=== PATIENT | male | born 1950 | race Caucasian/White ===

== ENCOUNTER 2017-06-03 06:30 | Inpatient (IN) | payer MEDICARE, MEDICAID ==
[~2017-06-03] VITALS: Ht 167.6 cm; Wt 80.7 kg
--- NOTE | 2017-06-03 06:51 | NUR ---
CALLED LAB FOR BLOOD DRAW.
--- NOTE | 2017-06-03 06:59 | NUR ---
PT REPORT GIVEN TO JOESPH JONES FOR CHRISTIAN
--- NOTE | 2017-06-03 07:05 | NUR ---
RECEIVED REPORT FOR CHRISTIAN. PATIENT REMAINS IN STABLE CONDITION. EMT AT BEDSIDE FOR EKG.
--- NOTE | 2017-06-03 07:32 | NUR ---
CALLED LAB ONCE AGAIN FOR BLOOD DRAW, INFORMED GRAIN COMBINER ON THE WAY FOR DRAW.
--- NOTE | 2017-06-03 07:40 | NUR ---
SAMPLER RADIOACTIVE WASTE AT BEDSIDE.
--- NOTE | 2017-06-03 07:43 | NUR ---
WAREHOUSE HANDLER AT BEDSIDE FOR BLOOD DRAW.
[2017-06-03 08:16] LABS: BASOPHILS % (AUTO) 0.5 % (0.0-2.0); EOSINOPHILS % (AUTO) 2.5 % (0.0-6.0); HEMATOCRIT 34 % (39-51); HEMOGLOBIN 10.9 g/dL (13.5-17.5); LYMPHOCYTES # (AUTO) 2.4 /CMM (0.8-4.8); LYMPHOCYTES % (AUTO) 23.9 % (20.0-44.0); MEAN CORPUSCULAR HGB CONC 32 g/dl (31.0-36.0); MEAN CORPUSCULAR VOLUME 86 fL (80-96); MONOCYTES # (AUTO) 0.7 /CMM (0.1-1.30); MONOCYTES % (AUTO) 6.8 % (2.0-12.0); NEUTROPHILS # (AUTO) 6.6 /CMM (1.8-8.9); NEUTROPHILS % (AUTO) 66.3 % (43.0-81.0); PLATELET COUNT (AUTO) 307 /CMM (150-450); RDW COEFFICIENT OF VARIATION 17.5 (11.5-15.0); RED BLOOD CELL COUNT(AUTO) 3.93 MIL/uL (4.5-6.0); WHITE BLOOD COUNT (AUTO) 9.9 K/uL (4.3-11.0)
[2017-06-03 08:25] LABS: CALCIUM, SERUM 8.4 mg/dL (8.5-10.1); CARBON DIOXIDE 25 mmol/L (21-32); CHLORIDE 101 mmol/L (98-107); CREATININE 1.4 mg/dL (0.6-1.3); GLUCOSE 141 mg/dL (74-106); POTASSIUM 4.8 mmol/L (3.5-5.1); SODIUM SERUM 136 mmol/L (136-145); UREA NITROGEN, BLOOD 26 mg/dL (7-18)
[2017-06-03 08:31] LABS: ALANINE AMINOTRANSFERASE 14 U/L (12-78); ALBUMIN 2.5 g/dL (3.4-5.0); ALKALINE PHOSPHATASE 145 U/L (46-116); ASPARTATE AMINOTRANSFERASE 17 U/L (15-37); BILIRUBIN,DIRECT 0.4 mg/dL (0.0-0.2); BILIRUBIN,TOTAL 0.8 mg/dL (0.2-1.0); TOTAL PROTEIN, SERUM 7.4 g/dL (6.4-8.2)
[2017-06-03 08:36] LABS: TROPONIN I < 0.017 ng/mL (0.00-0.056)
--- NOTE | 2017-06-03 08:42 | NUR ---
[facility] paged
[2017-06-03 08:43] LABS: INR 1.11 (0.87-1.13)
--- NOTE | 2017-06-03 09:42 | NUR ---
NEW IV STARTED ON RAC, 20G. BLOOD DRAWN AND SENT TO LAB.
--- NOTE | 2017-06-03 09:47 | NUR ---
REPORT GIVEN TO RNDARIAN FOR CHRISTIAN UPON ADMISSION. PATIENT TRANSPORTED TO [facility] VIA STRETCHER.
[2017-06-03] MEDS ORDERED: HYDR4TAB4 PO (09:49)
[2017-06-03] MEDS ORDERED: HYDR-552 GT (09:49)
[2017-06-03] MEDS ORDERED: ACET-868 GT (09:49)
[2017-06-03] MEDS ORDERED: ZINC220C8 GT (09:49)
[2017-06-03] MEDS ORDERED: INSU100V27 SQ (09:49)
[2017-06-03] MEDS ORDERED: CARV3.122 GT (09:49)
[2017-06-03] MEDS ORDERED: NAPR-1009 GT (09:49)
[2017-06-03] MEDS ORDERED: HEPA50008 SQ (09:49)
[2017-06-03] MEDS ORDERED: PANT40TA2 PO (09:49)
[2017-06-03] MEDS ORDERED: ATOR40TA GT (09:49)
[2017-06-03] MEDS ORDERED: ASPI-1169 GT (09:49)
[2017-06-03] MEDS ORDERED: INSU100V7 SQ (09:49)
[2017-06-03] MEDS ORDERED: GABA-534 GT (09:49)
[2017-06-03] MEDS ORDERED: ALBU1.257 IH (09:49)
[2017-06-03] MEDS ORDERED: AMIO200T4 GT (09:49)
[2017-06-03] MEDS ORDERED: AMIN30LI4 GT (09:49)
[2017-06-03] MEDS ORDERED: ASCO500T9 PO (09:49)
[2017-06-03] MEDS ORDERED: MULT-447 PO (09:49)
--- NOTE | 2017-06-03 09:55 | NUR ---
RN NOTE RECEIVED REPORT FOR LUCIANO FROM ER. RECEIVED PATIENT ALERT ORIENTED X 4, HE IS ABLE TO MAKE THINGS KNOWN. EDUCATED PATIENT HIS SURROUNDINGS AND REMOTE TO ACCESS TO NURSE CALL BUTTON AND TV. BREATHING EVEN AND UNLABORED WITH NO DISTRESS NOTED. ROOM AIR TOLERATED. PATIENT STATES HE HAS PAIN IN HIS LEFT ARM. PRN MEDICATION WILL BE GIVEN. DENIES ANY CHEAT PAIN. RIGHT AC GAUGE 20 IV SITE INTACT AND PATENT. PATIENT SKIN ASSESSMENT COMPLETE PHOTOS TAKEN AND CHARTED. WOUND CONSULT ORDERED. BED LOCK AND LOW POSITION. ALL SAFETY MEASURES PROVIDED. WILL CONTINUE TO MONITOR CONTINUITY OF CARE.
[2017-06-03] MEDS ORDERED: ACETAMINOPHEN 325 MG TABLET PO PRN (11:00)
[2017-06-03] MEDS ORDERED: MAGNESIUM HYDROXIDE 30 ML UDC PO PRN (11:00)
[2017-06-03] MEDS ORDERED: ONDANSETRON HCL/PF 4 MG/2 ML VIAL IVP PRN (11:00)
[2017-06-03] MEDS ORDERED: NAPROXEN 500 MG TABLET PO PRN (11:00)
[2017-06-03] MEDS ORDERED: HYDROCODONE/APAP 5/325MG 1 EACH TABLET PO PRN (11:00)
[2017-06-03] MEDS ORDERED: MAG HYDROX/AL HYDROX/SIMETH 30 ML UDC PO PRN (11:00)
[2017-06-03] MEDS ORDERED: ALBUTEROL HALF STRENGTH 1.25 MG/3 ML VIAL.NEB IH PRN (11:00)
[2017-06-03] MEDS ORDERED: DEXTROSE 50%-WATER 50 ML DISP.SYRIN IV PRN (11:00)
[2017-06-03 11:03] VITALS: BP 140/90
[2017-06-03] MEDS: BLOOD SUGAR DIAGNOSTIC 1 EACH STRIP VI SCH ×3 (11:44→21:22)
[2017-06-03] MEDS: GABAPENTIN 300 MG CAPSULE PO SCH ×2 (12:02→16:52)
[2017-06-03] MEDS: MULTIVITAMINS,THERAGRAN 1 UDTAB TABLET PO SCH (12:02)
[2017-06-03] MEDS ORDERED: HEPARIN SODIUM, PORCINE 5000 UNITS/1 ML VIAL SQ SCH (13:00)
--- NOTE | 2017-06-03 16:20 | NUR ---
RN NOTE WOUND DEBRIDEMENT OF THE RIGHT HIP WOUND WAS DONE BY DR LEON. PATIENT SIGNED CONSENT.
[2017-06-03] MEDS: PROSOURCE / PROSTAT (PYXIS) 30 ML UDC PO SCH (16:52)
[2017-06-03] MEDS: HYDROMORPHONE HCL 2 MG TABLET PO PRN (16:53)
--- NOTE | 2017-06-03 19:30 | NUR ---
RN/TELE NOTES: RECEIVED PT. IN BED A/O X 4 . DENIES ANY C/O PAIN OR SOB AT PRESENT. ON TELE MONITOR W/ SR @ 88. HAS EXTERNAL DEBIB ON CHEST. USES URINAL. HAS MULTIPLE UPPER ARMS, HAND, BILATERAL KNEES PETECHIAE. HAS RAC G 20 SL PATENT AND INTACT W/ NO S/S OF INFECTION/INFILTRATION NOTED. CALL LIGHT W/ REACH. WILL CONTINUE TO MONITOR.
--- NOTE | 2017-06-03 19:39 | NUR ---
RN NOTE PATIENT REMAINED STABLE THROUGHOUT SHIFT, NO ACUTE CHANGES NOTED. PATIENT ON FIBROUS PLASTERER OF SR HR OF 90. BREATHING EVEN AND UNLABORED WITH NO DISTRESS NOTED. WILL ENDORSE TO NEXT SHIFT TO CONTINUE CONTINUITY OF CARE.
[2017-06-03 20:00] VITALS: BP 111/68
[2017-06-03] MEDS: ATORVASTATIN 40 MG TABLET PO SCH (21:20)
[2017-06-03] MEDS: CARVEDILOL 3.125 MG TABLET PO SCH (21:20)
[2017-06-03] MEDS: INSULIN GLARGINE, 100 UNIT/ML CARTRIDGE SQ SCH (21:20)
--- NOTE | 2017-06-03 22:16 | NUR ---
RN/TELE NOTES: BLOOD SUGAR 120. DUE MEDS GIVEN. WILL CONTINUE TO MONITOR.
[2017-06-04] VITALS: BP 110/69
[2017-06-04 04:00] VITALS: BP 121/73
[2017-06-04] MEDS: HYDROMORPHONE HCL 2 MG TABLET PO PRN ×4 (04:53→22:02)
--- NOTE | 2017-06-04 07:07 | NUR ---
RN/TELE NOTES: DRESSING DONE PER ORDER. PRN MEDS GIVEN PER PT. REQUEST W/ GOOD EFFECT. NO ACUTE CHANGES NOTED DURING THIS SHIFT. REPORT GIVEN TO AM NURSE FOR CHRISTIAN.
[2017-06-04] MEDS: BLOOD SUGAR DIAGNOSTIC 1 EACH STRIP VI SCH ×4 (07:43→21:57)
[2017-06-04] MEDS: INSULIN REGULAR, HUMAN 100 UNIT/ML 3 ML VIAL SQ PRN ×4 (07:45→21:59)
--- NOTE | 2017-06-04 07:45 | NUR ---
RN NOTE RECEIVED PATIENT AWAKE WATCHING T.V, ALERT AND ORIENTED X 4, HE IS ABLE TO MAKE THINGS KNOWN. BREATHING EVEN UNLABORED WITH NO DISTRESS NOTED. ROOM AIR TOLERATED SATURATING WELL. ON CARDIAC MONITORING OF SINUS RHYTHM HR OF 84. DENIES ANY PAIN AT THIS TIME. RIGHT AC IV SITE INTACT AND PATENT. BED LOCK AND LOW POSITION. ALL SAFETY MEASURES PROVIDED. WILL CONTINUE TO MONITOR CONTINUITY OF CARE.
[2017-06-04 08:00] VITALS: BP 117/74
[2017-06-04 08:05] LABS: BASOPHILS % (AUTO) 0.4 % (0.0-2.0); EOSINOPHILS % (AUTO) 3.8 % (0.0-6.0); HEMATOCRIT 31 % (39-51); HEMOGLOBIN 9.7 g/dL (13.5-17.5); LYMPHOCYTES % (AUTO) 25.7 % (20.0-44.0); MEAN CORPUSCULAR HGB CONC 32 g/dl (31.0-36.0); MEAN CORPUSCULAR VOLUME 85 fL (80-96); MONOCYTES # (AUTO) 0.5 /CMM (0.1-1.30); MONOCYTES % (AUTO) 6.1 % (2.0-12.0); PLATELET COUNT (AUTO) 258 /CMM (150-450); RDW COEFFICIENT OF VARIATION 18.8 (11.5-15.0); RED BLOOD CELL COUNT(AUTO) 3.59 MIL/uL (4.5-6.0); WHITE BLOOD COUNT (AUTO) 7.8 K/uL (4.3-11.0)
[2017-06-04 08:22] LABS: CREATININE 1.3 mg/dL (0.6-1.3); MAGNESIUM 1.8 mg/dL (1.8-2.4); PHOSPHORUS 3.6 mg/dL (2.5-4.9); POTASSIUM 4.4 mmol/L (3.5-5.1)
[2017-06-04] MEDS: ZINC SULFATE 220 MG CAPSULE PO SCH (08:37)
[2017-06-04] MEDS: ASCORBIC ACID 500 MG TABLET PO SCH (08:37)
[2017-06-04] MEDS: MULTIVITAMINS,THERAGRAN 1 UDTAB TABLET PO SCH (08:37)
[2017-06-04] MEDS: PROSOURCE / PROSTAT (PYXIS) 30 ML UDC PO SCH ×2 (08:37→16:15)
[2017-06-04] MEDS: CARVEDILOL 3.125 MG TABLET PO SCH ×2 (08:38→22:03)
[2017-06-04] MEDS: GABAPENTIN 300 MG CAPSULE PO SCH ×3 (08:38→16:16)
[2017-06-04] MEDS: ASPIRIN 81 MG TAB.CHEW PO SCH (08:38)
[2017-06-04] MEDS: PANTOPRAZOLE 40 MG TABLET.DR PO SCH (08:39)
--- NOTE | 2017-06-04 08:40 | NUR ---
WOUND CARE CONSULT: PT FOLLOWED BY SURGICAL TEAM FOR WOUNDS. DEFER TO SURGICAL TEAM FOR WOUND TREATMENT PLAN. ALL SKIN PROTECTION AND PRESSURE ULCER PREVENTION MEASURES IN PLACE AND DISCUSSED WITH NURSING STAFF. PT ON [place] ISOFLEX LOW AIRLOSS BED. CURRENT THOM SCORE IS 15.
[2017-06-04] MEDS ORDERED: AMIODARONE HCL 200 MG TABLET PO SCH (09:00)
[2017-06-04] MEDS: HYDROGEL DRESSING 90 GM TUBE TP SCH (09:26)
[2017-06-04 12:00] VITALS: BP 99/58
[2017-06-04] MEDS ORDERED: FEE PK DOSING 1 MIN EA MC ONE (15:50)
[2017-06-04 16:00] VITALS: BP 128/64
[2017-06-04] MEDS: CEFTRIAXONE 2 G in IV D5W 100 ML IV SCH (17:15)
[2017-06-04] MEDS: VANCOMYCIN 1 GM in IV D5W 250 ML IV SCH (18:11)
--- NOTE | 2017-06-04 19:07 | NUR ---
RN NOTE PATIENT REMAINED STABLE THROUGHOUT SHIFT, NO ACUTE CHANGES NOTED. BREATHING EVEN AND UNLABORED WITH NO DISTRESS NOTED. PATIENT WAS PLACED ON SPECIAL MATTRESS (AIR LOSS) WITH CONTINUE WOUND TREATEMNT ORDERED. WILL ENDORSE TO NEXT SHIFT TO CONTINUE CONTINUITY OF CARE.
--- NOTE | 2017-06-04 19:30 | NUR ---
RN/MS NOTES: RECEIVED PT. IN BED A/O X 4 . DENIES ANY C/O PAIN OR SOB AT PRESENT. HAS EXTERNAL DEBIB ON CHEST. USES URINAL. HAS MULTIPLE UPPER ARMS, HAND, BILATERAL KNEES PETECHIAE. HAS RAC G 20 SL PATENT AND INTACT W/ NO S/S OF INFECTION/INFILTRATION NOTED. CALL LIGHT W/ REACH. WILL CONTINUE TO MONITOR.
[2017-06-04 20:00] VITALS: BP 132/76
[2017-06-04] MEDS: INSULIN GLARGINE, 100 UNIT/ML CARTRIDGE SQ SCH (22:01)
[2017-06-04] MEDS: ATORVASTATIN 40 MG TABLET PO SCH (22:02)
[2017-06-04] MEDS: NYSTATIN/TRIAMCIN CREAM 15 GM TUBE TP SCH (22:02)
[2017-06-05 01:39] VITALS: BP 113/73
[2017-06-05] MEDS: VANCOMYCIN 1 GM in IV D5W 250 ML IV SCH ×2 (03:15→16:09)
[2017-06-05 04:00] VITALS: BP 149/77
[2017-06-05] MEDS: HYDROMORPHONE HCL 2 MG TABLET PO PRN ×5 (04:34→18:48)
[2017-06-05 06:47] LABS: CALCIUM, SERUM 7.7 mg/dL (8.5-10.1); CREATININE 1.3 mg/dL (0.6-1.3); POTASSIUM 4.3 mmol/L (3.5-5.1)
--- NOTE | 2017-06-05 07:14 | NUR ---
RN/MS NOTES: NO ACUTE CHANGES NOTED DURING THIS SHIFT. REPORT GIVEN TO AM NURSE FOR CHRISTIAN.
[2017-06-05] MEDS ORDERED: FUROSEMIDE 20 MG/2 ML VIAL IV ONE (07:30)
--- NOTE | 2017-06-05 07:30 | NUR ---
RN NOTE RECEIVED PATIENT AWAKE WATCHING T.V, ALERT AND ORIENTED X 4, HE IS ABLE TO MAKE THINGS KNOWN. BREATHING EVEN UNLABORED WITH NO DISTRESS NOTED. SEEN BY AUTO PORTER WITH NEW ORDER FOR LASIX 40MG IV PUSH NOW ONE TIME. PATIENT MADE AWARE. CURRENTLY ON 2L OF O2 VIA NC SATURATING WELL 94%. URINAL AT BEDSIDE. RIGHT AC IV SITE INTACT AND PATENT. BED LOCK AND LOW POSITION. ALL SAFETY MEASURES PROVIDED. WILL CONTINUE TO MONITOR CONTINUITY OF CARE.
[2017-06-05] MEDS: BLOOD SUGAR DIAGNOSTIC 1 EACH STRIP VI SCH ×4 (07:41→21:50)
[2017-06-05] MEDS: *INSULIN REGULAR(HUMULIN R)HUM 100 UNIT/ML VIAL SQ PRN ×2 (07:44→11:43)
[2017-06-05 08:00] VITALS: BP 113/91
[2017-06-05] MEDS: NYSTATIN/TRIAMCIN CREAM 15 GM TUBE TP SCH ×2 (08:24→21:50)
[2017-06-05] MEDS: MUPIROCIN OINT 2% 22 GM TUBE SCH ×2 (08:24→21:44)
[2017-06-05] MEDS: ZINC SULFATE 220 MG CAPSULE PO SCH (08:24)
[2017-06-05] MEDS: MULTIVITAMINS,THERAGRAN 1 UDTAB TABLET PO SCH (08:24)
[2017-06-05] MEDS: ASCORBIC ACID 500 MG TABLET PO SCH (08:24)
[2017-06-05] MEDS: ASPIRIN 81 MG TAB.CHEW PO SCH (08:24)
[2017-06-05] MEDS: GABAPENTIN 300 MG CAPSULE PO SCH ×3 (08:24→16:42)
[2017-06-05] MEDS: PANTOPRAZOLE 40 MG TABLET.DR PO SCH (08:24)
[2017-06-05] MEDS: CARVEDILOL 3.125 MG TABLET PO SCH ×2 (08:25→21:44)
[2017-06-05] MEDS: PROSOURCE / PROSTAT (PYXIS) 30 ML UDC PO SCH ×2 (08:26→16:42)
[2017-06-05] MEDS: HYDROGEL DRESSING 90 GM TUBE TP SCH (08:27)
[2017-06-05 10:13] LABS: IMMUNOGLOBULIN A, SERUM 835 mg/dL (61-437); IMMUNOGLOBULIN G, SERUM 1820 mg/dL (700-1600); IMMUNOGLOBULIN M, SERUM 44 mg/dL (20-172)
[2017-06-05 12:00] VITALS: BP 124/65
[2017-06-05 12:13] LABS: *EBV AB VCA, IgG >600.0 U/mL (0.0-17.9); *EBV AB VCA, IgM <36.0 U/mL (0.0-35.9)
[2017-06-05] MEDS: CEFTRIAXONE 2 G in IV D5W 100 ML IV SCH (15:24)
[2017-06-05 16:00] VITALS: BP 101/70
[2017-06-05] MEDS: INSULIN REGULAR, HUMAN 100 UNIT/ML 3 ML VIAL SQ PRN (17:22)
--- NOTE | 2017-06-05 19:06 | NUR ---
RN NOTE PATIENT REMAINED STABLE THROUGHOUT SHIFT, NO ACUTE CHANGES NOTED. BREATHING EVEN AND UNLABORED WITH NO DISTRESS NOTED. ALL MEDS GIVEN ORDERED. CONTINUED WOUND TREATMENT ORDERED. WILL ENDORSE TO NEXT SHIFT TO CONTINUE CONTINUITY OF CARE.
--- NOTE | 2017-06-05 19:30 | NUR ---
RN/MS NOTES: RECEIVED PT. IN BED A/O X 4 . DENIES ANY C/O PAIN OR SOB AT PRESENT. HAS EXTERNAL DEFIB ON CHEST. USES URINAL. HAS MULTIPLE UPPER ARMS, HAND, BILATERAL KNEES PETECHIAE. HAS RAC G 20 SL PATENT AND INTACT W/ NO S/S OF INFECTION/INFILTRATION NOTED. CALL LIGHT W/ REACH. WILL CONTINUE TO MONITOR.
[2017-06-05 20:00] VITALS: BP 120/68
[2017-06-05] MEDS: ATORVASTATIN 40 MG TABLET PO SCH (21:44)
[2017-06-05] MEDS: INSULIN GLARGINE, 100 UNIT/ML CARTRIDGE SQ SCH (21:45)
[2017-06-06] MEDS: HYDROMORPHONE HCL 2 MG TABLET PO PRN ×3 (02:30→20:00)
[2017-06-06 03:23] LABS: CREATININE 1.3 mg/dL (0.6-1.3); POTASSIUM 4.6 mmol/L (3.5-5.1)
[2017-06-06 04:00] VITALS: BP 114/72
[2017-06-06] MEDS: VANCOMYCIN 1 GM in IV D5W 250 ML IV SCH (04:03)
[2017-06-06] MEDS: BLOOD SUGAR DIAGNOSTIC 1 EACH STRIP VI SCH ×4 (07:30→22:22)
--- NOTE | 2017-06-06 07:30 | NUR ---
received patient in bed.no s/s of distress.breathing even and unlabored.no c/o pain .i.v cdi and patent.will continue to monitor for changes.
[2017-06-06] MEDS: GABAPENTIN 300 MG CAPSULE PO SCH ×2 (08:45→16:31)
[2017-06-06] MEDS: CARVEDILOL 3.125 MG TABLET PO SCH ×2 (08:45→19:59)
[2017-06-06] MEDS: MULTIVITAMINS,THERAGRAN 1 UDTAB TABLET PO SCH (08:45)
[2017-06-06] MEDS: ASCORBIC ACID 500 MG TABLET PO SCH (08:45)
[2017-06-06] MEDS: ASPIRIN 81 MG TAB.CHEW PO SCH (08:45)
[2017-06-06] MEDS: ZINC SULFATE 220 MG CAPSULE PO SCH (08:45)
[2017-06-06] MEDS: PANTOPRAZOLE 40 MG TABLET.DR PO SCH (08:58)
[2017-06-06] MEDS: HYDROGEL DRESSING 90 GM TUBE TP SCH (09:00)
[2017-06-06] MEDS: NYSTATIN/TRIAMCIN CREAM 15 GM TUBE TP SCH ×2 (09:00→20:02)
[2017-06-06] MEDS: PROSOURCE / PROSTAT (PYXIS) 30 ML UDC PO SCH ×2 (09:00→16:33)
[2017-06-06] MEDS: MUPIROCIN OINT 2% 22 GM TUBE SCH ×2 (09:00→20:02)
[2017-06-06 11:07] LABS: CMV, IgG >10.00 U/mL (0.00-0.59); CMV, IgM <30.0 AU/mL (0.0-29.9)
[2017-06-06 12:00] VITALS: BP 126/75
[2017-06-06] MEDS ORDERED: GABAPENTIN 100 MG CAPSULE PO ONE (14:30)
[2017-06-06] MEDS: CEFTRIAXONE 2 G in IV D5W 100 ML IV SCH (16:31)
--- NOTE | 2017-06-06 19:29 | NUR ---
Pt. in stable condition no s/s of distress.no sob noted.All M.D orders noted and carried out.will continue to monitor for changes.
[2017-06-06 20:00] VITALS: BP 118/77
[2017-06-06] MEDS ORDERED: VANCOMYCIN 1 GM in IV D5W 250 ML IV SCH (22:00)
[2017-06-06] MEDS: ATORVASTATIN 40 MG TABLET PO SCH (22:19)
[2017-06-06] MEDS: INSULIN GLARGINE, 100 UNIT/ML CARTRIDGE SQ SCH (22:21)
[2017-06-06] MEDS: *INSULIN REGULAR(HUMULIN R)HUM 100 UNIT/ML VIAL SQ PRN (22:23)
[2017-06-07] MEDS: HYDROMORPHONE HCL 2 MG TABLET PO PRN ×4 (00:52→20:56)
[2017-06-07 04:00] VITALS: BP 110/74
[2017-06-07 06:41] LABS: CALCIUM, SERUM 7.9 mg/dL (8.5-10.1); CREATININE 1.3 mg/dL (0.6-1.3); POTASSIUM 4.2 mmol/L (3.5-5.1)
[2017-06-07] MEDS: BLOOD SUGAR DIAGNOSTIC 1 EACH STRIP VI SCH ×4 (07:56→22:09)
[2017-06-07] MEDS: Z GUARD REMEDY 2 OZ OINT TP PRN ×3 (07:57→16:23)
[2017-06-07] MEDS: PANTOPRAZOLE 40 MG TABLET.DR PO SCH (07:57)
[2017-06-07 08:00] VITALS: BP 115/65
[2017-06-07 08:08] LABS: *SPE A/G RATIO 0.7 (0.7-1.7); *SPE ALBUMIN 2.9 g/dL (2.9-4.4); *SPE ALPHA-1-GLOBULIN 0.3 g/dL (0.0-0.4); *SPE ALPHA-2-GLOBULIN 0.8 g/dL (0.4-1.0); *SPE BETA GLOBULIN 1.4 g/dL (0.7-1.3); *SPE GLOBULIN, TOTAL 4.2 g/dL (2.2-3.9); *SPE M-SPIKE Not Observed g/dL (Not Observed); *SPEGAMMA GLOBULIN 1.7 g/dL (0.4-1.8)
[2017-06-07] MEDS: PROSOURCE / PROSTAT (PYXIS) 30 ML UDC PO SCH ×2 (08:20→16:21)
[2017-06-07] MEDS: ASPIRIN 81 MG TAB.CHEW PO SCH (08:20)
[2017-06-07] MEDS: ASCORBIC ACID 500 MG TABLET PO SCH (08:20)
[2017-06-07] MEDS: MULTIVITAMINS,THERAGRAN 1 UDTAB TABLET PO SCH (08:20)
[2017-06-07] MEDS: ZINC SULFATE 220 MG CAPSULE PO SCH (08:20)
[2017-06-07] MEDS: GABAPENTIN 300 MG CAPSULE PO SCH ×3 (08:20→16:21)
[2017-06-07] MEDS: HYDROGEL DRESSING 90 GM TUBE TP SCH (08:21)
[2017-06-07] MEDS: CARVEDILOL 3.125 MG TABLET PO SCH ×2 (08:21→20:55)
[2017-06-07] MEDS: MUPIROCIN OINT 2% 22 GM TUBE SCH ×2 (08:22→21:59)
[2017-06-07] MEDS: NYSTATIN/TRIAMCIN CREAM 15 GM TUBE TP SCH ×2 (08:22→21:59)
[2017-06-07] MEDS: INSULIN REGULAR, HUMAN 100 UNIT/ML 3 ML VIAL SQ PRN ×2 (12:29→17:37)
--- NOTE | 2017-06-07 12:30 | NUR ---
MS RN NOTES PATIENT REFUSING PILLOWS TO TURN AND OFFLOAD. PALCED BILATERAL PILLOWS ON LEFT AND RIGHT TO HELP OFFLOAD. EDUCATED ON SKIN CARE
--- NOTE | 2017-06-07 14:01 | NUR ---
MS RN NOTES TRANSPORTATION SOLUTIONS MANAGER RADHA AT BEDSIDE TO ASSIST WITH WOUND VAC APPLICATION PER HEMAL PASTRANA. PATIENT REQUESTING ANOTHER 4MG PO DOSE OF DILAUDID FOR WOUND VAC APPLICATION. SPOKE WITH MD BARRIENTOS NOTIFIED WE JUST GAVE A 4MG DOSE AT 1225. PER MD JACKSON TO GIVE ANOTHER 4MG DOSE PO DILAUDID NOW.
[2017-06-07] MEDS ORDERED: HYDROMORPHONE HCL 2 MG TABLET PO ONE (14:30)
--- NOTE | 2017-06-07 14:59 | NUR ---
MS RN NOTES WOUND VAC APPLIED TO PATIENT PER ORDER WITH ASSISTANCE FROM RADHA SIU RN. NO COMPLICATIONS NOTED. PATIENT REPOSITIONED TO LEFT LATERAL
--- NOTE | 2017-06-07 14:59 | NUR ---
WOUND CARE: WOUND VAC ORDER RECEIVED AND ASSISTANCE PROVIDED TO NURSING STAFF. KCI VAC APPLIED TO LEFT HIP WOUND. LEFT HIP WOUND MEASURES 14.5 CM X 4.5CM X 3.5CM WITH RED GRANULATION TISSUE, SCANT PINK DRAINAGE, NO ODOR. SKIN PREP AND VAC DRAPE APPLIED TO PERIWOUND AREA, 2 PIECES OF GRANUFOAM USED FOR WOUND WITH BRIDGING TECHNIQUE. VAC AT 125mmHg CONTINUOUS SETTING. PT TOLERATED WELL.
[2017-06-07 16:00] VITALS: BP 118/70
[2017-06-07] MEDS: CEFTRIAXONE 2 G in IV D5W 100 ML IV SCH (16:21)
[2017-06-07] MEDS: VANCOMYCIN 1 GM in IV D5W 250 ML IV SCH (16:57)
--- NOTE | 2017-06-07 19:30 | NUR ---
MS RN CLOSING PATIENT STABLE ALL DUE MEDS GIVEN AND ALL NEEDS MET. PATIENT WITH WOUND VAC RUNNING ORDERED. IV SITE CLEAN DRY AND INTACT. ALL DUE MEDS GIVEN AND ALL NEEDS MET. PATIENT STATES HE WILL NOTIFY WHEN READY FOR ANOTHER DILAUDID PO. SAFETY PRECAUTIONS IN PLACE AND CARE ENDORSED TO RN FOR CHRISTIAN
--- NOTE | 2017-06-07 19:37 | NUR ---
RN MS NOTES RECEIVED PATIENT IN BED, ASLEEP BUT EASILY AROUSABLE, NO SOB NOTED, IN NO ACUTE DISTRESS, NOTED PATIENT WITH CONTINUOUS WOUND VAC IN PLACE AND INTACT. ALL PATIENT'S NEEDS ATTENDED TO AT THIS TIME, PLACED BED IN LOW POSITION AND LOCKED IN PLACE. CALL LIGHT IN EASY REACH. WILL CONTINUE TO MONITOR.
--- NOTE | 2017-06-07 21:00 | NUR ---
RN NOTES CALLED [facility] AND SPOKE WITH RN AQUARIUM TANK ATTENDANT, JAIRO TO REQUEST FOR PATIENT'S RECORDS. PER RN SUP, PATIENT'S RECORDS CAN BE OBTAINED IN THE AM FROM [facility] REC[facility]DS DEPT. WILL ENDORSE TO AM SHIFT NURSE.
[2017-06-07] MEDS: ATORVASTATIN 40 MG TABLET PO SCH (21:59)
[2017-06-07] MEDS: *INSULIN REGULAR(HUMULIN R)HUM 100 UNIT/ML VIAL SQ PRN (22:12)
[2017-06-07] MEDS: INSULIN GLARGINE, 100 UNIT/ML CARTRIDGE SQ SCH (22:13)
[2017-06-08] VITALS: BP 124/73
[2017-06-08] MEDS: HYDROMORPHONE HCL 2 MG TABLET PO PRN ×4 (02:46→21:12)
[2017-06-08 04:00] VITALS: BP 113/72
--- NOTE | 2017-06-08 06:15 | NUR ---
RN NOTES PATIENT VERBALIZED THAT HE PREFERS BLOOD DRAW TO BE DONE AFTER BREAKFAST. RESPECTED PATIENT'S REQUEST.
--- NOTE | 2017-06-08 06:32 | NUR ---
RN CLOSING NOTES PATIENT IN BED, ASLEEP BUT EASILY AROUSABLE, ALERT AND ORIENTED X 3, NOTED WITH NO SOB, BREATHING EVEN AND UNLABORED. ALL PATIENT'S NEEDS ATTENDED TO THROUGHOUT THE SHIFT. CALL LIGHT WITHIN EASY REACH, PLACED BED IN LOW POSITION AND LOCKED IN PLACE. WILL ENDORSE TO AM SHIFT NURSE FOR CONTINUITY OF CARE.
[2017-06-08] MEDS: BLOOD SUGAR DIAGNOSTIC 1 EACH STRIP VI SCH ×4 (06:39→21:20)
--- NOTE | 2017-06-08 07:35 | NUR ---
RN OPENING NOTES PATIENT IN BED, ASLEEP BUT EASILY AROUSABLE, ALERT AND ORIENTED X 3, NOTED WITH NO SOB, BREATHING EVEN AND UNLABORED. IV ACCESS PATENT AND INTACT, NO REDNESS OR INFILTRATION NOTED, ISOLATION PRECAUTIONS OBSERVED. CALL LIGHT WITHIN EASY REACH, PLACED BED IN LOW POSITION AND LOCKED IN PLACE. WILL CONTINUE TO MONITOR
[2017-06-08 08:00] VITALS: BP 116/62
[2017-06-08] MEDS: GABAPENTIN 300 MG CAPSULE PO SCH ×3 (08:03→16:27)
[2017-06-08] MEDS: PANTOPRAZOLE 40 MG TABLET.DR PO SCH (08:03)
[2017-06-08] MEDS: MULTIVITAMINS,THERAGRAN 1 UDTAB TABLET PO SCH (08:03)
[2017-06-08] MEDS: ASPIRIN 81 MG TAB.CHEW PO SCH (08:03)
[2017-06-08] MEDS: ZINC SULFATE 220 MG CAPSULE PO SCH (08:03)
[2017-06-08] MEDS: ASCORBIC ACID 500 MG TABLET PO SCH (08:03)
[2017-06-08] MEDS: PROSOURCE / PROSTAT (PYXIS) 30 ML UDC PO SCH ×2 (08:05→16:27)
[2017-06-08] MEDS: INSULIN REGULAR, HUMAN 100 UNIT/ML 3 ML VIAL SQ PRN ×3 (08:07→16:40)
[2017-06-08] MEDS: CARVEDILOL 3.125 MG TABLET PO SCH ×2 (08:14→21:13)
[2017-06-08] MEDS: NYSTATIN/TRIAMCIN CREAM 15 GM TUBE TP SCH ×2 (08:15→21:19)
[2017-06-08] MEDS: MUPIROCIN OINT 2% 22 GM TUBE SCH ×2 (08:15→21:19)
[2017-06-08] MEDS: HYDROGEL DRESSING 90 GM TUBE TP SCH (08:16)
[2017-06-08] MEDS: FUROSEMIDE 40 MG/4 ML VIAL IV SCH (09:10)
[2017-06-08 10:04] LABS: CREATININE 1.1 mg/dL (0.6-1.3); POTASSIUM 4.3 mmol/L (3.5-5.1)
[2017-06-08] MEDS: CEFTRIAXONE 2 G in IV D5W 100 ML IV SCH (15:39)
[2017-06-08 16:00] VITALS: BP 116/72
[2017-06-08] MEDS: VANCOMYCIN 1 GM in IV D5W 250 ML IV SCH (16:41)
--- NOTE | 2017-06-08 19:32 | NUR ---
RN CLOSING NOTES PATIENT IN BED, ASLEEP BUT EASILY AROUSABLE, ALERT AND ORIENTED X 3, NOTED WITH NO SOB, BREATHING EVEN AND UNLABORED. IV ACCESS PATENT AND INTACT, NO REDNESS OR INFILTRATION NOTED, ISOLATION PRECAUTIONS OBSERVED. CALL LIGHT WITHIN EASY REACH, PLACED BED IN LOW POSITION AND LOCKED IN PLACE. ENDORSED TO NEXT SHIFT FOR CONTINUITY OF CARE
[2017-06-08 20:00] VITALS: BP_SYST 119; BP_SYST 120; BP_DIAS 63; BP_DIAS 68
--- NOTE | 2017-06-08 20:00 | NUR ---
RN NOTES PATIENT RESTING COMFORTABLY IN BED, ALERT AND ORIENTED X4, NO SOB, ON ROOM AIR, COMPLAINING OF PAIN TO RIGHT THIGH. PETECHAIE NOTED TO BILATERAL UPPER EXTREMITIES AND KNEES. RIGHT HIP IS CONNECTED TO WOUND VAC WITH SCANT DRAINAGE. WILL ADMINISTER PAIN MEDICATION WHEN DUE. KEPT SAFE, WILL CONTINUE TO MONITOR.
[2017-06-08] MEDS: ATORVASTATIN 40 MG TABLET PO SCH (21:12)
[2017-06-08] MEDS: *INSULIN REGULAR(HUMULIN R)HUM 100 UNIT/ML VIAL SQ PRN (21:14)
[2017-06-08] MEDS: INSULIN GLARGINE, 100 UNIT/ML CARTRIDGE SQ SCH (21:15)
--- NOTE | 2017-06-09 06:29 | NUR ---
RN NOTES Patient is resting comfortably, arouseably by voice, no SOB, no distress, tolerating room air, NC within reach for PRN use. Given Dilaudid for pain, reported good relief, slept intermittently for 5 hours, repositioned for comfort, wound vac in good working condition with scant serosangueneous drainage. Needs attended, call light within reach.
[2017-06-09] MEDS: HYDROMORPHONE HCL 2 MG TABLET PO PRN ×3 (07:25→18:17)
--- NOTE | 2017-06-09 07:40 | NUR ---
MS RN INITIAL NOTES PATIENT RECEIVED IN BED, ALERT AND ORIENTED X4, NO SOB, ON ROOM AIR, COMPLAINING OF PAIN 10 OUT OF 10 TO RIGHT THIGH. PETECHAIE NOTED TO BILATERAL UPPER EXTREMITIES AND KNEES. RIGHT HIP IS CONNECTED TO WOUND VAC WITH SCANT DRAINAGE. PAIN MEDICATION GIVEN VIA PM RN PRIOR TO HELP ALLEVIATE DISCOMFORT. CALL LIGHT IS WITHIN REACH . RN WILL CONTINUE TO MONITOR THROUGHOUT THE DAY .
[2017-06-09 08:00] VITALS: BP 104/71
[2017-06-09] MEDS: MULTIVITAMINS,THERAGRAN 1 UDTAB TABLET PO SCH (08:26)
[2017-06-09] MEDS: ZINC SULFATE 220 MG CAPSULE PO SCH (08:26)
[2017-06-09] MEDS: GABAPENTIN 300 MG CAPSULE PO SCH ×3 (08:26→16:21)
[2017-06-09] MEDS: FUROSEMIDE 40 MG/4 ML VIAL IV SCH (08:27)
[2017-06-09] MEDS: PANTOPRAZOLE 40 MG TABLET.DR PO SCH (08:27)
[2017-06-09] MEDS: ASCORBIC ACID 500 MG TABLET PO SCH (08:27)
[2017-06-09] MEDS: BLOOD SUGAR DIAGNOSTIC 1 EACH STRIP VI SCH ×4 (08:27→21:53)
[2017-06-09] MEDS: ASPIRIN 81 MG TAB.CHEW PO SCH (08:27)
[2017-06-09] MEDS: CARVEDILOL 3.125 MG TABLET PO SCH ×2 (08:27→21:53)
[2017-06-09] MEDS: MUPIROCIN OINT 2% 22 GM TUBE SCH ×2 (08:28→21:54)
[2017-06-09] MEDS: NYSTATIN/TRIAMCIN CREAM 15 GM TUBE TP SCH ×2 (08:28→21:53)
[2017-06-09] MEDS: HYDROGEL DRESSING 90 GM TUBE TP SCH (08:29)
[2017-06-09] MEDS: PROSOURCE / PROSTAT (PYXIS) 30 ML UDC PO SCH ×2 (08:33→16:28)
[2017-06-09 09:48] LABS: BASOPHILS % (AUTO) 0.4 % (0.0-2.0); EOSINOPHILS % (AUTO) 2.5 % (0.0-6.0); HEMATOCRIT 31 % (39-51); HEMOGLOBIN 9.7 g/dL (13.5-17.5); LYMPHOCYTES # (AUTO) 1.6 /CMM (0.8-4.8); LYMPHOCYTES % (AUTO) 19.2 % (20.0-44.0); MEAN CORPUSCULAR HGB CONC 31 g/dl (31.0-36.0); MEAN CORPUSCULAR VOLUME 87 fL (80-96); MONOCYTES # (AUTO) 0.5 /CMM (0.1-1.30); MONOCYTES % (AUTO) 6.6 % (2.0-12.0); NEUTROPHILS # (AUTO) 5.9 /CMM (1.8-8.9); NEUTROPHILS % (AUTO) 71.3 % (43.0-81.0); PLATELET COUNT (AUTO) 220 /CMM (150-450); RDW COEFFICIENT OF VARIATION 18.7 (11.5-15.0); RED BLOOD CELL COUNT(AUTO) 3.58 MIL/uL (4.5-6.0); WHITE BLOOD COUNT (AUTO) 8.2 K/uL (4.3-11.0)
--- NOTE | 2017-06-09 09:48 | NUR ---
WOUND CARE FOLLOW UP: PT SEEN FOR WOUND VAC CHANGE TODAY. RT HIP WOUND HAS RED GRANULATION TISSUE AND MEASURES 14.5CM X 4CM X 3.5CM, SMALL AMOUNT OF PINK DRAINAGE, NO ODOR. SKIN PREP AND VAC DRAPE APPLIED TO PERIWOUND AREAS, 2 PIECES OF GRANUFOAM TO WOUND. VAC AT 125mmHg CONTINUOUS SETTING. PT TOLERATED WELL. BRIDGING TECHNIQUE USED.
[2017-06-09 10:11] LABS: CALCIUM, SERUM 8.4 mg/dL (8.5-10.1); CREATININE 1.1 mg/dL (0.6-1.3); MAGNESIUM 2.1 mg/dL (1.8-2.4); PHOSPHORUS 3.5 mg/dL (2.5-4.9); POTASSIUM 4.5 mmol/L (3.5-5.1)
[2017-06-09 16:00] VITALS: BP 116/67
[2017-06-09] MEDS: CEFTRIAXONE 2 G in IV D5W 100 ML IV SCH (16:21)
[2017-06-09] MEDS: VANCOMYCIN 1 GM in IV D5W 250 ML IV SCH (18:17)
[2017-06-09 20:00] VITALS: BP 108/70
--- NOTE | 2017-06-09 20:07 | NUR ---
RN NOTE PATIENT REMAINS IN STABLE CONDITION ALERT AND ORIENTED PAIN NEEDS ASSESSED AND ATTENDED TO , PATIENT REMAIN ON NC , SATURATING WELL ABLE TO MAKE NEEDS KNOWN , PATIENT ABLE TO MAKE NEEDS KNOWN CONTINUATION OF CARE ENDORSED TO PM RN
[2017-06-09] MEDS: ATORVASTATIN 40 MG TABLET PO SCH (21:52)
[2017-06-09] MEDS: INSULIN GLARGINE, 100 UNIT/ML CARTRIDGE SQ SCH (21:56)
[2017-06-09] MEDS: *INSULIN REGULAR(HUMULIN R)HUM 100 UNIT/ML VIAL SQ PRN (22:01)
[2017-06-10] MEDS: HYDROMORPHONE HCL 2 MG TABLET PO PRN ×4 (03:53→22:39)
[2017-06-10 04:00] VITALS: BP 114/68
--- NOTE | 2017-06-10 07:20 | NUR ---
REPORT RECEIVED AT THE BEDSIDE. PATIENT IS RESTING COMFORTABLY IN BED. NO SOB OR DISTRESS NOTED AT THIS TIME. PATIENT REPORTS NO PAIN. WILL CHECK BLOOD SUGAR FOR MORNING. WOUND VAC CONNECTED AND DRAINING. BED IN A LOW POSITION, CALL LIGHT WITHIN PATIENT REACH. WILL MONITOR.
[2017-06-10 08:00] VITALS: BP 109/60
[2017-06-10 08:12] LABS: CALCIUM, SERUM 8.3 mg/dL (8.5-10.1); CREATININE 1.1 mg/dL (0.6-1.3); MAGNESIUM 2.4 mg/dL (1.8-2.4); PHOSPHORUS 3.4 mg/dL (2.5-4.9); POTASSIUM 4.7 mmol/L (3.5-5.1)
[2017-06-10 08:14] LABS: BASOPHILS # (AUTO) 0.1 /CMM (0.0-0.2); BASOPHILS % (AUTO) 0.6 % (0.0-2.0); EOSINOPHILS % (AUTO) 2.8 % (0.0-6.0); HEMATOCRIT 27 % (39-51); HEMOGLOBIN 8.6 g/dL (13.5-17.5); LYMPHOCYTES # (AUTO) 2.2 /CMM (0.8-4.8); MEAN CORPUSCULAR HGB CONC 32 g/dl (31.0-36.0); MEAN CORPUSCULAR VOLUME 86 fL (80-96); MONOCYTES # (AUTO) 0.6 /CMM (0.1-1.30); MONOCYTES % (AUTO) 7.1 % (2.0-12.0); NEUTROPHILS # (AUTO) 5.7 /CMM (1.8-8.9); NEUTROPHILS % (AUTO) 64.5 % (43.0-81.0); PLATELET COUNT (AUTO) 191 /CMM (150-450); RDW COEFFICIENT OF VARIATION 18.7 (11.5-15.0); RED BLOOD CELL COUNT(AUTO) 3.13 MIL/uL (4.5-6.0); WHITE BLOOD COUNT (AUTO) 8.9 K/uL (4.3-11.0)
[2017-06-10] MEDS: FUROSEMIDE 40 MG/4 ML VIAL IV SCH (08:43)
[2017-06-10] MEDS: GABAPENTIN 300 MG CAPSULE PO SCH ×3 (08:44→16:47)
[2017-06-10] MEDS: PANTOPRAZOLE 40 MG TABLET.DR PO SCH (08:44)
[2017-06-10] MEDS: ASCORBIC ACID 500 MG TABLET PO SCH (08:44)
[2017-06-10] MEDS: ASPIRIN 81 MG TAB.CHEW PO SCH (08:44)
[2017-06-10] MEDS: MULTIVITAMINS,THERAGRAN 1 UDTAB TABLET PO SCH (08:44)
[2017-06-10] MEDS: CARVEDILOL 3.125 MG TABLET PO SCH ×2 (08:44→22:05)
[2017-06-10] MEDS: PROSOURCE / PROSTAT (PYXIS) 30 ML UDC PO SCH ×2 (08:44→16:47)
[2017-06-10] MEDS: ZINC SULFATE 220 MG CAPSULE PO SCH (08:45)
[2017-06-10] MEDS: HYDROGEL DRESSING 90 GM TUBE TP SCH (08:45)
[2017-06-10] MEDS: BLOOD SUGAR DIAGNOSTIC 1 EACH STRIP VI SCH ×4 (08:45→22:32)
[2017-06-10] MEDS: NYSTATIN/TRIAMCIN CREAM 15 GM TUBE TP SCH ×2 (08:46→22:06)
[2017-06-10] MEDS: MUPIROCIN OINT 2% 22 GM TUBE SCH ×2 (08:46→22:06)
--- NOTE | 2017-06-10 10:58 | NUR ---
FIXED WING AIRCRAFT CREW CHIEF DISCUSSED RIGHT HIP WOUND TREATMENT PLAN UPON DISCHARGE FROM HOSPITAL WITH NURSING STAFF. CASE MANAGEMENT IS ARRANGING VAC THERAPY TO RESUME AT THE RECEIVING FACILITY ONCE SUPPLIES ARE AVAILABLE.
[2017-06-10] MEDS: INSULIN REGULAR, HUMAN 100 UNIT/ML 3 ML VIAL SQ PRN ×2 (12:04→16:48)
[2017-06-10 16:00] VITALS: BP 118/71
[2017-06-10] MEDS: CEFTRIAXONE 2 G in IV D5W 100 ML IV SCH (16:47)
[2017-06-10] MEDS: Z GUARD REMEDY 2 OZ OINT TP PRN (16:48)
[2017-06-10 20:00] VITALS: BP_SYST 108; BP_SYST 118; BP_DIAS 70; BP_DIAS 71
--- NOTE | 2017-06-10 20:00 | NUR ---
RN INITIAL NOTES RECEIVED PATIENT IN BED, AWAKE, ALERT AND ORIENTED X 3, NOTED WITH NO SOB, BREATHING EVEN AND UNLABORED. IV ACCESS PATENT AND INTACT, NO REDNESS OR INFILTRATION NOTED, ISOLATION PRECAUTIONS OBSERVED. CALL LIGHT WITHIN EASY REACH, PLACED BED IN LOW POSITION AND LOCKED IN PLACE. WILL CONTINUE TO MONITOR
[2017-06-10] MEDS: ATORVASTATIN 40 MG TABLET PO SCH (22:05)
[2017-06-10] MEDS: INSULIN GLARGINE, 100 UNIT/ML CARTRIDGE SQ SCH (22:32)
[2017-06-10] MEDS: *INSULIN REGULAR(HUMULIN R)HUM 100 UNIT/ML VIAL SQ PRN (22:51)
[2017-06-11 04:00] VITALS: BP 110/65
[2017-06-11] MEDS: HYDROMORPHONE HCL 2 MG TABLET PO PRN ×3 (05:04→14:06)
--- NOTE | 2017-06-11 06:52 | NUR ---
RN CLOSING NOTES PT REMAINED IN STABLE CONDITION THROUGHOUT THE SHIFT, ALL NEEDS MET, NO SIGNIFICANT CHANGES NOTED. WILL ENDORSE TO ONCOMING SHIFT.
[2017-06-11 08:00] VITALS: BP 117/66
[2017-06-11] MEDS: ZINC SULFATE 220 MG CAPSULE PO SCH (09:34)
[2017-06-11] MEDS: ASCORBIC ACID 500 MG TABLET PO SCH (09:34)
[2017-06-11] MEDS: ASPIRIN 81 MG TAB.CHEW PO SCH (09:34)
[2017-06-11] MEDS: GABAPENTIN 300 MG CAPSULE PO SCH ×3 (09:34→16:05)
[2017-06-11] MEDS: BLOOD SUGAR DIAGNOSTIC 1 EACH STRIP VI SCH ×2 (09:34→14:06)
[2017-06-11] MEDS: PANTOPRAZOLE 40 MG TABLET.DR PO SCH (09:34)
[2017-06-11] MEDS: MULTIVITAMINS,THERAGRAN 1 UDTAB TABLET PO SCH (09:34)
[2017-06-11] MEDS: HYDROGEL DRESSING 90 GM TUBE TP SCH (09:36)
[2017-06-11] MEDS: CARVEDILOL 3.125 MG TABLET PO SCH (09:36)
[2017-06-11] MEDS: FUROSEMIDE 40 MG/4 ML VIAL IV SCH (09:36)
[2017-06-11] MEDS: PROSOURCE / PROSTAT (PYXIS) 30 ML UDC PO SCH ×2 (09:36→16:06)
[2017-06-11] MEDS: MUPIROCIN OINT 2% 22 GM TUBE SCH (09:37)
[2017-06-11] MEDS: NYSTATIN/TRIAMCIN CREAM 15 GM TUBE TP SCH (09:37)
[2017-06-11] MEDS: INSULIN REGULAR, HUMAN 100 UNIT/ML 3 ML VIAL SQ PRN ×2 (09:59→16:08)
[2017-06-11 10:22] LABS: CALCIUM, SERUM 8.1 mg/dL (8.5-10.1); CREATININE 1.2 mg/dL (0.6-1.3); MAGNESIUM 2.2 mg/dL (1.8-2.4); POTASSIUM 4.6 mmol/L (3.5-5.1)
[2017-06-11 10:30] LABS: BASOPHILS # (AUTO) 0.1 /CMM (0.0-0.2); BASOPHILS % (AUTO) 0.9 % (0.0-2.0); HEMATOCRIT 29 % (39-51); MEAN CORPUSCULAR HGB CONC 31 g/dl (31.0-36.0); MEAN CORPUSCULAR VOLUME 86 fL (80-96); MONOCYTES # (AUTO) 0.6 /CMM (0.1-1.30); MONOCYTES % (AUTO) 6.4 % (2.0-12.0); NEUTROPHILS # (AUTO) 6.1 /CMM (1.8-8.9); NEUTROPHILS % (AUTO) 66.7 % (43.0-81.0); PLATELET COUNT (AUTO) 225 /CMM (150-450); RDW COEFFICIENT OF VARIATION 18.9 (11.5-15.0); RED BLOOD CELL COUNT(AUTO) 3.36 MIL/uL (4.5-6.0); WHITE BLOOD COUNT (AUTO) 9.1 K/uL (4.3-11.0)
--- NOTE | 2017-06-11 11:17 | NUR ---
WOUND CARE: PT REFUSED WOUND VAC DRESSING CHANGE AT THIS TIME. VAC FUNCTIONING WELL AT 125mm Hg CONTINUOUS SETTING. DISCUSSED WITH NURSING STAFF, LEASING PROFESSIONAL AND DR ADAMSON.
[2017-06-11 16:00] VITALS: BP_SYST 115; BP_SYST 117; BP_DIAS 56; BP_DIAS 72
[2017-06-11] MEDS: CEFTRIAXONE 2 G in IV D5W 100 ML IV SCH (16:05)
--- NOTE | 2017-06-11 19:30 | NUR ---
RN NOTES RECEIVED PT AWAKE, ALERT AND ORIENTED X4, DENIES ANY PAIN AND DISCOMFORT, ON ROOM AIR AND TOLERATED WELL. CARDIAC LIFE VEST ON. PER REPORT OF MORNING RN PT IS FOR DISCHARGE AWAITING FOR TRANSPORTATION. WOUND CARE DONE AND PICTURES TAKEN. IV ACCESS REMOVED. DISCHARGE INSTRUCTIONS GIVEN WITH DISCHARGE PAPERS SIGNED BY THE PT. ALL BELONGINGS PACKED. [facility] WILL FOLLOW UP FOR THE TRANSPORTATION.
[2017-06-11 20:00] VITALS: BP 113/61
--- NOTE | 2017-06-11 20:45 | NUR ---
RN NOTES PT AWAKE, ALERT , DENIES ANY PAIN AND DISCOMFORT.VITAL SIGNS STABLE BP 133/58, HR 80, RR 16, TEMP 98.6 O2SAT 93% AT RA, BS 183 MG/DL. CARDIAC LIFE VEST ON. WOUND DRESSING DRY, CLEAN AND INTACT. [facility], WITH ALL BELONGINGS SENT WITH THE PT. DISCHARGED IN STABLE CONDITION.
[2017-09-10] MEDS ORDERED: FOLI0.8T23 GT (18:14)
[2017-09-10] MEDS ORDERED: MULT-447 GT (18:14)
[2017-09-10] MEDS ORDERED: INSU100V3 SQ (18:14)
[2017-09-10] MEDS ORDERED: AMIK250V8 IV (18:16)
[2017-10-07] MEDS ORDERED: COLI150V12 IV ×2 (10:50→10:54)
== END 2017-06-11 20:45 | DRG 907 ==
LOC: ER 06:32 → MEDSG1 09:27 → TELE1 17:48 → MEDSG1 06-04 09:50
PROVIDERS: ADMIT Internal Medicine; ATTEND Internal Medicine
PROC: 0QB20ZZ Excision of Right Pelvic Bone, Open Approach (ICD-10-PCS; principal; 2017-06-03)
DX: T81.89XA Other complications of procedures, not elsewhere classified, initial encounter (principal); N17.0 Acute kidney failure with tubular necrosis; E43 Unspecified severe protein-calorie malnutrition; I50.23 Acute on chronic systolic (congestive) heart failure; I96 Gangrene, not elsewhere classified; L89.313 Pressure ulcer of right buttock, stage 3; D68.69 Other thrombophilia; E11.22 Type 2 diabetes mellitus with diabetic chronic kidney disease; L89.323 Pressure ulcer of left buttock, stage 3; G82.20 Paraplegia, unspecified; I13.0 Hypertensive heart and chronic kidney disease with heart failure and stage 1 through stage 4 chronic kidney disease, or unspecified chronic kidney disease; I42.9 Cardiomyopathy, unspecified; E11.52 Type 2 diabetes mellitus with diabetic peripheral angiopathy with gangrene; R23.3 Spontaneous ecchymoses; E11.42 Type 2 diabetes mellitus with diabetic polyneuropathy; I48.91 Unspecified atrial fibrillation; T45.515A Adverse effect of anticoagulants, initial encounter; N18.9 Chronic kidney disease, unspecified; I25.10 Atherosclerotic heart disease of native coronary artery without angina pectoris; Y92.89 Other specified places as the place of occurrence of the external cause; D64.9 Anemia, unspecified; G89.4 Chronic pain syndrome; Z96.649 Presence of unspecified artificial hip joint; Z95.810 Presence of automatic (implantable) cardiac defibrillator; Z95.5 Presence of coronary angioplasty implant and graft; E78.5 Hyperlipidemia, unspecified; I77.6 Arteritis, unspecified; E11.621 Type 2 diabetes mellitus with foot ulcer; L30.4 Erythema intertrigo; R13.10 Dysphagia, unspecified; Z22.322 Carrier or suspected carrier of Methicillin resistant Staphylococcus aureus; L97.529 Non-pressure chronic ulcer of other part of left foot with unspecified severity; K21.9 Gastro-esophageal reflux disease without esophagitis; S71.001A Unspecified open wound, right hip, initial encounter
CPT/HCPCS: 36415; 71045-TC; 80048-TC; 80076-TC; 80202-TC; 82595; 82784; 82962-TC; 83735-TC; 84100-TC; 84155; 84165; 84484-TC; 85025-TC; 85730-TC; 86140-TC; 86334; 86644; 86645; 86663; 86664; 86665; 86706; 86803; 87040-TC; 87081-TC; 87340; 93307-TC; 93971-TC; 97110-TC; 97530-TC; A4606; A6248; A6253; A6402; A6403; J0696; J1815; J1940; J3370; J7040; J7050; J7060; Z7610

== ENCOUNTER 2017-06-20 16:29 | Inpatient (IN) | payer MEDICARE, MEDICAID ==
[~2017-06-20] VITALS: Ht 167.6 cm; Wt 84.4 kg
[~2017-06-20 16:29] MED LIST: ACET-868 GT; ALBU1.257 IH; AMIN30LI4 GT; AMIO200T4 GT; ASCO500T9 PO; ASPI-1169 GT; ATOR40TA GT; CARV3.122 GT; GABA-534 GT; HYDR-552 GT; HYDR4TAB4 PO; INSU100V27 SQ; INSU100V7 SQ; MULT-447 PO; NAPR-1009 GT; PANT40TA2 PO; ZINC220C8 GT
--- NOTE | 2017-06-20 16:29 | NUR ---
BIB PRIVATE EMT [facility], REDNESS/SWELLING SCROTUM AND PENIS. PT HAS DEBBI PICC LINE STORAGE FACILITY RENTAL CLERK
[2017-06-20] MEDS ORDERED: PIPERACILLIN /TAZOBACTAM 3.375 G in IV D5W 50 ML IV ONE (17:30)
[2017-06-20] MEDS ORDERED: VANCOMYCIN 1 GM in IV D5W 250 ML IV ONE (17:30)
[2017-06-20] MEDS ORDERED: IV NS 0.9% 1,000 ML BAG IV ONE ×2 (17:30)
[2017-06-20 17:37] LABS: BASOPHILS # (AUTO) 0.1 /CMM (0.0-0.2); BASOPHILS % (AUTO) 1.2 % (0.0-2.0); EOSINOPHILS % (AUTO) 2.9 % (0.0-6.0); HEMATOCRIT 27 % (39-51); HEMOGLOBIN 8.4 g/dL (13.5-17.5); LYMPHOCYTES # (AUTO) 1.3 /CMM (0.8-4.8); LYMPHOCYTES % (AUTO) 15.1 % (20.0-44.0); MEAN CORPUSCULAR HGB CONC 32 g/dl (31.0-36.0); MEAN CORPUSCULAR VOLUME 87 fL (80-96); MONOCYTES # (AUTO) 0.6 /CMM (0.1-1.30); MONOCYTES % (AUTO) 6.6 % (2.0-12.0); NEUTROPHILS # (AUTO) 6.3 /CMM (1.8-8.9); NEUTROPHILS % (AUTO) 74.2 % (43.0-81.0); PLATELET COUNT (AUTO) 214 /CMM (150-450); RDW COEFFICIENT OF VARIATION 18.4 (11.5-15.0); RED BLOOD CELL COUNT(AUTO) 3.07 MIL/uL (4.5-6.0); WHITE BLOOD COUNT (AUTO) 8.5 K/uL (4.3-11.0)
[2017-06-20 17:51] LABS: INR 1.12 (0.85-1.15)
[2017-06-20 17:52] LABS: ALBUMIN 2.2 g/dL (3.4-5.0); BILIRUBIN,TOTAL 0.4 mg/dL (0.2-1.0); CALCIUM, SERUM 8.1 mg/dL (8.5-10.1); CREATININE 2.1 mg/dL (0.6-1.3); POTASSIUM 5.5 mmol/L (3.5-5.1); TOTAL PROTEIN, SERUM 7.2 g/dL (6.4-8.2)
--- NOTE | 2017-06-20 18:30 | NUR ---
RAILROAD HAND AT BEDSIDE
--- NOTE | 2017-06-20 18:53 | NUR ---
CALLED DR WYATT UROLOGNay, LEFT A VOICEMAIL.
--- NOTE | 2017-06-20 19:11 | NUR ---
REPORT TO GIVEN TO MAYO FOR CHRISTIAN
--- NOTE | 2017-06-20 19:26 | NUR ---
CALLED [employer] TECHNICAL BUYER WAS PAGED.
[2017-06-20] MEDS ORDERED: DEXTROSE 50%-WATER 50 ML DISP.SYRIN IV PRN (20:00)
[2017-06-20] MEDS ORDERED: IV NS 0.9% 1,000 ML IV PRN (20:00)
[2017-06-20] MEDS ORDERED: MORPHINE SULFATE INJ 2 MG/ML DISP.SYRIN IV PRN (20:00)
[2017-06-20] MEDS ORDERED: ALBUTEROL FS 2.5 MG/3 ML VIAL.NEB NEB PRN (20:00)
[2017-06-20] MEDS ORDERED: MAG HYDROX/AL HYDROX/SIMETH 30 ML UDC PO PRN (20:00)
[2017-06-20] MEDS ORDERED: SODIUM POLYSTYRENE SULFONATE 15 G/60 ML BOTTLE PO ONE ×2 (20:00→23:30)
[2017-06-20] MEDS ORDERED: HYDROCODONE/APAP 5/325MG 1 EACH TABLET PO PRN (20:00)
--- NOTE | 2017-06-20 20:02 | NUR ---
UPDATED BED 329
--- NOTE | 2017-06-20 20:18 | NUR ---
REPORT GIVEN TO FRANCIS JONES FOR CHRISTIAN.
--- NOTE | 2017-06-20 20:27 | NUR ---
TRANSFERRED PATIENT TO TELE BED VIA ALS PROTOCOL, NO INCIDENT NOTED.
--- NOTE | 2017-06-20 20:35 | NUR ---
SALESPERSON STEREO EQUIPMENTSTAMP PRESS OPERATOR NOTE RECEIVED PATIENT FROM ER. BROUGHT VIA GURNEY. NON-AMBULATORY. ALERT ORIENTED X4. ON 2L NC VIA NC. TOLERATING WELL. IN NO APPARENT DISTRESS AT THIS TIME. RESPIRATIONS EVEN AND UNLABORED. PATIENT REPORTS SOB UPON EXERTION AND IF FLAT. PATIENT REPORTS PAIN 8/10 ON SCROTAL AND GROIN AREA. PATIENT HAS BEEN ADMITTED WITH SCROTAL/PENILE ERYTHEMA AND SWELLING. PATIENT WITH SEVERAL SKIN IMPAIRMENTS. WILL ASSESS AND REQUEST CONSULTATIONS. RIGHT UPPER ARM PICC LINE PATENT AND INTACT. EDEMA ON BLL AND LUE, NON-PITTING. PATIENT IS CONTINENT BUT ON DIAPER DUE TO INABILITY TO AMBULATE TO THE BATHROOM . IN STABLE CONDITION. VITAL SIGNS WNL. ABLE TO MAKE NEEDS KNOWN. PATIENT HAS HIS CELLPHONE WITH HIM. NO OTHER BELONGINGS PRESENT AT THIS TIME. PATIENT WAS MADE COMFORTABLE IN BED. SAFETY MEASURES WAS ENFORCES. BED IN LOW LOCKED POSITION, SIDE RAILS UP X2, CALL LIGHT WITHIN EASY REACH. DR. MARTIN AT BEDSIDE ASSESSING PATIENT FOR ADMISSION. WILL CARRY OUT ALL THE ORDERS AND CONTINUE TO MONITOR.
[2017-06-20 20:40] VITALS: BP 109/72
[2017-06-20 22:00] VITALS: BP 109/72
[2017-06-20] MEDS: BLOOD SUGAR DIAGNOSTIC 1 EACH STRIP IN SCH (22:22)
[2017-06-20] MEDS: MORPHINE SULFATE INJ 4 MG/ML DISP.SYRIN IV PRN (22:22)
[2017-06-20] MEDS: CARVEDILOL 3.125 MG TABLET PO SCH (22:23)
[2017-06-20] MEDS: ATORVASTATIN 40 MG TABLET PO SCH (22:33)
[2017-06-20] MEDS: INSULIN GLARGINE, 100 UNIT/ML CARTRIDGE SQ SCH (22:36)
[2017-06-20] MEDS: INSULIN REGULAR, HUMAN 100 UNIT/ML 3 ML VIAL SQ PRN (22:41)
[2017-06-20] MEDS ORDERED: PIPERACILLIN /TAZOBACTAM 2.25 G VIAL IV ONE (23:14)
[2017-06-20] MEDS: NS 0.9% IV SCH (23:35)
[2017-06-20] MEDS: TAZOBACTAM IV SCH (23:35)
[2017-06-20] MEDS: PIPERACILLIN IV SCH (23:35)
[2017-06-21] VITALS: BP 110/62
[2017-06-21] MEDS ORDERED: FUROSEMIDE 20 MG/2 ML VIAL IV ONE
[2017-06-21] MEDS: MORPHINE SULFATE INJ 4 MG/ML DISP.SYRIN IV PRN ×3 (03:22→14:48)
[2017-06-21 04:00] VITALS: BP 116/68
[2017-06-21] MEDS ORDERED: PIPERACILLIN /TAZOBACTAM 2.25 G VIAL IV ONE (04:54)
[2017-06-21] MEDS: TAZOBACTAM IV SCH ×4 (05:25→23:35)
[2017-06-21] MEDS: NS 0.9% IV SCH ×4 (05:25→23:35)
[2017-06-21] MEDS: PIPERACILLIN IV SCH ×4 (05:25→23:35)
--- NOTE | 2017-06-21 07:30 | NUR ---
RIGGING ENGINEER CLOSING NOTE PATIENT IN BED, SLEEPING, AROUSED EASILY WITH VERBAL STIMULI, ORIENTED X4. ON 2L O2 VIA NC. RESPIRATIONS EVEN AND UNLABORED. IN NO APPARENT DISTRESS OR DISCOMFORT AT THIS TIME. PATIENT WITH RIGHT UPPER ARM PICC LINE. PATENT AND INTACT. NO FLUIDS RUNNING AT THIS TIME. PATIENT KEPT CLEAN AND COMFORTABLE, ALL NEEDS ATTENDED. PATIENT'S BELONGINGS ARE NOT LOCATED AT THIS TIME, SPOKE TO THE ER EARLIER REGARDING THIS MATTER, WAS TOLD THEY WILL LOOK FOR IT. WILL REATTEMPT TO CONTACT THE ER. SAFETY MEASURES IN PLACE, BED IN LOW LOCKED POSITION , SIDE RAILS UP X2, CALL LIGHT WITHIN EASY REACH. WILL ENDORSE TO AM NURSE FOR CHRISTIAN.
--- NOTE | 2017-06-21 07:30 | NUR ---
TELE/RN OPENING NOTE PATIENT IS RECEIVED IN BED. ALERT AND ORIENTED X2. DENIES SOB. RESPIRATION REGULAR AND UNLABORED. DENIES PAIN. PATIENT ON TELE MONITOR AND SR AT THIS TIME. DEBBI PICC LINE PATENT. BED LOW AND LOCKED. SIDE RAILS UPX3. CALL LIGHT WITHIN REACH. WILL CONTINUE TO MONITOR. Addendum: 06/21/17 at 0815 by DIPTI ALVAREZ RN PATIENT NOTED WEARING BELT LOOKS LIKE EXTERNAL DEFIBRILLATOR. THE PATIENT WAS ASKED AND HE STATED "IT IS DEFIBRILLATOR, I HAVE BEEN WEARING IT FOR MONTHS."
[2017-06-21] MEDS: BLOOD SUGAR DIAGNOSTIC 1 EACH STRIP IN SCH ×4 (07:51→21:04)
--- NOTE | 2017-06-21 07:57 | NUR ---
LENS MOLDING EQUIPMENT OPERATORSTATION SUPERINTENDENT NOTE RECEIVED PATIENT FROM ER. [facility] NON[facility]UL[facility]. ALERT ORIENTED X4. ON 2L NC VIA NC. TOLERATING WELL. IN NO APPARENT DISTRESS AT THIS TIME. RESPIRATIONS EVEN AND UNLABORED. PATIENT REPORTS SOB UPON EXERTION AND IF FLAT. PATIENT REPORTS PAIN 8/10 ON SCROTAL AND GROIN AREA. PATIENT HAS BEEN ADMITTED WITH SCROTAL/PENILE ERYTHEMA AND SWELLING. PATIENT WITH SEVERAL SKIN IMPAIRMENTS. WILL ASSESS AND REQUEST CONSULTATIONS. RIGHT UPPER ARM PICC LINE PATENT AND INTACT. EDEMA ON BLL AND LUE, NON-PITTING. PATIENT IS CONTINENT BUT ON DIAPER DUE TO INABILITY TO AMBULATE TO THE BATHROOM . IN STABLE CONDITION. VITAL SIGNS WNL. ABLE TO MAKE NEEDS KNOWN. PATIENT HAS HIS CELLPHONE WITH HIM. NO OTHER BELONGINGS PRESENT AT THIS TIME. PATIENT WAS MADE COMFORTABLE IN BED. SAFETY MEASURES WAS ENFORCES. BED IN LOW LOCKED POSITION, SIDE RAILS UP X2, CALL LIGHT WITHIN EASY REACH. DR. MARTIN AT BEDSIDE ASSESSING PATIENT FOR ADMISSION. WILL CARRY OUT ALL THE ORDERS AND CONTINUE TO MONITOR. Addendum: 06/21/17 at 0830 by ANGEL MAJOR RN ADMISSION 06/20/[id number]
[2017-06-21 08:00] VITALS: BP 120/74
[2017-06-21] MEDS ORDERED: FEE PK DOSING 1 MIN EA MC ONE (08:04)
[2017-06-21] MEDS: MULTIVITAMINS,THERAGRAN 1 UDTAB TABLET PO SCH (08:36)
[2017-06-21] MEDS: GABAPENTIN 300 MG CAPSULE PO SCH ×3 (08:36→18:05)
[2017-06-21] MEDS: ASPIRIN 81 MG TAB.CHEW PO SCH (08:36)
[2017-06-21] MEDS: PANTOPRAZOLE 40 MG TABLET.DR PO SCH (08:36)
[2017-06-21] MEDS: ASCORBIC ACID 500 MG TABLET PO SCH (08:36)
[2017-06-21] MEDS: CARVEDILOL 3.125 MG TABLET PO SCH ×2 (08:37→21:00)
[2017-06-21] MEDS: AMIODARONE HCL 200 MG TABLET PO SCH (08:37)
[2017-06-21 08:39] LABS: BILIRUBIN,TOTAL 0.4 mg/dL (0.2-1.0); CALCIUM, SERUM 7.9 mg/dL (8.5-10.1); MAGNESIUM 2.7 mg/dL (1.8-2.4); PHOSPHORUS 5.4 mg/dL (2.5-4.9); POTASSIUM 4.9 mmol/L (3.5-5.1); TOTAL PROTEIN, SERUM 6.5 g/dL (6.4-8.2)
[2017-06-21 08:45] LABS: THYROID STIMULATING HORMONE 5.949 uIU/mL (0.358-3.74)
[2017-06-21 08:47] LABS: BASOPHILS % (AUTO) 0.4 % (0.0-2.0); EOSINOPHILS % (AUTO) 4.6 % (0.0-6.0); HEMATOCRIT 25 % (39-51); HEMOGLOBIN 7.8 g/dL (13.5-17.5); LYMPHOCYTES # (AUTO) 1.5 /CMM (0.8-4.8); LYMPHOCYTES % (AUTO) 19.9 % (20.0-44.0); MEAN CORPUSCULAR HGB CONC 31 g/dl (31.0-36.0); MEAN CORPUSCULAR VOLUME 87 fL (80-96); MONOCYTES # (AUTO) 0.6 /CMM (0.1-1.30); MONOCYTES % (AUTO) 8.1 % (2.0-12.0); NEUTROPHILS # (AUTO) 5.2 /CMM (1.8-8.9); PLATELET COUNT (AUTO) 184 /CMM (150-450); RDW COEFFICIENT OF VARIATION 19.8 (11.5-15.0); WHITE BLOOD COUNT (AUTO) 7.7 K/uL (4.3-11.0)
[2017-06-21] MEDS: ZINC SULFATE 220 MG CAPSULE PO SCH (08:47)
--- NOTE | 2017-06-21 09:00 | NUR ---
TELE/RN NOTE PATIENT ALERT AND ORIENTED X4.
[2017-06-21] MEDS: VANCOMYCIN 1 GM in IV D5W 250 ML IV SCH (09:39)
--- NOTE | 2017-06-21 10:45 | NUR ---
WOUND CARE CONSULT: PT SEEN FOR SKIN ASSESSMENT. PT FOLLOWED BY SURGICAL TEAM. ALL WOUND TREATMENT DEFERRED TO SURGICAL TEAM. FIRST STEP MATTRESS ON ORDER. ALL SKIN PROTECTION AND PRESSURE ULCER PREVENTION RECOMMENDATIONS DISCUSSED WITH NURSING STAFF. CURRENT THOM SCORE IS 15. PT INCONTINENT OF STOOL AT TIMES. Addendum: 06/21/17 at 1047 by RADHA MEDLEY WNDNU Amended: Links added.
[2017-06-21] MEDS ORDERED: FUROSEMIDE 40 MG/4 ML VIAL IV ONE (11:30)
[2017-06-21] MEDS: MAGNESIUM HYDROXIDE 30 ML UDC PO PRN (14:02)
[2017-06-21 16:00] VITALS: BP 122/72
[2017-06-21] MEDS: INSULIN REGULAR, HUMAN 100 UNIT/ML 3 ML VIAL SQ PRN ×2 (17:58→20:57)
[2017-06-21] MEDS: FUROSEMIDE 40 MG/4 ML VIAL IV SCH (18:05)
--- NOTE | 2017-06-21 18:30 | NUR ---
MS/RN CLOSING NOTE PATIENT ALERT AND ORIENTED X4. DENIES SOB. RESPIRATION REGULAR AND UNLABORED. DENIES PAIN. DEBBI PICC LINE PATENT AND IV INFUSING WITH NO S/S INFILTRATION. PATIENT IS KEPT CLEAN, DRY AND COMFORTABLE. ALL NEEDS ATTENDED AND ANTICIPATED. BED LOW AND LOCKED. SIDE RAILS UP X3. CALL LIGHT WITHIN REACH. WILL ENDORSE TO COOLER DELIVERER.
--- NOTE | 2017-06-21 19:30 | NUR ---
MS ELECTRICAL AND INSTRUMENT ENGINEER NOTE RECEIVED PATIENT ASLEEP IN BED. [id number] 3L O2 VIA NASAL CANNULA. PATIENT STATES HE IS HAVING 7/10 GENERALIZED PAIN. WILL ADMINISTER MEDICATION ORDERED. IV SITE INTACT, WITH NO REDNESS NOTED. NO DISTRESS NOTED. BED LOCKED AND IN LOWEST POSITION. SIDE RAILS UP, CALL LIGHT WITHIN REACH. WILL CONTINUE TO MONITOR.
[2017-06-21 20:00] VITALS: BP 118/52
[2017-06-21] MEDS: ATORVASTATIN 40 MG TABLET PO SCH (20:49)
[2017-06-21] MEDS: FENTANYL PF 100MCG/2ML AMPUL IV PRN (20:50)
[2017-06-21] MEDS: INSULIN GLARGINE, 100 UNIT/ML CARTRIDGE SQ SCH (20:57)
[2017-06-21 22:00] VITALS: BP 118/52
[2017-06-22] MEDS: FENTANYL PF 100MCG/2ML AMPUL IV PRN ×6 (01:23→23:51)
[2017-06-22] MEDS: TAZOBACTAM IV SCH ×4 (05:00→23:42)
[2017-06-22] MEDS: NS 0.9% IV SCH ×4 (05:00→23:42)
[2017-06-22] MEDS: PIPERACILLIN IV SCH ×4 (05:00→23:42)
--- NOTE | 2017-06-22 06:47 | NUR ---
MS RN NOTE PATIENT STABLE. ALL NEEDS MET AND ATTENDED TO. WILL ENDORSE TO DAY SHIFT FOR CHRISTIAN.
[2017-06-22] MEDS: BLOOD SUGAR DIAGNOSTIC 1 EACH STRIP IN SCH ×4 (06:48→22:20)
[2017-06-22 07:02] LABS: CALCIUM, SERUM 7.9 mg/dL (8.5-10.1); MAGNESIUM 2.8 mg/dL (1.8-2.4); PHOSPHORUS 5.3 mg/dL (2.5-4.9); POTASSIUM 4.6 mmol/L (3.5-5.1)
[2017-06-22 07:33] LABS: FERRITIN 96 ng/mL (8-388)
[2017-06-22 07:35] LABS: BASOPHILS % (AUTO) 0.4 % (0.0-2.0); EOSINOPHILS % (AUTO) 3.5 % (0.0-6.0); HEMATOCRIT 26 % (39-51); HEMOGLOBIN 8.4 g/dL (13.5-17.5); LYMPHOCYTES # (AUTO) 1.6 /CMM (0.8-4.8); LYMPHOCYTES % (AUTO) 15.6 % (20.0-44.0); MEAN CORPUSCULAR HGB CONC 32 g/dl (31.0-36.0); MEAN CORPUSCULAR VOLUME 87 fL (80-96); MONOCYTES # (AUTO) 0.7 /CMM (0.1-1.30); MONOCYTES % (AUTO) 7.1 % (2.0-12.0); NEUTROPHILS # (AUTO) 7.4 /CMM (1.8-8.9); NEUTROPHILS % (AUTO) 73.4 % (43.0-81.0); PLATELET COUNT (AUTO) 224 /CMM (150-450); RDW COEFFICIENT OF VARIATION 19.7 (11.5-15.0); RED BLOOD CELL COUNT(AUTO) 3.03 MIL/uL (4.5-6.0); WHITE BLOOD COUNT (AUTO) 10.1 K/uL (4.3-11.0)
[2017-06-22 08:00] VITALS: BP 143/89
--- NOTE | 2017-06-22 08:59 | NUR ---
WOUND CARE: PT SEEN AT 8 AM. WOUND VAC DEVICE OBTAINED FROM [facility] ALL SUPPLIED FOR VAC APPLICATION. PT AGREED TO HAVE WOUND VAC PLACED ON RT HIP AT 9AM. PT IS NOW REFUSING TO HAVE VAC APPLIED AT THIS TIME. WILL ATTEMPT LATER. DISCUSSED WITH NURSING STAFF.
[2017-06-22] MEDS: VANCOMYCIN 1 GM in IV D5W 250 ML IV SCH (09:10)
[2017-06-22] MEDS: ASPIRIN 81 MG TAB.CHEW PO SCH (09:11)
[2017-06-22] MEDS: ASCORBIC ACID 500 MG TABLET PO SCH (09:11)
[2017-06-22] MEDS: GABAPENTIN 300 MG CAPSULE PO SCH ×3 (09:11→18:20)
[2017-06-22] MEDS: FUROSEMIDE 40 MG/4 ML VIAL IV SCH ×2 (09:11→18:20)
[2017-06-22] MEDS: ZINC SULFATE 220 MG CAPSULE PO SCH (09:11)
[2017-06-22] MEDS: CARVEDILOL 3.125 MG TABLET PO SCH ×2 (09:12→21:00)
[2017-06-22] MEDS: AMIODARONE HCL 200 MG TABLET PO SCH (09:12)
[2017-06-22] MEDS: CADEXOMER IODINE 40 GM TUBE TP SCH (09:13)
[2017-06-22] MEDS: MULTIVITAMINS,THERAGRAN 1 UDTAB TABLET PO SCH (09:17)
[2017-06-22] MEDS: PANTOPRAZOLE 40 MG TABLET.DR PO SCH (09:18)
[2017-06-22] MEDS: MAGNESIUM HYDROXIDE 30 ML UDC PO PRN (09:44)
--- NOTE | 2017-06-22 11:09 | NUR ---
WOUND CARE: [employer] VAC APPLIED TO RT HIP USING SKIN PREP AND VAC DRAPE TO PERIWOUND AREAS, GRANUFOAM (ONE PIECE) TO WOUND. VAC AT 125mmHg CONTINUOUS SETTING WITH SCANT PINK DRAINAGE. NO WOUND ODOR NOTED. BRIDGING TECHNIQUE USED. PT TOLERATED WELL.
[2017-06-22 16:00] VITALS: BP 117/69
--- NOTE | 2017-06-22 17:00 | NUR ---
stool to lab for occult blood.
[2017-06-22 17:04] LABS: OCCULT BLOOD STOOL NEGATIVE (NEGATIVE)
[2017-06-22] MEDS: INSULIN REGULAR, HUMAN 100 UNIT/ML 3 ML VIAL SQ PRN ×2 (18:02→22:24)
--- NOTE | 2017-06-22 18:30 | NUR ---
med x 3 for pain with sublimaze with good effect.all wd care done.scant amt. serous fluid in wd vac.
--- NOTE | 2017-06-22 19:30 | NUR ---
RN OPENING NOTES RECEIVED PATIENT IN BED, AWAKE, ALERT AND ORIENTED X 3, VERBALLY RESPONSIVE, NOTED WITH NO SOB, BREATHING EVEN AND UNLABORED, WITH NO C/O PAIN. PT NOTED WITH WOUND VAC ON RIGHT HIP WOUND., TOLERATING WELL. ALL PATIENT'S NEEDS ATTENDED TO, REPOSITIONED, CALL LIGHT PALCED WITHIN EASY REACH. BED IN LOW POSITION AND LOCKED IN PLACE. WILL CONTINUE TO MONITOR PT.
[2017-06-22 20:00] VITALS: BP 118/71
[2017-06-22] MEDS: ACETAMINOPHEN 325 MG TABLET PO PRN (20:59)
[2017-06-22] MEDS: ATORVASTATIN 40 MG TABLET PO SCH (22:20)
[2017-06-22] MEDS: INSULIN GLARGINE, 100 UNIT/ML CARTRIDGE SQ SCH (22:23)
[2017-06-23] MEDS: TAZOBACTAM IV SCH ×3 (05:09→18:00)
[2017-06-23] MEDS: NS 0.9% IV SCH ×3 (05:09→18:00)
[2017-06-23] MEDS: PIPERACILLIN IV SCH ×3 (05:09→18:00)
[2017-06-23] MEDS: FENTANYL PF 100MCG/2ML AMPUL IV PRN ×4 (05:23→18:05)
--- NOTE | 2017-06-23 06:30 | NUR ---
RN CLOSING NOTES PATIENT IN BED, AWAKE, COMFORTABLE, ALERT AND ORIENTED X 4, NO SOB NOTED, BREATHING EVEN AND UNLABORED. ALL PATIENT'S NEEDS ATTENDED TO THROUGHOUT THE SHIFT, IN NO ACUTE DISTRESS AND IN STABLE CONDITION. WOUND VAC CONTINUES TO BE ATTACHED ON RIGHT HIP WOUND. CALL LIGHT PLACED WITHIN EASY REACH, PLACED BED IN LOW POSITION AND LOCKED IN PLACE. WILL ENDORSE TO AM SHIFT NURSE FOR CONTINUITY OF CARE.
[2017-06-23] MEDS: BLOOD SUGAR DIAGNOSTIC 1 EACH STRIP IN SCH ×4 (06:39→22:02)
--- NOTE | 2017-06-23 07:30 | NUR ---
RN OPENING NOTES RECEIVED PT. IN BED A&OX3. NO S/S OF SOB, BREATHING IS UNLABORED, AND EVEN ON OXYGEN AT 3L/MIN. VIA NASAL CANNULA. NO S/S OF ACUTE DISTRESS. CENTRAL LINE ON RIGHT UPPER ARM IS INTACT. WOUND VAC HAD APPROX. 25 CC OUTPUT. PER NURSE PT.'S DEFIBRILLATOR ATTACHED TO LIFE VEST WAS NOT WORKING, SCREEN WAS OFF, AND PT.'S BALANCE WHEEL FACER FOR DEFIBRILLATOR BATTERY WAS LEFT AT [facility]. NURSING ATHLETIC EQUIPMENT MANAGER OF [facility] WAS NOTIFIED, AND ORACLE ARCHITECT AT [facility]. DR. WILSON WAS MADE AWARE, AND ORDERED FOR PT. TO BE PLACED ON A TELE MONITOR. BED IS IN LOWEST, AND LOCKED POSITION. 2 SIDE RAILS UP, AND INSTRUCTED PT. TO USE CALL LIGHT FOR ASSISTANCE. ALL NEEDS MET. WILL CONTINUE TO ASSESS AND MONITOR.
[2017-06-23 08:00] VITALS: BP 116/76
[2017-06-23 08:01] LABS: CALCIUM, SERUM 7.8 mg/dL (8.5-10.1); CREATININE 2.2 mg/dL (0.6-1.3); POTASSIUM 4.4 mmol/L (3.5-5.1)
[2017-06-23 08:13] LABS: AFP, TUMOR MARKER 0.7 ng/mL (0.0-8.3); IMMUNOGLOBULIN A, SERUM 720 mg/dL (61-437); IMMUNOGLOBULIN G, SERUM 1606 mg/dL (700-1600); IMMUNOGLOBULIN M, SERUM 33 mg/dL (20-172)
[2017-06-23] MEDS: ASCORBIC ACID 500 MG TABLET PO SCH (09:08)
[2017-06-23] MEDS: ASPIRIN 81 MG TAB.CHEW PO SCH (09:08)
[2017-06-23] MEDS: PANTOPRAZOLE 40 MG TABLET.DR PO SCH (09:08)
[2017-06-23] MEDS: GABAPENTIN 300 MG CAPSULE PO SCH ×3 (09:08→17:15)
[2017-06-23] MEDS: MULTIVITAMINS,THERAGRAN 1 UDTAB TABLET PO SCH (09:08)
[2017-06-23] MEDS: ZINC SULFATE 220 MG CAPSULE PO SCH (09:09)
[2017-06-23] MEDS: CARVEDILOL 3.125 MG TABLET PO SCH ×2 (09:09→22:02)
[2017-06-23] MEDS: VANCOMYCIN 1 GM in IV D5W 250 ML IV SCH (09:10)
[2017-06-23] MEDS: AMIODARONE HCL 200 MG TABLET PO SCH (09:10)
[2017-06-23] MEDS: CADEXOMER IODINE 40 GM TUBE TP SCH (09:11)
[2017-06-23] MEDS: FUROSEMIDE 40 MG/4 ML VIAL IV SCH ×3 (09:11→17:15)
[2017-06-23 12:00] VITALS: BP 120/80
[2017-06-23] MEDS: INSULIN REGULAR, HUMAN 100 UNIT/ML 3 ML VIAL SQ PRN ×3 (12:06→22:05)
[2017-06-23 12:19] LABS: *SPE A/G RATIO 0.6 (0.7-1.7); *SPE ALBUMIN 2.5 g/dL (2.9-4.4); *SPE ALPHA-1-GLOBULIN 0.3 g/dL (0.0-0.4); *SPE ALPHA-2-GLOBULIN 0.7 g/dL (0.4-1.0); *SPE BETA GLOBULIN 1.2 g/dL (0.7-1.3); *SPE GLOBULIN, TOTAL 3.9 g/dL (2.2-3.9); *SPE M-SPIKE Not Observed g/dL (Not Observed); *SPEGAMMA GLOBULIN 1.6 g/dL (0.4-1.8)
[2017-06-23] MEDS ORDERED: PIPE2.257 IV (14:56)
[2017-06-23] MEDS ORDERED: CADE40GE2 TP (14:56)
[2017-06-23] MEDS ORDERED: VANC1PLA11 IV (14:56)
[2017-06-23 16:00] VITALS: BP 126/52
--- NOTE | 2017-06-23 19:08 | NUR ---
RN NOTES CHANGED CENTRAL LINE DRESSING AND PT. TOLERATED WELL PROCEDURE WELL.
--- NOTE | 2017-06-23 19:40 | NUR ---
RN NOTES RECEIVED PT ASLEEP, HOB ELEVATED WITH O2 INHALATION AT 3LPM VIA NC. NO SIGNS OF DISTRESS AND DISCOMFORT NOTED. TELEMONITOR READS SINUS RHYTHM WITH PAC AND BBB, HEART RATE 74. CARDIAC VEST ON. RIGHT UPPER ARM PICC LINE PATENT AND INTACT. WOUND VAC INTACT WITH SETTINGS IN PLACE. SAFETY MEASURES AND FALL PRECAUTION OBSERVED. CONTACT ISOLATION OBSERVED. WILL CONTINUE TO MONITOR PT.
--- NOTE | 2017-06-23 19:55 | NUR ---
RN CLOSING NOTES PT. IS IN BED A&OX3. NO S/S OF SOB, BREATHING IS UNLABORED, AND EVEN ON OXYGEN AT 3L/MIN. VIA NASAL CANNULA. NO S/S OF ACUTE DISTRESS. CENTRAL LINE ON RIGHT UPPER ARM IS INTACT. WOUND VAC ATTACHED HAD APPROX. 50 CC TOTAL OUTPUT. PT.'S DEFIBRILLATOR BATTER CAR STOWER, BATTERY, CELL PHONE, AND CELL PHONE CAR STOWER WERE BROUGHT FROM [facility]. BELONGINGS ARE AT BEDSIDE. BED IS IN LOWEST, AND LOCKED POSITION. 2 SIDE RAILS UP, AND INSTRUCTED PT. TO USE CALL LIGHT FOR ASSISTANCE. ALL NEEDS MET. WILL ENDORSE REPORT TO NURSE.
[2017-06-23 20:00] VITALS: BP 116/61
[2017-06-23 22:00] VITALS: BP 116/61
[2017-06-23] MEDS: ATORVASTATIN 40 MG TABLET PO SCH (22:02)
[2017-06-23] MEDS: INSULIN GLARGINE, 100 UNIT/ML CARTRIDGE SQ SCH (22:04)
[2017-06-24] VITALS (32 sets, daily range): BP systolic 93–147; BP diastolic 54–86
[2017-06-24] MEDS: PIPERACILLIN IV SCH ×5 (00:15→23:25)
[2017-06-24] MEDS: NS 0.9% IV SCH ×5 (00:15→23:25)
[2017-06-24] MEDS: TAZOBACTAM IV SCH ×5 (00:15→23:25)
--- NOTE | 2017-06-24 06:05 | NUR ---
USER SUPPORT SPECIALIST NOTES RECEIVED REPORT FROM NURSE DEE. RECEIVED PATIENT S/P CARDIAC ARREST, NOW ORALLY INTUBATED, ETT 8 - 24CM@LIP, VENT SETTINGS AC 16, TV 550, FIO2 100%, PEEP 5. PATIENT PLACED ON INSEAMER, REVEALING SINUS RHYTHM WITH BBB, HR = [address] NOTED WITH DEBBI PICC, FLUSHED WITH NS, NOTED WITH GOOD VENOUS RETURN. NOTED WITH RIGHT HIP WOUND WITH WOUND VAC @ 125, NOTED WITH SEROSANGUINOUS OUTPUT Addendum: 06/24/17 at 0742 by WESLEY JESUS RN BED IN LOWEST AND LOCKED POSITION, BILATERAL SOFT WRIST RESTRAINTS FOR SAFETY. HOB KEPT ELEVATED, PENDING ADMITTING/TRANSFER ORDERS. ISOLATION PRECAUTIONS OBSERVED, WILL CONTINUE TO CLOSELY MONITOR
[2017-06-24] MEDS ORDERED: EPINEPHRINE (1:10,000) SYRINGE 1 MG/10 ML DISP.SYRIN IVP ONE (06:30)
--- NOTE | 2017-06-24 06:30 | NUR ---
CTC OPERATOR NOTES SPOKE TO TECHNICAL PRODUCER MARTHA VANG, OBTAINED ORDER FOR PULMO CONSULT, STAT ABG, STAT EKG, NPO STATUS, STAT CBC, BMP, LACTIC ACID. ALL ORDERS READ BACK FOR CLARIFICATION. WILL CARRY OUT ALL NEW ORDERS
--- NOTE | 2017-06-24 07:00 | NUR ---
CAR MECHANIC HELPER CLOSING NOTES PATIENT RESTING IN BED, APPEARS COMFORTABLE. PATIENT ENDORSED TO AM SHIFT NURSE FOR CONTINUITY OF CARE
[2017-06-24 07:10] LABS: ABG BASE EXCESS 0.8 mmol/L; ABG PCO2 53.8 mmHg (35.0-45.0); ABG PH 7.331 (7.350-7.450); AaDO2 405.2 mmHg; PEEP,BG 5 cm H2O; SITE, ABG Right Radial; VENT MODE, BG AC 16 550 100% +5; VT, ABG 550 mL
--- NOTE | 2017-06-24 07:10 | NUR ---
REGISTERED PHARMACIST- Initial Note Received pt resting in bed. Pt obtunded, does not open eyes or follow commands, however noted to be moving BLE. Pt orally intubated ETT 8.0, 24 cm @ the lip. Respirations even and unlabored, no SOB or distress present. Bedside monitor reveals A-Fib with bundle branch block. DEBBI PICC line running NS @ TKO. Bilateral soft wrist restraints in place. Right hip wound vac continues at 125 mmHg. Will continue to monitor.
[2017-06-24 07:23] LABS: CALCIUM, SERUM 7.2 mg/dL (8.5-10.1); CREATININE 2.6 mg/dL (0.6-1.3); POTASSIUM 4.3 mmol/L (3.5-5.1)
[2017-06-24 07:24] LABS: BASOPHILS % (AUTO) 0.4 % (0.0-2.0); EOSINOPHILS % (AUTO) 1.5 % (0.0-6.0); HEMATOCRIT 25 % (39-51); HEMOGLOBIN 7.8 g/dL (13.5-17.5); LYMPHOCYTES # (AUTO) 0.7 /CMM (0.8-4.8); LYMPHOCYTES % (AUTO) 5.6 % (20.0-44.0); MEAN CORPUSCULAR HGB CONC 31 g/dl (31.0-36.0); MEAN CORPUSCULAR VOLUME 88 fL (80-96); MONOCYTES # (AUTO) 0.6 /CMM (0.1-1.30); MONOCYTES % (AUTO) 5.2 % (2.0-12.0); NEUTROPHILS # (AUTO) 10.6 /CMM (1.8-8.9); NEUTROPHILS % (AUTO) 87.3 % (43.0-81.0); PLATELET COUNT (AUTO) 220 /CMM (150-450); RDW COEFFICIENT OF VARIATION 19.9 (11.5-15.0); RED BLOOD CELL COUNT(AUTO) 2.87 MIL/uL (4.5-6.0); WHITE BLOOD COUNT (AUTO) 12.1 K/uL (4.3-11.0)
[2017-06-24 07:26] LABS: MAGNESIUM 2.6 mg/dL (1.8-2.4); PHOSPHORUS 5.3 mg/dL (2.5-4.9)
[2017-06-24] MEDS: PANTOPRAZOLE 40 MG TABLET.DR PO SCH (07:30)
--- NOTE | 2017-06-24 07:33 | NUR ---
RN NOTES 0535 - SPONGE BATH GIVEN TO THE PT AND WOUND CARE DONE. PT ALERT AND VERBAL. PT TURNED TO HIS RIGHT SIDE AND NOTED PT STRAINING AND HAD LARGE SOFT STOOL. 0540 - PT STILL ON HIS RIGHT SIDE, SHUTTLE DRIVER AND DEVLIN CHARGE NURSE INFORMED THE PRIMARY NURSE WHO'S WITH THE PT THAT THE PT HR DROPS TO 31. IMMEDIATELY PLACED PT ON HIS BACK, PT IS UNRESPONSIVE, RAPID RESPONSE WAS CALLED. VITALS SIGNS WERE NOT APPRECIATED, NO PULSE, NOT BREATHING, CODE BLUE WAS CALLED AND CPR INITIATED. 0541 - KARSTEN FLOATMAN, DR CARMICHAEL WITH ER STAFF AND CHELSY RT TOOK OVER. CONTINOUS CPR BEING ADMINISTERED TO THE PT. 0546 - TOTAL OF 2 DOSES EPI 1MG WAS GIVEN TO THE PT, READING RESPONSE IS SINUS RHYTHM HR 80. CONTINOUS BAGGING BEING DONE. 0548 - RHYTHM IS SINUS TACHYCARDIA HR 120 WITH CONTINOUS BAGGING. 0550 - BP 126/51, HR 88, BS 146 MG/DL 0551 - INTUBATED BY DR JANY RODRIGUEZ, ETT 8 24CM FROM LIP 0600 - PT TRANSPORTED TO ICU VIA ACLS PROTOCOL. REPORT GIVEN TO TRINI JONES. MARTHA VANG NP, NOTIFIED. 0610 - ATTEMPTED TO CALL FAMILY LISTED IN THE FACE SHEET 2X , UNABLE TO REACH.
--- NOTE | 2017-06-24 07:40 | NUR ---
SUPERVISOR FERTILIZER PROCESSING- Received critical lab result of 2.2. 0744- Informed Isabel Pizano LOGISTICS SUPPLY OFFICER of lactic acid. No new orders received. Will continue to monitor.
[2017-06-24] MEDS: BLOOD SUGAR DIAGNOSTIC 1 EACH STRIP IN SCH ×3 (08:00→18:02)
[2017-06-24] MEDS ORDERED: PROPOFOL 100 ML IV PRN (08:30)
[2017-06-24] MEDS: INSULIN REGULAR, HUMAN 100 UNIT/ML 3 ML VIAL SQ PRN (08:45)
--- NOTE | 2017-06-24 08:48 | NUR ---
RT NOTE RECEIVED PT MECHANICALLY VENTILATED VIA 8.0 ETT 24 CM AT LIP. ETT PROPERLY SECURE. CUFF INFLATED BY ACTUARIAL ANALYST. SETTINGS PRESCRIBED. FI02 TITRATED TO 50% POST ABG. ALARMS SET PER PROTOCOL AND AUDIBLE. BILATERAL CHEST RISE NOTED. SMALL THIN FROTHY CLEAR/BLOOD TINGED SECRETIONS FOUND UPON SUCTION. CLEAR BREATH SOUNDS HEARD UPON AUSCULTATION. VENT PLUGGED IN TO RED OUTLET. AMBU BAG AT BED SIDE. NO DISTRESS NOTED AT MOMENT. WILL CONTINUE TO MONITOR.
[2017-06-24] MEDS: GABAPENTIN 300 MG CAPSULE PO SCH ×3 (09:00→16:23)
[2017-06-24] MEDS: ZINC SULFATE 220 MG CAPSULE PO SCH (09:00)
[2017-06-24] MEDS: ASCORBIC ACID 500 MG TABLET PO SCH (09:00)
[2017-06-24] MEDS: CARVEDILOL 3.125 MG TABLET PO SCH ×2 (09:00→20:52)
[2017-06-24] MEDS: AMIODARONE HCL 200 MG TABLET PO SCH (09:00)
[2017-06-24] MEDS: MULTIVITAMINS,THERAGRAN 1 UDTAB TABLET PO SCH (09:00)
[2017-06-24] MEDS: ASPIRIN 81 MG TAB.CHEW PO SCH (09:00)
[2017-06-24] MEDS: FUROSEMIDE 40 MG/4 ML VIAL IV SCH ×3 (09:58→18:04)
[2017-06-24] MEDS: CADEXOMER IODINE 40 GM TUBE TP SCH (11:33)
[2017-06-24 12:35] LABS: BASOPHILS # (AUTO) 0.1 /CMM (0.0-0.2); BASOPHILS % (AUTO) 0.6 % (0.0-2.0); EOSINOPHILS % (AUTO) 0.3 % (0.0-6.0); HEMATOCRIT 22 % (39-51); LYMPHOCYTES % (AUTO) 11.8 % (20.0-44.0); MEAN CORPUSCULAR HGB CONC 31 g/dl (31.0-36.0); MEAN CORPUSCULAR VOLUME 87 fL (80-96); MONOCYTES # (AUTO) 0.5 /CMM (0.1-1.30); MONOCYTES % (AUTO) 5.2 % (2.0-12.0); NEUTROPHILS # (AUTO) 7.2 /CMM (1.8-8.9); NEUTROPHILS % (AUTO) 82.1 % (43.0-81.0); PLATELET COUNT (AUTO) 157 /CMM (150-450); RDW COEFFICIENT OF VARIATION 20.2 (11.5-15.0); RED BLOOD CELL COUNT(AUTO) 2.46 MIL/uL (4.5-6.0); WHITE BLOOD COUNT (AUTO) 8.7 K/uL (4.3-11.0)
[2017-06-24 12:41] LABS: HEMOGLOBIN 6.7 g/dL (13.5-17.5)
[2017-06-24 13:02] LABS: LYMPHOCYTES % (MANUAL) 4 % (16-48); MONOCYTES % (MANUAL) 5 % (0-11.0); NEUTROPHILS % (MANUAL) 91 (42-76)
[2017-06-24] MEDS: PANTOPRAZOLE 40 MG VIAL IV SCH (13:28)
[2017-06-24] MEDS ORDERED: SOD FERRIC GLUC 125 MG in IV NS 0.9% 100 ML IV SCH (14:00)
[2017-06-24] MEDS: SOD FERRIC GLUC 125 MG in IV NS 0.9% 100 ML IV SCH (14:40)
[2017-06-24 15:48] LABS: BASOPHILS % (AUTO) 0.4 % (0.0-2.0); EOSINOPHILS % (AUTO) 0.2 % (0.0-6.0); HEMATOCRIT 25 % (39-51); HEMOGLOBIN 7.9 g/dL (13.5-17.5); LYMPHOCYTES # (AUTO) 1.5 /CMM (0.8-4.8); LYMPHOCYTES % (AUTO) 14.1 % (20.0-44.0); MEAN CORPUSCULAR HGB CONC 32 g/dl (31.0-36.0); MEAN CORPUSCULAR VOLUME 87 fL (80-96); MONOCYTES # (AUTO) 0.5 /CMM (0.1-1.30); MONOCYTES % (AUTO) 4.9 % (2.0-12.0); NEUTROPHILS # (AUTO) 8.6 /CMM (1.8-8.9); NEUTROPHILS % (AUTO) 80.4 % (43.0-81.0); PLATELET COUNT (AUTO) 197 /CMM (150-450); RDW COEFFICIENT OF VARIATION 20.4 (11.5-15.0); RED BLOOD CELL COUNT(AUTO) 2.88 MIL/uL (4.5-6.0); WHITE BLOOD COUNT (AUTO) 10.8 K/uL (4.3-11.0)
[2017-06-24] MEDS ORDERED: INSULIN REGULAR, HUMAN 100 UNIT/ML 3 ML VIAL SQ PRN (17:30)
[2017-06-24] MEDS ORDERED: DEXTROSE 50%-WATER 50 ML DISP.SYRIN IV PRN (17:30)
[2017-06-24 17:33] LABS: ALBUMIN 1.8 g/dL (3.4-5.0); BILIRUBIN,TOTAL 0.5 mg/dL (0.2-1.0); CALCIUM, SERUM 7.8 mg/dL (8.5-10.1); CREATININE 2.6 mg/dL (0.6-1.3); POTASSIUM 3.8 mmol/L (3.5-5.1)
--- NOTE | 2017-06-24 18:30 | NUR ---
ACCOUNT ADJUSTER- Pt noted to be awake, alert & follow commands. Appears comfortable, in no acute distress. Isabel Pizano AIRPORT ELECTRICIAN informed. Will continue to monitor.
--- NOTE | 2017-06-24 19:30 | NUR ---
RN NOTES RECEIVED PT ASLEEP EASILY AROUSABLE ON BED WITH ETT 8/ 24 CM @ LIP LINE. CONNECTED TO VENT SETTING OF AC 16 TV 550 FIO2 50% PEEP 5. PT IS FOLLOWING COMMAND ABLE TO ELEVATE LEGS AND BLINK HIS EYES TO ANSWER YES OR NO QUESTION. OGT INTACT WITH GREENISH COLOR RESIDUAL AT 10 CC. SR @ 70'S ON TELE MONITOR. IV SITE ON DEBBI PICC LINE WITH DOUBLE LUMEN INTACT AND PATENT WITH GOOD BLOOD RETURN. WOUND VAC @ 125 MMHG. KEPT PT CLEAN AND COMFORTABLE IN BED. OFFLOADED EXT WITH PILLOWS. KEPT CLEAN AND COMFORTABLE. WILL CLOSELY MONITOR.
--- NOTE | 2017-06-24 19:57 | NUR ---
PT RECEIVED ORALLY INTUBATED 8.0 ETT SECURED AT 24 CM AT THE LIP. PT TOLERATING VENT SETTINGS. PT IS AWAKE AND ALERT. NO RESP DISTRESS NOTED AT THIS TIME. SX'D SMALL AMT OF PALE YELLOW THICK SECRETIONS. VENT ALARMS SET AND AUDIBLE. AMBU BAG AT BEDSIDE. ETT CUFF MEDICAL RECORDS RECEPTIONIST. VENT PLUGGED INTO RED OUTLET. WILL CONTINUE TO MONITOR.
[2017-06-24] MEDS ORDERED: VANCOMYCIN 1 GM in IV NS 0.9% 250 ML IV SCH (21:00)
[2017-06-24] MEDS: ATORVASTATIN 40 MG TABLET PO SCH (21:02)
[2017-06-24] MEDS: INSULIN GLARGINE, 100 UNIT/ML CARTRIDGE SQ SCH (21:55)
[2017-06-25] VITALS (46 sets, daily range): BP systolic 95–136; BP diastolic 45–79
[2017-06-25] MEDS: BLOOD SUGAR DIAGNOSTIC 1 EACH STRIP IN SCH ×5 (00:42→23:36)
[2017-06-25 05:05] LABS: ALBUMIN 1.6 g/dL (3.4-5.0); BILIRUBIN,TOTAL 0.5 mg/dL (0.2-1.0); CALCIUM, SERUM 7.5 mg/dL (8.5-10.1); CREATININE 2.6 mg/dL (0.6-1.3); MAGNESIUM 2.7 mg/dL (1.8-2.4); PHOSPHORUS 4.3 mg/dL (2.5-4.9); POTASSIUM 3.7 mmol/L (3.5-5.1); TOTAL PROTEIN, SERUM 5.4 g/dL (6.4-8.2)
[2017-06-25 05:06] LABS: APPEARANCE,URINE SL CLOUDY (CLEAR); BILIRUBIN,URINE NEGATIVE (NEGATIVE); BLOOD, URINE 3+ Ery/uL (NEGATIVE); COLOR,URINE YELLOW (YELLOW); KETONES,URINE NEGATIVE (NEGATIVE); LEUKOCYTE ESTERASE ,URINE NEGATIVE (NEGATIVE); NITRITE, URINE NEGATIVE (NEGATIVE); PH,URINE 5.5 (5.0-8.0); PROTEIN,URINE TRACE mg/dl (NEGATIVE); UGLUCOSE NEGATIVE (NEGATIVE); UROBILINOGEN,URINE 0.2 EU/dL (0.2)
[2017-06-25 05:06] LABS: BASOPHILS % (AUTO) 0.3 % (0.0-2.0); EOSINOPHILS % (AUTO) 0.9 % (0.0-6.0); HEMATOCRIT 23 % (39-51); HEMOGLOBIN 7.4 g/dL (13.5-17.5); LYMPHOCYTES # (AUTO) 1.2 /CMM (0.8-4.8); LYMPHOCYTES % (AUTO) 13.5 % (20.0-44.0); MEAN CORPUSCULAR HGB CONC 32 g/dl (31.0-36.0); MEAN CORPUSCULAR VOLUME 85 fL (80-96); MONOCYTES # (AUTO) 0.6 /CMM (0.1-1.30); MONOCYTES % (AUTO) 7.1 % (2.0-12.0); NEUTROPHILS # (AUTO) 6.7 /CMM (1.8-8.9); NEUTROPHILS % (AUTO) 78.2 % (43.0-81.0); PLATELET COUNT (AUTO) 171 /CMM (150-450); RDW COEFFICIENT OF VARIATION 20.6 (11.5-15.0); RED BLOOD CELL COUNT(AUTO) 2.69 MIL/uL (4.5-6.0); WHITE BLOOD COUNT (AUTO) 8.6 K/uL (4.3-11.0)
[2017-06-25] MEDS: PIPERACILLIN IV SCH ×4 (05:32→23:36)
[2017-06-25] MEDS: TAZOBACTAM IV SCH ×4 (05:32→23:36)
[2017-06-25] MEDS: NS 0.9% IV SCH ×4 (05:32→23:36)
[2017-06-25 05:35] LABS: BACTERIA,URINE None seen /HPF (None Seen); RBC,URINE 21-50 /HPF (0-2); SQUAMOUS EPITHELIAL CELL,UR Few /HPF (None Seen)
--- NOTE | 2017-06-25 06:47 | NUR ---
RN NOTES PT REMAINED IN STABLE CONDITION ALERT AND COOPERATIVE FOLLOWS COMMAND. DENIES PAIN. ETT AND VENT SETTING TOELRATED WELL. SATING 97-100%. SR WITH FIRST DEG. AVB ON THE MONITOR. ZERO FLACC. IV SITE ON DEBBI PICC LINE TLC INTACT AND PATENT. ATB TOLERATED WELL WITHOUT ASE SHOWN. KEPT PT CELAN AND COMFORTABLE IN BED. DRESSING CHANGE. WOUND VAC KEPT ON. WILL ENDORSED CONTINUITY OF CARE TO AM NURSE.
--- NOTE | 2017-06-25 07:21 | NUR ---
Male intubated pt received on mechanical vent. Pt 8.0 ETT is secured at 24cm @ the lip. Vent is plugged into a red outlet, alarms are set and audible, and BVM is at bedside. Addendum: 06/25/17 at 0722 by LEANDRO RODAS RT Amended: Links added.
--- NOTE | 2017-06-25 07:30 | NUR ---
RECEIVED PATIENT MECHANICALLY VENTILATED 8/24CM ANH ON LEFT SIDE OF MOUTH. PATIENT IS AWAKE TO SOUND, FOLLOWS COMMANDS AND EYE TRACKING. PATIENT SHAKES HEAD NO TO PAIN AND NOTIFIED WE WILL BE CHANGING WOUND VAC DRESSING TODAY AND PATIENT REQUESTING PAIN MEDICATION PRIOR TO CHANGE. NO S/S SOB, DIFFICULTY BREATHING AND TOLERATING VENT WELL. PATIENT STATING HE WANTS ETT PULLED OUT AND CURRENTLY RESTRAINED HE IS ATTEMPTING THIS WITH TURNING. PATIENT EDUCATED ON PROCEDURE FOR REMOVING ETT AND STATES UNDERSTANDING. IV SITES CLEAN DRY AND INTACT. ROMERO CATH IN PLACE DRAINING TO GRAVITY. SAFETY PRECAUTIONS IN PLACE. HOB ELEVATED. AND WILL ROUND PRN
[2017-06-25] MEDS: MULTIVITAMINS,THERAGRAN 1 UDTAB TABLET PO SCH (08:24)
[2017-06-25] MEDS: ASPIRIN 81 MG TAB.CHEW PO SCH (08:24)
[2017-06-25] MEDS: ZINC SULFATE 220 MG CAPSULE PO SCH (08:24)
[2017-06-25] MEDS: FUROSEMIDE 40 MG/4 ML VIAL IV SCH ×4 (08:24→23:40)
[2017-06-25] MEDS: ASCORBIC ACID 500 MG TABLET PO SCH (08:24)
[2017-06-25] MEDS: GABAPENTIN 300 MG CAPSULE PO SCH ×3 (08:24→16:16)
[2017-06-25] MEDS: CARVEDILOL 3.125 MG TABLET PO SCH ×2 (08:25→22:19)
[2017-06-25] MEDS: Z GUARD REMEDY 2 OZ OINT TP PRN (08:25)
[2017-06-25] MEDS: AMIODARONE HCL 200 MG TABLET PO SCH (08:25)
--- NOTE | 2017-06-25 08:43 | NUR ---
DR SIERRA AT BEDSIDE. UPDATED ON PATIENT ORIENTATION STATUS
[2017-06-25 08:44] LABS: ABG BASE EXCESS 7.8 mmol/L; ABG OXYGEN SATURATION 98.3 % (92.0-98.5); ABG PCO2 38.2 mmHg (35.0-45.0); ABG PH 7.528 (7.350-7.450); ABG PO2 136.7 mmHg (75.0-100.0); AaDO2 176.8 mmHg; MetHb 0.8 % (0.0-1.5); O2Hb 96.5 % (94.0-97.0); SITE, ABG Right Radial; VENT MODE, BG AC 16 550 50% +5
[2017-06-25] MEDS: FENTANYL PF 100MCG/2ML AMPUL IV PRN ×2 (08:54→18:05)
--- NOTE | 2017-06-25 09:38 | NUR ---
WOUND CARE: PT NOW IN ICU AND INTUBATED. RT HIP KCI VAC DRESSING CHANGED. RT HIP WOUND MEASURES 12CM X 3CM X 3CM AND IS PINK/RED IN COLOR WITH SCANT PINK DRAINAGE, NO ODOR. PERIWOUND SKIN HAS EDEMA. SKIN PREP AND VAC DRAPE APPLIED TO PERIWOUND SKIN, ONE PIECE OF GRANUFOAM TO WOUND, VAC AT 125mmHg CONTINUOUS SETTING WITH BRIDGING TECHNIQUE. PT TOLERATED WELL.
--- NOTE | 2017-06-25 09:56 | NUR ---
WOUND CARE COMPLETED ORDERED. WOUND VAC DRESSING CHANGED WITHOUT COMPLICATIONS. PATIENT TOLERATED WELL. BLE WOUND CARE COMPLETED AND DR SHAH AT BEDSIDE. PATIENT RESTING COMFORTABLY AT THIS TIME
[2017-06-25] MEDS: CADEXOMER IODINE 40 GM TUBE TP SCH (09:58)
--- NOTE | 2017-06-25 10:39 | NUR ---
PATIENT ABLE TO TURN SELF WITH MINIMAL ASSISTANCE.
[2017-06-25] MEDS: PANTOPRAZOLE 40 MG VIAL IV SCH (12:46)
[2017-06-25] MEDS: SOD FERRIC GLUC 125 MG in IV NS 0.9% 100 ML IV SCH (13:33)
--- NOTE | 2017-06-25 15:11 | NUR ---
DR LEVINE AT BEDSIDE. UPDATED MD ON PATIENT CONDITION AND VS. PER MD HAVE PATIENT EXTERMAL DEFIB REMAIN OFF WHILE PATIENT IS BEING TELEMETRY MONITORING AND OK TO TURN ON AGAIN ONCE PATIENT REACHES MED SURG
--- NOTE | 2017-06-25 16:27 | NUR ---
PER DR ISERRA GET ABG 30 MINUTES POST CPAP CHANGES AT 1640. ORDER UPDATED
[2017-06-25 16:52] LABS: ABG BASE EXCESS 4.3 mmol/L; ABG OXYGEN SATURATION 98.5 % (92.0-98.5); ABG PH 7.532 (7.350-7.450); ABG PO2 176.6 mmHg (75.0-100.0); AaDO2 142.8 mmHg; COHb 0.3 % (0.5-1.5); MetHb 0.5 % (0.0-1.5); O2Hb 97.7 % (94.0-97.0); SITE, ABG Right Radial; VENT MODE, BG CPAP 5 PS12 50%
--- NOTE | 2017-06-25 17:46 | NUR ---
PER DR SIERRA ORDER PATIENT WAS EXTUBATED. SUCCESSFULLY NO COMPLICATIONS NOTED. PATIENT 98% ON 3L NC. SPEAKING WITHOUT COMPLICATIONS
--- NOTE | 2017-06-25 17:46 | NUR ---
Pt extubated and placed on NC. Pt showing no signs of respiratory distress at this time Addendum: 06/25/17 at 1748 by LEANDRO RODAS RT Amended: Links added.
--- NOTE | 2017-06-25 18:53 | NUR ---
PATIENT TOLERATING NC 97-98%. FORGETFUL AT TIMES CONTINUES TO ASK WHAT HE WAS IN THE HOSPITAL FOR AND HOW LONG HIS HEART WAS STOPPED. PATIENT VS STABLE. A/OX2-3 WITH PERIODS OF FORGETFULNESS AT THIS TIME. ROMERO CATH IN PLACE TO GRAVITY. IV SITE CLEAN DRY AND INTACT. JORDAN MANAGED WITH PRN MEDICATIONS AND NON PHARM MEASURES. SAFETY PRECAUTIONS IN PLACE AND HOB ELEVATED. ALL DUE MEDS GIVEN AND ALL NEEDS MET.CALL LIGHT IN REACH, CARE WILL BE ENDORSED TO KAREN RODRIGUEZ FOR CHRISTIAN
--- NOTE | 2017-06-25 19:50 | NUR ---
RN NOTES RECEIVED PT AWAKE ALERT ORIENTED 3 WITH PERIODS OF FORGETFUL WATCHING TV ON BED. NO RESPIRATION EVEN AND UNLABORED. ON 02 3LPM VIA NC SATING 98% TOLERATED WELL. IV SITE ON DEBBI PICC LINE WITH DOUBLE LUMEN INTACT AND PATENT WITH GOOD BLOOD RETURN. LIFE VEST KEPT ON WOUND VAC @ 125 MMHG. KEPT PT CLEAN AND COMFORTABLE IN BED. OFFLOADED EXT WITH PILLOWS. CALL LIGHT KEPT WITHIN EASY REACH. KEPT CLEAN AND COMFORTABLE. WILL CLOSELY MONITOR.
[2017-06-25] MEDS: INSULIN GLARGINE, 100 UNIT/ML CARTRIDGE SQ SCH (22:00)
[2017-06-25] MEDS: ATORVASTATIN 40 MG TABLET PO SCH (22:19)
[2017-06-26] VITALS (33 sets, daily range): BP systolic 113–136; BP diastolic 56–79
[2017-06-26] MEDS: FENTANYL PF 100MCG/2ML AMPUL IV PRN ×5 (03:22→21:51)
[2017-06-26 04:58] LABS: BASOPHILS % (AUTO) 0.2 % (0.0-2.0); HEMATOCRIT 25 % (39-51); LYMPHOCYTES # (AUTO) 1.6 /CMM (0.8-4.8); LYMPHOCYTES % (AUTO) 14.3 % (20.0-44.0); MEAN CORPUSCULAR HGB CONC 32 g/dl (31.0-36.0); MEAN CORPUSCULAR VOLUME 86 fL (80-96); MONOCYTES # (AUTO) 0.5 /CMM (0.1-1.30); MONOCYTES % (AUTO) 4.8 % (2.0-12.0); NEUTROPHILS # (AUTO) 8.6 /CMM (1.8-8.9); NEUTROPHILS % (AUTO) 77.7 % (43.0-81.0); PLATELET COUNT (AUTO) 199 /CMM (150-450); RED BLOOD CELL COUNT(AUTO) 2.94 MIL/uL (4.5-6.0); WHITE BLOOD COUNT (AUTO) 11.1 K/uL (4.3-11.0)
[2017-06-26 05:13] LABS: CREATININE 2.5 mg/dL (0.6-1.3); MAGNESIUM 2.5 mg/dL (1.8-2.4); PHOSPHORUS 5.3 mg/dL (2.5-4.9); POTASSIUM 3.6 mmol/L (3.5-5.1)
[2017-06-26] MEDS: NS 0.9% IV SCH ×4 (05:56→23:33)
[2017-06-26] MEDS: FUROSEMIDE 40 MG/4 ML VIAL IV SCH (05:56)
[2017-06-26] MEDS: PIPERACILLIN IV SCH ×4 (05:56→23:33)
[2017-06-26] MEDS: TAZOBACTAM IV SCH ×4 (05:56→23:33)
[2017-06-26] MEDS: BLOOD SUGAR DIAGNOSTIC 1 EACH STRIP IN SCH ×4 (05:57→21:47)
--- NOTE | 2017-06-26 06:26 | NUR ---
RN NOTES PT ASLEEP ON BED NO ACUTE RESP DISTRESS SATING 100% REMAINED SR WITH BBB AND EPISODE OF FIRST DEGREE AVB ON TELE MONITOR. COMPLAINING OF PAIN TIME TO TIME PAIN MEDICINE EFFECTIVE. ALL NEEDS ATTENDED. ALL DUE MEDICINE TOLERATED WELL. NO SIGNIFICANT CHANGE OF CONDITION PRESENT. WILL ENDORSED CONTINUITY OF CARE TO AM NURSE.
--- NOTE | 2017-06-26 07:30 | NUR ---
PATIENT RESTING COMFORTABLY. DENIES PAIN, SOB, DIFFICULTY BREATHING. NC 3LPM SAT 100%. PATIENT ROMERO CATH DRAINING TO GRAVITY; PER MICHAEL RN PATIENT WAS NOTED WITH WHAT APPEARED TO BE STONES THAT WERE BLOCKING URINE; WILL MONITOR. IV LINES CLEAN DRY AND INTACT. SAFETY PRECAUTIONS IN PLACE, HOB ELEVATED. PATIENT PENDING SWALLOW EVAL TODAY. PASSED NURSING SWALLOW EVAL. PATIENT NEEDS IN REACH. WILL ROUND PRN
[2017-06-26] MEDS ORDERED: BUMETANIDE INJ 16 MG in IV NS 0.9% 16 ML IV ONE (09:30)
[2017-06-26] MEDS: ASCORBIC ACID 500 MG TABLET PO SCH (09:32)
[2017-06-26] MEDS: ASPIRIN 81 MG TAB.CHEW PO SCH (09:32)
[2017-06-26] MEDS: GABAPENTIN 300 MG CAPSULE PO SCH ×3 (09:32→17:10)
[2017-06-26] MEDS: POTASSIUM CHLORIDE 20 MEQ TAB.PRT.SR PO SCH ×3 (09:32→11:00)
[2017-06-26] MEDS: ZINC SULFATE 220 MG CAPSULE PO SCH (09:32)
[2017-06-26] MEDS: AMIODARONE HCL 200 MG TABLET PO SCH (09:33)
[2017-06-26] MEDS: CARVEDILOL 3.125 MG TABLET PO SCH ×2 (09:33→21:48)
[2017-06-26] MEDS: MULTIVITAMINS,THERAGRAN 1 UDTAB TABLET PO SCH (09:33)
[2017-06-26] MEDS: Z GUARD REMEDY 2 OZ OINT TP PRN ×2 (09:56→17:11)
[2017-06-26] MEDS: CADEXOMER IODINE 40 GM TUBE TP SCH (10:04)
[2017-06-26] MEDS: PANTOPRAZOLE 40 MG VIAL IV SCH (12:27)
--- NOTE | 2017-06-26 12:28 | NUR ---
UNABLE TO PULL 20MEQ K DUR FROM [facility]. CANCELED ORDER AND ONE TIME SAME ORDER ADDED TO COMPLETE 3 DOSES.
[2017-06-26] MEDS ORDERED: POTASSIUM CHLORIDE 20 MEQ TAB.PRT.SR PO ONE (12:30)
--- NOTE | 2017-06-26 13:00 | NUR ---
MICHELLE AT BEDSIDE. PER MICHELLE ORDER PUREED DIET CCHO/CARDIAC AND ADVANCE TOLERATED. ORDER CEPACOL LAURA Q2H PRN FOR SORE THROAT. AND OK TO DOWNGRADE PATIENT TO TELEMETRY MONITORING. NOTIFIED KEVIN VELÁSQUEZ
[2017-06-26] MEDS: SOD FERRIC GLUC 125 MG in IV NS 0.9% 100 ML IV SCH (13:46)
--- NOTE | 2017-06-26 14:58 | NUR ---
ROMERO CATH FLUSHED PATIENT OUTPUT DECREASED. PATENT. NICK URINE NOTED WITH SEDIMENT
[2017-06-26] MEDS ORDERED: MENTHOL/CETYLPYRD (CEPACOL) 1 LOZ LOZENGE PO PRN (15:00)
--- NOTE | 2017-06-26 15:03 | NUR ---
PATIENT ATE LUNCH NO COMPLICATIONS NOTED. NO N.V.ASPIRATION. PATIENT BECOMES SOB WITH ACTIVITY. EDUCATED ON IS AND DEEP BREATHING AND COUGHING. ROOM AIR 81% 2 LPM 98%
--- NOTE | 2017-06-26 17:13 | NUR ---
PER SUP PATIENT TO BE TX TO 311 TELE. REPORT GIVEN TO KAREN LUNA FOR CHRISTIAN. CALLED PHARMACY TO NOTIFY WE ARE NEEDING 1800 ZOSYN
--- NOTE | 2017-06-26 18:11 | NUR ---
CHIEF LOCK OPERATOR NOTES PATIENT TRANSFERRED FR ICU RM 258-1 TO ROOM 311-1. PT TRANSPORTED TO UNIT VIA HIS BED AT 1800 ACCOMPANIED BY KAREN OH. A/O X 3. ABLE TO MAKE NEEDS KNOWN, NO ACUTE SIGNS OF DISTRESS NOTED. PT ON 02 VIA N/C AT 1 LPM,BREATHING EVEN AND UNLABORED WITH SP02 OF 100%. PT PLACED ON TELE-MONITORING WITH CURRENT READING OF A-FIB WITH HR OF 90, NO C/O CHEST PAIN OR DISCOMFORTS VOICED. V/S CHECKED; BP 130/77, P 90, R 20 AND T 97.7F. PT WITH DOUBLE LUMEN PICC LINE ON DEBBI INTACT AND PATENT, IV ABX ZOSYN AT PRESCRIBED DOSE INFUSING AT THIS TIME. PT WITH WOUND VAC IN PLACE TO RIGHT HIP RUNNING AT 125MMHG WITH SEROSANGUINEOUS DRAINAGE NOTED AT COLLECTING CANISTER. ROMERO IN PLACE AND ACTIVELY DRAINING CLEAR YELLOW URINE VIA GRAVITY, ROMERO CARE DONE. ALL SAFETY MEASURES ENFORCED. BED PLACED IN LOW/LOCKED POSITION WITH SIDERAILS-UP X3. CALL LIGHT AND BEDSIDE TABLE PLACED WITHIN EASY REACHED OF PT. WILL CONTINUE TO MONITOR.
--- NOTE | 2017-06-26 18:12 | NUR ---
PATIENT TRANSFERED TO [facility] 311 IN STABLE CONDITION. FC TO GRAVITY PATENT. IV SITE CLEAN DRY, INTACT, PATENT. PATIENT TOLERATING NC 2LPM 97%. WOUND CARE COMPLETED PER ORDER, BED BATH, ALL DUE MEDS GIVEN AND ALL NEEDS MET. SAFETY PRECAUTIONS IN PLACE, HOB ELEVATED. PATIENT TOLERATED PUREED DIET PRODUCT TEST SPECIALIST BROUGHT; WILL ADVANCE DIET TOLERATED PER ORDER. CARE ENDORSED TO KAREN LUNA FOR CHRISTIAN
[2017-06-26] MEDS ORDERED: DEXTROSE 50%-WATER 50 ML DISP.SYRIN IV PRN (18:30)
[2017-06-26] MEDS: ACETAMINOPHEN 325 MG TABLET PO PRN (18:48)
--- NOTE | 2017-06-26 19:40 | NUR ---
RN INITIAL NOTES: RECEIVED REPORT FROM ALAINA JONES, PT IN BED, AWAKE, A/O X2-3 ON 1L VIA NC, RESPIRATION EVEN AND UNLABORED, PT S/P EXTUBATION 06/26/17 FROM ICU, PT HAS DEBBI PICC LINE DOUBLE LUMEN, BOTH PORT FLUSHING WELL, WITH GOOD BLOOD RETURN NOTED. PT HAS WOUND VAC IN PLACED 125MMHG COLLECTION CHAMBER NOTED TO HAVE 100CC OF DRAINAGE. DRESSING C/D/I. PT ON AFIB HR 85. PT ON GEL MATTRESS, BLE OFFLOADED. SAFETY PRECAUTIONS FOR FALL INITIATED CALL LIGHT IN REACH, WILL CONTINUE MONITORING PT
[2017-06-26] MEDS: ATORVASTATIN 40 MG TABLET PO SCH (21:47)
[2017-06-26] MEDS: INSULIN REGULAR, HUMAN 100 UNIT/ML 3 ML VIAL SQ PRN (21:48)
[2017-06-26] MEDS: INSULIN GLARGINE, 100 UNIT/ML CARTRIDGE SQ SCH (21:49)
--- NOTE | 2017-06-26 21:50 | NUR ---
BS 135: PT'S BLOOD SUGAR IS 135, 2UNITS OF INSULIN GIVEN PER SLIDING SCALE
--- NOTE | 2017-06-26 21:51 | NUR ---
PRN FENTANYL: PT C/O GENERALIZED PAIN 11/01 REQUESTING FOR PAIN MEDICATION, VS TAKEN AND RECORDED PRIOR TO ADMINISTERING MEDS, PRN FENTANYL 20MCG, 0.4ML ADMINISTERED TO THE PT AT THIS TIME, WILL CONTINUE TO MONITOR AND REASSESS
--- NOTE | 2017-06-26 22:00 | NUR ---
RN NOTES: PT REFUSED TO BE TURN AND REPOSITION, EDUCATION PROVIDED TO THE PT, PT ON GELL MATTRESS, ALSO PT REFUSING RN TO CHANGE HIS DRESSING, PER DAY RN REPORT ONLY WOUND CARE NURSE TO CHANGE PT'S WOUND VAC DRESSING
[2017-06-27] VITALS (7 sets, daily range): BP systolic 101–126; BP diastolic 62–79
--- NOTE | 2017-06-27 | NUR ---
RN NOTES: PT REFUSED AGAIN TO BE TURN AND REPOSITION, PT STATED HE'S COMFORTABLE LAYING ON HIS BACK, EDUCATION PROVIDED TO THE PT
--- NOTE | 2017-06-27 02:00 | NUR ---
RN NOTES: OFFERED TO BE REPOSITION, PT REFUSED AGAIN, PAINT AND TABLE EDGER AWARE OF [T'S REFUSAL, DESPITE GIVING MULTIPLE EDUCATION
--- NOTE | 2017-06-27 04:30 | NUR ---
RN NOTES: ASSISTED YARD INSPECTOR IN PROVIDING BED BATH TO THE PT, WOUND CARE DONE ORDERED. PT REFUSED TO BE REPOSITION DESPITE PROVIDING EDUCATION
[2017-06-27] MEDS: NS 0.9% IV SCH (05:13)
[2017-06-27] MEDS: TAZOBACTAM IV SCH (05:13)
[2017-06-27] MEDS: PIPERACILLIN IV SCH (05:13)
[2017-06-27] MEDS: INSULIN REGULAR, HUMAN 100 UNIT/ML 3 ML VIAL SQ PRN ×2 (05:14→17:25)
[2017-06-27] MEDS: BLOOD SUGAR DIAGNOSTIC 1 EACH STRIP IN SCH ×4 (05:14→21:36)
[2017-06-27] MEDS: FENTANYL PF 100MCG/2ML AMPUL IV PRN ×4 (05:14→22:40)
--- NOTE | 2017-06-27 05:15 | NUR ---
PRN FENTANYL: PT C/O 11/01 RIGHT HIP PAIN REQUESTING FOR PAIN MEDICATION, PRN FENTANYL 0.4ML IVP ADMINISTERED AT THIS TIME, WILL CONTINUE TO MONITOR AND REASSESS
--- NOTE | 2017-06-27 06:50 | NUR ---
RN CLOSING NOTES; PT IN BED, AWAKE, REMAINS A/O X2-3 ON 2L OXYGEN VIA NC, RIGHT UPPER ARM PICC LINE REMAINS PATENT AND FLUSHING WELL, REMAINS WITH GOOD BLOOD RETURN, ON HL. REMAINS ON AFIB WITH BBB HR 71. WOUND VAC DRESSING REMAINS C/D/I, WOUND VAC REMAINS ON 125MMHG, DRAINAGE REMAINS 100ML FROM PREVIOUS SHIFT. BLE OFFLOADED. VS REMAINS STABLE, NEEDS ATTENDED. SAFETY PRECAUTIONS FOR FALL REMAINS ENGAGED, CALL LIGHT IN REACH, WILL ENDORSE TO DAY RN FOR CHRISTIAN.
--- NOTE | 2017-06-27 07:30 | NUR ---
BLOWER INSTALLER OPENING NOTES. PT RECEIVED A&0X3, AWAKE AND WATCHING T.V. PT TELE: PT WITH COOL AEROSOL VIA NC AT 3LPM AND SAO2 READING 98%. PT REPORTS MINOR SOB. PT REPORTS 5/10 GENERALIZED PAIN. PT WITH R UA MIDLINE INTACT AND SALINE FLUSH PATENT WITH BLOOD RETURN [id number]. PT REPORTS 5/10 GENERALIZED PAIN AND PAIN TO RIGHT HIP. R HIP WITH WOUND VAC IN PLACE AND OPERATIONAL, NAD AT SITE AND MAINTAINING 100MMHG PRESSURE AND 100ML SEROSANGUINEOUS FLUID IN COLLECTION. PT WITH ROMERO INTACT AND OPERATIONAL DRAINING LITE YELLOW URINE. SCROTUM AND PENIS WITH SIGNIFICANT EDEMA PRESENT. PT REPOSITED, HEELS FLOATED. PT BED IN LOWEST LOCKED POSITION WITH HNADRAILSX3 AND CALL OLIVARES WITHIN REACH. PT BRIEFED ON TODAY'S POC AND IS WITHOUT CONCERN OR COMPLAINT AT THIS TIME. Addendum: 06/27/17 at 0824 by HARPER SPRAGUE RN PT TELE SR 73 WITH BBB.
[2017-06-27 07:44] LABS: CALCIUM, SERUM 7.9 mg/dL (8.5-10.1); CREATININE 2.4 mg/dL (0.6-1.3); POTASSIUM 3.7 mmol/L (3.5-5.1)
[2017-06-27] MEDS: ASCORBIC ACID 500 MG TABLET PO SCH (08:52)
[2017-06-27] MEDS: ASPIRIN 81 MG TAB.CHEW PO SCH (08:52)
[2017-06-27] MEDS: GABAPENTIN 300 MG CAPSULE PO SCH ×3 (08:52→17:23)
[2017-06-27] MEDS: MULTIVITAMINS,THERAGRAN 1 UDTAB TABLET PO SCH (08:53)
[2017-06-27] MEDS: ZINC SULFATE 220 MG CAPSULE PO SCH (08:53)
[2017-06-27] MEDS: CADEXOMER IODINE 40 GM TUBE TP SCH (08:53)
[2017-06-27] MEDS: CARVEDILOL 3.125 MG TABLET PO SCH ×2 (08:58→21:26)
--- NOTE | 2017-06-27 09:30 | NUR ---
DOCUMENTATION SUPERVISOR NOTES. PT WITH ZOLL LIFE VEST IN-SITU, RV USE WITH VICTORIANO OLIVEROS, BATTERY REPLACED.
[2017-06-27] MEDS ORDERED: VANCOMYCIN 1 GM in IV NS 0.9% 250 ML IV SCH (10:00)
[2017-06-27] MEDS ORDERED: BUMETANIDE INJ 16 MG in IV NS 0.9% 16 ML IV ONE (10:00)
--- NOTE | 2017-06-27 10:00 | NUR ---
PROCESS EXPERT NOTES. PT TELE MONITORING TO REMAIN IN PLACE PER SHAKER REPAIRER CC.
[2017-06-27] MEDS: METOLAZONE 2.5 MG TABLET PO SCH (10:46)
[2017-06-27 11:44] LABS: ABG OXYGEN SATURATION 96.9 % (92.0-98.5); ABG PCO2 53.4 mmHg (35.0-45.0); ABG PH 7.329 (7.350-7.450); ABG PO2 103.6 mmHg (75.0-100.0); AaDO2 47.6 mmHg; COHb 0.4 % (0.5-1.5); MetHb 0.6 % (0.0-1.5); O2Hb 95.9 % (94.0-97.0); SITE, ABG Right Radial; VENT MODE, BG NC 3L
[2017-06-27] MEDS: AMIODARONE HCL 200 MG TABLET PO SCH (12:54)
[2017-06-27] MEDS: PANTOPRAZOLE 40 MG VIAL IV SCH (12:54)
--- NOTE | 2017-06-27 14:00 | NUR ---
JOAN JONES NOTES. IV COMPATIBILITY REPORT NOT AVAILABLE FOR BUMEX DRIP AND SCHEDULED SOD FERRIC GLUC. PHARMACIST KENYA ADVISE TO COMPLETE BUMEX AND ADMIN FERRIC AFTER.
[2017-06-27] MEDS: SERTRALINE HCL 25 MG TABLET PO SCH (18:29)
[2017-06-27] MEDS: ALBUTEROL FS 2.5 MG/3 ML VIAL.NEB NEB SCH (19:55)
[2017-06-27] MEDS: IPRATROPIUM NEB FS 0.5 MG/2.5 ML AMPUL.NEB NEB SCH (19:55)
--- NOTE | 2017-06-27 20:00 | NUR ---
MS RN OPENING NOTE Patient was seen lying in bed AAOx3, breathing on 3L humidified O2 NC with continuous pulse oximetry at bedside (SPO2 98%), no signs of acute distress. Patient is wearing external defibrillator-Zoll Life Vest; settings and battery power were checked, and there is a spare battery fully charged at bedside. Patient has right upper arm double-lumen PICC line. Mckeon cath is draining shayne-yellow urine. Patient has bilateral foot ulcers on both heels, which are covered with mepilex and kerilex - both dressings are clean, dry, and intact and heels are offloaded. Right hip wound is connected to wound VAC at 125 mmHg, is draining serosanguineous fluid, and dressing is clean and intact. Bed is in low/locked position, two side rails up, and call blackwell is within reach. Will continue to monitor.
[2017-06-27] MEDS: ATORVASTATIN 40 MG TABLET PO SCH (21:25)
[2017-06-27] MEDS: INSULIN GLARGINE, 100 UNIT/ML CARTRIDGE SQ SCH (21:36)
[2017-06-27] MEDS ORDERED: SOD FERRIC GLUC 62.5 MG/5 ML AMPUL IV ONE (21:44)
[2017-06-27] MEDS: SOD FERRIC GLUC 125 MG in IV NS 0.9% 100 ML IV SCH (21:59)
[2017-06-27] MEDS: ACETYLCYSTEINE 10% SOLN 400 MG/4 ML VIAL NEB SCH (23:50)
[2017-06-28 00:12] VITALS: BP 113/68
--- NOTE | 2017-06-28 03:30 | NUR ---
MS RN NOTE - Wound care Dressing change and wound care provided to bilateral heels and feet. Wounds cleansed with sterile NS solution, Iodosorb applied, mepilex applied, and wrapped with kerilex (per wound care order). Pictures of wounds on both feet and both heels taken per unit protocol prior to applying new dressing.
--- NOTE | 2017-06-28 03:45 | NUR ---
MS RN NOTE - Pt refused skin pictures Patient refused to have pictures taken of sacrum and right buttocks. Patient did not want to be turned and repositioned for pictures or for linen change due to discomfort. Patient voiced preference for standing at bedside, but was advised against this due to unsteady balance/gait, foot ulcers, and hemodynamic instability with activity.
[2017-06-28 04:16] VITALS: BP 116/64
--- NOTE | 2017-06-28 06:27 | NUR ---
MS RN CLOSING NOTE Patient was seen lying in bed AAOx3, breathing on 3L humidified O2 NC with continuous pulse oximetry at bedside (SPO2 99%), no signs of acute distress, vital signs remained stable throughout the shift. Patient is wearing external defibrillator-Zoll Life Vest; settings and battery power were checked, and there is a spare battery fully charged at bedside. Patient has right upper arm double-lumen PICC line, patent and flushed (for lab draw this AM). Mckeon cath is draining shayne-yellow urine with output of 600 ml. Patient has bilateral foot ulcers on both heels; wound care and dressing change provided and heels are offloaded. Right hip wound is connected to wound VAC at 125 mmHg, is draining serosanguineous fluid, and dressing is clean and intact. Bed is in low/locked position, two side rails up, and call blackwell is within reach. All prescribed orders and patient needs carried out. Patient care will be endorsed to day shift nurse.
[2017-06-28 06:28] LABS: BASOPHILS % (AUTO) 0.4 % (0.0-2.0); EOSINOPHILS % (AUTO) 2.8 % (0.0-6.0); HEMATOCRIT 25 % (39-51); HEMOGLOBIN 7.6 g/dL (13.5-17.5); LYMPHOCYTES # (AUTO) 1.5 /CMM (0.8-4.8); LYMPHOCYTES % (AUTO) 17.1 % (20.0-44.0); MEAN CORPUSCULAR HGB CONC 31 g/dl (31.0-36.0); MEAN CORPUSCULAR VOLUME 87 fL (80-96); MONOCYTES # (AUTO) 0.4 /CMM (0.1-1.30); MONOCYTES % (AUTO) 5.1 % (2.0-12.0); NEUTROPHILS # (AUTO) 6.5 /CMM (1.8-8.9); NEUTROPHILS % (AUTO) 74.6 % (43.0-81.0); PLATELET COUNT (AUTO) 173 /CMM (150-450); RDW COEFFICIENT OF VARIATION 20.7 (11.5-15.0); RED BLOOD CELL COUNT(AUTO) 2.81 MIL/uL (4.5-6.0); WHITE BLOOD COUNT (AUTO) 8.6 K/uL (4.3-11.0)
[2017-06-28 06:30] LABS: CALCIUM, SERUM 8.1 mg/dL (8.5-10.1); CREATININE 2.6 mg/dL (0.6-1.3); MAGNESIUM 2.3 mg/dL (1.8-2.4); PHOSPHORUS 5.3 mg/dL (2.5-4.9); POTASSIUM 3.6 mmol/L (3.5-5.1)
[2017-06-28] MEDS: BLOOD SUGAR DIAGNOSTIC 1 EACH STRIP IN SCH ×4 (06:53→22:27)
[2017-06-28 08:00] VITALS: BP 128/82
--- NOTE | 2017-06-28 08:00 | NUR ---
SALES APPOINTMENT COORDINATOR NOTES PATIENT IN BED RESTING NO SOB OR ACUTE DISTRESS NOTED. PATIENT ALERT, ORIENTED X3. WITH WOUND VAC ON RIGHT HIP INTACT PATENT. WITH PICC LINE ON RIGHT UPPER ARM INTACT PATENT. ROMERO CATH. INTACT PATENT. WILL CONTINUE TO MONITOR.
[2017-06-28] MEDS: IPRATROPIUM NEB FS 0.5 MG/2.5 ML AMPUL.NEB NEB SCH ×4 (08:28→19:52)
[2017-06-28] MEDS: ALBUTEROL FS 2.5 MG/3 ML VIAL.NEB NEB SCH ×4 (08:28→19:53)
[2017-06-28] MEDS: ACETYLCYSTEINE 10% SOLN 400 MG/4 ML VIAL NEB SCH ×3 (08:28→23:30)
[2017-06-28] MEDS: GABAPENTIN 300 MG CAPSULE PO SCH ×3 (08:39→17:00)
[2017-06-28] MEDS: CARVEDILOL 3.125 MG TABLET PO SCH ×2 (08:40→21:00)
[2017-06-28] MEDS: METOLAZONE 2.5 MG TABLET PO SCH (08:40)
[2017-06-28] MEDS: ASCORBIC ACID 500 MG TABLET PO SCH (08:40)
[2017-06-28] MEDS: SERTRALINE HCL 25 MG TABLET PO SCH (08:40)
[2017-06-28] MEDS: ZINC SULFATE 220 MG CAPSULE PO SCH (08:41)
[2017-06-28] MEDS: ASPIRIN 81 MG TAB.CHEW PO SCH (08:41)
[2017-06-28] MEDS: MULTIVITAMINS,THERAGRAN 1 UDTAB TABLET PO SCH (08:41)
[2017-06-28] MEDS: AMIODARONE HCL 200 MG TABLET PO SCH (08:41)
[2017-06-28] MEDS: CADEXOMER IODINE 40 GM TUBE TP SCH (08:55)
[2017-06-28] MEDS: FENTANYL PF 100MCG/2ML AMPUL IV PRN (09:18)
--- NOTE | 2017-06-28 09:59 | NUR ---
WOUND CARE: VAC DRESSING TO RT HIP CHANGED USING SKIN PREP AND VAC DRAPE TO PERIWOUND AREA, 1 PIECE OF GRANUFOAM TO WOUND. BRIDGING TECHNIQUE USED. PERIWOUND SKIN SHOWS SOME FRIABILITY AND EDEMA. RT HIP WOUND MEASURES 12.5CM X 3CM X 2.5CM AND IS PINK/RED IN COLOR, NO ODOR AND SCANT PINK DRAINAGE. 125cc IN OLD CANISTER WHICH WAS CHANGED. VAC SETTING IS 125mmHg CONTINUOUS SETTING. PT TOLERATED WELL.
[2017-06-28] MEDS ORDERED: BUMETANIDE INJ 8 MG in IV NS 0.9% 48 ML IV ONE (11:30)
--- NOTE | 2017-06-28 11:30 | NUR ---
VERTICAL CONTOUR BAND SAW OPERATOR NOTES PATIENT ALERT, ORIENTED X2 APPEARS LETHARGIC. ABUSABLE, OPENS EYES OBEYS COMMANDS FALLS ASLEEP. MICHELLE PASTRANA MADE AWARE EVALUATED PATIENT NO NEW ORDERS GIVEN, TO CONTINUE MONITORING CLOSELY. Addendum: 06/28/17 at 1216 by UBALDO LOCKHART RN VS WNL BP OF 103/63 PULSE 72 O2 SAT 99% RESPIRATION OF 18 WILL CONTINUE TO MONITOR.
[2017-06-28] MEDS: INSULIN REGULAR, HUMAN 100 UNIT/ML 3 ML VIAL SQ PRN (11:38)
--- NOTE | 2017-06-28 11:44 | NUR ---
Social service consult requested by SUPERVISOR TUMBLERS Rocio Pizano. However, SW is unaware of what the reason for the consult is. SW met with pt. and his RN Jeannine desai. Pt. was asleep and was woken up by his nurse. Pt. is alert and oriented x 1 and continues to fall asleep while SW and RN are speaking to him. SW to come back later to speak to pt. when he is more alert and oriented.
[2017-06-28 12:00] VITALS: BP 130/74
--- NOTE | 2017-06-28 12:30 | NUR ---
PROGRAM CLERK NOTES PATIENT REFUSED THORACENTESIS AT THIS TIME, WILL CONTINUE TO FOLLOW UP DESPITE EXPLANATION OF RISKS AND BENEFITS.
--- NOTE | 2017-06-28 13:00 | NUR ---
RN NOTES PATIENT AGREED FOR THORACENTESIS CONSENT OBTAINED, INFORMED RADIOLOGY STATES TEST WILL BE PERFORMED ON 06/29/2017 DR. SIERRA MADE AWARE .
[2017-06-28 13:12] LABS: CALCITRIOL VIT D,1, 25 DIHYDRO 8.3 pg/mL (19.9-79.3)
[2017-06-28 13:25] LABS: INR 1.09 (0.87-1.13)
[2017-06-28] MEDS: PANTOPRAZOLE 40 MG VIAL IV SCH (13:26)
[2017-06-28] MEDS: SOD FERRIC GLUC 125 MG in IV NS 0.9% 100 ML IV SCH (14:50)
[2017-06-28 16:00] VITALS: BP 118/70
--- NOTE | 2017-06-28 18:35 | NUR ---
MS RN NOTES PATIENT IN BED RESTING NO SOB OR ACUTE DISTRESS NOTED. PATIENT SEEMS MORE ALERT. PATIENT REFUSED TO EAT BREAKFAST AND LUNCH, ATE 30% OF DINNER WITH INCREASED ENCOURAGEMENT. PATIENTS PICC LINE INTACT PATENT. ROMERO INTACT PATENT. ALL DUE MEDICATIONS ADMINISTERED. ALL NEEDS MET. WILL ENDORSE TO PM SHIFT CHRISTIAN.
--- NOTE | 2017-06-28 19:15 | NUR ---
RN OPENING NOTES PATIENT RECEIVED SITTING UP IN BED, ALERT AND ORIENTED, VERBALLY RESPONSIVE WITH VISITORS AT BEDSIDE. NOTED WITH NO SOB, BREATHING EVEN AND UNLABORED, IN NO ACUTE DISTRESS AND WITH NO C/O PAIN. ALL PATEINT'S NEEDS ATTENDED TO AT THIS TIME. CALL LIGHT PLACED WITHIN EASY REACH, BED IN LOW POSITION AND LOCKED IN PLACE. WILL CONTINUE TO MONITOR.
[2017-06-28 19:52] LABS: APPEARANCE,URINE SL CLOUDY (CLEAR); BILIRUBIN,URINE NEGATIVE (NEGATIVE); BLOOD, URINE 3+ Ery/uL (NEGATIVE); KETONES,URINE NEGATIVE (NEGATIVE); LEUKOCYTE ESTERASE ,URINE 2+ (NEGATIVE); NITRITE, URINE NEGATIVE (NEGATIVE); PROTEIN,URINE 2+ mg/dl (NEGATIVE); UGLUCOSE NEGATIVE (NEGATIVE); UROBILINOGEN,URINE 0.2 EU/dL (0.2)
[2017-06-28 20:00] VITALS: BP 110/65
[2017-06-28 20:15] LABS: COLOR,URINE LIGHT RED (YELLOW)
[2017-06-28 20:16] LABS: BACTERIA,URINE None seen /HPF (None Seen); RBC,URINE TOO NUMEROUS TO COUN /HPF (0-2); SQUAMOUS EPITHELIAL CELL,UR Few /HPF (None Seen); WBC,URINE TOO NUMEROUS TO COUN /HPF (0-3); YEAST,URINE Many /HPF (None Seen)
[2017-06-28] MEDS: INSULIN GLARGINE, 100 UNIT/ML CARTRIDGE SQ SCH (22:00)
[2017-06-28] MEDS: ATORVASTATIN 40 MG TABLET PO SCH (22:12)
--- NOTE | 2017-06-28 22:30 | NUR ---
RN NOTE PATIENT REFUSED ADMINISTRATION OF LANTUS AND REGULAR INSULIN. EXPLAINED RISKS AND BENEFITS X 3 BUT PT CONTINUES TO REFUSE HE HAS NOT EATEN MUCH FOR DINNER. RESPECTED PATIENT'S DECISION. WILL CONTINUE TO MONITOR.
[2017-06-29] VITALS (7 sets, daily range): BP systolic 95–131; BP diastolic 59–73
--- NOTE | 2017-06-29 02:40 | NUR ---
RN NOTES CALLED VAN CDL DRIVER MARTHA VANG NP, RELAYED UA PROFILE RESULTS, RECEIVED NEW ORDER TO START PATIENT ON IV ATB ROCEPHIN 1 GM Q24H, ALL ORDERS NOTED AND CARRIED OUT. CALLED PHARMACY FOR VERIFICATION. INFORMED PT AND AGREES. WILL CONTINUE TO MONITOR.
[2017-06-29] MEDS ORDERED: CEFTRIAXONE 1 G VIAL ONE (03:00)
[2017-06-29] MEDS ORDERED: CEFTRIAXONE 1 G in IV NS 0.9% 50 ML IV SCH ×4 (03:00)
[2017-06-29] MEDS: FENTANYL PF 100MCG/2ML AMPUL IV PRN ×2 (03:55→22:35)
[2017-06-29] MEDS: BLOOD SUGAR DIAGNOSTIC 1 EACH STRIP IN SCH ×4 (06:19→21:20)
[2017-06-29 06:33] LABS: BASOPHILS % (AUTO) 0.4 % (0.0-2.0); EOSINOPHILS % (AUTO) 1.4 % (0.0-6.0); HEMATOCRIT 26 % (39-51); HEMOGLOBIN 8.1 g/dL (13.5-17.5); LYMPHOCYTES # (AUTO) 1.5 /CMM (0.8-4.8); MEAN CORPUSCULAR HGB CONC 31 g/dl (31.0-36.0); MEAN CORPUSCULAR VOLUME 87 fL (80-96); MONOCYTES # (AUTO) 0.6 /CMM (0.1-1.30); MONOCYTES % (AUTO) 5.9 % (2.0-12.0); NEUTROPHILS # (AUTO) 8.2 /CMM (1.8-8.9); NEUTROPHILS % (AUTO) 78.3 % (43.0-81.0); PLATELET COUNT (AUTO) 190 /CMM (150-450); RDW COEFFICIENT OF VARIATION 21.5 (11.5-15.0); RED BLOOD CELL COUNT(AUTO) 2.96 MIL/uL (4.5-6.0); WHITE BLOOD COUNT (AUTO) 10.4 K/uL (4.3-11.0)
[2017-06-29 06:49] LABS: CREATININE 2.6 mg/dL (0.6-1.3); MAGNESIUM 2.1 mg/dL (1.8-2.4); PHOSPHORUS 5.5 mg/dL (2.5-4.9); POTASSIUM 3.6 mmol/L (3.5-5.1)
--- NOTE | 2017-06-29 06:50 | NUR ---
RN CLOSING NOTES PATIENT IN BED, AWAKE, ALERT AND ORIENTED, VERBALLY RESPONSIVE, IN NO ACUTE DISTRESS, NO SOB NOTED, IN STABLE CONDITION, ALL PATIENT'S NEEDS ATTENDED TO THROUGHOUT THE SHIFT. CALL LIGHT PLACED WITHIN EASY REACH, BED IN LOW POSITION AND LOCKED IN PLACE.
[2017-06-29 06:51] LABS: INR 1.1 (0.87-1.13)
[2017-06-29] MEDS: ALBUTEROL FS 2.5 MG/3 ML VIAL.NEB NEB SCH ×4 (07:24→19:17)
[2017-06-29] MEDS: IPRATROPIUM NEB FS 0.5 MG/2.5 ML AMPUL.NEB NEB SCH ×4 (07:24→19:17)
[2017-06-29] MEDS: ACETYLCYSTEINE 10% SOLN 400 MG/4 ML VIAL NEB SCH ×3 (07:24→23:09)
--- NOTE | 2017-06-29 08:00 | NUR ---
INTERNAL SPECIALIST NOTES PATIENT IN BED RESTING NO SOB OR ACUTE DISTRESS NOTED. PATIENT ALERT, ORIENTED X3. WITH WOUND VAC ON RIGHT HIP INTACT PATENT. WITH PICC LINE ON RIGHT UPPER ARM INTACT PATENT. ROMERO CATH. INTACT PATENT. BED IN LOW LOCKED POSITION, CALL LIGHT WITHIN REACH. WILL CONTINUE TO MONITOR.
[2017-06-29] MEDS: GABAPENTIN 300 MG CAPSULE PO SCH ×3 (08:15→16:58)
[2017-06-29] MEDS: METOLAZONE 2.5 MG TABLET PO SCH (08:15)
[2017-06-29] MEDS: ZINC SULFATE 220 MG CAPSULE PO SCH (08:15)
[2017-06-29] MEDS: AMIODARONE HCL 200 MG TABLET PO SCH (08:16)
[2017-06-29] MEDS: ASPIRIN 81 MG TAB.CHEW PO SCH (08:16)
[2017-06-29] MEDS: MULTIVITAMINS,THERAGRAN 1 UDTAB TABLET PO SCH (08:17)
[2017-06-29] MEDS: SERTRALINE HCL 25 MG TABLET PO SCH (08:17)
[2017-06-29] MEDS: CARVEDILOL 3.125 MG TABLET PO SCH ×2 (08:17→21:20)
[2017-06-29] MEDS: ASCORBIC ACID 500 MG TABLET PO SCH (08:17)
[2017-06-29] MEDS: CADEXOMER IODINE 40 GM TUBE TP SCH (08:21)
[2017-06-29] MEDS ORDERED: BUMETANIDE INJ 8 MG in IV D5W 48 ML IV ONE (10:30)
[2017-06-29] MEDS: INSULIN REGULAR, HUMAN 100 UNIT/ML 3 ML VIAL SQ PRN ×3 (12:02→21:28)
[2017-06-29] MEDS: PANTOPRAZOLE 40 MG VIAL IV SCH (13:24)
--- NOTE | 2017-06-29 14:00 | NUR ---
CIVIL ENGINEERING DIRECTOR NOTES PATIENT S/P THORACENTESIS TOLERATED WELL WILL CONTINUE TO MONITOR.
--- NOTE | 2017-06-29 18:22 | NUR ---
ARCHIVIST NOTES PATIENT IN BED SLEEPING NO SOB OR ACUTE DISTRESS NOTED. PATIENT ALERT, ORIENTED X3. DENIES ANY PAIN OR DISCOMFORT. PATIENT S/P THORACENTESIS TOLERATED WELL WITH 1.5LITER OUTPUT. PATIENT WITH ROMERO INTACT PATENT. PICC LINE INTACT PATENT. ALL DUE MEDICATIONS ADMINISTERED. ALL NEEDS MET. WILL ENDORSE TO PM SHIFT.
--- NOTE | 2017-06-29 19:30 | NUR ---
PRODUCT PROMOTER RETAIL PET OPENING NOTES RECEIVED PT SITTING UPRIGHT IN BED RECEIVING BREATHING RT. AWAKE AND RESPONSIVE. RESPIRATIONS ARE EVEN AND UNLABORED AT THIS TIME. DENIES ANY PAIN, SOB, N/V. IV SITE INTACT, DRESSING KEPT CLEAN AND DRY. NO INFILTRATION NOTED. SAFETY MEASURES ARE IN PLACE. INSTRUCTED PT TO USE CALL LIGHT WHEN ASSISTANCE IS NEEDED, CALL LIGHT IS LEFT WITHIN REACH. WILL MONITOR THROUGHOUT SHIFT.
[2017-06-29] MEDS: ATORVASTATIN 40 MG TABLET PO SCH (21:19)
[2017-06-29] MEDS: INSULIN GLARGINE, 100 UNIT/ML CARTRIDGE SQ SCH (21:29)
[2017-06-30] VITALS (8 sets, daily range): BP systolic 99–125; BP diastolic 60–73
[2017-06-30] MEDS: CEFTRIAXONE 1 G in IV NS 0.9% 50 ML IV SCH (02:19)
[2017-06-30] MEDS: FENTANYL PF 100MCG/2ML AMPUL IV PRN ×4 (06:12→21:34)
[2017-06-30] MEDS: BLOOD SUGAR DIAGNOSTIC 1 EACH STRIP IN SCH ×4 (06:33→21:22)
--- NOTE | 2017-06-30 06:35 | NUR ---
TARIFF COMPILING CLERK CLOSING NOTES ALL DUE MEDS GIVEN, NEEDS MET AND RENDERED. AWAKE AND RESPONSIVE. RESPIRATIONS ARE EVEN AND UNLABORED, NOT IN ANY ACUTE DISTRESS NOTED. DENIES ANY CHEST PAIN, SOB, N/V AT THIS TIME. PICC LINE INTACT, DRESSING KEPT CLEAN AND DRY. NO INFILTRATION NOTED. REMINDED PT TO USE CALL LIGHT WHEN ASSISTANCE IS NEEDED, CALL LIGHT IS LEFT WITHIN REACH. WILL ENDORSE TO NEXT SHIFT FOR CONTINUITY OF CARE.
--- NOTE | 2017-06-30 07:05 | NUR ---
REPORT RECEIVED AT THE BEDSIDE. PATIENT IS SLEEPING, NO SOB OR DISTRESS NOTED AT THIS TIME. PATIENT DOES NOT APPEAR TO BE IN PAIN, NO FACIAL GRIMACE NOTED. HEART RATE SR IN THE 70S WITH BBB AND OCCASIONAL AFIB. BED IN A LOW POSITION, CALL LIGHT WITHIN PATIENT REACH. WILL MONITOR.
[2017-06-30 07:06] LABS: BASOPHILS % (AUTO) 0.4 % (0.0-2.0); EOSINOPHILS % (AUTO) 2.2 % (0.0-6.0); HEMATOCRIT 25 % (39-51); HEMOGLOBIN 7.9 g/dL (13.5-17.5); LYMPHOCYTES # (AUTO) 1.5 /CMM (0.8-4.8); LYMPHOCYTES % (AUTO) 16.8 % (20.0-44.0); MEAN CORPUSCULAR HGB CONC 32 g/dl (31.0-36.0); MEAN CORPUSCULAR VOLUME 86 fL (80-96); MONOCYTES # (AUTO) 0.4 /CMM (0.1-1.30); MONOCYTES % (AUTO) 4.9 % (2.0-12.0); NEUTROPHILS # (AUTO) 6.6 /CMM (1.8-8.9); NEUTROPHILS % (AUTO) 75.7 % (43.0-81.0); PLATELET COUNT (AUTO) 175 /CMM (150-450); RDW COEFFICIENT OF VARIATION 20.5 (11.5-15.0); RED BLOOD CELL COUNT(AUTO) 2.86 MIL/uL (4.5-6.0); WHITE BLOOD COUNT (AUTO) 8.7 K/uL (4.3-11.0)
[2017-06-30 07:22] LABS: ALBUMIN 1.9 g/dL (3.4-5.0); BILIRUBIN,TOTAL 0.3 mg/dL (0.2-1.0); CREATININE 2.9 mg/dL (0.6-1.3); PHOSPHORUS 5.8 mg/dL (2.5-4.9); POTASSIUM 3.6 mmol/L (3.5-5.1); TOTAL PROTEIN, SERUM 6.4 g/dL (6.4-8.2)
[2017-06-30] MEDS: IPRATROPIUM NEB FS 0.5 MG/2.5 ML AMPUL.NEB NEB SCH ×4 (07:30→19:30)
[2017-06-30] MEDS: ACETYLCYSTEINE 10% SOLN 400 MG/4 ML VIAL NEB SCH ×3 (07:30→22:58)
[2017-06-30] MEDS: ALBUTEROL FS 2.5 MG/3 ML VIAL.NEB NEB SCH ×4 (07:30→19:30)
--- NOTE | 2017-06-30 08:27 | NUR ---
WOUND CARE CONSULT: PT SEEN FOR WOUND VAC DRESSING CHANGE. SKIN PREP AND VAC DRAPE USED FOR PERIWOUND AREAS, GRANUFOAM (2 PIECES) USED FOR WOUND. VAC AT 125mmHg CONTINUOUS SETTING. PT TOLERATED WELL. RT HIP WOUND HAS PINK/RED GRANULATION TISSUE WHICH BLEEDS EASILY, NO ODOR, SCANT AMOUNT OF SEROSANGUINOUS DRAINAGE NOTED. PERIWOUND IS PINK AND LESS FRAGILE AT THIS DRESSING CHANGE. EDEMA NOTED TO THIGHS. WOUND MEASURES 13CM X 3.5CM X 3CM.
[2017-06-30] MEDS: ASPIRIN 81 MG TAB.CHEW PO SCH (09:08)
[2017-06-30] MEDS: MULTIVITAMINS,THERAGRAN 1 UDTAB TABLET PO SCH (09:08)
[2017-06-30] MEDS: ZINC SULFATE 220 MG CAPSULE PO SCH (09:08)
[2017-06-30] MEDS: METOLAZONE 2.5 MG TABLET PO SCH (09:09)
[2017-06-30] MEDS: GABAPENTIN 300 MG CAPSULE PO SCH ×3 (09:09→16:09)
[2017-06-30] MEDS: AMIODARONE HCL 200 MG TABLET PO SCH (09:09)
[2017-06-30] MEDS: ASCORBIC ACID 500 MG TABLET PO SCH (09:10)
[2017-06-30] MEDS: CARVEDILOL 3.125 MG TABLET PO SCH ×2 (09:10→21:22)
[2017-06-30] MEDS: SERTRALINE HCL 25 MG TABLET PO SCH (09:10)
[2017-06-30] MEDS ORDERED: BUMETANIDE INJ 8 MG in IV NS 0.9% 48 ML IV ONE (10:30)
--- NOTE | 2017-06-30 10:39 | NUR ---
CALLED PHARMACY AND SPOKE TO KENYA. INFORMED HIM OF NEW BUMEX AND ALBUMIN ORDER. KENYA STATES HE WILL HAVE IT PREPARED
[2017-06-30] MEDS: ALBUMIN 25% 25 GM in PREMIX 1 EA IV SCH ×3 (10:44→21:35)
[2017-06-30] MEDS: CADEXOMER IODINE 40 GM TUBE TP SCH (10:45)
[2017-06-30] MEDS: INSULIN REGULAR, HUMAN 100 UNIT/ML 3 ML VIAL SQ PRN ×3 (12:04→21:26)
[2017-06-30] MEDS: PANTOPRAZOLE 40 MG VIAL IV SCH (12:04)
--- NOTE | 2017-06-30 14:05 | NUR ---
PT IS REFUSING TO TURN AT THIS TIME. EXPLAINED THE IMPORTANCE AND RISKS PRESENTED IF PATIENT DOES NOT CHANGE POSITION. PATIENT STATES "I UNDERSTAND, I AM COMFORTABLE, NO THANK YOU."
--- NOTE | 2017-06-30 16:00 | NUR ---
PT AGAIN IS REFUSING TO TURN. AGAIN EXPLAINED THE IMPORTANCE OF FREQUENT REPOSITIONING, PT STATES UNDERSTANDING.
--- NOTE | 2017-06-30 18:31 | NUR ---
PT REFUSED TURNING ALL AFTERNOON WELL DAY SHIFT DRESSING CHANGE. STATES "THEY CHANGED THE FEET DRESSING EARLY THIS MORNING." EXPLAINED THAT THE DRESSINGS NEED TO BE CHANGED EACH SHIFT THE DOCTOR ORDERED, BUT PATIENT STILL REFUSED. "THEY CAN CHANGE THEM LATER TONIGHT BEFORE BED."
--- NOTE | 2017-06-30 18:54 | NUR ---
NO SIGNIFICANT CHANGES IN PATIENT CONDITION THROUGHOUT THE SHIFT. NO SOB OR DISTRESS NOTED AT THIS TIME. PATIENT REPORTS TOLERABLE PAIN. HEART RATE SR IN THE 80S. BED IN A LOW POSITION, CALL LIGHT WITHIN PATIENT REACH. WILL ENDORSE FOR CHRISTIAN.
--- NOTE | 2017-06-30 19:20 | NUR ---
WINDSHIELD TECHNICIAN OPENING NOTES RECEIVED PT SITTING UPRIGHT IN BED. PT IS AWAKE, ALERT AND RESPONSIVE. RESPIRATIONS ARE EVEN AND UNLABORED, NOT IN ANY ACUTE DISTRESS NOTED. ON CONTINUOUS PULSE OX, SATURATING 96% ON 3L/MIN VIA NC. DENIES ANY PAIN, SOB, N/V AT THIS TIME. IV SITE INTACT, NO INFILTRATION NOTED. DRESSING KEPT CLEAN AND DRY. SAFETY MEASURES ARE IN PLACE. INSTRUCTED PT TO USE CALL LIGHT WHEN ASSISTANCE IS NEEDED, CALL LIGHT IS LEFT WITHIN REACH. WILL MONITOR PT THROUGHOUT SHIFT.
[2017-06-30] MEDS: ATORVASTATIN 40 MG TABLET PO SCH (21:22)
[2017-06-30] MEDS: INSULIN GLARGINE, 100 UNIT/ML CARTRIDGE SQ SCH (21:25)
[2017-07-01] VITALS: BP 117/74
--- NOTE | 2017-07-01 01:48 | NUR ---
UNDERGROUND MINE SUPERINTENDENT NOTES PT IS AWAKE AND RESPONSIVE. NOT IN ANY APPARENT DISTRESS AT THIS TIME. PICCLINE INTACT, DRESSING KEPT CLEAN AND DRY. SAFETY MEASURES ARE IN PLACE. PT ASSIGNED TO KAREN VILLAFANA. BEDSIDE REPORT GIVEN FOR CONTINUITY OF CARE.
[2017-07-01] MEDS: FENTANYL PF 100MCG/2ML AMPUL IV PRN ×3 (02:26→21:51)
[2017-07-01] MEDS: CEFTRIAXONE 1 G in IV NS 0.9% 50 ML IV SCH (03:23)
[2017-07-01 04:00] VITALS: BP 108/59
[2017-07-01] MEDS: ALBUMIN 25% 25 GM in PREMIX 1 EA IV SCH (04:37)
--- NOTE | 2017-07-01 05:47 | NUR ---
ms/rn notes Admitted a 63 y/o patient, with Dx. of Chest pain due to Dyspnea and hypokalemia. With O2@2lpm via nc. With Sob upon exertion. Vital signs stable, afebrile. Medicated patient with [place] 1 tab for Head ache. No complaints of chst pain the entire shift. Sinus Rhythm on radiation monitor, Hr- 98. with Saline lock on right ac, patent. All needs attended. no acute distress noted. will continue plan of care. Addendum: 07/01/17 at 0639 by BRODERICK SIMENTAL RN WRONG PATIENT AND DOCUMENTATION. THIS DOCUMENTATION S FOR [id number]
[2017-07-01 06:19] LABS: BASOPHILS % (AUTO) 0.4 % (0.0-2.0); EOSINOPHILS % (AUTO) 2.7 % (0.0-6.0); HEMATOCRIT 23 % (39-51); HEMOGLOBIN 7.4 g/dL (13.5-17.5); LYMPHOCYTES # (AUTO) 1.1 /CMM (0.8-4.8); LYMPHOCYTES % (AUTO) 14.4 % (20.0-44.0); MEAN CORPUSCULAR HGB CONC 32 g/dl (31.0-36.0); MEAN CORPUSCULAR VOLUME 87 fL (80-96); MONOCYTES # (AUTO) 0.5 /CMM (0.1-1.30); MONOCYTES % (AUTO) 6.1 % (2.0-12.0); NEUTROPHILS % (AUTO) 76.4 % (43.0-81.0); PLATELET COUNT (AUTO) 145 /CMM (150-450); RDW COEFFICIENT OF VARIATION 21.8 (11.5-15.0); RED BLOOD CELL COUNT(AUTO) 2.68 MIL/uL (4.5-6.0); WHITE BLOOD COUNT (AUTO) 7.8 K/uL (4.3-11.0)
[2017-07-01] MEDS: BLOOD SUGAR DIAGNOSTIC 1 EACH STRIP IN SCH ×4 (06:36→21:40)
[2017-07-01 06:39] LABS: CALCIUM, SERUM 7.8 mg/dL (8.5-10.1); CREATININE 2.9 mg/dL (0.6-1.3); MAGNESIUM 2.1 mg/dL (1.8-2.4); PHOSPHORUS 5.8 mg/dL (2.5-4.9); POTASSIUM 3.2 mmol/L (3.5-5.1)
--- NOTE | 2017-07-01 06:39 | NUR ---
FUR POLISHER CLOSING NOTES PATIENT REMAIN IN STABLE CONDITION. ALERT ET ORIENTED. RESP. EVEN ET UNLABORED. WITH O2 @ 3L PM VIA NC. ALL DUE MEDS GIVEN, NEEDS MET AND RENDERED. AWAKE AND RESPONSIVE. RESPIRATIONS ARE EVEN AND UNLABORED, NOT IN ANY ACUTE DISTRESS NOTED. ON CARDIAC MONTIOR, SR , HR-78.DENIES ANY CHEST PAIN, SOB, N/V AT THIS TIME. PICC LINE INTACT, DRESSING KEPT CLEAN AND DRY. NO INFILTRATION NOTED. REMINDED PT TO USE CALL LIGHT WHEN ASSISTANCE IS NEEDED, VERBALIZE UNDERSTANDING. WILL ENDORSE TO NEXT SHIFT FOR CONTINUITY OF CARE.
--- NOTE | 2017-07-01 07:19 | NUR ---
CHILD AND FAMILY THERAPIST OPENING NOTES RECEIVED PT FROM NIGHTSHIFT NURSE IN STABLE CONDITION. PT IS A/O X3. NO SOB OR ACUTE SIGNS OF DISTRESS NOTED. BREATHING IS EVEN AND UNLABORED. PT SATING WELL AT 97%. WOUND VAC NOTED TO RIGHT HIP. 75CC OF SEROSANGUINEOUS FLUID NOTED. PT STATES THAT HE IS EXPERIENCING PAIN TO THAT GENERAL HIP AREA RATED AN 8/10. WILL ADMINISTER PRN PAIN MEDICATION. ROMERO CATHETER NOTED TO BE DRAINING CABER NICK COLORED URINE. RIGHT UPPER ARM PICC LINE NOTED TO BE PATENT AND INTACT. NO REDNESS OR SIGNS OF INFILTRATION NOTED. BED IN LOW LOCKED POSITION, SIDE RAILS UP X3, CALL LIGHT WITHIN REACH. WILL CONTINUE TO MONITOR
[2017-07-01] MEDS: ACETYLCYSTEINE 10% SOLN 400 MG/4 ML VIAL NEB SCH ×3 (07:53→23:06)
[2017-07-01] MEDS: ALBUTEROL FS 2.5 MG/3 ML VIAL.NEB NEB SCH ×4 (07:53→19:33)
[2017-07-01] MEDS: IPRATROPIUM NEB FS 0.5 MG/2.5 ML AMPUL.NEB NEB SCH ×4 (07:53→19:33)
[2017-07-01 08:00] VITALS: BP 115/73
[2017-07-01] MEDS: MULTIVITAMINS,THERAGRAN 1 UDTAB TABLET PO SCH (08:05)
[2017-07-01] MEDS: GABAPENTIN 300 MG CAPSULE PO SCH ×3 (08:05→17:35)
[2017-07-01] MEDS: ASCORBIC ACID 500 MG TABLET PO SCH (08:06)
[2017-07-01] MEDS: AMIODARONE HCL 200 MG TABLET PO SCH (08:06)
[2017-07-01] MEDS: SERTRALINE HCL 25 MG TABLET PO SCH (08:06)
[2017-07-01] MEDS: ZINC SULFATE 220 MG CAPSULE PO SCH (08:06)
[2017-07-01] MEDS: ASPIRIN 81 MG TAB.CHEW PO SCH (08:48)
[2017-07-01] MEDS: CARVEDILOL 3.125 MG TABLET PO SCH ×2 (08:48→21:43)
[2017-07-01] MEDS: METOLAZONE 2.5 MG TABLET PO SCH (08:48)
[2017-07-01] MEDS: CADEXOMER IODINE 40 GM TUBE TP SCH (08:49)
[2017-07-01] MEDS: PANTOPRAZOLE 40 MG VIAL IV SCH (12:45)
--- NOTE | 2017-07-01 18:53 | NUR ---
HEALTH CARE SOCIAL WORKER CLOSING NOTES PT REMAINS STABLE ALL NEEDS MET DURING SHIFT AND ORDERS CARRIED OUT ACCORDINGLY. WOUND AND SKIN CARE RENDERED ORDERED. PT WAS REPOSITIONED Q2HRS AND KEPT CLEAN AND DRY. CATHETER CARE RENDERED. THERE WAS ONLY A 25CC OUTPUT FROM WOUND VAC. PICCC LINES REMAINS PATENT AND INTACT. SAFETY MEASURES REMAIN IN PLACE. WILL ENDORSE TO [facility] NURSE FOR CHRISTIAN
--- NOTE | 2017-07-01 19:35 | NUR ---
MS RN OPENING NOTE Patient was seen lying in bed AAOx3, breathing on 4L humidified O2 NC with no SOB and continuous pulse ox (SPO2 98%), no signs of acute distress. Patient is on tele-monitor, in controlled a-fib with rate of 77 bpm. Zoll Life Vest is secured around patient's chest, battery is fully charged. Mckeon cath is draining yellow urine. Wound VAC to right lateral hip is draining serosanguineous fluid and dressing is clean, dry, and intact. Bilateral heels are covered with Mepilex and Kerilex - both clean, dry, and intact. Patient has PICC line in right upper arm. Bed is in low/locked position, two side rails up, call blackwell within reach. Patient has no needs or concerns at this time. Will continue to monitor.
[2017-07-01 20:00] VITALS: BP 125/73
[2017-07-01] MEDS: INSULIN GLARGINE, 100 UNIT/ML CARTRIDGE SQ SCH (21:41)
[2017-07-01] MEDS: ATORVASTATIN 40 MG TABLET PO SCH (21:42)
[2017-07-01] MEDS: FLUCONAZOLE (100 MG) 100 MG TABLET PO SCH (21:43)
--- NOTE | 2017-07-01 21:55 | NUR ---
MS RN NOTE - pain med Patient requested fentanyl for 8/10 generalized right-sided pain, foot pain (diabetic ulcer) and right hip pain (wound w/ wound VAC). Patient also needed to be turned/repositioned for cleaning of BM, and pain med is needed to keep patient comfortable during position change. Administered 20mcg IV fentanyl as ordered (prn q4h). Will continue to monitor and reassess pain.
[2017-07-01 22:00] VITALS: BP 125/73
--- NOTE | 2017-07-01 22:43 | NUR ---
MS RN NOTE - K+ Patient has potassium of 3.2, day shift nurse was not able to replace or follow-up. Spoke with Dr. Ruiz over the phone to make him aware - due to BUN/Creatinine level (57/2.9), potassium does not need to be replaced at this time per Dr. Ruiz.
[2017-07-02] VITALS: BP_SYST 120; BP_SYST 187; BP_DIAS 70; BP_DIAS 89
[2017-07-02] MEDS: FENTANYL PF 100MCG/2ML AMPUL IV PRN ×4 (02:18→20:43)
[2017-07-02] MEDS: CEFTRIAXONE 1 G in IV NS 0.9% 50 ML IV SCH (02:18)
--- NOTE | 2017-07-02 02:20 | NUR ---
MS RN NOTE - pain med Patient requested prn fentanyl for generalized right sided pain. Patient reports that previous dose (given >4hr ago) relieved pain effectively, but pain has returned 10/01. 20mcg IV fentanyl administered to patient. Will continue to monitor.
[2017-07-02 04:00] VITALS: BP 110/66
[2017-07-02] MEDS: ACETAMINOPHEN 325 MG TABLET PO PRN (05:34)
--- NOTE | 2017-07-02 05:38 | NUR ---
MS RN NOTE - Tylenol Patient complained of 8/10 generalized right-sided pain and requested fentanyl, however, time since last dose was less than 4 hrs. I offered to reposition patient which was attempted, but patient opted to stay supine. 650mg Tylenol PO was administered as alternative.
[2017-07-02] MEDS: BLOOD SUGAR DIAGNOSTIC 1 EACH STRIP IN SCH ×4 (06:31→21:30)
[2017-07-02] MEDS: INSULIN REGULAR, HUMAN 100 UNIT/ML 3 ML VIAL SQ PRN ×2 (06:40→21:46)
--- NOTE | 2017-07-02 06:45 | NUR ---
MS RN CLOSING NOTE Patient was seen lying in bed AAOx3, breathing on 4L humidified O2 NC with continuous pulse oximetry (SPO2 99%), no events overnight. Patient reports 8/10 generalized right-sided pain, but otherwise, no signs of acute distress. PRN fentanyl 20mcg given IV. Zoll Life Vest (ext. defib.) is secured to patient's chest and battery is charged; telemonitor shows afib in the 70s. Right hip wound is to Wound VAC draining serosanguineous fluid 75 ml output this shift, dressing is clean and dry. Bilateral foot/heel ulcers covered with mepilex and kerlix-clean, dry, and intact. PICC line in right upper arm is flushed and patent. Mckeon cath is draining shayne-yellow urine, output 400. BG this AM 132, 2 units insulin given. Bed is in low/locked position, two side rails up, call blackwell within reach. Prescribed orders and patient needs met. Will endorse patient care to day shift nurse.
[2017-07-02] MEDS: ALBUTEROL FS 2.5 MG/3 ML VIAL.NEB NEB SCH ×4 (06:59→19:27)
[2017-07-02] MEDS: IPRATROPIUM NEB FS 0.5 MG/2.5 ML AMPUL.NEB NEB SCH ×4 (07:00→19:27)
[2017-07-02] MEDS: ACETYLCYSTEINE 10% SOLN 400 MG/4 ML VIAL NEB SCH ×2 (07:00→23:12)
--- NOTE | 2017-07-02 07:29 | NUR ---
CORE MAN OPENING NOTES RECEIVED PT FROM NIGHTSHIFT NURSE IN STABLE CONDITION. PT IS A/O X3. NO SOB OR ACUTE SIGNS OF DISTRESS NOTED. BREATHING IS EVEN AND UNLABORED. PT SATING WELL AT 99%. WOUND VAC NOTED TO RIGHT HIP. 100CC OF SEROSANGUINEOUS FLUID NOTED. RMOERO CATHETER NOTED TO BE DRAINING CABER NICK COLORED URINE. RIGHT UPPER ARM PICC LINE NOTED TO BE PATENT AND INTACT. NO REDNESS OR SIGNS OF INFILTRATION NOTED. BED IN LOW LOCKED POSITION, SIDE RAILS UP X3, CALL LIGHT WITHIN REACH. WILL CONTINUE TO MONITOR
[2017-07-02 08:00] VITALS: BP 112/62
[2017-07-02] MEDS: CARVEDILOL 3.125 MG TABLET PO SCH ×2 (09:00→21:29)
[2017-07-02] MEDS: AMIODARONE HCL 200 MG TABLET PO SCH (09:00)
[2017-07-02] MEDS: ASCORBIC ACID 500 MG TABLET PO SCH (10:34)
[2017-07-02] MEDS: CADEXOMER IODINE 40 GM TUBE TP SCH (10:34)
[2017-07-02] MEDS: GABAPENTIN 300 MG CAPSULE PO SCH ×3 (10:35→17:31)
[2017-07-02] MEDS: SERTRALINE HCL 25 MG TABLET PO SCH (10:35)
[2017-07-02] MEDS: MULTIVITAMINS,THERAGRAN 1 UDTAB TABLET PO SCH (10:35)
[2017-07-02] MEDS: ZINC SULFATE 220 MG CAPSULE PO SCH (10:35)
[2017-07-02] MEDS: ASPIRIN 81 MG TAB.CHEW PO SCH (10:36)
[2017-07-02] MEDS: FLUCONAZOLE (100 MG) 100 MG TABLET PO SCH (10:36)
[2017-07-02] MEDS: METOLAZONE 2.5 MG TABLET PO SCH (10:37)
--- NOTE | 2017-07-02 11:47 | NUR ---
WOUND CARE: PT SEEN FOR RT HIP VAC DRESSING CHANGE. SKIN PREP AND VAC DRAPE APPLIED TO PERIWOUND AREAS, 2 PIECES OF GRANUFOAM USED FOR WOUND, VAC AT 125mmHg CONTINUOUS SETTING. BRIDGING TECHNIQUE USED. PERIWOUND AREAS NOTED TO HAVE EDEMA AND SKIN BLEEDS EASILY. RT HIP WOUND IS RED/PINK IN COLOR WITH GRANULATION TISSUE, SCANT PINK DRAINAGE AND NO ODOR. PT TOLERATED WELL.
[2017-07-02 11:48] VITALS: BP 118/67
[2017-07-02] MEDS: PANTOPRAZOLE 40 MG VIAL IV SCH (12:23)
[2017-07-02] MEDS ORDERED: FUROSEMIDE 40 MG/4 ML VIAL IV ONE (12:30)
--- NOTE | 2017-07-02 13:27 | NUR ---
MS RN NOTE: 1200 INSULIN PT REFUSED 1200 INSULIN ADMINISTRATION. STATES THAT HE IS NOT EATING LUNCH AND PREFERS TRO NOT HAVE IT. MEDICATION EDUCATION PROVIDED ALONG WITH SYMPTOMS ASSOCIATED WITH HYPERGLYCEMIA AND RISKS OF NOT TAKING THE MEDICATION
[2017-07-02 14:32] LABS: BASOPHILS % (AUTO) 0.4 % (0.0-2.0); EOSINOPHILS % (AUTO) 2.1 % (0.0-6.0); HEMATOCRIT 24 % (39-51); HEMOGLOBIN 7.6 g/dL (13.5-17.5); LYMPHOCYTES # (AUTO) 0.9 /CMM (0.8-4.8); LYMPHOCYTES % (AUTO) 10.4 % (20.0-44.0); MEAN CORPUSCULAR HGB CONC 32 g/dl (31.0-36.0); MEAN CORPUSCULAR VOLUME 87 fL (80-96); MONOCYTES # (AUTO) 0.5 /CMM (0.1-1.30); MONOCYTES % (AUTO) 5.7 % (2.0-12.0); NEUTROPHILS # (AUTO) 6.8 /CMM (1.8-8.9); NEUTROPHILS % (AUTO) 81.4 % (43.0-81.0); PLATELET COUNT (AUTO) 153 /CMM (150-450); RDW COEFFICIENT OF VARIATION 21.3 (11.5-15.0); RED BLOOD CELL COUNT(AUTO) 2.74 MIL/uL (4.5-6.0); WHITE BLOOD COUNT (AUTO) 8.3 K/uL (4.3-11.0)
[2017-07-02 16:00] VITALS: BP 125/73
--- NOTE | 2017-07-02 17:23 | NUR ---
MS RN NOTES 1530 NEB TX RT WAS CONTACTED IN REGARDS TO 1530 NEBULIZER TREATMENT IT WAS NOT ADMINISTERED BY THE RT. PER ATOMIC SPECTROSCOPIST, "I WILL FOLLOW UP AND SEE WHAT HAPPENED"
--- NOTE | 2017-07-02 18:00 | NUR ---
DIGESTER NOTES: 1530 NEB TX F/U RESPIRATORY THERAPIST WAS CONTACTED AGAIN IN REGARDS TO MISSED BREATHING TX. PER THERAPIST, "WE ARE STILL TRYING TO FIND OUT WHAT HAPPENED"
--- NOTE | 2017-07-02 18:52 | NUR ---
HOSPICE BEREAVEMENT COORDINATOR CLOSING NOTES PT REMAINS STABLE ALL NEEDS MET DURING SHIFT AND ORDERS CARRIED OUT ACCORDINGLY. WOUND AND SKIN CARE RENDERED ORDERED. PT WAS REPOSITIONED Q2HRS AND KEPT CLEAN AND DRY. CATHETER CARE RENDERED. THERE WAS ONLY A 10CC OUTPUT FROM WOUND VAC. PICC LINES REMAINS PATENT AND INTACT. SAFETY MEASURES REMAIN IN PLACE. WILL ENDORSE TO NIGHTSHIFT NURSE FOR CHRISTIAN
--- NOTE | 2017-07-02 19:30 | NUR ---
MORNING NEWS ANCHOR NOTE: PATIENT RESTING IN BED, NO ACUTE DISTRESS NOTED. BREATHING EVEN AND UNLABORED, NO SOB NOTED. PICC LINE DOUBLE LUMEN TO DEBBI IN PLACE, WITH GOOD BLOOD RETURN. ROMERO CATHETER IN PLACE, EMPTY AT THIS TIME. WOUND VAC TO RIGHT HIP IN PLACE WITH CONTINUOUS SUCTION. PULSE OX IN PLACE, O2 SAT 99%. BED LOCKED AND IN LOWEST POSITION, CALL LIGHT IN REACH. WILL CONTINUE TO MONITOR.
[2017-07-02 20:00] VITALS: BP 117/64
--- NOTE | 2017-07-02 21:00 | NUR ---
BUS ATTENDANT NOTE: PATIENT COMPLAINS OF GENERALIZED PAIN 8/10, FENTANYL 20MCG IV GIVEN PER MD ORDER. WILL CONTINUE TO MONITOR.
[2017-07-02] MEDS: ATORVASTATIN 40 MG TABLET PO SCH (21:29)
[2017-07-02] MEDS: INSULIN GLARGINE, 100 UNIT/ML CARTRIDGE SQ SCH (21:41)
--- NOTE | 2017-07-02 21:45 | NUR ---
ELECTRICIAN CONTROL EQUIPMENT NOTE: PATIENT BLOOD SUGAR LEVEL 145MG/DL, PATIENT TO RECEIVE 2 UNITS PER SLIDING SCALE AND LANTUS 10 UNITS PER MD ORDER. NO S/S OF HYPER/HYPOGLYCEMIA NOTED. WILL CONTINUE TO MONITOR.
[2017-07-03] VITALS: BP 123/69
[2017-07-03] MEDS: FENTANYL PF 100MCG/2ML AMPUL IV PRN ×5 (00:50→20:13)
--- NOTE | 2017-07-03 01:00 | NUR ---
PUBLIC RECORDS OFFICER NOTE: PATIENT COMPLAINS OF RIGHT HIP PAIN 8/, FENTANYL 20MCG IV GIVEN PER MD ORDER. WILL CONTINUE TO MONITOR.
[2017-07-03] MEDS: CEFTRIAXONE 1 G in IV NS 0.9% 50 ML IV SCH (03:48)
[2017-07-03 04:00] VITALS: BP 118/67
--- NOTE | 2017-07-03 06:20 | NUR ---
DIE CUTTER APPRENTICE NOTE: PATIENT RESTING IN BED, NO ACUTE DISTRESS NOTED. BREATHING EVEN AND UNLABORED, NO SOB NOTED. PICC LINE DOUBLE LUMEN TO DEBBI IN PLACE, WITH GOOD BLOOD RETURN. ROMERO CATHETER IN PLACE. WOUND VAC TO RIGHT HIP IN PLACE WITH CONTINUOUS SUCTION. PULSE OX IN PLACE, O2 SAT 99%. BLOOD SUGAR LEVEL 97MG/DL, NO INSULIN NEEDED PER SLIDING SCALE. NO S/S OF HYPER/HYPOGLYCEMIA NOTED. BED LOCKED AND IN LOWEST POSITION, CALL LIGHT IN REACH. WILL ENDORSE TO DAY SHIFT TO CONTINUE WITH PLAN OF CARE.
[2017-07-03] MEDS: BLOOD SUGAR DIAGNOSTIC 1 EACH STRIP IN SCH ×4 (06:45→22:45)
[2017-07-03] MEDS: ALBUTEROL FS 2.5 MG/3 ML VIAL.NEB NEB SCH ×4 (07:35→19:24)
[2017-07-03] MEDS: ACETYLCYSTEINE 10% SOLN 400 MG/4 ML VIAL NEB SCH ×3 (07:35→23:25)
[2017-07-03] MEDS: IPRATROPIUM NEB FS 0.5 MG/2.5 ML AMPUL.NEB NEB SCH ×4 (07:35→19:24)
[2017-07-03 08:00] VITALS: BP 118/62
[2017-07-03] MEDS: ZINC SULFATE 220 MG CAPSULE PO SCH (09:39)
[2017-07-03] MEDS: AMIODARONE HCL 200 MG TABLET PO SCH (09:40)
[2017-07-03] MEDS: FLUCONAZOLE (100 MG) 100 MG TABLET PO SCH (09:41)
[2017-07-03] MEDS: ASPIRIN 81 MG TAB.CHEW PO SCH (09:41)
[2017-07-03] MEDS: GABAPENTIN 300 MG CAPSULE PO SCH ×3 (09:41→17:52)
[2017-07-03] MEDS: SERTRALINE HCL 25 MG TABLET PO SCH (09:41)
[2017-07-03] MEDS: METOLAZONE 2.5 MG TABLET PO SCH (09:41)
[2017-07-03] MEDS: MULTIVITAMINS,THERAGRAN 1 UDTAB TABLET PO SCH (09:41)
[2017-07-03] MEDS: ASCORBIC ACID 500 MG TABLET PO SCH (09:42)
[2017-07-03] MEDS: CARVEDILOL 3.125 MG TABLET PO SCH ×2 (09:47→20:39)
[2017-07-03] MEDS: CADEXOMER IODINE 40 GM TUBE TP SCH (09:47)
[2017-07-03 11:11] LABS: BASOPHILS % (AUTO) 0.5 % (0.0-2.0); EOSINOPHILS % (AUTO) 2.8 % (0.0-6.0); HEMATOCRIT 25 % (39-51); HEMOGLOBIN 7.8 g/dL (13.5-17.5); LYMPHOCYTES # (AUTO) 1.1 /CMM (0.8-4.8); MEAN CORPUSCULAR HGB CONC 32 g/dl (31.0-36.0); MEAN CORPUSCULAR VOLUME 88 fL (80-96); MONOCYTES # (AUTO) 0.4 /CMM (0.1-1.30); MONOCYTES % (AUTO) 4.4 % (2.0-12.0); NEUTROPHILS # (AUTO) 6.9 /CMM (1.8-8.9); NEUTROPHILS % (AUTO) 79.3 % (43.0-81.0); PLATELET COUNT (AUTO) 150 /CMM (150-450); RDW COEFFICIENT OF VARIATION 21.4 (11.5-15.0); RED BLOOD CELL COUNT(AUTO) 2.83 MIL/uL (4.5-6.0); WHITE BLOOD COUNT (AUTO) 8.8 K/uL (4.3-11.0)
[2017-07-03 11:27] LABS: CREATININE 3.4 mg/dL (0.6-1.3); MAGNESIUM 2.3 mg/dL (1.8-2.4); PHOSPHORUS 6.7 mg/dL (2.5-4.9); POTASSIUM 3.3 mmol/L (3.5-5.1)
[2017-07-03] MEDS: PANTOPRAZOLE 40 MG VIAL IV SCH (13:57)
--- NOTE | 2017-07-03 14:45 | NUR ---
ABNORMAL LABS TEXTED TO CEFERINO PASTRANA.
--- NOTE | 2017-07-03 15:30 | NUR ---
DR. OROZCO,,DR. PALMA INTO SEE PT.[place],ALEKSANDRA ADAMSON IN TO SEE PT.THUS FAR PT. HAS BEEN MEDICATED X2FOR PAIN.URINE OUTPUT GOOD.
[2017-07-03 16:00] VITALS: BP 105/60
[2017-07-03] MEDS ORDERED: BUMETANIDE INJ 8 MG in IV NS 0.9% 48 ML IV ONE (16:00)
[2017-07-03] MEDS: POTASSIUM CL. PREMIX PERIPHER. 50 ML IV SCH ×2 (16:19→17:26)
--- NOTE | 2017-07-03 16:20 | NUR ---
PT. RECEIVING POTASSIUM IV.
--- NOTE | 2017-07-03 18:57 | NUR ---
NO CHANGE IN STATUS.
[2017-07-03 19:59] VITALS: BP 124/73
[2017-07-03 20:00] VITALS: BP 124/73
--- NOTE | 2017-07-03 20:00 | NUR ---
RECIEVED ALERT AND ORIENTATE SMILING LIFE VEST ON [facility] CONTACT REQUESTING PAIN MEDICATION D/T SCROTAL PAIN MOVING ALL EXTREMITIES
[2017-07-03] MEDS: INSULIN GLARGINE, 100 UNIT/ML CARTRIDGE SQ SCH (22:00)
[2017-07-03] MEDS: ATORVASTATIN 40 MG TABLET PO SCH (22:33)
--- NOTE | 2017-07-04 00:02 | NUR ---
SPOKE TO MD CALDERON HOLD ANTUS DOSE TONIGHT BLOOD SUGAR 81.
[2017-07-04] MEDS: FENTANYL PF 100MCG/2ML AMPUL IV PRN ×3 (00:04→19:56)
[2017-07-04] MEDS: CEFTRIAXONE 1 G in IV NS 0.9% 50 ML IV SCH (02:36)
[2017-07-04] MEDS: INSULIN REGULAR, HUMAN 100 UNIT/ML 3 ML VIAL SQ PRN ×3 (05:51→21:22)
[2017-07-04] MEDS: BLOOD SUGAR DIAGNOSTIC 1 EACH STRIP IN SCH ×4 (05:54→21:17)
--- NOTE | 2017-07-04 06:17 | NUR ---
ENDING NOTES: REMAINS ALERT AND ORIENTATED. PLEASENT. MEDICATED FOR PENILE AND SCROTUM PAIN X3, AND EFFECTIVE FOR PAIN RELIEF, EVEN ABLE TO SLEEP. AM BLOOD SUGAR 133 COVERAGE GIVEN ORDERED. BUMEX GTT INFUSED OVER NITE.
[2017-07-04 06:36] LABS: ALBUMIN 2.3 g/dL (3.4-5.0); BILIRUBIN,TOTAL 0.3 mg/dL (0.2-1.0); CALCIUM, SERUM 8.1 mg/dL (8.5-10.1); CREATININE 3.6 mg/dL (0.6-1.3); POTASSIUM 3.6 mmol/L (3.5-5.1); TOTAL PROTEIN, SERUM 6.3 g/dL (6.4-8.2)
[2017-07-04] MEDS: IPRATROPIUM NEB FS 0.5 MG/2.5 ML AMPUL.NEB NEB SCH ×4 (06:54→19:50)
[2017-07-04] MEDS: ACETYLCYSTEINE 10% SOLN 400 MG/4 ML VIAL NEB SCH ×3 (06:54→23:45)
[2017-07-04] MEDS: ALBUTEROL FS 2.5 MG/3 ML VIAL.NEB NEB SCH ×4 (06:54→19:50)
--- NOTE | 2017-07-04 07:15 | NUR ---
MS RN NOTES RECEIVED PATIENT IN BEB, ALERT ORIENTED X 4. NO ACUTE DISTRESS NOTED. BREATHING UNLABORED. LIFE VEST IN PLACE. WOUND VAC IN PLACE, FUNCTIONING WELL. ROMERO CATHETER INTACT. SAFETY MEASURES IN PLACE. CALL LIGHT WITHIN REACH. WILL CONTINUE TO MONITOR ACCORDINGLY.
[2017-07-04 08:00] VITALS: BP 119/61
[2017-07-04] MEDS: ASPIRIN 81 MG TAB.CHEW PO SCH (08:46)
[2017-07-04] MEDS: GABAPENTIN 300 MG CAPSULE PO SCH ×3 (08:47→17:19)
[2017-07-04] MEDS: PANTOPRAZOLE 40 MG VIAL IV SCH (08:47)
[2017-07-04] MEDS: MULTIVITAMINS,THERAGRAN 1 UDTAB TABLET PO SCH (08:47)
[2017-07-04] MEDS: SERTRALINE HCL 25 MG TABLET PO SCH (08:47)
[2017-07-04] MEDS: METOLAZONE 2.5 MG TABLET PO SCH (08:48)
[2017-07-04] MEDS: FLUCONAZOLE (100 MG) 100 MG TABLET PO SCH (08:48)
[2017-07-04] MEDS: ASCORBIC ACID 500 MG TABLET PO SCH (08:48)
[2017-07-04] MEDS: ZINC SULFATE 220 MG CAPSULE PO SCH (08:48)
[2017-07-04] MEDS: AMIODARONE HCL 200 MG TABLET PO SCH (08:49)
[2017-07-04] MEDS: CARVEDILOL 3.125 MG TABLET PO SCH ×2 (08:49→21:17)
[2017-07-04] MEDS: CADEXOMER IODINE 40 GM TUBE TP SCH (08:50)
[2017-07-04 09:33] LABS: BASOPHILS % (AUTO) 0.6 % (0.0-2.0); EOSINOPHILS % (AUTO) 2.9 % (0.0-6.0); HEMATOCRIT 24 % (39-51); HEMOGLOBIN 7.5 g/dL (13.5-17.5); LYMPHOCYTES # (AUTO) 1.2 /CMM (0.8-4.8); LYMPHOCYTES % (AUTO) 14.3 % (20.0-44.0); MEAN CORPUSCULAR HGB CONC 31 g/dl (31.0-36.0); MEAN CORPUSCULAR VOLUME 88 fL (80-96); MONOCYTES # (AUTO) 0.4 /CMM (0.1-1.30); MONOCYTES % (AUTO) 4.6 % (2.0-12.0); NEUTROPHILS # (AUTO) 6.7 /CMM (1.8-8.9); NEUTROPHILS % (AUTO) 77.6 % (43.0-81.0); PLATELET COUNT (AUTO) 152 /CMM (150-450); RDW COEFFICIENT OF VARIATION 21.2 (11.5-15.0); RED BLOOD CELL COUNT(AUTO) 2.75 MIL/uL (4.5-6.0); WHITE BLOOD COUNT (AUTO) 8.6 K/uL (4.3-11.0)
--- NOTE | 2017-07-04 11:50 | NUR ---
MS RN NOTES SEEN AND EVALUATED BY VICTORIANO ADAMSON
[2017-07-04 16:00] VITALS: BP 123/59
--- NOTE | 2017-07-04 18:57 | NUR ---
MS RN NOTES PATIENT IN BEB, EYES CLOSED, AROUSABLE RESPOSE TO VERBAL AND TACTIE STIMULI. NO ACUTE DISTRESS NOTED. BREATHING UNLABORED. LIFE VEST IN PLACE. WOUND VAC IN PLACE, FUNCTIONING WELL. ROMERO CATHETER INTACT. DUE MEDICATIONS GIVEN, NO ASE NOTED. NEEDS ATTENDED AND ANTICIPATED. SAFETY MEASURES IN PLACE. CALL LIGHT WITHIN REACH. WILL CONTINUE TO MONITOR ACCORDINGLY. WILL ENDORSE TO NIGHT NURSE FOR CONTINUITY OF CARE.
--- NOTE | 2017-07-04 19:00 | NUR ---
RN OPENING NOTES PT AWAKE AND RESTING IN BED. NO COMPLAINTS OF PAIN, SOB, OR DISTRESS AT THIS TIME. PT ON 2L OF 02 VIA NASAL CANNULA. PT HAS A ROMERO CATHETER INTACT AND DRAINING WELL. PT HAS A RIGHT UPPER ARM PICC LINE INTACT, AND PATENT. PT HAS A RIGHT HIP WOUND WITH WOUND VAC INTACT. LIFEVEST IN PLACE, BATTERY CHANGED (07/03/17). SAFETY PRECAUTIONS IN PLACE. BED IN LOWEST LOCKED POSITION, X3 SIDERAILS UP, CALL LIGHT WITHIN REACH. WILL CONTINUE TO MONITOR.
[2017-07-04 20:21] VITALS: BP 119/56
[2017-07-04] MEDS: ATORVASTATIN 40 MG TABLET PO SCH (21:17)
[2017-07-04] MEDS: INSULIN GLARGINE, 100 UNIT/ML CARTRIDGE SQ SCH (21:19)
[2017-07-05] MEDS: CEFTRIAXONE 1 G in IV NS 0.9% 50 ML IV SCH (02:07)
[2017-07-05] MEDS: FENTANYL PF 100MCG/2ML AMPUL IV PRN ×2 (03:59→12:55)
[2017-07-05 06:36] LABS: BASOPHILS % (AUTO) 0.5 % (0.0-2.0); EOSINOPHILS % (AUTO) 3.7 % (0.0-6.0); HEMATOCRIT 24 % (39-51); HEMOGLOBIN 7.5 g/dL (13.5-17.5); LYMPHOCYTES % (AUTO) 11.8 % (20.0-44.0); MEAN CORPUSCULAR HGB CONC 32 g/dl (31.0-36.0); MEAN CORPUSCULAR VOLUME 88 fL (80-96); MONOCYTES % (AUTO) 0.4 % (2.0-12.0); NEUTROPHILS # (AUTO) 6.8 /CMM (1.8-8.9); NEUTROPHILS % (AUTO) 83.6 % (43.0-81.0); PLATELET COUNT (AUTO) 135 /CMM (150-450); RDW COEFFICIENT OF VARIATION 21.1 (11.5-15.0); WHITE BLOOD COUNT (AUTO) 8.2 K/uL (4.3-11.0)
[2017-07-05] MEDS: BLOOD SUGAR DIAGNOSTIC 1 EACH STRIP IN SCH ×4 (06:48→21:29)
[2017-07-05 07:15] LABS: CALCIUM, SERUM 7.7 mg/dL (8.5-10.1); CREATININE 3.9 mg/dL (0.6-1.3); MAGNESIUM 2.1 mg/dL (1.8-2.4); PHOSPHORUS 6.4 mg/dL (2.5-4.9); POTASSIUM 3.6 mmol/L (3.5-5.1)
--- NOTE | 2017-07-05 07:26 | NUR ---
MS RN OPENING NOTES RECEIVED PT FROM NIGHTSHIFT NURSE IN STABLE CONDITION. PT IS A/O X3. NO SOB OR ACUTE SIGNS OF DISTRESS NOTED. BREATHING IS EVEN AND UNLABORED. PT SATING WELL AT 99%. WOUND VAC NOTED TO RIGHT HIP. 250CC OF SEROSANGUINEOUS FLUID NOTED. ROMERO CATHETER NOTED TO BE DRAINING NICK COLORED URINE. RIGHT UPPER ARM PICC LINE NOTED TO BE PATENT AND INTACT. NO REDNESS OR SIGNS OF INFILTRATION NOTED. BED IN LOW LOCKED POSITION, SIDE RAILS UP X3, CALL LIGHT WITHIN REACH. WILL CONTINUE TO MONITOR
--- NOTE | 2017-07-05 07:31 | NUR ---
RN CLOSING NOTES PT AWAKE AND RESTING IN BED. NO COMPLAINTS OF PAIN, SOB, OR DISTRESS AT THIS TIME. ALL PT NEEDS MET OVERNIGHT. PT ON 2L OF 02 VIA NASAL CANNULA. PT HAS A ROMERO CATHETER INTACT AND DRAINING WELL. PT HAS A RIGHT UPPER ARM PICC LINE INTACT, AND PATENT. PT HAS A RIGHT HIP WOUND WITH WOUND VAC INTACT. LIFEVEST IN PLACE, BATTERY CHANGED (07/05/17). SAFETY PRECAUTIONS IN PLACE. BED IN LOWEST LOCKED POSITION, X3 SIDERAILS UP, CALL LIGHT WITHIN REACH. WILL ENDORSE TO DAY SHIFT NURSE FOR CONTINUITY OF CARE.
[2017-07-05] MEDS: IPRATROPIUM NEB FS 0.5 MG/2.5 ML AMPUL.NEB NEB SCH ×4 (07:47→19:49)
[2017-07-05] MEDS: ACETYLCYSTEINE 10% SOLN 400 MG/4 ML VIAL NEB SCH ×4 (07:47→23:56)
[2017-07-05] MEDS: ALBUTEROL FS 2.5 MG/3 ML VIAL.NEB NEB SCH ×4 (07:47→19:48)
[2017-07-05 08:00] VITALS: BP 101/60
[2017-07-05] MEDS: AMIODARONE HCL 200 MG TABLET PO SCH (09:00)
[2017-07-05] MEDS: CARVEDILOL 3.125 MG TABLET PO SCH ×2 (09:00→21:35)
[2017-07-05] MEDS: GABAPENTIN 300 MG CAPSULE PO SCH ×3 (09:26→16:52)
[2017-07-05] MEDS: ZINC SULFATE 220 MG CAPSULE PO SCH (09:26)
[2017-07-05] MEDS: ASCORBIC ACID 500 MG TABLET PO SCH (09:26)
[2017-07-05] MEDS: ASPIRIN 81 MG TAB.CHEW PO SCH (09:27)
[2017-07-05] MEDS: SERTRALINE HCL 25 MG TABLET PO SCH (09:27)
[2017-07-05] MEDS: FLUCONAZOLE (100 MG) 100 MG TABLET PO SCH (09:27)
[2017-07-05] MEDS: MULTIVITAMINS,THERAGRAN 1 UDTAB TABLET PO SCH (09:27)
--- NOTE | 2017-07-05 09:27 | NUR ---
WOUND CARE: WOUND VAC DRESSING REMOVED FROM RT HIP FOR DRESSING CHANGE. PHOTO TAKEN. WOUND MEASURES 13.5CM X 4CM X 2.5CM AND BONE IS NOW PALPATED IN WOUND. COLOR IS RED/PINK, NO ODOR, SCANT AMOUNT OF SEROSANGUINOUS DRAINAGE NOTED. PT BECAME SHORT OF BREATH. RN AT BEDSIDE. PT'S HEAD ELEVATED. RECOMMEND SURGICAL RE-EVALUATION OF WOUND. DR ROLON CALLED AND MSG LEFT. CANISTER DISCARDED WITH 250cc SEROSANGUINOUS DRAINAGE. WOUND WAS LIGHTLY PACKED WITH SALINE MOISTENED KERLIX AND COVERED WITH ABD PAD, SECURED WITH TAPE. PT REPORTS FEELING BETTER WITH HEAD ELEVATED. Addendum: 07/05/17 at [address] ADAMSON NOTIFIED ABOUT ABOVE NOTE REGARDING PT'S SHORTNESS OF BREATH DURING DRESSING CHANGE AND BONE PALPATED IN RT HIP WOUND TODAY AND THAT VAC DRESSING NOT REAPPLIED TODAY DUE TO PT'S CONDITION AND RECOMMENDATION FOR SURGICAL RE-EVALUATION OF WOUND. AWAITING FURTHER ORDERS FROM SURGEON.
[2017-07-05] MEDS: CADEXOMER IODINE 40 GM TUBE TP SCH (09:28)
[2017-07-05] MEDS ORDERED: BUMETANIDE INJ 8 MG in IV NS 0.9% 48 ML IV ONE (11:30)
[2017-07-05] MEDS: PANTOPRAZOLE 40 MG VIAL IV SCH (12:44)
[2017-07-05] MEDS: INSULIN REGULAR, HUMAN 100 UNIT/ML 3 ML VIAL SQ PRN ×2 (12:51→17:30)
[2017-07-05] MEDS ORDERED: PEG 3350/NA SULF,BICARB,CL/KCL 4,000 ML BOTTLE PO ONE (15:30)
[2017-07-05 16:00] VITALS: BP 112/65
--- NOTE | 2017-07-05 19:00 | NUR ---
RN OPENING NOTES PT AWAKE AND RESTING IN BED. NO COMPLAINTS OF PAIN, SOB, OR DISTRESS AT THIS TIME. PT ON 02 VIA NASAL CANNULA SATING WELL. PT HAS A ROMERO CATHETER INTACT AND DRAINING WELL. WILL CONTINUE TO WATCH URINE OUTPUT. PT HAS A RIGHT UPPER ARM PICC LINE INTACT, AND PATENT. PT HAS A RIGHT HIP WOUND S/P DEBRIDEMENT (07/05/17). PER DAY SHIFT PT WILL BE DISCONNECT FROM WOUND VAC UNTIL AM (07/06/17). LIFEVEST IN PLACE, BATTERY CHARGING. SAFETY PRECAUTIONS IN PLACE. BED IN LOWEST LOCKED POSITION, X3 SIDE RAILS UP, CALL LIGHT WITHIN REACH. WILL CONTINUE TO MONITOR.
--- NOTE | 2017-07-05 19:29 | NUR ---
MS RN CLOSING NOTES PT REMAINS STABLE ALL NEEDS MET DURING SHIFT AND ORDERS CARRIED OUT ACCORDINGLY. WOUND AND SKIN CARE RENDERED ORDERED. PT WAS REPOSITIONED Q2HRS AND KEPT CLEAN AND DRY. CATHETER CARE RENDERED. PICC LINE REMAINS PATENT AND INTACT. SAFETY MEASURES REMAIN IN PLACE. WILL ENDORSE TO NIGHTSHIFT NURSE FOR CHRISTIAN
[2017-07-05 20:04] VITALS: BP 119/60
[2017-07-05] MEDS: INSULIN GLARGINE, 100 UNIT/ML CARTRIDGE SQ SCH (21:30)
[2017-07-05] MEDS: ATORVASTATIN 40 MG TABLET PO SCH (21:33)
--- NOTE | 2017-07-05 22:45 | NUR ---
RN NOTES PT STOOL NOT CLEAR. REFUSED TO FINISH Spireon. PER DR SOUZA, CANCEL EGD/COLONOSCOPY SCHEDULED FOR 07/06/17, AND IT WILL NEED TO BE RESCHEDULED FOR WEDNESDAY (07/07/17). WILL ENDORSE TO DAY SHIFT FOR CONTINUITY OF CARE. Addendum: 07/06/17 at 0558 by HARDIK GÓMEZ RN DR BURNETT, NOT DR SOUZA
[2017-07-06] VITALS (19 sets, daily range): BP systolic 101–144; BP diastolic 60–82
[2017-07-06] MEDS: FENTANYL PF 100MCG/2ML AMPUL IV PRN ×2 (00:04→04:58)
[2017-07-06] MEDS: CEFTRIAXONE 1 G in IV NS 0.9% 50 ML IV SCH (02:20)
[2017-07-06 06:42] LABS: CALCIUM, SERUM 7.8 mg/dL (8.5-10.1); MAGNESIUM 2.1 mg/dL (1.8-2.4); PHOSPHORUS 6.7 mg/dL (2.5-4.9); POTASSIUM 3.6 mmol/L (3.5-5.1)
--- NOTE | 2017-07-06 06:53 | NUR ---
RN CLOSING NOTES PT AWAKE AND RESTING IN BED. NO COMPLAINTS OF PAIN, SOB, OR DISTRESS AT THIS TIME. ALL PT NEEDS MET OVERNIGHT. PT ON 4L OF 02 VIA NASAL CANNULA. PT HAS A ROMERO CATHETER INTACT AND DRAINING WELL. PT HAS A RIGHT UPPER ARM PICC LINE INTACT, AND PATENT. PT HAS A RIGHT HIP WOUND, WOUND VAC WILL BE STARTED AGAIN TODAY. LIFEVEST IN PLACE, BATTERY CHARGED. SCHEDULED EGD/COLONOSCOPY WILL NEED TO BE RESCHEDULED FOR TOMORROW WEDNESDAY (07/07/17). SAFETY PRECAUTIONS IN PLACE. BED IN LOWEST LOCKED POSITION, X3 SIDE RAILS UP, CALL LIGHT WITHIN REACH. WILL ENDORSE TO DAY SHIFT NURSE FOR CONTINUITY OF CARE.
[2017-07-06 07:10] LABS: BASOPHILS % (AUTO) 0.4 % (0.0-2.0); EOSINOPHILS % (AUTO) 2.4 % (0.0-6.0); HEMATOCRIT 25 % (39-51); LYMPHOCYTES # (AUTO) 1.2 /CMM (0.8-4.8); LYMPHOCYTES % (AUTO) 11.4 % (20.0-44.0); MEAN CORPUSCULAR HGB CONC 32 g/dl (31.0-36.0); MEAN CORPUSCULAR VOLUME 88 fL (80-96); MONOCYTES # (AUTO) 0.2 /CMM (0.1-1.30); MONOCYTES % (AUTO) 2.2 % (2.0-12.0); NEUTROPHILS # (AUTO) 8.6 /CMM (1.8-8.9); NEUTROPHILS % (AUTO) 83.6 % (43.0-81.0); PLATELET COUNT (AUTO) 154 /CMM (150-450); RDW COEFFICIENT OF VARIATION 21.8 (11.5-15.0); RED BLOOD CELL COUNT(AUTO) 2.85 MIL/uL (4.5-6.0); WHITE BLOOD COUNT (AUTO) 10.3 K/uL (4.3-11.0)
[2017-07-06] MEDS: ALBUTEROL FS 2.5 MG/3 ML VIAL.NEB NEB SCH ×4 (07:17→19:20)
[2017-07-06] MEDS: ACETYLCYSTEINE 10% SOLN 400 MG/4 ML VIAL NEB SCH ×3 (07:17→23:30)
[2017-07-06] MEDS: IPRATROPIUM NEB FS 0.5 MG/2.5 ML AMPUL.NEB NEB SCH ×4 (07:17→19:20)
[2017-07-06] MEDS: BLOOD SUGAR DIAGNOSTIC 1 EACH STRIP IN SCH ×4 (07:31→21:43)
--- NOTE | 2017-07-06 08:00 | NUR ---
m/s cell phone repair technician: initial assessment received pt in bed awake, a/ox4. no c/o pain or any discomfort. pt refused breakfast, pt remains with poor appetite. satting at 92% on 4l/min via n/c. instructed to call for assistance. will continue to monitor.
[2017-07-06] MEDS: CARVEDILOL 3.125 MG TABLET PO SCH ×2 (09:00→21:00)
[2017-07-06] MEDS: GABAPENTIN 300 MG CAPSULE PO SCH ×3 (09:10→17:00)
[2017-07-06] MEDS: ZINC SULFATE 220 MG CAPSULE PO SCH (09:10)
[2017-07-06] MEDS: SERTRALINE HCL 25 MG TABLET PO SCH (09:10)
[2017-07-06] MEDS: ASCORBIC ACID 500 MG TABLET PO SCH (09:10)
[2017-07-06] MEDS: ASPIRIN 81 MG TAB.CHEW PO SCH (09:10)
[2017-07-06] MEDS: FLUCONAZOLE (100 MG) 100 MG TABLET PO SCH (09:11)
[2017-07-06] MEDS: MULTIVITAMINS,THERAGRAN 1 UDTAB TABLET PO SCH (09:11)
[2017-07-06] MEDS: AMIODARONE HCL 200 MG TABLET PO SCH (09:11)
[2017-07-06] MEDS: ONDANSETRON HCL/PF 4 MG/2 ML VIAL IVP PRN (10:24)
--- NOTE | 2017-07-06 10:35 | NUR ---
WOUND CARE: PER DR ROLON WOUND VAC REAPPLIED TODAY. RT HIP WOUND MEASURES 14CM X 4CM X 3CM AND IS RED WITH PINK COLOR, SOME BONE PALPABLE, SMALL AMOUNT OF SEROSANGUINOUS DRAINAGE, NO ODOR. PERIWOUND HAS EDEMA WITH SOME PINK DISCOLORATION. SKIN PREP AND VAC DRAPE TO PERIWOUND, 2 PIECES OF GRANUFOAM TO WOUND, VAC AT 125mmHG CONTINUOUS SETTING. PT TOLERATED DRESSING CHANGE WELL. NEXT DRESSING CHANGE TO BE DONE WEDNESDAY PER DR ROLON.
--- NOTE | 2017-07-06 10:40 | NUR ---
m/s box printer: notes received order from dr. alston to get consent for bilateral lower ext wound debridement. order acknowledged. dr. alston explained the procedure pt verbalized understanding and signed the consent.
--- NOTE | 2017-07-06 10:45 | NUR ---
m/s milieu technician: md visit seen by gema at this time with new orders. orders acknowledged.
[2017-07-06] MEDS: CADEXOMER IODINE 40 GM TUBE TP SCH (11:00)
--- NOTE | 2017-07-06 11:00 | NUR ---
m/s unix consultant: combination welder apprentice dr. alston at bedside for kezia lower ext wound debridement, dusty. well. drsg change by md. pt remains with poor appetite. will continue to monitor.
--- NOTE | 2017-07-06 12:30 | NUR ---
m/s uke operator: nephro f/u and vascular surgeon consult seen and examined by dr. el at this time and updated plan of care. dr. el spoke to dr. kim re: dialysis. received order from dr. kmi to get consent for insertion of temporary dialysis catheter. pt aware and consent signed. pt refused breakfast and lunch. pt remains with poor appetite. instructed to call for assistance. will continue to monitor.
--- NOTE | 2017-07-06 13:00 | NUR ---
m/s account liaison hospice: notes s/p wound vac placement and kezia lower ext wound debridement. pt schedule for insertion of temporary dialysis catheter and hd tx after cath is inserted. pt appears weak, sleepy, pale, and saturations goes up and down to 90%. gema (dog races manager) made aware with order of stat abg. order acknowledged.
[2017-07-06 13:21] LABS: ABG BASE EXCESS 0.9 mmol/L; ABG OXYGEN SATURATION 91.8 % (92.0-98.5); ABG PCO2 73.8 mmHg (35.0-45.0); ABG PH 7.219 (7.350-7.450); ABG PO2 74.2 mmHg (75.0-100.0); COHb 0.2 % (0.5-1.5); MetHb 0.7 % (0.0-1.5); SITE, ABG Right Radial; VENT MODE, BG NASAL CANNULA 40%
--- NOTE | 2017-07-06 13:25 | NUR ---
m/s market research specialist: notes abg resulted and gema (machine clothing man) notified and made aware with order to transfer pt to icu and place pt on bipap. orders read back and carried out. rn coremaker supervisor notified by cn for icu bed. pt made aware. pt refused to have his friends be aware as stated. pt a/ox4. will continue to monitor.
[2017-07-06] MEDS ORDERED: PEG 3350/NA SULF,BICARB,CL/KCL 4,000 ML BOTTLE PO ONE (14:00)
--- NOTE | 2017-07-06 14:00 | NUR ---
RT NOTE PATIENT TRANSFERRED TO ICU DUE TO ABNORMAL ABG. PLACED PATIENT ON BIPAP W/ SETTINGS OF 15/5, BUR 16, 100%. WILL CONTINUE TO MONITOR. NURSE, EMRE, AWARE.
--- NOTE | 2017-07-06 14:00 | NUR ---
m/s salt machine operator: notes transferred pt to icu via bed via acls protocol with all valuables. bedside report given to es (fox) for continuity of care.
--- NOTE | 2017-07-06 14:15 | NUR ---
RN Note Patient transferred to the ICU due/to desaturation and also due/to abnormal ABG readings, MD Acosta notified and aware. patient alert at this time able to make needs known report given by Rod NOGUERA, DRAWING OPERATOR will continue to follow the patient progress.
--- NOTE | 2017-07-06 14:48 | NUR ---
ROOF SLATER NOTE PATIENT IS CURRENTLY ON BIPAP MACHINE AND UNABLE TO TAKE MEDICATION PO DUE/TO MEDICAL STATUS ROOF SLATER SPOKE WITH MD SIERRA PATIENT IS CURRENTLY NOT STABLE ENOUGH FOR A PROCEDURE ( EGD/COLONOSCOPY). RN WILL NOTIFY VICTORIANO WIGGINS ACCORDINGLY.
[2017-07-06] MEDS: PANTOPRAZOLE 40 MG VIAL IV SCH (15:22)
[2017-07-06 15:25] LABS: ABG BASE EXCESS 0.1 mmol/L; ABG OXYGEN SATURATION 97.7 % (92.0-98.5); ABG PCO2 67.7 mmHg (35.0-45.0); ABG PH 7.237 (7.350-7.450); ABG PO2 129.4 mmHg (75.0-100.0); AaDO2 515.9 mmHg; COHb 0.1 % (0.5-1.5); MetHb 0.6 % (0.0-1.5); SITE, ABG Right Radial; VENT MODE, BG ST 15/5 16
--- NOTE | 2017-07-06 16:35 | NUR ---
RN NOTE PATIENT ABG OBTAINED RIGHT FEMORAL HD CATHETER PLACED PATIENT CONTINUES ON BIPAP AT THIS TIME, RIGHT NASAL BLEEDING NOTED SHOVEL LOGGER ROSALIE MADE AWARE, MD CROUCH PLACE NASAL ROCKET TEMPORARILY. RN ATTEMPTED TO STOP BLEEDING VIA LIGHT PACKING AND APPLYING PRESSURES UNSUCCESSFUL DUE/TO DESATURATIONS WHILE OFF BIPAP.
--- NOTE | 2017-07-06 17:07 | NUR ---
NOSE BLEED NOTED FROM RIGHT NARE. RN AND CHAIN FORMING MACHINE OPERATOR MADE AWARE. Addendum: 07/06/17 at 1708 by DEV LAMAR RT Amended: Links added.
[2017-07-06 17:37] LABS: ABG BASE EXCESS 1.8 mmol/L; ABG OXYGEN SATURATION 92.1 % (92.0-98.5); ABG PCO2 63.5 mmHg (35.0-45.0); ABG PH 7.282 (7.350-7.450); ABG PO2 72.9 mmHg (75.0-100.0); AaDO2 430.8 mmHg; COHb 0.3 % (0.5-1.5); MetHb 1.4 % (0.0-1.5); O2Hb 90.5 % (94.0-97.0); SITE, ABG Right Radial; VENT MODE, BG ST 20/5 16 80%
[2017-07-06 18:34] LABS: BASOPHILS % (AUTO) 0.4 % (0.0-2.0); HEMATOCRIT 25 % (39-51); HEMOGLOBIN 7.4 g/dL (13.5-17.5); LYMPHOCYTES % (AUTO) 14.1 % (20.0-44.0); MEAN CORPUSCULAR HGB CONC 30 g/dl (31.0-36.0); MEAN CORPUSCULAR VOLUME 92 fL (80-96); MONOCYTES # (AUTO) 0.2 /CMM (0.1-1.30); MONOCYTES % (AUTO) 3.2 % (2.0-12.0); NEUTROPHILS # (AUTO) 5.6 /CMM (1.8-8.9); NEUTROPHILS % (AUTO) 81.3 % (43.0-81.0); PLATELET COUNT (AUTO) 129 /CMM (150-450); RDW COEFFICIENT OF VARIATION 20.6 (11.5-15.0); RED BLOOD CELL COUNT(AUTO) 2.72 MIL/uL (4.5-6.0); WHITE BLOOD COUNT (AUTO) 6.9 K/uL (4.3-11.0)
--- NOTE | 2017-07-06 18:51 | NUR ---
INTERIOR DESIGNER CLOSING NOTE PATIENT IN STABLE CONDITION AT THIS TIME, PATIENT REMAINS ON BIPAP CONTINUOUSLY VITALS ARE STABLE TOLERATING SETTINGS WELL, PATIENT HAS WOUND VAC ATTACHED NO DRAINAGE NOTED, PATIENT HAS ROCKET NASAL GAUZE IN PLACE DUE TO NASAL BLEED RIGHT NARE, PATIENT CURRENTLY RECEIVING HIS FIRST HD AT BEDSIDE TOLERATING WELL RN WILL ENDORSE CONTINUATION OF CARE TO PM RN
--- NOTE | 2017-07-06 19:00 | NUR ---
RN INITIAL NOTES RECEIVED PT AWAKE ON BED, A/O X3. CURRENTLY UNDERGOING DIALYSIS. PT IS ON BIPAP WITH SETTINGS 20/5, RATE 16, FIO2 80%, SATURATING WELL, NO S/S OF RESP DISTRESS. SR WITH 1ST AV BLOCK ON THE MONITOR, HR 70'S. ROMERO CATH INTACT. WOUND VAC CONNECTED TO RIGHT HIP WOUND, DRESSING CDI. RIGHT FEMORAL HD CATH INTACT. RIGHT UPPER ARM PICC, FLUSHED AND PATENT, NO S/S OF INFILTRATION/INFECTION, DRESSING CDI. BED LOW AND LOCKED, SIDERAILS UP, CALL LIGHT WITHIN REACH. WILL MONITOR
[2017-07-06] MEDS ORDERED: EPOETIN ALFA (20,000 UNIT) 20,000 UNIT/ML VIAL SQ PRN (20:00)
--- NOTE | 2017-07-06 21:25 | NUR ---
PT RECEIVED ON BIPAP ON NOTED SETTINGS. PT IS AWAKE AND ABLE TO ANSWER QUESTIONS. NO RESP DISTRESS. PT TOLERATING SETTINGS. MEPILEX IN PLACE. BIPAP ALARMS SET AND AUDIBLE. WILL CONTINUE TO MONITOR. Addendum: 07/06/17 at 2127 by OSIRIS VILLAGRAN RT Amended: Links added.
[2017-07-06] MEDS: INSULIN GLARGINE, 100 UNIT/ML CARTRIDGE SQ SCH (21:44)
[2017-07-06] MEDS: ATORVASTATIN 40 MG TABLET PO SCH (21:44)
--- NOTE | 2017-07-06 21:46 | NUR ---
RN NOTES PATIENT IS UNABLE TO TAKE PO MEDICATIONS (CARVEDILOL AND ATORVASTATIN ) DUE TO PATIENT NOT TOLERATING BEING OFF BIPAP. MD IS ALREADY AWARE. CURRENT BLOOD PRESSURE IS 110/64 WITH HR 73.
--- NOTE | 2017-07-06 21:54 | NUR ---
RN NOTES NOTIFIED ON-CALL [facility] [employer] MANAGER THAT PATIENT CURRENT BS IS 80. PT IS NPO FOR POSSIBLE PROCEDURE TOMORROW. PT IS UNABLE TO TOLERATE PO INTAKE DUE TO BEING UNABLE TO TOLERATE BEING OFF BIPAP. CURRENTLY NO IVF. HD DONE TODAY WITH 2L OUTPUT. PER OPTICAL LABORATORY MANAGER, RECHECK BLOOD SUGAR AT MIDNIGHT AND GIVE HER AN UPDATE.
[2017-07-07] VITALS (55 sets, daily range): BP systolic 98–165; BP diastolic 53–119
[2017-07-07] MEDS ORDERED: IV D5/ 0.9% NACL 1,000 ML IV PRN
[2017-07-07] MEDS: CEFTRIAXONE 1 G in IV NS 0.9% 50 ML IV SCH (02:18)
[2017-07-07 04:52] LABS: BASOPHILS % (AUTO) 0.4 % (0.0-2.0); EOSINOPHILS % (AUTO) 1.4 % (0.0-6.0); HEMATOCRIT 23 % (39-51); HEMOGLOBIN 7.1 g/dL (13.5-17.5); LYMPHOCYTES # (AUTO) 0.8 /CMM (0.8-4.8); MEAN CORPUSCULAR HGB CONC 31 g/dl (31.0-36.0); MEAN CORPUSCULAR VOLUME 88 fL (80-96); MONOCYTES # (AUTO) 0.3 /CMM (0.1-1.30); MONOCYTES % (AUTO) 4.6 % (2.0-12.0); NEUTROPHILS # (AUTO) 5.2 /CMM (1.8-8.9); NEUTROPHILS % (AUTO) 80.6 % (43.0-81.0); PLATELET COUNT (AUTO) 107 /CMM (150-450); RDW COEFFICIENT OF VARIATION 21.2 (11.5-15.0); RED BLOOD CELL COUNT(AUTO) 2.57 MIL/uL (4.5-6.0); WHITE BLOOD COUNT (AUTO) 6.5 K/uL (4.3-11.0)
[2017-07-07 05:08] LABS: CALCIUM, SERUM 7.8 mg/dL (8.5-10.1); CREATININE 3.4 mg/dL (0.6-1.3); POTASSIUM 3.4 mmol/L (3.5-5.1)
--- NOTE | 2017-07-07 06:00 | NUR ---
RN CLOSING NOTES PT REMAINS ON BIPAP BUT OTHERWISE STABLE. ALL DUE MEDS GIVEN, AM CARE PROVIDED. WILL ENDORSE CHRISTIAN TO AM RN
[2017-07-07] MEDS: ACETYLCYSTEINE 10% SOLN 400 MG/4 ML VIAL NEB SCH ×3 (07:23→23:23)
[2017-07-07] MEDS: ALBUTEROL FS 2.5 MG/3 ML VIAL.NEB NEB SCH ×4 (07:23→19:25)
[2017-07-07] MEDS: IPRATROPIUM NEB FS 0.5 MG/2.5 ML AMPUL.NEB NEB SCH ×4 (07:23→19:25)
[2017-07-07] MEDS: BLOOD SUGAR DIAGNOSTIC 1 EACH STRIP IN SCH ×4 (07:30→21:16)
--- NOTE | 2017-07-07 07:41 | NUR ---
WEB COORDINATOR RECEIVED PATIENT FROM THE PREVIOUS SHIFT. PATIENT IS IN BED. RESTING COMFORTABLY. BIPAP SETTINGS REVIEWED AND VERIFIED. NO ACUTE DISTRESS. TURNED AND REPOSITIONED FOR COMFORT AND WOUND PREVENTION. NPO STATUS MAINTAINED FOR PROCEDURE AND TO PREVENT ASPIRATION DUE TO BIPAP USE. WILL CONTINUE TO MONITOR AND PROVIDE CARE.
[2017-07-07 09:57] LABS: ABG BASE EXCESS 0.1 mmol/L; ABG OXYGEN SATURATION 96.6 % (92.0-98.5); ABG PCO2 55.5 mmHg (35.0-45.0); ABG PH 7.303 (7.350-7.450); ABG PO2 99.7 mmHg (75.0-100.0); AaDO2 557.8 mmHg; COHb 0.3 % (0.5-1.5); MetHb 0.3 % (0.0-1.5); SITE, ABG Right Radial; VENT MODE, BG NONREBREATHER 100%
[2017-07-07 10:17] LABS: INR 1.14 (0.87-1.13)
--- NOTE | 2017-07-07 10:25 | NUR ---
WOUND CARE FOLLOW UP: PT SEEN THIS AM AT 0945 AND NOTED TO HAVE MALFUNCTIONING WOUND VAC. DR ROLON CALLED AND MSG LEFT REGARDING VAC MALFUNCTION AND THAT PT NOW IN ICU. RECEIVED NEW KCI VAC FROM [employer] AND PT'S DRESSING CHANGED AFTER ABG DONE. RT HIP WOUND CONTINUES TO HAVE RED/PINK COLOR WITH SCANT SEROSANGUINOUS DRAINAGE, NO ODOR. BONE PALPABLE. PERIWOUND SKIN INTACT. CANISTER CHANGED (ONLY 50cc PINK DRAINAGE IN OLD CANISTER). SKIN PREP AND VAC DRAPE USED FOR PERIWOUND AREA, 2 PIECES OF GRANUFOAM PLACED IN WOUND, VAC AT 125cc Hg CONTINUOUS SETTING. PT TOLERATED WELL.
[2017-07-07] MEDS: ASCORBIC ACID 500 MG TABLET PO SCH (11:01)
[2017-07-07] MEDS: MULTIVITAMINS,THERAGRAN 1 UDTAB TABLET PO SCH (11:01)
[2017-07-07] MEDS: AMIODARONE HCL 200 MG TABLET PO SCH (11:01)
[2017-07-07] MEDS: SERTRALINE HCL 25 MG TABLET PO SCH (11:01)
[2017-07-07] MEDS: CARVEDILOL 3.125 MG TABLET PO SCH ×2 (11:01→21:17)
[2017-07-07] MEDS: GABAPENTIN 300 MG CAPSULE PO SCH ×3 (11:01→18:22)
[2017-07-07] MEDS: FLUCONAZOLE (100 MG) 100 MG TABLET PO SCH (11:01)
[2017-07-07] MEDS: CADEXOMER IODINE 40 GM TUBE TP SCH (11:02)
[2017-07-07] MEDS: ZINC SULFATE 220 MG CAPSULE PO SCH (11:02)
[2017-07-07] MEDS: PANTOPRAZOLE 40 MG VIAL IV SCH (13:16)
[2017-07-07] MEDS: INSULIN REGULAR, HUMAN 100 UNIT/ML 3 ML VIAL SQ PRN ×2 (18:26→21:18)
--- NOTE | 2017-07-07 19:00 | NUR ---
RN INITIAL NOTES RECEIVED PT AWAKE ON BED, A/O X3. PT IS ON 3L NASAL CANNULA, SATURATING WELL, NO S/S OF RESP DISTRESS; WILL BE ON BIPAP DURING SLEEP. SR WITH 1ST AV BLOCK ON THE MONITOR, HR 70'S. ROMERO CATH INTACT. WOUND VAC CONNECTED TO RIGHT HIP WOUND, DRESSING CDI. RIGHT FEMORAL HD CATH INTACT. RIGHT UPPER ARM PICC, FLUSHED AND PATENT, NO S/S OF INFILTRATION/INFECTION, DRESSING CDI. BED LOW AND LOCKED, SIDERAILS UP, CALL LIGHT WITHIN REACH. WILL MONITOR
--- NOTE | 2017-07-07 21:15 | NUR ---
PT ON 3L NC. PT IS AWAKE NO SOB. O2 SAT 96%.
[2017-07-07] MEDS: ATORVASTATIN 40 MG TABLET PO SCH (21:17)
[2017-07-07] MEDS: INSULIN GLARGINE, 100 UNIT/ML CARTRIDGE SQ SCH (21:19)
--- NOTE | 2017-07-07 23:31 | NUR ---
PT PLACED ON NOC BIPAP. RN NOTIFIED. WILL CONTINUE TO MONITOR. Addendum: 07/07/17 at 2332 by OSIRIS VILLAGRAN RT Amended: Links added.
[2017-07-08] VITALS (66 sets, daily range): BP systolic 89–156; BP diastolic 44–117
--- NOTE | 2017-07-08 01:19 | NUR ---
PT REMOVED HIS BIPAP. HE DOES NOT WANT TO WEAR IT ANYMORE. PLACED ON 3L NC. WILL CONTINUE TO MONITOR. RN IS AWARE.
[2017-07-08] MEDS: CEFTRIAXONE 1 G in IV NS 0.9% 50 ML IV SCH (02:40)
[2017-07-08 04:44] LABS: BASOPHILS % (AUTO) 0.5 % (0.0-2.0); EOSINOPHILS % (AUTO) 1.7 % (0.0-6.0); HEMATOCRIT 23 % (39-51); HEMOGLOBIN 7.2 g/dL (13.5-17.5); LYMPHOCYTES # (AUTO) 1.2 /CMM (0.8-4.8); LYMPHOCYTES % (AUTO) 12.9 % (20.0-44.0); MEAN CORPUSCULAR HGB CONC 32 g/dl (31.0-36.0); MEAN CORPUSCULAR VOLUME 88 fL (80-96); MONOCYTES # (AUTO) 0.5 /CMM (0.1-1.30); MONOCYTES % (AUTO) 5.7 % (2.0-12.0); NEUTROPHILS # (AUTO) 7.1 /CMM (1.8-8.9); NEUTROPHILS % (AUTO) 79.2 % (43.0-81.0); PLATELET COUNT (AUTO) 125 /CMM (150-450); RDW COEFFICIENT OF VARIATION 22.1 (11.5-15.0); WHITE BLOOD COUNT (AUTO) 8.9 K/uL (4.3-11.0)
[2017-07-08 04:58] LABS: CALCIUM, SERUM 7.8 mg/dL (8.5-10.1); CREATININE 3.3 mg/dL (0.6-1.3); PHOSPHORUS 4.6 mg/dL (2.5-4.9); POTASSIUM 3.6 mmol/L (3.5-5.1)
--- NOTE | 2017-07-08 06:10 | NUR ---
RN CLOSING NOTES PT IS ON 3L NASAL CANNULA, SATURATING WELL WITH NO S/S OF RESP DISTRESS. PT DECLINED BIPAP @ 0100 THIS MORNING. ALL DUE MEDS GIVEN, AM CARE PROVIDED. WILL ENDORSE CHRISTIAN TO AM RN
--- NOTE | 2017-07-08 07:00 | NUR ---
RN NOTES RECEIVED PT ON BED, A/O X3. ON 3L O2 N/C , RESPIRATION EVEN AND UNLABORED, O2 SAT 98%, ON TELE SR WITH FIRST DEGREE AVB , ROMERO CATH INTACT. WOUND VAC CONNECTED TO RIGHT HIP WOUND, DRESSING CDI. R UPPER ARM PICC LINE SITE CDI,NO S/S OF INFILTRATION NOTED , SR UP x3, CALL LIGHT WITHIN EASY REACH , BED LOCKED AND IN LOWEST POSITION , WILL CONTINUE TO MONITOR CLOSELY
[2017-07-08] MEDS: ALBUTEROL FS 2.5 MG/3 ML VIAL.NEB NEB SCH ×4 (07:35→19:42)
[2017-07-08] MEDS: IPRATROPIUM NEB FS 0.5 MG/2.5 ML AMPUL.NEB NEB SCH ×4 (07:35→19:42)
[2017-07-08] MEDS: ACETYLCYSTEINE 10% SOLN 400 MG/4 ML VIAL NEB SCH ×2 (07:35→15:30)
[2017-07-08] MEDS: BLOOD SUGAR DIAGNOSTIC 1 EACH STRIP IN SCH ×4 (08:27→22:20)
--- NOTE | 2017-07-08 08:28 | NUR ---
RN NOTES PT RECEIVING HD AT THIS TIME
[2017-07-08] MEDS: MULTIVITAMINS,THERAGRAN 1 UDTAB TABLET PO SCH (09:45)
[2017-07-08] MEDS: FLUCONAZOLE (100 MG) 100 MG TABLET PO SCH (09:46)
[2017-07-08] MEDS: CARVEDILOL 3.125 MG TABLET PO SCH ×2 (09:46→21:44)
[2017-07-08] MEDS: GABAPENTIN 300 MG CAPSULE PO SCH ×4 (09:46→17:15)
[2017-07-08] MEDS: AMIODARONE HCL 200 MG TABLET PO SCH (09:46)
[2017-07-08] MEDS: ASCORBIC ACID 500 MG TABLET PO SCH (09:46)
[2017-07-08] MEDS: ZINC SULFATE 220 MG CAPSULE PO SCH (09:46)
[2017-07-08] MEDS: CADEXOMER IODINE 40 GM TUBE TP SCH (09:48)
[2017-07-08] MEDS: SERTRALINE HCL 25 MG TABLET PO SCH (09:49)
--- NOTE | 2017-07-08 13:00 | NUR ---
RN NOTES PT ALERT/ AWAKE , VSS STABLE , CONTINUE TO MONITOR .
[2017-07-08] MEDS: PANTOPRAZOLE 40 MG VIAL IV SCH (13:17)
--- NOTE | 2017-07-08 13:35 | NUR ---
RN NOTES PLEASE SEE CODE BLUE REPORT SHEET .
--- NOTE | 2017-07-08 13:35 | NUR ---
RN NOTES FOUND PT BRADYCARDIC HR IN 30'S, BLUEISH , UNRESPONSIVE, CALLED CODE BLUE.
[2017-07-08] MEDS ORDERED: SODIUM BICARBONATE SYR 50 MEQ/50 ML DISP.SYRIN ONE (13:47)
[2017-07-08] MEDS ORDERED: PHENYLEPHRINE 10 MG/ML VIAL ONE (13:50)
[2017-07-08] MEDS ORDERED: PHENYLEPHRINE 80 MG in IV D5W 250 ML IV PRN (14:00)
--- NOTE | 2017-07-08 14:00 | NUR ---
RN NOTES REPORT GIVEN TO JAZ JONES FOR CHRISTIAN .
[2017-07-08] MEDS ORDERED: CEFTRIAXONE 1 G in IV NS 0.9% 50 ML IV SCH (14:30)
--- NOTE | 2017-07-08 14:30 | NUR ---
LINE TECHNICIAN RECEIVED PATIENT FROM CHIKI RN PATIENT CODED APPROXIMATELY A HOUR AGO, BRADYCARDIA, UNRESPONSIVE AND BLUISH LIPS CODE WAS COLD, ACLS INITIATED DR. CROUCH AND TOMER TISSUE INSERTER WAS 0PRESENT DURING THE CODE AMBUBAGGING DONE, INTUBATION DONE AND CONNECTED TO MECHANICAL VENTILATOR ABG DONE, DR. SIERRA WAS ALSO ON THE FLOOR, ABG RESULT SHOWED TO DR. SIERRA NOT CHANGES ON VENT SETTING DOBUTAMINE DRIP WAS STARED AT 5 MCGS NO TITRATION WAS ON NEOSYNEPHRINE AND LEVOPHED FOR SOMETIME PERLA WAS D/C PER HOSPITALIST LEVOPHED WAS ORDERED BUT HELD DUE TO BP WENT TO 140 SBP URINE OUTPUT TEA COLORED URINE, SMALL IN AMOUNT SEEN AND EXAMINED BY DR. ALLEN AND RANDALL MONITORED CLOSELY
[2017-07-08] MEDS ORDERED: EPINEPHRINE (1:10,000) SYRINGE 1 MG/10 ML DISP.SYRIN IVP ONE (14:35)
[2017-07-08] MEDS ORDERED: FEE EMEERGENCY 1 MIN EA MC ONE (14:35)
[2017-07-08] MEDS ORDERED: SODIUM BICARBONATE SYR 50 MEQ/50 ML DISP.SYRIN IV ONE (14:36)
[2017-07-08] MEDS: EPOETIN ALFA (20,000 UNIT) 20,000 UNIT/ML VIAL SQ SCH (15:54)
[2017-07-08] MEDS: DOBUTamine 500 MG in IV NS 0.9% 210 ML IV PRN (15:58)
[2017-07-08] MEDS ORDERED: NOREPINEPHRINE 8 MG in IV D5W 500 ML IV PRN ×2 (16:30→17:30)
[2017-07-08] MEDS: INSULIN REGULAR, HUMAN 100 UNIT/ML 3 ML VIAL SQ PRN (17:23)
--- NOTE | 2017-07-08 19:44 | NUR ---
PT RECEIVED ORALLY INTUBATED 7.5 ETT SECURED @21 CM AT THE LIP, WITH NOTED SETTINGS, AC 22,500 ,PEEP 5 , 40% . VENT ALARMS SET AND AUDIBLE. AMBU BAG AT [facility]. BREATHING TX GIVEN PER MD'S ORDERED. NO ADVERSE REACTION NOTED. SUCTIONED SMALL AMOUNT OF YELLOW THICK SECRETIONS. NO RESPIRATORY DISTRESS NOTED AT THIS TIME. WILL CONTINUE TO MONITOR.
--- NOTE | 2017-07-08 21:00 | NUR ---
received pt from day shift, s/p CPA, obtunded, SR, 1 degree AV block, receiving dobutamine at 5mcg, L femoral A line intact, intubated, on the vent, lungs congested, some pitting edema BLLE noted, OG tube to LIS, pt vomited 3 times with food particles, COMPOUNDING PHARMACY TECHNICIAN field service consultant notified, anuric HD pt, R hip wound vac on, v/s stable, no pain, pt turned and repositioned.
[2017-07-08] MEDS: ATORVASTATIN 40 MG TABLET PO SCH (21:44)
[2017-07-08] MEDS: INSULIN GLARGINE, 100 UNIT/ML CARTRIDGE SQ SCH (22:25)
[2017-07-08] MEDS: ONDANSETRON HCL/PF 4 MG/2 ML VIAL IVP PRN (23:08)
[2017-07-09] VITALS (90 sets, daily range): BP systolic 96–163; BP diastolic 53–100
--- NOTE | 2017-07-09 00:05 | NUR ---
pt is resting in the bed, obtunded, on dobutamine at 5mcg, v/s stable, no pain, pt turned and repositioned q2hrs.
[2017-07-09] MEDS: ACETYLCYSTEINE 10% SOLN 400 MG/4 ML VIAL NEB SCH ×3 (01:44→16:12)
[2017-07-09] MEDS: CEFTRIAXONE 1 G in IV NS 0.9% 50 ML IV SCH (02:02)
--- NOTE | 2017-07-09 04:12 | NUR ---
pt is resting in the bed, obtunded, opens eyes, SR, on dobutamine at 5mcg, v/s stable, no pain, pt cleaned, changed and repositioned q2hrs.
[2017-07-09 05:14] LABS: BASOPHILS % (AUTO) 0.1 % (0.0-2.0); HEMATOCRIT 22 % (39-51); LYMPHOCYTES # (AUTO) 0.9 /CMM (0.8-4.8); LYMPHOCYTES % (AUTO) 10.8 % (20.0-44.0); MEAN CORPUSCULAR HGB CONC 33 g/dl (31.0-36.0); MEAN CORPUSCULAR VOLUME 87 fL (80-96); MONOCYTES # (AUTO) 0.3 /CMM (0.1-1.30); MONOCYTES % (AUTO) 3.2 % (2.0-12.0); NEUTROPHILS # (AUTO) 6.9 /CMM (1.8-8.9); NEUTROPHILS % (AUTO) 85.9 % (43.0-81.0); PLATELET COUNT (AUTO) 106 /CMM (150-450); RED BLOOD CELL COUNT(AUTO) 2.48 MIL/uL (4.5-6.0)
[2017-07-09 05:58] LABS: CALCIUM, SERUM 7.7 mg/dL (8.5-10.1); MAGNESIUM 1.9 mg/dL (1.8-2.4); PHOSPHORUS 2.8 mg/dL (2.5-4.9); POTASSIUM 3.2 mmol/L (3.5-5.1)
[2017-07-09] MEDS: DOBUTamine 500 MG in IV NS 0.9% 210 ML IV PRN (06:09)
[2017-07-09 06:23] LABS: BAND % (MANUAL) 1 % (0.0-5.0); LYMPHOCYTES % (MANUAL) 10 % (16-48); MONOCYTES % (MANUAL) 4 % (0-11.0); NEUTROPHILS % (MANUAL) 85 (42-76)
[2017-07-09] MEDS: IPRATROPIUM NEB FS 0.5 MG/2.5 ML AMPUL.NEB NEB SCH ×4 (07:35→19:55)
[2017-07-09] MEDS: ALBUTEROL FS 2.5 MG/3 ML VIAL.NEB NEB SCH ×4 (07:35→19:55)
--- NOTE | 2017-07-09 07:50 | NUR ---
COORDINATOR VOLUNTEER SERVICES: pt.is obtunded, able to open eyes for seconds, no eyes contact, no coordinated activity, O2sat. WNL, ST 100-135, [place] is intact, SBP 130-155, s/p CParrest, per report: said keep external pacemaker/defibrillator out of body until pt.is on monitor, K3.2+/will speak with , HALI LIS, NPO, had vomiting episodes yesterday evening, AccuV AC&HS, will change to NPO ISS q6h
[2017-07-09] MEDS: CADEXOMER IODINE 40 GM TUBE TP SCH (09:00)
[2017-07-09] MEDS: BLOOD SUGAR DIAGNOSTIC 1 EACH STRIP IN SCH ×3 (09:13→18:01)
--- NOTE | 2017-07-09 09:20 | NUR ---
MOLECULAR PATHOLOGIST: is in room, updated with pt.current condition, VS, [place] BP up to 155, ST up to 130, K+ 3.2, labs, HD done yesterday, meds, Dobutamine gtt, ordered: d/c Amiodarone, continue Dobutamine 2.5 mcg/kg/m for 1 hr and stop, continue monitoring, can give Coreg,
--- NOTE | 2017-07-09 09:21 | NUR ---
WOUND CARE: SPOKE WITH NURSING STAFF REGARDING PT'S CONDITION. PT IS S/P CODE BLUE. PT UNSTABLE AT THIS TIME TO BE TURNED FOR VAC DRESSING CHANGE. LIQUEFIED NATURAL GAS OPERATOR WITH PT. KCI VAC FUNCTIONING WELL AT 125mmHg CONTINUOUS SETTING TO RT HIP WOUND. SMALL AMOUNT OF PINK DRAINAGE IN CANISTER. DR ROLON NOTIFIED.
[2017-07-09] MEDS ORDERED: POTASSIUM CHLORIDE 20 MEQ POWDER PACKET GT ONE (09:30)
[2017-07-09] MEDS: ZINC SULFATE 220 MG CAPSULE PO SCH (09:30)
[2017-07-09] MEDS: SERTRALINE HCL 25 MG TABLET PO SCH (09:30)
[2017-07-09] MEDS: GABAPENTIN 300 MG CAPSULE PO SCH ×3 (09:30→17:15)
[2017-07-09] MEDS: MULTIVITAMINS,THERAGRAN 1 UDTAB TABLET PO SCH (09:30)
--- NOTE | 2017-07-09 10:00 | NUR ---
OPERATOR ENGINEER: order head CT stat is in computer, pt.is on Dobutamine gtt, ST 100-130, SBP 132-156, waiting /spoke with RT, NGT to LIS
--- NOTE | 2017-07-09 10:40 | NUR ---
INSTRUMENT STERILIZER: Dobutamine is off now, HR 80-100, SBP 114-122, pt.is going for HD, hold Coreg for now, HD nurse updated with pt.condition, VS, labs
--- NOTE | 2017-07-09 11:00 | NUR ---
ASSISTANT HEAD CASHIER: pt.is getting HD, tolerated well, is in room, updated with pt.current neuro status, VS, I/O, O2sat., suction amount, vomiting episodes over night per nurse report, OGT to LIS, Dobutamine off, order for head CT, unable to transfer pt. to RD now
--- NOTE | 2017-07-09 11:31 | NUR ---
spoke to shalini JONES [id number] hrs , pt on dialysis, nurse will call back when ready.
[2017-07-09] MEDS ORDERED: DEXTROSE 50%-WATER 50 ML DISP.SYRIN IV PRN (12:00)
[2017-07-09] MEDS: CARVEDILOL 3.125 MG TABLET PO SCH ×2 (12:01→21:47)
[2017-07-09] MEDS: ASCORBIC ACID 500 MG TABLET PO SCH (12:03)
[2017-07-09] MEDS: PANTOPRAZOLE 40 MG VIAL IV SCH (12:13)
--- NOTE | 2017-07-09 14:30 | NUR ---
STUDENT SUCCESS COUNSELOR: confirmed: ok to go to RD for head CT
--- NOTE | 2017-07-09 16:05 | NUR ---
TYPEWRITER RIBBON WINDER: is in room, updated with pt.history, orders, VS, neuro status, pressor off, see new orders
[2017-07-09 16:37] LABS: ABG BASE EXCESS 8.4 mmol/L; ABG OXYGEN SATURATION 98.4 % (92.0-98.5); ABG PCO2 40.4 mmHg (35.0-45.0); ABG PH 7.517 (7.350-7.450); ABG PO2 152.2 mmHg (75.0-100.0); AaDO2 86.5 mmHg; COHb 0.3 % (0.5-1.5); MetHb 0.7 % (0.0-1.5); O2Hb 97.4 % (94.0-97.0); SITE, ABG Right Radial; VENT MODE, BG AC 22 500 40% +5
--- NOTE | 2017-07-09 17:11 | NUR ---
HOGSHEAD MAT INSPECTOR: spoke with pharmacy x2 to get Iodosorb. Pt.is obtunded, SR, SBP over 100, O2 sat. WNL, OGT to LIS with green/brown drainage, head CT negative, PM, skin, wound care done, wound vac is patent, dressing is intact, changed vent rate to 14
--- NOTE | 2017-07-09 20:20 | NUR ---
ICU/LINE MAINTENANCE PT'S SISTER CALLED, ASKED ABOUT CONDITION. GAVE SMALL UPDATE THEN SAID IF SHE COULD LEAVE HER PHONE NUMBER AND ASKED US TO CALL F ANYTHING HAPPENS. THEN EXPLAINED THAT PT'S DAUGHTER IS THE POWER OF NEEDLE LEADER AND ALSO SPOKES PERSON PLUS THE GO TO FOR ANY ISSUES. THE SISTER WILL HAVE TO GO TO THE DAUGHTER FOR ANY ISSUES.
[2017-07-09] MEDS: ATORVASTATIN 40 MG TABLET PO SCH (21:47)
[2017-07-09] MEDS: INSULIN GLARGINE, 100 UNIT/ML CARTRIDGE SQ SCH (22:00)
--- NOTE | 2017-07-09 22:30 | NUR ---
ICU/WHOLESALE AND RETAIL MERCHANT BLOOD SUGAR WAS 87, LANTUS LONG ACTING INSULIN NOT GIVEN. WILL CONTINUE TO MONITOR THE PT'S BLOOD SUGAR ORDERED BY MD. PT WAS TURNED AND REPOSITIONED FOR COMFORT AND CARE.
[2017-07-10] VITALS (52 sets, daily range): BP systolic 103–143; BP diastolic 51–83
[2017-07-10] MEDS: ACETYLCYSTEINE 10% SOLN 400 MG/4 ML VIAL NEB SCH ×3 (00:01→15:30)
[2017-07-10] MEDS: BLOOD SUGAR DIAGNOSTIC 1 EACH STRIP IN SCH ×4 (00:11→13:29)
--- NOTE | 2017-07-10 00:47 | NUR ---
ICU/HAND RUG CLEANER PT'S MIDNIGHT BLOOD SUGAR IS 83, NO COVERAGE FOR THIS PER MD ORDERS. WILL RECHECK PER MD ORDERS AND HOSPITAL PROTOCOL. PT WAS TURNED AND REPOSITIONED FOR COMFORT AND CARE.
--- NOTE | 2017-07-10 02:40 | NUR ---
ICU/EMPLOYEE DEVELOPMENT SPECIALIST PT GIVEN AM CARE ALONG WITH ORAL CARE. PT TOLERATED THIS WELL. REMAINS ON CURRENT VENT SETTINGS WITH SATURATION AT 99-100%. PT WAS THEN TURNED AND REPOSITIONED FOR COMFORT AND CARE.
[2017-07-10] MEDS: CEFTRIAXONE 1 G in IV NS 0.9% 50 ML IV SCH (03:51)
--- NOTE | 2017-07-10 03:55 | NUR ---
RT PT RECEIVED INTUBATED ON [facility] VENT WITH NOTED SETTING. ETT PATENT AND SECURE VIA ANCHOR FAST. VENT TO RED OUTLET. ALARM SET AND AUDIBLE. MOVING CONSULTANT DONE. AMBU BAG AT [facility]. NO SOB OR DISTRESS NOTED ON SHIFT. Addendum: 07/10/17 at 0357 by RANJITH CLIFFORD RT Amended: Links added.
--- NOTE | 2017-07-10 05:10 | NUR ---
ICU/BLUEPRINT ENGINEER AM LABS AND CHEST XRAY DONE, WAIT ANY CRITICAL LABS.
[2017-07-10 05:14] LABS: BASOPHILS % (AUTO) 0.2 % (0.0-2.0); EOSINOPHILS % (AUTO) 1.6 % (0.0-6.0); HEMATOCRIT 23 % (39-51); HEMOGLOBIN 7.3 g/dL (13.5-17.5); LYMPHOCYTES # (AUTO) 1.2 /CMM (0.8-4.8); LYMPHOCYTES % (AUTO) 11.8 % (20.0-44.0); MEAN CORPUSCULAR HGB CONC 33 g/dl (31.0-36.0); MEAN CORPUSCULAR VOLUME 87 fL (80-96); MONOCYTES # (AUTO) 0.3 /CMM (0.1-1.30); MONOCYTES % (AUTO) 3.2 % (2.0-12.0); NEUTROPHILS # (AUTO) 8.2 /CMM (1.8-8.9); NEUTROPHILS % (AUTO) 83.2 % (43.0-81.0); PLATELET COUNT (AUTO) 120 /CMM (150-450); RDW COEFFICIENT OF VARIATION 22.7 (11.5-15.0); RED BLOOD CELL COUNT(AUTO) 2.59 MIL/uL (4.5-6.0); WHITE BLOOD COUNT (AUTO) 9.8 K/uL (4.3-11.0)
[2017-07-10 05:32] LABS: CREATININE 2.3 mg/dL (0.6-1.3); MAGNESIUM 1.7 mg/dL (1.8-2.4); PHOSPHORUS 2.8 mg/dL (2.5-4.9); POTASSIUM 3.7 mmol/L (3.5-5.1)
[2017-07-10] MEDS: IPRATROPIUM NEB FS 0.5 MG/2.5 ML AMPUL.NEB NEB SCH ×4 (07:35→19:34)
[2017-07-10] MEDS: ALBUTEROL FS 2.5 MG/3 ML VIAL.NEB NEB SCH ×4 (07:35→19:34)
--- NOTE | 2017-07-10 07:36 | NUR ---
CONCRETE PAVING SUPERVISOR: pt.is obtunded, can open eyes for seconds, trace legs activity, no eyes contact, no any controlled contact reaction, unable to follow commands, no grimacing, SR now, connected to defibrillator monitoring, s/p CP arrest, Renae is intact/patent, SBP 115-125, O2 sat. 100%, OGT to LIS with green secretion, updated with pt.current condition, neurostatus, VS
--- NOTE | 2017-07-10 08:00 | NUR ---
LINE PILOT: B.foot wounds care is done over night by funmi R.hip Wound Vac is patent, keeps negative pressure well, dressing is dry/intact
[2017-07-10] MEDS: CARVEDILOL 3.125 MG TABLET PO SCH ×2 (08:11→21:24)
[2017-07-10] MEDS: ZINC SULFATE 220 MG CAPSULE PO SCH (08:12)
[2017-07-10] MEDS: SERTRALINE HCL 25 MG TABLET PO SCH (08:12)
[2017-07-10] MEDS: MULTIVITAMINS,THERAGRAN 1 UDTAB TABLET PO SCH (08:12)
[2017-07-10] MEDS: ASCORBIC ACID 500 MG TABLET PO SCH (08:12)
[2017-07-10] MEDS: GABAPENTIN 300 MG CAPSULE PO SCH ×3 (08:12→17:04)
[2017-07-10] MEDS: CADEXOMER IODINE 40 GM TUBE TP SCH (08:13)
[2017-07-10 08:47] LABS: ABG BASE EXCESS 4.4 mmol/L; ABG OXYGEN SATURATION 98.5 % (92.0-98.5); ABG PCO2 38.7 mmHg (35.0-45.0); ABG PH 7.481 (7.350-7.450); ABG PO2 155.9 mmHg (75.0-100.0); AaDO2 84.8 mmHg; MetHb 0.8 % (0.0-1.5); O2Hb 97.7 % (94.0-97.0); SITE, ABG A-Line; VENT MODE, BG AC 14 500 40% +5
--- NOTE | 2017-07-10 09:00 | NUR ---
HELP DESK ENGINEER: ordered 2gm Mg IV, HD nurse notified re pt.s/p CP arrest, status, VS, I/O, labs, meds, SBP [place] 125-130, O2 sat. over 96%, ABG is done, no critical values
[2017-07-10] MEDS: Magnesium 1GM/D5W 100ML PREMIX 100 ML IV SCH ×2 (09:01→09:54)
--- NOTE | 2017-07-10 10:30 | NUR ---
LINE PATROLLER: updated with pt.current neurostatus, VS, BS level 80-90, I/O, NPO, HD, OGT LIS, labs, said: start D10-40 ml/h if BS below 80
--- NOTE | 2017-07-10 10:45 | NUR ---
NARROW FABRIC CALENDERER: pt.sister Xochilt called, notified re: pt.current condition, VS, POC, confirmed: pt.daughter Grisel is decision maker, was asking before to whom from family to speak
--- NOTE | 2017-07-10 10:50 | NUR ---
SPORTS ATHLETIC TRAINER: is in room to see pt., spoke with HD RN, updated with all above
--- NOTE | 2017-07-10 11:00 | NUR ---
WEED SCIENCE RESEARCH TECHNICIAN: is in room updated with pt.neurostatus, ETT suction, I/O, HD, ABG, OGT LIS nothing since 0800, BS, NPO, said: start renal formula OGTF with rate 20ml/h
--- NOTE | 2017-07-10 11:05 | NUR ---
RETAIL CLIENT SOLUTIONS ANALYST: HD is done, VSS, 2L out, wants to speak with Grisel, pt.daughter on Wednesday
--- NOTE | 2017-07-10 11:45 | NUR ---
EMERGENCY MEDICINE MEDICAL DIRECTOR: pt.daughter Grisel called, updated with pt.current condition and per last 24 hrs, neuro status, VS, HD, I/O, orders, POC, agree and will call to on Wednesday, was notified too
--- NOTE | 2017-07-10 13:00 | NUR ---
CRUSHED STONE GRADER: called to kitchen to get Nepro OGSTEVE bag
[2017-07-10] MEDS: PANTOPRAZOLE 40 MG VIAL IV SCH (13:29)
--- NOTE | 2017-07-10 14:40 | NUR ---
FARM LOAN INSPECTOR: got BOTTLE BLOWING MACHINE TENDER Alcides orders: EEG d/t s/p CParrest, abd.XR KUB to check OGT placement, DT consult, before ordered start Renal/Nepro OGTF with min rate 20ml/hr, 0 out from OGT by LIS since .00. Notified charge nurse re: plan is conversation between pt.daughter Grisel and on Wednesday
--- NOTE | 2017-07-10 15:45 | NUR ---
FAGOT HEATER HELPER: VICTORIANO Mcgrath is in room, updated with detailed report re: pt.neurostatus, VS, I/O, HD, BS level, orders, ABG, OGT LIS 0 suction and OGTF Nepro order - agree, labs, meds, wounds status and re: pt.daughter, sister calls and plan for conversation, also pt.daughter Grisel wants to involve her official representatives. Called to kitchen x2 to get GTF bag
[2017-07-10] MEDS: NEPRO 1,000 ML BOTTLE GT PRN (16:54)
--- NOTE | 2017-07-10 17:45 | NUR ---
PROPOSAL CONSULTANT: pt.is obtunded, can open eyes for seconds by touch/pain, weak legs, arms activity, but no eyes contact, no coordinate activity, no contact reaction, SR, SBP over 100 below 150, O2sat over 96%, suctioned well via ETT, PM,skin, wounds care done, started OGTF after KUB resulted, keep HOB over 40
[2017-07-10] MEDS: ATORVASTATIN 40 MG TABLET PO SCH (21:26)
[2017-07-10] MEDS: INSULIN GLARGINE, 100 UNIT/ML CARTRIDGE SQ SCH (21:32)
[2017-07-10] MEDS: INSULIN REGULAR, HUMAN 100 UNIT/ML 3 ML VIAL SQ PRN (23:13)
--- NOTE | 2017-07-10 23:20 | NUR ---
RN NOTES RECEIVED PATIENT IN BED WITH EYES OPEN. NOTED WITH NO EYE TRACKING. BREATHING EVEN AND UNLABORED, VENT SETTING WELL TOLERATED. NO PHYSICAL MANIFESTATION OF PAIN OR DISCOMFORT. WOUND VAC INTACT DRAINING SEROSANGUINEOUS DRAINAGE. ROMERO CATHETER IN PLACE DRAINING TEA COLORED URINE. GT PATENT, FEEDING WELL TOLERATED. HOB ELEVATED. 0 RESIDUAL. KEPT CLEAN AND DRY. WILL CONTINUE TO MONITOR.
[2017-07-11] VITALS (40 sets, daily range): BP systolic 96–147; BP diastolic 51–85
[2017-07-11] MEDS: INSULIN REGULAR, HUMAN 100 UNIT/ML 3 ML VIAL SQ PRN ×4 (02:24→23:56)
[2017-07-11] MEDS: CEFTRIAXONE 1 G in IV NS 0.9% 50 ML IV SCH (03:35)
[2017-07-11 05:02] LABS: BASOPHILS % (AUTO) 0.3 % (0.0-2.0); EOSINOPHILS % (AUTO) 4.8 % (0.0-6.0); HEMATOCRIT 22 % (39-51); LYMPHOCYTES # (AUTO) 1.2 /CMM (0.8-4.8); LYMPHOCYTES % (AUTO) 14.1 % (20.0-44.0); MEAN CORPUSCULAR HGB CONC 32 g/dl (31.0-36.0); MEAN CORPUSCULAR VOLUME 88 fL (80-96); MONOCYTES # (AUTO) 0.3 /CMM (0.1-1.30); MONOCYTES % (AUTO) 3.8 % (2.0-12.0); NEUTROPHILS # (AUTO) 6.5 /CMM (1.8-8.9); PLATELET COUNT (AUTO) 123 /CMM (150-450); RDW COEFFICIENT OF VARIATION 22.6 (11.5-15.0); RED BLOOD CELL COUNT(AUTO) 2.52 MIL/uL (4.5-6.0); WHITE BLOOD COUNT (AUTO) 8.4 K/uL (4.3-11.0)
[2017-07-11 05:14] LABS: CALCIUM, SERUM 7.9 mg/dL (8.5-10.1); CREATININE 2.4 mg/dL (0.6-1.3); MAGNESIUM 2.2 mg/dL (1.8-2.4); PHOSPHORUS 2.8 mg/dL (2.5-4.9); POTASSIUM 3.4 mmol/L (3.5-5.1)
[2017-07-11] MEDS: BLOOD SUGAR DIAGNOSTIC 1 EACH STRIP IN SCH ×5 (06:16→23:54)
[2017-07-11] MEDS: IPRATROPIUM NEB FS 0.5 MG/2.5 ML AMPUL.NEB NEB SCH ×4 (07:14→20:09)
[2017-07-11] MEDS: ALBUTEROL FS 2.5 MG/3 ML VIAL.NEB NEB SCH ×4 (07:14→20:09)
[2017-07-11] MEDS: ACETYLCYSTEINE 10% SOLN 400 MG/4 ML VIAL NEB SCH ×3 (07:14→15:20)
--- NOTE | 2017-07-11 07:54 | NUR ---
PATIENT REC'D ORALLY INTUBATED ON [facility] VENT. ETT SECURED AT 21CM WITH NOTABLE AIR LEAK AND LOW TIDAL VOLUMES. CHEST X-RAY SHOWED ETT 6 CM ABOVE BRYANT. PER DR MARCOS ETT PUSHED IN 3CM AND SECURED AT 24CM AT THE LIP. STAT CHEST X-RAY ORDERED.
[2017-07-11] MEDS ORDERED: POTASSIUM CHLORIDE 20 MEQ TAB.PRT.SR PO SCH (08:00)
--- NOTE | 2017-07-11 08:23 | NUR ---
POST CHEST X-RAY ETT READJUSTED AND SECURED AT 23CM AT THE LIP.
[2017-07-11] MEDS: POTASSIUM CHLORIDE 20 MEQ POWDER PACKET GT SCH ×2 (08:42→10:07)
[2017-07-11] MEDS: FUROSEMIDE 100 MG/10 ML VIAL IV SCH ×3 (08:43→17:49)
[2017-07-11] MEDS: ZINC SULFATE 220 MG CAPSULE PO SCH (10:07)
[2017-07-11] MEDS: MULTIVITAMINS,THERAGRAN 1 UDTAB TABLET PO SCH (10:08)
[2017-07-11] MEDS: CADEXOMER IODINE 40 GM TUBE TP SCH (10:08)
[2017-07-11] MEDS: SERTRALINE HCL 25 MG TABLET PO SCH (10:08)
[2017-07-11] MEDS: ASCORBIC ACID 500 MG TABLET PO SCH (10:08)
[2017-07-11] MEDS: GABAPENTIN 300 MG CAPSULE PO SCH ×3 (10:08→17:49)
[2017-07-11] MEDS: CARVEDILOL 3.125 MG TABLET PO SCH ×2 (10:38→21:31)
[2017-07-11] MEDS: FENTANYL PF 100MCG/2ML AMPUL IV PRN (10:56)
[2017-07-11] MEDS: PANTOPRAZOLE 40 MG VIAL IV SCH (14:02)
[2017-07-11] MEDS: NEPRO 1,000 ML BOTTLE GT PRN (18:02)
--- NOTE | 2017-07-11 19:06 | NUR ---
RN NOTE PT REMAINED STABLE, VS STABLE, ALERT, CALM, MOVES EXTREMITIES AND CAN SQUEEZE HANDS, CO PAIN ONCE, TREATED WITH FENTANYL 30 MCG, ETT TUBE IN PLACE, OGT TUBE IN PLACE, FEEDING INCREASED TO 30 ML/H, PER DIETITIAN AND MD, PICCLINE IN PLACE, INTACT, A LINE IN PLACE, NORMAL WAVEFORM, R FEMORAL HD CATH IN PLACE, HD DONE TODAY, 1 L OUT, TOLERATED WELL, F/C IN PLACE, WOUND VAC IN PLACE, INTACT, 1 UNIT BLOOD TRANSFUSING NOW, TOLERATES WELL, NO S/S OF REACTION NOTED. KEPT CLEAN AND DRY, MEDS GIVEN ORDERED, TURNED AND REPOSITIONED, TEACHING REINFORCED. WILL ENDORSE TO NIGHT NURSE.
--- NOTE | 2017-07-11 19:30 | NUR ---
KAREN MORALES NOTES PATIENT IS AWAKE. OPENS EYES SPONTENOUSLY. CONNECTED TO ICU MONITOR. A-LINE ON RIGHT FEMORAL ARTERY INTACT, ZEROED A-LINE. RIGHT UPPER ARM PICC LINE PATENT AND INTACT WITH NS RUNNING AT TKO. ROMERO CATHETER PATENT AND INTACT DRAINING DARK YELLOW URINE. GTUBE INTACT AND PATENT FEEDING RUNNING.
[2017-07-11 21:28] LABS: BASOPHILS % (AUTO) 0.4 % (0.0-2.0); EOSINOPHILS % (AUTO) 5.1 % (0.0-6.0); HEMATOCRIT 25 % (39-51); HEMOGLOBIN 8.2 g/dL (13.5-17.5); LYMPHOCYTES # (AUTO) 1.3 /CMM (0.8-4.8); LYMPHOCYTES % (AUTO) 15.8 % (20.0-44.0); MEAN CORPUSCULAR HGB CONC 32 g/dl (31.0-36.0); MEAN CORPUSCULAR VOLUME 87 fL (80-96); MONOCYTES # (AUTO) 0.3 /CMM (0.1-1.30); MONOCYTES % (AUTO) 3.5 % (2.0-12.0); NEUTROPHILS # (AUTO) 6.1 /CMM (1.8-8.9); NEUTROPHILS % (AUTO) 75.2 % (43.0-81.0); PLATELET COUNT (AUTO) 116 /CMM (150-450); RDW COEFFICIENT OF VARIATION 19.7 (11.5-15.0); RED BLOOD CELL COUNT(AUTO) 2.91 MIL/uL (4.5-6.0); WHITE BLOOD COUNT (AUTO) 8.1 K/uL (4.3-11.0)
[2017-07-11] MEDS: INSULIN GLARGINE, 100 UNIT/ML CARTRIDGE SQ SCH (21:33)
--- NOTE | 2017-07-11 22:07 | NUR ---
PT RECEIVED INTUBATED ON [facility] VENT WITH NOTED SETTING. ETT PATENT AND SECURE VIA ANCHOR FAST. VENT TO RED OUTLET. ALARMS SET AND AUDIBLE. DISCONNECT ALARMS CHECKED. AMBU BAG AT BEDSIDE. TOLERATING VENT AT THIS TIME Addendum: 07/11/17 at 2209 by HERBER METCALF RT Amended: Links added.
--- NOTE | 2017-07-11 22:53 | NUR ---
RN NOTES PATIENT TOLERATING TUBE FEEDING WELL WITH 0 RESIDUALS. INCREASED RATE TO 40ML PER HOUR
[2017-07-12] VITALS (34 sets, daily range): BP systolic 99–151; BP diastolic 53–78
[2017-07-12] MEDS: ACETYLCYSTEINE 10% SOLN 400 MG/4 ML VIAL NEB SCH ×3 (00:05→15:33)
[2017-07-12] MEDS: CEFTRIAXONE 1 G in IV NS 0.9% 50 ML IV SCH (03:01)
--- NOTE | 2017-07-12 03:16 | NUR ---
rn notes patient tolerating TUBE FEEDING WITH 0 RESIDUAL. INCREASED RATE TO 45ML/HR. GOAL IS MET
[2017-07-12 05:10] LABS: BASOPHILS % (AUTO) 0.5 % (0.0-2.0); EOSINOPHILS % (AUTO) 6.4 % (0.0-6.0); HEMATOCRIT 24 % (39-51); HEMOGLOBIN 7.8 g/dL (13.5-17.5); LYMPHOCYTES # (AUTO) 1.2 /CMM (0.8-4.8); LYMPHOCYTES % (AUTO) 15.7 % (20.0-44.0); MEAN CORPUSCULAR HGB CONC 33 g/dl (31.0-36.0); MEAN CORPUSCULAR VOLUME 87 fL (80-96); MONOCYTES # (AUTO) 0.3 /CMM (0.1-1.30); MONOCYTES % (AUTO) 4.4 % (2.0-12.0); NEUTROPHILS # (AUTO) 5.7 /CMM (1.8-8.9); PLATELET COUNT (AUTO) 103 /CMM (150-450); RDW COEFFICIENT OF VARIATION 20.8 (11.5-15.0); RED BLOOD CELL COUNT(AUTO) 2.73 MIL/uL (4.5-6.0); WHITE BLOOD COUNT (AUTO) 7.8 K/uL (4.3-11.0)
[2017-07-12] MEDS: BLOOD SUGAR DIAGNOSTIC 1 EACH STRIP IN SCH ×4 (05:37→23:04)
[2017-07-12] MEDS: INSULIN REGULAR, HUMAN 100 UNIT/ML 3 ML VIAL SQ PRN ×3 (05:37→18:18)
[2017-07-12 05:38] LABS: ALBUMIN 1.8 g/dL (3.4-5.0); BILIRUBIN,TOTAL 0.4 mg/dL (0.2-1.0); CALCIUM, SERUM 7.9 mg/dL (8.5-10.1); CREATININE 2.6 mg/dL (0.6-1.3); MAGNESIUM 2.9 mg/dL (1.8-2.4); PHOSPHORUS 2.2 mg/dL (2.5-4.9); POTASSIUM 3.7 mmol/L (3.5-5.1); TOTAL PROTEIN, SERUM 5.7 g/dL (6.4-8.2)
--- NOTE | 2017-07-12 06:32 | NUR ---
RN CLOSING NOTES. PATIENT IS AWAKE AND ALERT. NO SIGNS OF DISTRESS OR SOB. CONNECTED TO ICU MONITOR. A-LINE ON LEFT FEMORAL ARTERY PATENT AND INTACT. RIGHT FEMORAL HD CATH PATENT AND ITNACT. RIGHT UPPER ARM PICC LINE PATENT AND INTACT WITH RUNNING NS AT TKO. OG TUBE PATENT AND INTACT WITH FEEDING NEPRO RUNNING AT 45ML PER HOUR. TOLERATED WELL WITH NO RESIDUALS AND HOB ELEVATED AT 40 DEGREES. OG TUBE INSERTED AT 23CM. PATIENT IS ON VENTILATOR WITH NO SIGNS OF SOB AT THIS TIME. ROMERO CATHETER PATENT AND INTACT WITH DARK URINE OUTPUT
[2017-07-12] MEDS: ALBUTEROL FS 2.5 MG/3 ML VIAL.NEB NEB SCH ×4 (07:15→20:18)
[2017-07-12] MEDS: IPRATROPIUM NEB FS 0.5 MG/2.5 ML AMPUL.NEB NEB SCH ×4 (07:15→20:17)
--- NOTE | 2017-07-12 07:30 | NUR ---
OPENING NOTES: PATIENT IS AWAKE AND ALERT ON BED VENTILATED. . NO SIGNS OF DISTRESS OR SOB. CONNECTED TO DEFIBRILLATOR MONITOR. A-LINE ON LEFT FEMORAL ARTERY PATENT AND INTACT. RIGHT FEMORAL HD CATH PATENT AND INTACT. RIGHT UPPER ARM PICC LINE PATENT AND INTACT WITH RUNNING NS AT TKO. OG TUBE PATENT AND SECURE WITH FEEDING NEPRO RUNNING AT 45ML PER HOUR. TOLERATED WELL WITH NO RESIDUALS AND HOB ELEVATED AT 40 DEGREES. OG TUBE INSERTED AT 23CM. ROMERO CATHETER PATENT AND INTACT WITH DARK URINE OUTPUT. HD TO BE DONE TODAY. BED IN LOW POSITION LOCKED WILL CONTINUE TO MONITOR.
--- NOTE | 2017-07-12 08:18 | NUR ---
WOUND CARE: RT HIP WOUND VAC DRESSING CHANGED. SKIN PREP AND VAC DRAPE APPLIED TO PERIWOUND, 2 PIECES OF GRANUFOAM USED FOR WOUND. VAC AT 125mmHg CONTINUOUS SETTING. SCANT AMOUNT OF SEROSANGUINOUS DRAINAGE NOTED, NO ODOR. RT HIP WOUND MEASURES 12.5CM X 3CM X 3CM AND IS PINK/RED IN COLOR WITH BONE PALPABLE. PT TOLERATED DRESSING CHANGE WELL. Addendum: 07/12/17 at 0831 by RADHA MEDLEY WNDNU CANISTER CHANGED TODAY WITH 175cc SEROSANGUINOUS DRAINAGE.
[2017-07-12] MEDS ORDERED: NEUTRA PHOS 1 POWD.PACKET NG ONE (09:30)
[2017-07-12] MEDS: CADEXOMER IODINE 40 GM TUBE TP SCH (10:32)
[2017-07-12] MEDS: PROSOURCE / PROSTAT (PYXIS) 30 ML UDC GT SCH (10:32)
[2017-07-12] MEDS: CARVEDILOL 3.125 MG TABLET PO SCH ×2 (10:32→21:26)
[2017-07-12] MEDS: SERTRALINE HCL 25 MG TABLET PO SCH (10:33)
[2017-07-12] MEDS: VIT B CMPLX 3/FA/VIT C/BIOTIN 1 TAB TABLET GT SCH (10:33)
[2017-07-12] MEDS: ASCORBIC ACID 500 MG TABLET PO SCH (10:33)
[2017-07-12] MEDS: GABAPENTIN 300 MG CAPSULE PO SCH ×3 (10:33→17:00)
[2017-07-12] MEDS: PANTOPRAZOLE 40 MG VIAL IV SCH (13:07)
--- NOTE | 2017-07-12 18:39 | NUR ---
CLOSING NOTE PT WAXES AND WANES ON BED WITH VENTILATOR NO CHANGES IN STATUS HD DONE TODAY 1,000ML OUT PUT. PT REMAINS ON FEEDINGS TOLERATING WELL. CONSENT FOR TRACH AND G-TUBE PLACEMENT OBTAINED. PT IN LOW POSITION LOCKED. WILL ENDORSE TO LAP GRINDER RN.
--- NOTE | 2017-07-12 19:00 | NUR ---
RN INITIAL NOTES RECEIVED THE PATIENT ASLEEP ON BED, LETHARGIC, OPENS EYES ONLY, UNABLE TO FOLLOW COMMANDS. INTUBATED AND ON VENT WITH SETTINGS AC 14, TV 500, FIO2 40%, PEEP 5, ETT 7.5/23, SATURATING WELL, NO S/S OF RESP DISTRESS. NO IV SEDATION, PATIENT IS SEVERELY WEAK. CURRENTLY SR/AFLUTTER ON THE MONITOR, HR 70-80'S. DEFIB PADS ON WITH CRASH CART AT BEDSIDE. OGT @ 40CM BY THE LIP, ADJUSTED TO 50CM @ LIP, VERIFIED VIA AUSCULTATION WITH ANOTHER RN. OGT CONNECTED TO NEPRO @ 45MLS/HR, WITH 10MLS RESIDUALS. LEFT FEMORAL A-LINE INTACT, BALANCED AND ZEROED. RIGHT FEMORAL HD CATH IN PLACE. RIGHT UPPER ARM PICC FLUSHED AND PATENT, NO S/S OF INFILTRATION/INFECTION, DRESSING CDI. BED LOW AND LOCKED, SIDERAILS UP. BED LOW AND LOCKED, SIDERAILS UP, BED ALARM ON. WILL CLOSELY MONITOR
[2017-07-12] MEDS: INSULIN GLARGINE, 100 UNIT/ML CARTRIDGE SQ SCH (21:25)
[2017-07-13] VITALS (39 sets, daily range): BP systolic 99–146; BP diastolic 41–80
[2017-07-13] MEDS: ACETYLCYSTEINE 10% SOLN 400 MG/4 ML VIAL NEB SCH ×4 (00:21→23:15)
[2017-07-13] MEDS: CEFTRIAXONE 1 G in IV NS 0.9% 50 ML IV SCH (02:06)
[2017-07-13 04:30] LABS: BASOPHILS # (AUTO) 0.1 /CMM (0.0-0.2); BASOPHILS % (AUTO) 0.9 % (0.0-2.0); HEMATOCRIT 24 % (39-51); HEMOGLOBIN 7.6 g/dL (13.5-17.5); LYMPHOCYTES # (AUTO) 1.2 /CMM (0.8-4.8); LYMPHOCYTES % (AUTO) 15.6 % (20.0-44.0); MEAN CORPUSCULAR HGB CONC 32 g/dl (31.0-36.0); MEAN CORPUSCULAR VOLUME 88 fL (80-96); MONOCYTES # (AUTO) 0.3 /CMM (0.1-1.30); MONOCYTES % (AUTO) 4.6 % (2.0-12.0); NEUTROPHILS # (AUTO) 5.5 /CMM (1.8-8.9); NEUTROPHILS % (AUTO) 71.9 % (43.0-81.0); PLATELET COUNT (AUTO) 122 /CMM (150-450); RDW COEFFICIENT OF VARIATION 21.1 (11.5-15.0); WHITE BLOOD COUNT (AUTO) 7.6 K/uL (4.3-11.0)
[2017-07-13 04:49] LABS: CREATININE 2.7 mg/dL (0.6-1.3); POTASSIUM 3.9 mmol/L (3.5-5.1)
[2017-07-13] MEDS: BLOOD SUGAR DIAGNOSTIC 1 EACH STRIP IN SCH ×4 (05:12→23:38)
--- NOTE | 2017-07-13 06:15 | NUR ---
RN CLOSING NOTES PT REMAINS STABLE OF THE MOMENT. ALL DUE MEDS GIVEN, AM CARE PROVIDED. WILL ENDORSE CHRISTIAN TO AM RN
[2017-07-13] MEDS: ALBUTEROL FS 2.5 MG/3 ML VIAL.NEB NEB SCH ×4 (07:18→19:28)
[2017-07-13] MEDS: IPRATROPIUM NEB FS 0.5 MG/2.5 ML AMPUL.NEB NEB SCH ×4 (07:18→19:28)
--- NOTE | 2017-07-13 08:00 | NUR ---
ICU/RN INITIAL NOTES,AM RECEIVED REPORT FROM NIGHT NURSE. PT INTUBATED, ETT 7.07/14, PT ON VENT SETTINGS ORDERED BY MD, NO ACUTE DISTRESS NOTED AT THIS TIME. PT REACTS TO PAINFUL STIMULI, DOES NOT OPEN EYES OR FOLLOW COMMANDS. PT SINUS RHYTHM/A.FLUTTER ON TELE. PT SCHEDULED FOR TRACH PLACEMENT THIS AM, CONSENT IN CHART. PT HAS BEEN NPO. DEBIB PADS IN PLACE SINCE AICD WAS REMOVED, UNSURE WHEN NEW ONE WILL BE PLACED (WAITING FOR ID TO CLEAR). LEFT FEMORAL A LINE IN PLACE, ZEROED AND CALIBRATED. ALL NEEDS WILL BE ATTENDED TO, SAFETY MEASURES TAKEN, BED IN LOW POSITION, SIDE RAILS UP, CALL LIGHT WITHIN REACH. WILL CONTINUE CARE.
[2017-07-13] MEDS: PROSOURCE / PROSTAT (PYXIS) 30 ML UDC GT SCH (08:17)
[2017-07-13] MEDS: VIT B CMPLX 3/FA/VIT C/BIOTIN 1 TAB TABLET GT SCH (08:17)
[2017-07-13] MEDS: GABAPENTIN 300 MG CAPSULE PO SCH ×3 (08:17→17:27)
[2017-07-13] MEDS: ASCORBIC ACID 500 MG TABLET PO SCH (08:17)
[2017-07-13] MEDS: SERTRALINE HCL 25 MG TABLET PO SCH (08:18)
[2017-07-13] MEDS: CARVEDILOL 3.125 MG TABLET PO SCH ×2 (08:18→21:29)
[2017-07-13] MEDS: CADEXOMER IODINE 40 GM TUBE TP SCH (08:19)
[2017-07-13] MEDS ORDERED: FENTANYL PF 100MCG/2ML AMPUL ONE (08:56)
[2017-07-13] MEDS ORDERED: MIDAZOLAM HCL 2 MG/2ML VIAL ONE (08:56)
[2017-07-13] MEDS ORDERED: LIDOCAINE 1%-EPI 1:100,000 20 ML VIAL ONE (08:57)
--- NOTE | 2017-07-13 09:15 | NUR ---
ICU/RN: OR STAFF AT BEDSIDE. PT TAKEN TO OR FOR TRACH PLACEMENT. CONSENTS IN CHART.VSS.
[2017-07-13] MEDS ORDERED: CELLULOSE,OXIDIZED 1 EA PACK MC ONE (09:32)
[2017-07-13] MEDS: PANTOPRAZOLE 40 MG VIAL IV SCH (12:27)
[2017-07-13] MEDS ORDERED: Sodium Phosphate 7.5 MMOL in IV D5W 100 ML IV ONE (13:00)
[2017-07-13] MEDS: EPOETIN ALFA (20,000 UNIT) 20,000 UNIT/ML VIAL SQ SCH (15:02)
[2017-07-13] MEDS: NEPRO 1,000 ML BOTTLE GT PRN (15:07)
--- NOTE | 2017-07-13 18:46 | NUR ---
RT END OF THE SHIFT REPORT, PT. 67 Y OLD MALE TRACHED SHILEY # 8 AND SECURED. ON THE VENT WITH NOTED SETTINGS. PT. REMAIN STABLE SOME WHAT ALERT, VENT ALARMS ARE SET AND AUDIBLE, WITH AMBU BAG AT THE BEDSIDE. MIDDLE SCHOOL FRENCH TEACHER CUFF PRESSURE NOTED. VENT IS PLUGGED INTO RED OUTLET. HME CHANGED. B/S BILATERALLY RALES EQUAL CHEST RISE NOTED. SX FOR MODERATE THICK YELLOW THICK SECRETIONS. NO RESPIRATORY DISTRESS NOTED T/O SHIFT, NO CHANGES. WILL CONTINUE TO MONITOR, REPORT WILL PASS TO PM SHIFT. Addendum: 07/13/17 at 1848 by HARPER TSAI RT Amended: Links added.
--- NOTE | 2017-07-13 19:00 | NUR ---
RN INITIAL NOTES RECEIVED THE PATIENT ASLEEP ON BED, LETHARGIC, OPENS EYES ONLY, UNABLE TO FOLLOW COMMANDS. NEWLY TRACH'ED TODAY WITH VENT SETTINGS AC 14, TV 500, FIO2 40%, PEEP 5, SHILEY 8, SATURATING WELL, NO S/S OF RESP DISTRESS. MINIMAL BLEEDING ON TRACH SITE NOTED. CURRENTLY SR/AFLUTTER ON THE MONITOR, HR 70-80'S. DEFIB PADS ON WITH CRASH CART AT BEDSIDE. ROMERO CATH IN PLACE. NGT CONNECTED TO NEPRO @ 45MLS/HR. NPO AFTER MIDNIGHT FOR PROCEDURES TOMORROW. LEFT FEMORAL A-LINE INTACT, BALANCED AND ZEROED. RIGHT FEMORAL HD CATH IN PLACE. RIGHT UPPER ARM PICC FLUSHED AND PATENT, NO S/S OF INFILTRATION/INFECTION, DRESSING CDI. BED LOW AND LOCKED, SIDERAILS UP. BED LOW AND LOCKED, SIDERAILS UP, BED ALARM ON. WILL CLOSELY MONITOR
--- NOTE | 2017-07-13 19:08 | NUR ---
ICU/RN: ENDING NOTES,AM REPORT ENDORSED TO NIGHT NURSE FOR CONTINUATION OF CARE. ALL NEEDS ATTENDED TO. TRACH PLACED THIS AFTERNOON, SHILEY 8. NO S/S OF BLEEDING NOTED. TOLERATED WELL. PT ON VENT SETTINGS ORDERED, NO ACUTE DISTRESS NOTED. LARGE SECRETIONS NOTED. SINUS ON TELE, WITH FIRST DEGREE HEART BLOCK. ALL NEEDS MET, BED BATH GIVEN, TURNED AND REPOSITIONED, LINENS CHANGED. WILL CONTINUE CARE. ENDORSED TO NIGHT RN TO OBTAIN CONSENT FOR TUNNELLED DIALYSIS CATHETER PLACEMENT. PER IT WILL BE PLACED TOMORROW.
--- NOTE | 2017-07-13 21:20 | NUR ---
PT RECEIVED TRACH WITH SANJEEV 8 ON [facility] VENT. NO RESP DISTRESS NOTED. PT TOLERATING VENT SETTINGS. SX'D FOR SML AMT OF TINGED SECRETIONS. VENT ALARMS SET AND AUDIBLE. AMBU BAG AT BEDSIDE. TRACH SECURE. VENT PLUGGED INTO RED OUTLET. WILL CONTINUE TO MONITOR. Addendum: 07/13/17 at 2122 by OSIRIS VILLAGRAN RT Amended: Links added.
[2017-07-13] MEDS: INSULIN GLARGINE, 100 UNIT/ML CARTRIDGE SQ SCH (21:30)
[2017-07-13] MEDS: INSULIN REGULAR, HUMAN 100 UNIT/ML 3 ML VIAL SQ PRN (23:38)
[2017-07-14] VITALS (53 sets, daily range): BP systolic 98–167; BP diastolic 47–84
[2017-07-14] MEDS: CEFTRIAXONE 1 G in IV NS 0.9% 50 ML IV SCH (02:15)
[2017-07-14 04:23] LABS: BASOPHILS % (AUTO) 0.3 % (0.0-2.0); EOSINOPHILS % (AUTO) 4.8 % (0.0-6.0); HEMATOCRIT 24 % (39-51); HEMOGLOBIN 7.8 g/dL (13.5-17.5); LYMPHOCYTES # (AUTO) 0.9 /CMM (0.8-4.8); LYMPHOCYTES % (AUTO) 10.4 % (20.0-44.0); MEAN CORPUSCULAR HGB CONC 32 g/dl (31.0-36.0); MEAN CORPUSCULAR VOLUME 87 fL (80-96); MONOCYTES # (AUTO) 0.5 /CMM (0.1-1.30); MONOCYTES % (AUTO) 5.9 % (2.0-12.0); NEUTROPHILS # (AUTO) 6.7 /CMM (1.8-8.9); NEUTROPHILS % (AUTO) 78.6 % (43.0-81.0); PLATELET COUNT (AUTO) 126 /CMM (150-450); RDW COEFFICIENT OF VARIATION 20.5 (11.5-15.0); RED BLOOD CELL COUNT(AUTO) 2.79 MIL/uL (4.5-6.0); WHITE BLOOD COUNT (AUTO) 8.6 K/uL (4.3-11.0)
[2017-07-14 04:34] LABS: INR 1.1 (0.87-1.13)
[2017-07-14 04:47] LABS: CALCIUM, SERUM 8.1 mg/dL (8.5-10.1); CREATININE 3.4 mg/dL (0.6-1.3); MAGNESIUM 2.1 mg/dL (1.8-2.4); PHOSPHORUS 2.7 mg/dL (2.5-4.9); POTASSIUM 3.9 mmol/L (3.5-5.1)
[2017-07-14] MEDS ORDERED: IV NS 0.9% 250 ML IV PRN (05:00)
[2017-07-14] MEDS ORDERED: IV NS 0.9% 500 ML IV PRN (05:00)
[2017-07-14] MEDS: BLOOD SUGAR DIAGNOSTIC 1 EACH STRIP IN SCH ×4 (05:32→23:24)
--- NOTE | 2017-07-14 06:10 | NUR ---
RN CLOSING NOTES PT REMAINS STABLE OF THE MOMENT. ALL DUE MEDS GIVEN, AM CARE PROVIDED. WILL ENDORSE CHRISTIAN TO AM RN
[2017-07-14] MEDS ORDERED: ALBUMIN 25% 25 GM in PREMIX 1 EA IV PRN (07:00)
[2017-07-14] MEDS: IPRATROPIUM NEB FS 0.5 MG/2.5 ML AMPUL.NEB NEB SCH ×4 (07:28→19:57)
[2017-07-14] MEDS: ALBUTEROL FS 2.5 MG/3 ML VIAL.NEB NEB SCH ×4 (07:28→19:57)
[2017-07-14] MEDS: ACETYLCYSTEINE 10% SOLN 400 MG/4 ML VIAL NEB SCH ×3 (07:28→23:25)
--- NOTE | 2017-07-14 07:28 | NUR ---
ICU/RN INITIAL NOTES,AM RECEIVED REPORT FROM NIGHT NURSE. PT TRACH SHILEY #8 TO VENT SETTINGS ORDERED BY MD, NO ACUTE DISTRESS NOTED AT THIS TIME. PT REACTS TO PAINFUL STIMULI, OPENS EYES DOES NOT TRACK, DOES NOT FOLLOW COMMANDS. PT SINUS RHYTHM/A.FLUTTER ON TELE. PT SCHEDULED FOR PEG PLACEMENT AND TUNNELLED DIALYSIS CATHETER PLACEMNENT, CONSENTS IN CHART. PT HAS BEEN NPO SINCE MIDNIGHT. DEBIB PADS IN PLACE ATTACHED TO CRASH CART. LEFT FEMORAL A LINE IN PLACE, ZEROED AND CALIBRATED. ALL NEEDS WILL BE ATTENDED TO, SAFETY MEASURES TAKEN, BED IN LOW POSITION, SIDE RAILS UP, CALL LIGHT WITHIN REACH. WILL CONTINUE CARE. HD ONGOING AT THIS TIME.
--- NOTE | 2017-07-14 07:29 | NUR ---
RT PATIENT REC'D TRACHED W/ A ATRUR #8 ON [facility] VENT WITH SETTINGS SET BY MD BRIGHT MANCERA. VENT ALARMS CHECKED + AUDIBLE. CUFF PRESSURE CHECKED PHYSICAL EDUCATION INSTRUCTOR. B/S DIM CLEAR. PATIENT TRACHED SUCTIONED WITH SMALL AMT OF BHATT SEMITHICK SECRETIONS. PATIENT IN NO DISTRESS AT THIS TIME. BACK UP TRACH AND AMBU BAG AT HOB Addendum: 07/14/17 at 1105 by OBINNA LAM RT Amended: Links added.
[2017-07-14] MEDS: PROSOURCE / PROSTAT (PYXIS) 30 ML UDC GT SCH (09:00)
[2017-07-14] MEDS: SERTRALINE HCL 25 MG TABLET PO SCH (09:00)
[2017-07-14] MEDS: CARVEDILOL 3.125 MG TABLET PO SCH ×2 (09:00→21:06)
[2017-07-14] MEDS: ASCORBIC ACID 500 MG TABLET PO SCH (09:00)
[2017-07-14] MEDS: VIT B CMPLX 3/FA/VIT C/BIOTIN 1 TAB TABLET GT SCH (09:00)
[2017-07-14] MEDS: GABAPENTIN 300 MG CAPSULE PO SCH ×3 (09:00→16:52)
[2017-07-14] MEDS: CADEXOMER IODINE 40 GM TUBE TP SCH (09:02)
--- NOTE | 2017-07-14 10:25 | NUR ---
PER DR MARIELA WASHBURN CANCELLED
--- NOTE | 2017-07-14 11:54 | NUR ---
WOUND CARE CONSULT: RT HIP WOUND VAC DRESSING CHANGED. WOUND MEASURES 12CM X 4CM X 3CM AND IS PINK/RED IN COLOR, BONE PALPABLE, NO ODOR AND SCANT SEROSANGUINOUS DRAINAGE NOTED. SKIN PREP AND VAC DRAPE APPLIED TO PERIWOUND AREAS, 2 PIECES OF GRANUFOAM TO WOUND, VAC AT 125mmHg CONTINUOUS SETTING. BRIDGING TECHNIQUE USED FOR ALL RT HIP DRESSING CHANGES. PT TOLERATED WELL.
--- NOTE | 2017-07-14 12:00 | NUR ---
ICU/RN: WOUND VAC DRESSING CHANGED BY RADHA WOUND NURSE. NO ISSUES NOTED. WILL CONTINUE TO MONITOR AND ASSESS
[2017-07-14] MEDS: PANTOPRAZOLE 40 MG VIAL IV SCH (12:19)
[2017-07-14] MEDS ORDERED: HEPARIN SODIUM, PORCINE 1,000 UNIT/ML VIAL ONE (15:55)
[2017-07-14] MEDS ORDERED: LIDOCAINE 1% INJ 50 ML MDV IJ ONE (15:55)
--- NOTE | 2017-07-14 16:00 | NUR ---
ICU/RN: PER ARTERIAL LINE REMOVED 2153. PRESSURE APPLIED. POST PRESSURE NO S/S OF BLEEDING NOTED. WILL CONTINUE TO MONITOR CLOSELY.
[2017-07-14] MEDS ORDERED: ANESTHESIA TRAY IN PYXIS 1 EA TRAY MC ONE (16:03)
[2017-07-14] MEDS ORDERED: ATRACURIUM 100MG/10 ML MDV IV ONE (17:46)
[2017-07-14] MEDS ORDERED: FENTANYL PF 100MCG/2ML AMPUL ONE (17:46)
--- NOTE | 2017-07-14 18:00 | NUR ---
ICU/RN: NGT REMOVED BY PT. REINSERTED ONCE BEFORE. PER CHARGE NURSE WE WILL REINSERT WHEN PT COMES BACK FROM OR FOR [facility] CATH PLACEMENT.
--- NOTE | 2017-07-14 18:25 | NUR ---
ICU/RN: [facility] CATH PLACEMENT PENDING BY . PT CONTINUES TO BE NPO. AWAITING FOR
--- NOTE | 2017-07-14 18:49 | NUR ---
TOOK PT TO O.R. Addendum: 07/14/17 at 1850 by OSIRIS VILLAGRAN RT Amended: Links added.
--- NOTE | 2017-07-14 18:50 | NUR ---
ICU/RN: PT TRANSPORTED TO OR WITH OR TEAM.
--- NOTE | 2017-07-14 19:15 | NUR ---
ICU/RN: ENDING NOTES,AM REPORT ENDORSED TO NIGHT NURSE FOR CONTINUATION OF CARE. ALL NEEDS ATTENDED TO. PT TRACH TO VENT WITH SETTINGS ORDERED, NO ACUTE DISTRESS NOTED. LARGE SECRETIONS NOTED. SINUS ON TELE, WITH FIRST DEGREE HEART BLOCK. ALL NEEDS MET, BED BATH GIVEN, TURNED AND REPOSITIONED, LINENS CHANGED. PT IN OR FOR DIALYSIS CATHETER PLACEMENT. PER DR. JORGE PEG WILL BE PLACED WEDNESDAY.
--- NOTE | 2017-07-14 19:37 | NUR ---
PT BACK FROM O.R PLACED BACK ON VENT SAME SETTINGS. KAREN NARANJO AND CHARGE ALEJA AT BEDSIDE.
--- NOTE | 2017-07-14 19:40 | NUR ---
RN INITIAL NOTES PATIENT RECENTLY ARRIVED FROM OR FOR TUNNELLED DIALYSIS CATH PLACEMENT. NATIONAL SALES SEXTON AT BEDSIDE TO RECOVER THE PATIENT. PT IS CURRENTLY SLEEPING, EASILY AROUSABLE TO NAME AND TOUCH, CAN FOLLOW SOME SIMPLE COMMANDS. ON VENT WITH SETTINGS AC 14, TV 500, FIO2 40%, PEEP 5, SHILEY 8, SATURATING WELL, NO S/S OF RESP DISTRESS. CURRENTLY SR/AFLUTTER ON THE MONITOR, HR 70-80'S. RIGHT CHEST WALL HD CATH IN PLACE, NO BLEEDING NOTED, DRESSING CDI. RIGHT FEMORAL CATH INTACT, TO BE D/C'ED BY MD TOMORROW. RIGHT HIP DSG CONNECTED TO WOUND VAC INTACT. RIGHT UPPER ARM PICC FLUSHED AND PATENT, NO S/S OF INFILTRATION/INFECTION, DRESSING CDI. BED LOW AND LOCKED, SIDERAILS UP, CALL LIGHT WITHIN REACH. WILL MONITOR
--- NOTE | 2017-07-14 20:05 | NUR ---
PT IS TRACH SHLY 8 ON [facility] VENT. PT TOLERATING VENT SETTINGS. SX'D FOR SML AMT OF THICK BHATT SECRETIONS. TRACH IS SECURE, CUFF METEOROLOGICAL TECHNICIAN. VENT ALARMS SET AND AUDIBLE. AMBU BAG AT BEDSIDE. VENT PLUGGED INTO RED OUTLET. WILL CONTINUE TO MONITOR. Addendum: 07/14/17 at 2008 by OSIRIS VILLAGRAN RT Amended: Links added.
--- NOTE | 2017-07-14 21:00 | NUR ---
RN NOTES REINSERTED NASOGASTRIC TUBE IN LEFT NARE
[2017-07-14] MEDS: NEPRO 1,000 ML BOTTLE GT PRN (21:05)
[2017-07-14] MEDS: INSULIN GLARGINE, 100 UNIT/ML CARTRIDGE SQ SCH (21:05)
[2017-07-15] VITALS (41 sets, daily range): BP systolic 92–146; BP diastolic 45–82
[2017-07-15] MEDS: CEFTRIAXONE 1 G in IV NS 0.9% 50 ML IV SCH (02:18)
[2017-07-15 04:45] LABS: BASOPHILS % (AUTO) 0.5 % (0.0-2.0); EOSINOPHILS % (AUTO) 5.4 % (0.0-6.0); HEMATOCRIT 22 % (39-51); HEMOGLOBIN 7.1 g/dL (13.5-17.5); LYMPHOCYTES % (AUTO) 16.9 % (20.0-44.0); MEAN CORPUSCULAR HGB CONC 32 g/dl (31.0-36.0); MEAN CORPUSCULAR VOLUME 88 fL (80-96); MONOCYTES # (AUTO) 0.4 /CMM (0.1-1.30); MONOCYTES % (AUTO) 6.8 % (2.0-12.0); NEUTROPHILS # (AUTO) 4.3 /CMM (1.8-8.9); NEUTROPHILS % (AUTO) 70.4 % (43.0-81.0); PLATELET COUNT (AUTO) 110 /CMM (150-450); RDW COEFFICIENT OF VARIATION 20.4 (11.5-15.0); RED BLOOD CELL COUNT(AUTO) 2.53 MIL/uL (4.5-6.0); WHITE BLOOD COUNT (AUTO) 6.1 K/uL (4.3-11.0)
[2017-07-15 05:05] LABS: CALCIUM, SERUM 7.9 mg/dL (8.5-10.1); CREATININE 3.2 mg/dL (0.6-1.3); PHOSPHORUS 2.5 mg/dL (2.5-4.9); POTASSIUM 3.6 mmol/L (3.5-5.1)
[2017-07-15] MEDS: BLOOD SUGAR DIAGNOSTIC 1 EACH STRIP IN SCH ×3 (05:11→17:30)
--- NOTE | 2017-07-15 06:20 | NUR ---
RN CLOSING NOTES PT REMAINS STABLE OF THE MOMENT. ALL DUE MEDS GIVEN, AM CARE PROVIDED. WILL ENDORSE CHRISTIAN TO AM RN
[2017-07-15] MEDS: ACETYLCYSTEINE 10% SOLN 400 MG/4 ML VIAL NEB SCH ×3 (07:21→23:39)
[2017-07-15] MEDS: ALBUTEROL FS 2.5 MG/3 ML VIAL.NEB NEB SCH ×4 (07:21→19:54)
[2017-07-15] MEDS: IPRATROPIUM NEB FS 0.5 MG/2.5 ML AMPUL.NEB NEB SCH ×4 (07:21→19:54)
--- NOTE | 2017-07-15 07:38 | NUR ---
ICU/RN INITIAL NOTES,AM RECEIVED REPORT FROM NIGHT NURSE. PT TRACH SHILEY #8 TO VENT SETTINGS ORDERED BY MD, NO ACUTE DISTRESS NOTED AT THIS TIME. PT OPENS EYES TO VERBAL STIMULI, FOLLOW SIMPLE COMMANDS. PT SINUS RHYTHM/A.FLUTTER ON TELE. LEFT NARE NG TUBE IN PLACE, TUBE FEEDING INFUSING ORDEED, TOLERATING WELL. RIGHT FEMORAL HD CATH IN PLACE, WAITING FOR MD TO REMOVED TODAY SINCE NEW TUNNELLED CATHETER WAS INSERTED LAST NIGHT. ALL NEEDS WILL BE ATTENDED TO, SAFETY MEASURES TAKEN, BED IN LOW POSITION, SIDE RAILS UP, CALL LIGHT WITHIN REACH. WILL CONTINUE CARE.
--- NOTE | 2017-07-15 08:10 | NUR ---
RT NOTE: PATIENT RECEIVED WITH #8 ARTUR MOSLEY ON ESPRIT VENT. ALARMS VERIFIED AND AUDIBLE. @0810-VENT CHANGES MADE PER MD ORDER. ABG DRAWN AND REPORTED. PATIENT TOLERATING WELL. NO CHANGES AT THIS TIME. WILL CONTINUE TO MONITOR.
[2017-07-15] MEDS: SERTRALINE HCL 25 MG TABLET PO SCH (08:57)
[2017-07-15] MEDS: VIT B CMPLX 3/FA/VIT C/BIOTIN 1 TAB TABLET GT SCH (08:57)
[2017-07-15] MEDS: ASCORBIC ACID 500 MG TABLET PO SCH (08:57)
[2017-07-15] MEDS: CARVEDILOL 3.125 MG TABLET PO SCH ×2 (08:57→20:37)
[2017-07-15] MEDS: GABAPENTIN 300 MG CAPSULE PO SCH ×3 (08:57→17:30)
[2017-07-15] MEDS: PROSOURCE / PROSTAT (PYXIS) 30 ML UDC GT SCH (08:58)
[2017-07-15] MEDS: CADEXOMER IODINE 40 GM TUBE TP SCH (09:02)
[2017-07-15 09:43] LABS: ABG BASE EXCESS 4.8 mmol/L; ABG OXYGEN SATURATION 96.7 % (92.0-98.5); ABG PCO2 47.4 mmHg (35.0-45.0); ABG PH 7.419 (7.350-7.450); ABG PO2 93.9 mmHg (75.0-100.0); AaDO2 136.8 mmHg; COHb 0.3 % (0.5-1.5); MetHb 0.4 % (0.0-1.5); PEEP,BG 5 cm H2O; SITE, ABG Right Radial
[2017-07-15] MEDS: PANTOPRAZOLE 40 MG VIAL IV SCH (12:54)
[2017-07-15] MEDS: EPOETIN ALFA (20,000 UNIT) 20,000 UNIT/ML VIAL SQ SCH (15:26)
[2017-07-15] MEDS: ACETAMINOPHEN 325 MG TABLET PO PRN (17:36)
--- NOTE | 2017-07-15 18:35 | NUR ---
ICU/RN: REPORT ENDORSED TO KAREN ALMONTE. PT TRANSFERRED TO TELE. ALL BELONGINGS SENT WITH PT. PER MD ORDERS LIFE VEST PUT BACK ON PATIENT. MEDICATIONS TRANSFERRED. ALL NEEDS ATTENDED TO, SAFETY MEASURES TAKEN, BED BATH GIVEN. LINENS CHANGED. SPOKE TO DAUGHTER TODAY AND SHE GAVE US A SPECIFIC LIST OF PEOPLE WHO IS ALLOWED TO VISIT PT. LIST IS IN CHART AND WITH SECURITY. DAUGHTER NEEDS TO BE INFORMED PRIOR TO ALLOWING ANYONE ELSE SEE THE PT. NO INFORMATION IS TO BE RELEASED TO ANY OTHER "FAMILY".
--- NOTE | 2017-07-15 19:30 | NUR ---
RN NOTES PT RECEIVED IN HOSPITAL BED. PT EYES OPEN, UNABLE TO FOLLOW COMMANDS. A/O X1. PT STABLE CONDITION WITH NEGATIVE DISTRESS. PER MD ORDERS LIFE VEST PUT BACK ON PATIENT. LEFT NARE NG TUBE IN PLACE AND INTACT, NEGATIVE RESIDUALS. PT TOLERATING VENT WELL. TELE ST 102. PT FC INTACT DRAINING WITH GRAVITY. DEBBI PICC INTACT NEGATIVE SIGNS OF INFECTION. RIGHT FEMORAL CENTRAL LINE INTACT WITH NEGATIVE SIGNS OF INFECTION. WOUND VAC INPLACE WITH POSITIVE SUCTION AND GOOD SEAL. ALL NEEDS ATTENDED TO, SAFETY MEASURES TAKEN, PER SPECIFIC INSTRUCTIONS FROM DAUGHTER SPECIFIC LIST OF PEOPLE WHO IS ALLOWED TO VISIT PT. LIST IS IN CHART AND WITH SECURITY. DAUGHTER NEEDS TO BE INFORMED PRIOR TO ALLOWING ANYONE ELSE SEE THE PT. NO INFORMATION IS TO BE RELEASED TO ANY OTHER "FAMILY". WILL CONTINUE TO MONITOR.
[2017-07-15] MEDS: INSULIN GLARGINE, 100 UNIT/ML CARTRIDGE SQ SCH (21:54)
--- NOTE | 2017-07-15 22:30 | NUR ---
TELE/RN NOTES: RECEIVED REPORT FROM RN. MESSINA. PT. IN BED W/ HOB ELEVATED W/ NGT VIA LEFT NARES PATENT AND INTACT W/ NO RESIDUAL NOTED. W/ WOUND VAC TO RIGHT HIP WOUND AT 125 mm Hg W/ SEROSANGUINEOUS OUTCOME. CALL LIGHT W/ REACH. NO FACIAL GRIMACES OR MOANING NOTED. WILL CONTINUE TO MONITOR.
[2017-07-16] VITALS (7 sets, daily range): BP systolic 90–111; BP diastolic 53–65
[2017-07-16] MEDS: CEFTRIAXONE 1 G in IV NS 0.9% 50 ML IV SCH (02:58)
[2017-07-16] MEDS: BLOOD SUGAR DIAGNOSTIC 1 EACH STRIP IN SCH ×4 (06:00→18:19)
[2017-07-16] MEDS ORDERED: ANESTHESIA TRAY IN PYXIS 1 EA TRAY MC ONE (06:49)
[2017-07-16 06:55] LABS: BASOPHILS % (AUTO) 0.5 % (0.0-2.0); EOSINOPHILS % (AUTO) 7.1 % (0.0-6.0); HEMATOCRIT 25 % (39-51); HEMOGLOBIN 7.8 g/dL (13.5-17.5); LYMPHOCYTES % (AUTO) 16.3 % (20.0-44.0); MEAN CORPUSCULAR HGB CONC 32 g/dl (31.0-36.0); MEAN CORPUSCULAR VOLUME 88 fL (80-96); MONOCYTES # (AUTO) 0.4 /CMM (0.1-1.30); NEUTROPHILS # (AUTO) 4.5 /CMM (1.8-8.9); NEUTROPHILS % (AUTO) 70.1 % (43.0-81.0); PLATELET COUNT (AUTO) 126 /CMM (150-450); RDW COEFFICIENT OF VARIATION 20.9 (11.5-15.0); RED BLOOD CELL COUNT(AUTO) 2.78 MIL/uL (4.5-6.0); WHITE BLOOD COUNT (AUTO) 6.4 K/uL (4.3-11.0)
[2017-07-16 07:06] LABS: CALCIUM, SERUM 8.3 mg/dL (8.5-10.1); POTASSIUM 3.6 mmol/L (3.5-5.1)
--- NOTE | 2017-07-16 07:25 | NUR ---
LEGAL FINANCIAL SPECIALIST DF SURGERY TEAM AT BEDSIDE CONCERNED REGARDING LIFEPACK DIFIB UNIT WITH BEEPING ALARM. BATTERY NEEDS REPLACING REMOVED ELECTRODES FROM PT. INSERTED NEW BATTERY, RESET UNIT.PLACED ELECTRODES BACK ON PT WITH LIFE VEST. REVIEWED SETTINGS UNIT WORKING PROPERLY NO ERROR MESSAGES RECEIVED. VSS.NAD NOTED RECEIVED REPORT FROM PM SHIFT RN.
[2017-07-16] MEDS: ALBUTEROL FS 2.5 MG/3 ML VIAL.NEB NEB SCH ×4 (07:47→20:20)
[2017-07-16] MEDS: ACETYLCYSTEINE 10% SOLN 400 MG/4 ML VIAL NEB SCH ×3 (07:47→23:19)
[2017-07-16] MEDS: IPRATROPIUM NEB FS 0.5 MG/2.5 ML AMPUL.NEB NEB SCH ×4 (07:47→20:20)
--- NOTE | 2017-07-16 08:23 | NUR ---
RN RAUDEL/ NOTES: PT. HAS BEEN NPO FOR EGD/PEG PLACEMENT. CONSENT IS IN THE CHART. KASIE. SOFT WRIST RESTRAINTS IN PLACE SECONDARY TO PT. TRYING TO PULL OUT HIS LEFT NARES NGT. REPORT GIVEN TO AM NURSE FOR CHRISTIAN.
[2017-07-16] MEDS: VIT B CMPLX 3/FA/VIT C/BIOTIN 1 TAB TABLET GT SCH (08:40)
[2017-07-16] MEDS: GABAPENTIN 300 MG CAPSULE PO SCH ×3 (08:41→17:58)
[2017-07-16] MEDS: ASCORBIC ACID 500 MG TABLET PO SCH (08:41)
[2017-07-16] MEDS: PROSOURCE / PROSTAT (PYXIS) 30 ML UDC GT SCH (08:42)
[2017-07-16] MEDS: CARVEDILOL 3.125 MG TABLET PO SCH ×2 (08:43→20:24)
[2017-07-16] MEDS: SERTRALINE HCL 25 MG TABLET PO SCH (08:45)
[2017-07-16] MEDS: CADEXOMER IODINE 40 GM TUBE TP SCH (08:46)
--- NOTE | 2017-07-16 09:14 | NUR ---
WOUND CARE: RT HIP WOUND VAC DRESSING CHANGED. WOUND PINK/RED IN COLOR WITH BONE PALPABLE AND SCANT AMOUNT OF PINK DRAINAGE, NO ODOR. SKIN PREP AND VAC DRAPE TO PERIWOUND AREAS, 2 PIECES OF GRANUFOAM TO WOUND, VAC AT 125mmHg CONTINUOUS SETTING. BRIDGING TECHNIQUE USED. PT TOLERATED WELL.
--- NOTE | 2017-07-16 09:54 | NUR ---
PSYCHOLOGY PROFESSOR DF RECEIVED PT TO ROOM #117-1 PT S/P BEDSIDE PEG PLACEMENT. PT A/0 X 1-2 UNABLE TO VERBALIZE, PT FOLLOWS SOME SIMPLE COMMANDS, BILATERAL SOFT WRIST RESTRAINTS PLACED FOR SAFETY PT ATTEMPTING TO PULL ON TRACH/PEG. ORCHARD WORKER RADHA AT BEDSIDE WOUND VAC DRESSING PLACED. ORDERS TO RESUME GT FEEDING AT 1600 8 HOURS S/P peg/
[2017-07-16] MEDS: PANTOPRAZOLE 40 MG VIAL IV SCH (12:16)
--- NOTE | 2017-07-16 13:43 | NUR ---
CARDIOVASCULAR RN DF PT DIALYSIS COMPLETED 1500ML REMOVED. PT WITH BP OF 90/61, PT AROUSES TO TOUCH, PT NON VERBAL, PT FOLLOWING SIMPLE COMMANDS.
[2017-07-16] MEDS: NEPRO 1,000 ML BOTTLE GT PRN (18:19)
--- NOTE | 2017-07-16 20:00 | NUR ---
RAUDEL NOTES RECEIVED PT AWAKE FOLLOWS SIMPLE COMMANDS.W/ BILATERAL SOFT WRIST RESTRAINTS PT ATTEMPTS TO PULL TUBES-PEG AND TRACH TUBE.SUCTIONED FOR SCANT AMT THICK SECRETIONS FR TRACH AND MODERATE ORAL SECRETIONS.ORAL CARE DONE.
[2017-07-16] MEDS: INSULIN GLARGINE, 100 UNIT/ML CARTRIDGE SQ SCH (22:00)
--- NOTE | 2017-07-16 22:13 | NUR ---
RAUDEL NOTES LANTUS 10UNITS NOT GIVEN.BS=83.PT ON [place] AT M/N
[2017-07-17] VITALS: BP 103/66
[2017-07-17] MEDS: BLOOD SUGAR DIAGNOSTIC 1 EACH STRIP IN SCH ×4 (00:14→17:21)
[2017-07-17] MEDS: CEFTRIAXONE 1 G in IV NS 0.9% 50 ML IV SCH (03:07)
--- NOTE | 2017-07-17 03:59 | NUR ---
RAUDEL NOTES CONTINUES TO SUCTION COPIOUS SECRETIONS FROM MOUTH -SLIGHTLY BLOOD TINGED,SCANT FROM TRACH.ORAL CARE AND TRACH CARE DONE.
[2017-07-17 04:00] VITALS: BP 103/60
--- NOTE | 2017-07-17 06:26 | NUR ---
RAUDEL NOTES AWAKE ALERT,TOLERATING TUBE FEEDING W/ MINIMAL RESIDUAL.CONTINUE TO SUCTION COPIOUS SECRETIONS FROM MOUTH,ORAL CARE DONE.
--- NOTE | 2017-07-17 06:28 | NUR ---
RAUDEL NOTES WOUND VAC TO RT HIP INTACT W/ SCANT SEROUS DRAINAGE.LIFE VEST IN PLACE ICD REMOVED SEC TO BACTEREMIA
[2017-07-17 08:00] VITALS: BP 108/67
--- NOTE | 2017-07-17 08:15 | NUR ---
RT PATIENT REC'D TRACHED ON MECH VENT ON SIMV MODE. WEANING ORDERS ARE TO PLACE PATIENT ON COOL AEROSOL TODAY. PATIENT AWAKE, NOT FOLLOWING COMMANDS, NO SOB AT THIS TIME. SUCTIONED TRACH WITH SMALL AMT OF BHATT SEMITHICK SECRETIONS. PATIENT PRODUCING LARGE AMT OF ORAL SECRETIONS OR SALIVA. AMBU BAG AND BACK UP TRACH AT HOB Addendum: 07/17/17 at 1157 by OBINNA LAM RT Amended: Links added.
[2017-07-17] MEDS: ACETYLCYSTEINE 10% SOLN 400 MG/4 ML VIAL NEB SCH ×2 (08:18→15:22)
[2017-07-17] MEDS: ALBUTEROL FS 2.5 MG/3 ML VIAL.NEB NEB SCH ×3 (08:18→15:22)
[2017-07-17] MEDS: IPRATROPIUM NEB FS 0.5 MG/2.5 ML AMPUL.NEB NEB SCH ×3 (08:18→15:22)
[2017-07-17 08:28] LABS: POTASSIUM 3.6 mmol/L (3.5-5.1)
[2017-07-17 08:29] LABS: BASOPHILS % (AUTO) 0.7 % (0.0-2.0); EOSINOPHILS % (AUTO) 6.7 % (0.0-6.0); HEMATOCRIT 23 % (39-51); HEMOGLOBIN 7.3 g/dL (13.5-17.5); LYMPHOCYTES % (AUTO) 17.3 % (20.0-44.0); MEAN CORPUSCULAR HGB CONC 31 g/dl (31.0-36.0); MEAN CORPUSCULAR VOLUME 88 fL (80-96); MONOCYTES # (AUTO) 0.4 /CMM (0.1-1.30); MONOCYTES % (AUTO) 6.2 % (2.0-12.0); NEUTROPHILS % (AUTO) 69.1 % (43.0-81.0); PLATELET COUNT (AUTO) 140 /CMM (150-450); RDW COEFFICIENT OF VARIATION 19.9 (11.5-15.0); RED BLOOD CELL COUNT(AUTO) 2.66 MIL/uL (4.5-6.0); WHITE BLOOD COUNT (AUTO) 5.7 K/uL (4.3-11.0)
--- NOTE | 2017-07-17 08:30 | NUR ---
PATIENT PLACED ON COOL AEROSOL PER DR SIERRA ORDER.
[2017-07-17] MEDS: GABAPENTIN 300 MG CAPSULE PO SCH ×3 (08:39→16:47)
[2017-07-17] MEDS: ASCORBIC ACID 500 MG TABLET PO SCH (08:39)
[2017-07-17] MEDS: SERTRALINE HCL 25 MG TABLET PO SCH (08:39)
[2017-07-17] MEDS: CARVEDILOL 3.125 MG TABLET PO SCH (08:40)
[2017-07-17] MEDS: VIT B CMPLX 3/FA/VIT C/BIOTIN 1 TAB TABLET GT SCH (08:40)
[2017-07-17] MEDS: PROSOURCE / PROSTAT (PYXIS) 30 ML UDC GT SCH (08:40)
[2017-07-17] MEDS: CADEXOMER IODINE 40 GM TUBE TP SCH (08:41)
[2017-07-17 10:23] LABS: ABG BASE EXCESS 4.5 mmol/L; ABG OXYGEN SATURATION 97.6 % (92.0-98.5); ABG PCO2 58.8 mmHg (35.0-45.0); ABG PH 7.341 (7.350-7.450); ABG PO2 118.6 mmHg (75.0-100.0); COHb 0.3 % (0.5-1.5); MetHb 0.6 % (0.0-1.5); O2Hb 96.7 % (94.0-97.0); SITE, ABG Right Radial; VENT MODE, BG COOL AERO 40%
--- NOTE | 2017-07-17 10:29 | NUR ---
RAUDEL RN NOTE 0720: receoved patient awake, able to track voices but does not follow commands at this time. With trache to SIMV mode, tolerated well. No respiratory distress noted. ST 107 on the monitor. With tracheal suture, noted with large amount of discharge from stoma. Suctioned frequently. Noted with moderate amount of thick metcalf secretions when suctioned from trache. With life vest on, checked with other nurses. With DEBBI PICC intact. Mckeon cath intact, noted with minimal tea colored urine drained to BSD. Still noted with scrotal swelling and redness. GT intact, feeding tolerated, noted with 10mL residuals. Kept HOB elevated. Right hip wound connected to wound vac @ 125mmHg, noted with minimal amount of serosanguineous discharge. 0910: RT placed patient to cool aerosol, will continue to monitor. 1000: S/E by dr. Hu, with order of labs and HD in am. 1020: No any significant changes noted at this time. On cool aerosol, tolerated at this time. 99% O2 sat, ST 113. Will continue to monitor. 1026: S/E by Dr. Acosta, with ABG result. ordered to place patient back in SIMV mode.
[2017-07-17] MEDS ORDERED: CEFT1FRO2 IV (11:34)
[2017-07-17 12:00] VITALS: BP 101/67
[2017-07-17] MEDS: PANTOPRAZOLE 40 MG VIAL IV SCH (12:15)
[2017-07-17] MEDS: INSULIN REGULAR, HUMAN 100 UNIT/ML 3 ML VIAL SQ PRN (12:18)
--- NOTE | 2017-07-17 13:45 | NUR ---
RAUDEL RN NOTE Called [facility] and spoke with Dalia, report given. All questions and concerns were answered. Spoke with Grisel, daughter via phone and made aware re: the discharge order, given number of the SNF. Daughter is appreciative re: the care her father had during hospitalization.
[2017-07-17 16:00] VITALS: BP 108/55
--- NOTE | 2017-07-17 17:29 | NUR ---
RAUDEL RN NOTE Awaiting transpo. Followed up with community case manager, said might be in for 190. Cleaned patient, taken pictures of wounds and attached to chart. Removed right hip wound vac and applied wet to dry dressing as ordered. Endorsed to Dalia Toney in [facility] re: the wound care. Also made her aware re: the [facility] for HD, scheduled on Wednesday @ 1430 per community case manager.
--- NOTE | 2017-07-17 17:58 | NUR ---
RAUDEL RN NOTE Collected MRSA surveillance from left nare, placed in specimen fridge, called lab for olive picker.
[2017-07-17 19:30] VITALS: BP 108/63
--- NOTE | 2017-07-17 19:30 | NUR ---
RN NOTE PATIENT WAS DISCHARGED IN STABLE CONDITION, NO RESPIRATORY DISTRESS NOTED, NO PAIN OR DISCOMFORT NOTED, VITAL SIGNS WITHIN NORMAL LIMITS, ON MECHANICAL VENTILATOR, ALL BELONGINGS SENT WITH THE PATIENT, AND INVENTORY LIST WAS SIGNED BY THE EMT, NO SOB, SR ON THE MONITOR, PEG TUBE IS INTACT, PICC LINE IS INTACT AND NO S/S OF INFECTION/INFILTRATION NOTED, CHEST WALL PERMACATH IS INTACT, ALL SAFETY MEASURES TAKEN, PATIENT WAS ACCOMPANIED BY RESPIRATORY THERAPIST JAMIA, PATIENT WILL BE GOING TO [facility] AND REPORT WAS PROVIDED BY AM SHIFT TO MADHAV, ALL PICTURES WERE TAKEN BY AM SHIFT AND PLACED IN THE CHART
--- NOTE | 2017-07-17 20:13 | NUR ---
RN NOTES 1929 PATIENT DISCHARGED WITH LIFE VEST ON; FURNACE ATTENDANT AND BACK UP BATTERY SENT WITH EMT WITH 2 CELLPHONES AND A FURNACE ATTENDANT.
[2017-09-10] MEDS ORDERED: MULT-447 GT (18:14)
[2017-09-10] MEDS ORDERED: FOLI0.8T23 GT (18:14)
[2017-09-10] MEDS ORDERED: INSU100V3 SQ (18:14)
[2017-09-10] MEDS ORDERED: AMIK250V8 IV (18:16)
[2017-10-07] MEDS ORDERED: COLI150V12 IV ×2 (10:50→10:54)
== END 2017-07-17 20:20 | DRG 3 ==
LOC: ER 16:31 → MEDSG2 19:49 → TELE 20:02 → MED 06-21 08:59 → TELE 06-23 08:47 → ICU 06-24 06:00 → TELE 06-26 17:43 → MED 06-27 10:06 → TELE 06-27 16:09 → MED 07-03 09:53 → ICU 07-06 13:49 → TELE1 07-15 18:25 → TELE-TD 07-16 07:35
PROVIDERS: ADMIT Nurse Practitioner Acute Care; ATTEND Nurse Practitioner Acute Care
PROC: 0QB20ZZ Excision of Right Pelvic Bone, Open Approach (ICD-10-PCS; 2017-06-21)
PROC: 0JBR0ZZ Excision of Left Foot Subcutaneous Tissue and Fascia, Open Approach (ICD-10-PCS; 2017-06-21)
PROC: 0JBQ0ZZ Excision of Right Foot Subcutaneous Tissue and Fascia, Open Approach (ICD-10-PCS; 2017-06-21)
PROC: 5A12012 Performance of Cardiac Output, Single, Manual (ICD-10-PCS; 2017-06-24)
PROC: 5A1945Z Respiratory Ventilation, 24-96 Consecutive Hours (ICD-10-PCS; 2017-06-24)
PROC: 0BH17EZ Insertion of Endotracheal Airway into Trachea, Via Natural or Artificial Opening (ICD-10-PCS; 2017-06-24)
PROC: 0W9B3ZZ Drainage of Left Pleural Cavity, Percutaneous Approach (ICD-10-PCS; 2017-06-29)
PROC: 0QB20ZZ Excision of Right Pelvic Bone, Open Approach (ICD-10-PCS; 2017-07-05)
PROC: 0JBR0ZZ Excision of Left Foot Subcutaneous Tissue and Fascia, Open Approach (ICD-10-PCS; 2017-07-06)
PROC: 0JBQ0ZZ Excision of Right Foot Subcutaneous Tissue and Fascia, Open Approach (ICD-10-PCS; 2017-07-06)
PROC: 06HM33Z Insertion of Infusion Device into Right Femoral Vein, Percutaneous Approach (ICD-10-PCS; 2017-07-06)
PROC: 5A1D70Z Performance of Urinary Filtration, Intermittent, Less than 6 Hours Per Day (ICD-10-PCS; 2017-07-06)
PROC: 0W9B3ZZ Drainage of Left Pleural Cavity, Percutaneous Approach (ICD-10-PCS; 2017-07-07)
PROC: 5A1D70Z Performance of Urinary Filtration, Intermittent, Less than 6 Hours Per Day (ICD-10-PCS; 2017-07-07)
PROC: 5A1955Z Respiratory Ventilation, Greater than 96 Consecutive Hours (ICD-10-PCS; 2017-07-08)
PROC: 0BH17EZ Insertion of Endotracheal Airway into Trachea, Via Natural or Artificial Opening (ICD-10-PCS; 2017-07-08)
PROC: 5A1D70Z Performance of Urinary Filtration, Intermittent, Less than 6 Hours Per Day (ICD-10-PCS; 2017-07-08)
PROC: 5A12012 Performance of Cardiac Output, Single, Manual (ICD-10-PCS; 2017-07-09)
PROC: 04HK33Z Insertion of Infusion Device into Right Femoral Artery, Percutaneous Approach (ICD-10-PCS; 2017-07-09)
PROC: 5A1D70Z Performance of Urinary Filtration, Intermittent, Less than 6 Hours Per Day (ICD-10-PCS; 2017-07-09)
PROC: 5A1D70Z Performance of Urinary Filtration, Intermittent, Less than 6 Hours Per Day (ICD-10-PCS; 2017-07-10)
PROC: 5A1D70Z Performance of Urinary Filtration, Intermittent, Less than 6 Hours Per Day (ICD-10-PCS; 2017-07-11)
PROC: 30233N1 Transfusion of Nonautologous Red Blood Cells into Peripheral Vein, Percutaneous Approach (ICD-10-PCS; 2017-07-11)
PROC: 5A1D70Z Performance of Urinary Filtration, Intermittent, Less than 6 Hours Per Day (ICD-10-PCS; 2017-07-12)
PROC: 0B110F4 Bypass Trachea to Cutaneous with Tracheostomy Device, Open Approach (ICD-10-PCS; principal; 2017-07-13 09:55)
PROC: 05HM33Z Insertion of Infusion Device into Right Internal Jugular Vein, Percutaneous Approach (ICD-10-PCS; 2017-07-14)
PROC: B513YZA Fluoroscopy of Right Jugular Veins using Other Contrast, Guidance (ICD-10-PCS; 2017-07-14)
PROC: 5A1D70Z Performance of Urinary Filtration, Intermittent, Less than 6 Hours Per Day (ICD-10-PCS; 2017-07-14)
PROC: 0DH63UZ Insertion of Feeding Device into Stomach, Percutaneous Approach (ICD-10-PCS; 2017-07-16)
PROC: 0DB68ZX Excision of Stomach, Via Natural or Artificial Opening Endoscopic, Diagnostic (ICD-10-PCS; 2017-07-16)
PROC: 5A1D70Z Performance of Urinary Filtration, Intermittent, Less than 6 Hours Per Day (ICD-10-PCS; 2017-07-16)
DX: N49.2 Inflammatory disorders of scrotum (principal); N17.0 Acute kidney failure with tubular necrosis; E43 Unspecified severe protein-calorie malnutrition; J15.6 Pneumonia due to other Gram-negative bacteria; G93.1 Anoxic brain damage, not elsewhere classified; I50.23 Acute on chronic systolic (congestive) heart failure; J15.9 Unspecified bacterial pneumonia; J90 Pleural effusion, not elsewhere classified; L89.313 Pressure ulcer of right buttock, stage 3; I46.9 Cardiac arrest, cause unspecified; L89.323 Pressure ulcer of left buttock, stage 3; J96.01 Acute respiratory failure with hypoxia; I13.0 Hypertensive heart and chronic kidney disease with heart failure and stage 1 through stage 4 chronic kidney disease, or unspecified chronic kidney disease; G82.20 Paraplegia, unspecified; E11.52 Type 2 diabetes mellitus with diabetic peripheral angiopathy with gangrene; E66.2 Morbid (severe) obesity with alveolar hypoventilation; L97.428 Non-pressure chronic ulcer of left heel and midfoot with other specified severity; L97.418 Non-pressure chronic ulcer of right heel and midfoot with other specified severity; T84.51XA Infection and inflammatory reaction due to internal right hip prosthesis, initial encounter; B37.49 Other urogenital candidiasis; J98.11 Atelectasis; I48.92 Unspecified atrial flutter; E87.2 Acidosis; I42.9 Cardiomyopathy, unspecified; L89.150 Pressure ulcer of sacral region, unstageable; E11.42 Type 2 diabetes mellitus with diabetic polyneuropathy; I48.2 Chronic atrial fibrillation; E83.39 Other disorders of phosphorus metabolism; E11.621 Type 2 diabetes mellitus with foot ulcer; E86.0 Dehydration; E11.65 Type 2 diabetes mellitus with hyperglycemia; D50.9 Iron deficiency anemia, unspecified; N48.22 Cellulitis of corpus cavernosum and penis; E78.5 Hyperlipidemia, unspecified; E83.42 Hypomagnesemia; I25.10 Atherosclerotic heart disease of native coronary artery without angina pectoris; Z87.891 Personal history of nicotine dependence; I25.2 Old myocardial infarction; Z95.810 Presence of automatic (implantable) cardiac defibrillator; N43.3 Hydrocele, unspecified; N47.2 Paraphimosis; D63.8 Anemia in other chronic diseases classified elsewhere; E87.5 Hyperkalemia; G89.4 Chronic pain syndrome; E88.09 Other disorders of plasma-protein metabolism, not elsewhere classified; Z68.30 Body mass index [BMI] 30.0-30.9, adult; L98.8 Other specified disorders of the skin and subcutaneous tissue; K29.70 Gastritis, unspecified, without bleeding; Y83.1 Surgical operation with implant of artificial internal device as the cause of abnormal reaction of the patient, or of later complication, without mention of misadventure at the time of the procedure; S71.001A Unspecified open wound, right hip, initial encounter; X58.XXXA Exposure to other specified factors, initial encounter; Y93.9 Activity, unspecified; Y92.129 Unspecified place in nursing home as the place of occurrence of the external cause; F19.11 Other psychoactive substance abuse, in remission; R04.0 Epistaxis; E11.22 Type 2 diabetes mellitus with diabetic chronic kidney disease; N18.9 Chronic kidney disease, unspecified; Z79.4 Long term (current) use of insulin; Z79.84 Long term (current) use of oral hypoglycemic drugs; K21.9 Gastro-esophageal reflux disease without esophagitis; Z74.01 Bed confinement status; Z86.14 Personal history of Methicillin resistant Staphylococcus aureus infection; Z95.5 Presence of coronary angioplasty implant and graft; Z79.899 Other long term (current) drug therapy; E11.21 Type 2 diabetes mellitus with diabetic nephropathy
CPT/HCPCS: 31720; 36415; 36600; 43246; 70450-TC; 71045-TC; 71250-TC; 72170-TC; 74018; 76770-TC; 76870-TC; 76942-TC; 80048-TC; 80053-TC; 80061-TC; 80202-TC; 81000-TC; 82040-TC; 82105; 82272-TC; 82306; 82652; 82728-TC; 82746; 82784; 82803-TC; 82962-TC; 83540-TC; 83605-TC; 83615-TC; 83735-TC; 83880; 83970; 84100-TC; 84155; 84155-TC; 84165; 84439-TC; 84443-TC; 84484-TC; 84702-TC; 85025-TC; 85610-TC; 85730-TC; 86334; 86704; 86705; 86706; 86803; 86850-TC; 86921-TC; 87040-TC; 87070-TC; 87075-TC; 87081-TC; 87086-TC; 87102-TC; 87340; 88305-TC; 88312-TC; 88313-TC; 88342; 89051-TC; 90935-TC; 92521; 92611-TC; 93307-TC; 93970-TC; 94002-TC; 94003-TC; 94760-TC; 94762-TC; 94799-TC; 95819-TC; 97110-TC; 97530-TC; 99082-TC; A4216; A4606; A6253; A6402; A6403; A9563; C1750; C1769; C9113; J0171; J0696; J0885; J1250; J1644; J1815; J1940; J2250; J2270; J2370; J2405; J2543; J2704; J2916; J3010; J3370; J3475; J3480; J3490; J7030; J7040; J7042; J7050; J7060; P9016-BL; P9047; Z7610

== ENCOUNTER 2017-08-06 16:00 | Inpatient (IN) | payer MEDICAID, MEDICARE ==
[~2017-08-06] VITALS: Ht 170.2 cm; Wt 73.5 kg
[~2017-08-06 16:00] MED LIST changes: +CADE40GE2 TP; +CEFT1FRO2 IV; -HYDR4TAB4 PO
[2017-08-06 16:04] VITALS: BP 120/83
--- NOTE | 2017-08-06 16:05 | NUR ---
ANJELBLANCHE FROM [facility] C/O COFFEE GROUND EMESIS X 3 HOURS AGO. PATIENT CAME IN WITH VENT WITH THE FOLLOWING SETTINGS: SHILEY #8 AC=15;QL=564;PEEP=5 FIO2=40%. SKIN IS WARM AND DRY. PLACED ON THE MONITOR. AWAITTALYA TOLENTINO FOR EVAL.
--- NOTE | 2017-08-06 16:10 | NUR ---
GUANAKO TOLENTINO AT FOR MCKENZIE.
[2017-08-06] MEDS ORDERED: NUT.237L67 GT (16:15)
[2017-08-06] MEDS ORDERED: OMEP20CA10 GT (16:15)
[2017-08-06] MEDS ORDERED: BLOO-668 IN (16:15)
[2017-08-06] MEDS ORDERED: METF-440 GT (16:15)
[2017-08-06] MEDS ORDERED: ASCO250T7 GT (16:15)
[2017-08-06] MEDS ORDERED: ONDANSETRON HCL/PF 4 MG/2 ML VIAL ONE (16:20)
--- NOTE | 2017-08-06 16:20 | NUR ---
BLOOD DRAWN FROM [facility] PICC LINE AND SENT TO LAB.
[2017-08-06 16:27] LABS: BASOPHILS % (AUTO) 0.4 % (0.0-2.0); EOSINOPHILS % (AUTO) 6.3 % (0.0-6.0); HEMATOCRIT 23 % (39-51); HEMOGLOBIN 7.6 g/dL (13.5-17.5); LYMPHOCYTES # (AUTO) 1.3 /CMM (0.8-4.8); LYMPHOCYTES % (AUTO) 12.1 % (20.0-44.0); MEAN CORPUSCULAR HGB CONC 32 g/dl (31.0-36.0); MEAN CORPUSCULAR VOLUME 87 fL (80-96); MONOCYTES # (AUTO) 0.6 /CMM (0.1-1.30); MONOCYTES % (AUTO) 5.6 % (2.0-12.0); NEUTROPHILS # (AUTO) 7.9 /CMM (1.8-8.9); NEUTROPHILS % (AUTO) 75.6 % (43.0-81.0); PLATELET COUNT (AUTO) 238 /CMM (150-450); RDW COEFFICIENT OF VARIATION 19.8 (11.5-15.0); RED BLOOD CELL COUNT(AUTO) 2.67 MIL/uL (4.5-6.0); WHITE BLOOD COUNT (AUTO) 10.5 K/uL (4.3-11.0)
[2017-08-06] MEDS ORDERED: ONDANSETRON HCL/PF 4 MG/2 ML VIAL IVP ONE (16:30)
[2017-08-06] MEDS ORDERED: IV NS 0.9% 500 ML BAG IV ONE (16:30)
[2017-08-06 16:40] LABS: ALBUMIN 2.1 g/dL (3.4-5.0); BILIRUBIN,DIRECT 0.2 mg/dL (0.0-0.2); BILIRUBIN,TOTAL 0.4 mg/dL (0.2-1.0); TOTAL PROTEIN, SERUM 6.7 g/dL (6.4-8.2)
[2017-08-06 16:41] LABS: INR 1.12 (0.85-1.15)
--- NOTE | 2017-08-06 17:17 | NUR ---
CALLED NURSING ELEMENTARY READING SPECIALIST AND REQUESTED A TELE BED FOR THIS PT.
--- NOTE | 2017-08-06 17:21 | NUR ---
CALLED [employer] FOR PANEL CALL AND MARTHA VANG WAS PAGED.
[2017-08-06 17:24] LABS: CALCIUM, SERUM 7.7 mg/dL (8.5-10.1); CREATININE 2.2 mg/dL (0.6-1.3)
--- NOTE | 2017-08-06 17:48 | NUR ---
ASSIGNED TO TELE RM#: [id number], DX: UPPER GI BLEED, ACCEPTING: MARTHA VANG NP
[2017-08-06] MEDS ORDERED: POTASSIUM CL. PREMIX PERIPHER. 200 ML ONE (17:59)
[2017-08-06] MEDS ORDERED: Calcium Gluconate 1GM/10ML 4.65 MEQ in IV NS 0.9% 50 ML IV ONE (18:00)
--- NOTE | 2017-08-06 18:00 | NUR ---
REPORT GIVEN TO [employer] FOR CHRISTIAN.
[2017-08-06 18:01] VITALS: BP 118/73
[2017-08-06] MEDS ORDERED: IV NS 0.9% 1,000 ML IV PRN (18:05)
--- NOTE | 2017-08-06 18:10 | NUR ---
DR. LAWSON SIGNED WRITTEN ORDER TO CONTINUE KCL INFUSION IV DRIP PER PROTOCOL. ENDORSED TO
--- NOTE | 2017-08-06 18:25 | NUR ---
tele balance truing inspector: notes brought by 2 e.r. staff with r.t. via gurney with ventilator. transferred safely to bed. tele provided a fib=70. vss taken and wnl. hob elevated. kept comfortable. tracheostomy intact and secured at midline with vent settings: ac 15, kp=832, peep=5, and with fio2 in use at 30%. noted with f/c, picc line to rufina, perma cath on right chest wall and wound vac attached to right hip area. cn made aware. 3 bags of potassium chloride given by e.r. to continue on floor. calcium gluconate completed upon arrival and 1st bag of potassium chloride still with 20ml and infusing. will endorsed to next shift accordingly.
[2017-08-06 18:30] VITALS: BP 118/67
[2017-08-06] MEDS ORDERED: MAG HYDROX/AL HYDROX/SIMETH 30 ML UDC GT PRN (18:30)
[2017-08-06] MEDS: PROSOURCE / PROSTAT (PYXIS) 30 ML UDC GT SCH (18:30)
[2017-08-06] MEDS ORDERED: ALBUTEROL HALF STRENGTH 1.25 MG/3 ML VIAL.NEB IH PRN (18:30)
[2017-08-06] MEDS ORDERED: Z GUARD REMEDY 2 OZ OINT TP PRN (18:30)
[2017-08-06] MEDS ORDERED: MAGNESIUM HYDROXIDE 30 ML UDC GT PRN (18:30)
[2017-08-06] MEDS ORDERED: HYDROCODONE/APAP 5/325MG 1 EACH TABLET GT PRN (18:30)
[2017-08-06] MEDS ORDERED: ACETAMINOPHEN 650 MG/20.3 ML UDC PO PRN (18:30)
[2017-08-06] MEDS ORDERED: ONDANSETRON HCL/PF 4 MG/2 ML VIAL IVP PRN (18:30)
--- NOTE | 2017-08-06 19:00 | NUR ---
tele insurance verification specialist: notes report given to rosa (rn) for continuity of care.
--- NOTE | 2017-08-06 19:40 | NUR ---
SEPHORA PRODUCT CONSULTANT INITIAL NOTE PT IS IN BED AWAKE AND ALERT. NON-VERBAL, ABLE TO NOD AND SHAKES HEAD FOR YES OR NO FOR SIMPLE QUESTING AND GIVE A THUMBS UP. ON TELE SHOWING AFIB 84 WITH BBB AND PVC. VENT/TRACH DEPENDENT, TOLERATING SETTINGS WELL. NO SIGNS OF SOB OR DISTRESS, ON PULSE OX MONITOR SATING WELL. D.FIB VEST ON AT THIS TIME. RCW PERMA CATH IN PLACE. ROMERO CATHETER IS INTACT AND DRAINING TO GRAVITY. RIGHT HIP WOUND VAC IS IN PLACE WITH DRESSING INTACT AND NO LEAKAGE NOTED. PT HAS HEEL PROTECTORS ON FROM FACILITY. PEG TUBE IS IN PLACE, NO RESIDUAL NOTED AND FLUSHES WELL. PT IS NPO AND NO FEEDINGS ORDERED AT THIS TIME, PENDING GI CONSULT. BED IS IN LOW AND LOCKED POSITION, HEAD OF BED ELEVATED, BED ALARM IS ON. WILL CONTINUE TO MONITOR PT
[2017-08-06 20:00] VITALS: BP 121/77
[2017-08-06] MEDS ORDERED: DAKINS QUARTER STRENGTH (0.125%) 480 ML BOTTLE TOP SCH (20:00)
--- NOTE | 2017-08-06 20:00 | NUR ---
DIRECTOR OF SALES SUPPORT NOTE NON ADMIN ON ONE DOSE OF POTASSIUM, IT WAS GIVEN IN ER PRIOR TO ADMISSION BUT WAS NOT SCANNED. I SCANNED THE BAGS OF POTASSIUM I GAVE ON THE FLOOR WHEN PT WAS ADMITTED
[2017-08-06] MEDS: POTASSIUM CL. PREMIX PERIPHER. 50 ML IV SCH ×4 (20:08→22:21)
[2017-08-06] MEDS: DAKINS QUARTER STRENGTH (0.125%) 480 ML BOTTLE TOP SCH (21:00)
--- NOTE | 2017-08-06 21:00 | NUR ---
DIAMOND MERCHANT NOTE ORIGINAL WOUND VACC IS NOW FULL. NEW WOUND VACC WAS OBTAINED FROM NURSING STEWARD/STEWARDESS ECONOMY CLASS. WOUND VAC WAS CHANGED, ORIGINAL DRESSING REMAINS PENDING WOUND CONSULT
[2017-08-06] MEDS: PANTOPRAZOLE 40 MG VIAL IV SCH (21:07)
[2017-08-06] MEDS: ATORVASTATIN 40 MG TABLET GT SCH (21:17)
[2017-08-06] MEDS: CARVEDILOL 3.125 MG TABLET GT SCH (21:25)
--- NOTE | 2017-08-06 22:40 | NUR ---
LUMBER YARD WORKER NOTE CONTACTED METAL ALLOY SCIENTIST ANNALISA IN REGARDS TO PT BS BEING 85 WITH NO FEEDING OR IV FLUIDS DUE TO NPO STATUS. NO ORDERS AT THIS TIME. WILL CONTINUE TO MONITOR PT
[2017-08-07] VITALS: BP 116/72
[2017-08-07 04:00] VITALS: BP 119/72
--- NOTE | 2017-08-07 06:40 | NUR ---
SWEDGER CLOSING NOTE PT IS IN BED SLEEPING, EASILY AROUSED. ON VENT SETTINGS TOLERATING WELL. NO SIGNS OF SOB OR DISTRESS. PICC LINE IS INTACT AND PATENT. PEG TUBE IS INTACT AND CLAMPED. WOUND VACC IS ON AND DRAINING. ROMERO CATHETER IS INTACT AND DRAINING. NO EMESIS DURING MY SHIFT, PT ONLY SPIT UP A LITTLE PHLEGM THAT WAS BLOOD TINGED ON TIME. BED IS IN LOW AND LOCKED POSITION, CALL LIGHT WITHIN REACH. WILL ENDORSE TO DAYSHIFT.
[2017-08-07 06:46] LABS: CALCIUM, SERUM 8.2 mg/dL (8.5-10.1); CREATININE 2.5 mg/dL (0.6-1.3); MAGNESIUM 1.9 mg/dL (1.8-2.4); POTASSIUM 3.4 mmol/L (3.5-5.1)
--- NOTE | 2017-08-07 07:10 | NUR ---
REGULATORY AFFAIRS ANALYST NOTES PATIENT RECEIVED RESTING INSIDE ROOM, SLEEPING, EASILY AROUSABLE THROUGH VERBAL AND TACTILE STIMULI, PATIENT OPENS EYES TO STIMULI. ON VENT/TRACH SETTINGS. NO SOB OR ACUTE DISTRESS. PORTABLE DEFIBRILLATOR IN PLACE. ROMERO CATHETER IN PLACE WITH TEA COLORED URINE OUTPUT. WOUND VAC IN PLACE. MAINTAINED ASPIRATION PRECAUTIONS, MAINTAINED HOB ELEVATION AT 45. WILL CONTINUE TO MONITOR. BED LOCKED AND IN LOW POSITION. BILATERAL UPPER SIDE RAILS UP AND LOCKED. CALL LIGHT WITHIN EASY REACH
[2017-08-07 07:11] LABS: THYROID STIMULATING HORMONE 4.845 uIU/mL (0.358-3.74)
[2017-08-07 07:30] LABS: BASOPHILS # (AUTO) 0.1 /CMM (0.0-0.2); BASOPHILS % (AUTO) 0.9 % (0.0-2.0); EOSINOPHILS % (AUTO) 8.3 % (0.0-6.0); HEMATOCRIT 23 % (39-51); HEMOGLOBIN 7.3 g/dL (13.5-17.5); LYMPHOCYTES # (AUTO) 1.6 /CMM (0.8-4.8); LYMPHOCYTES % (AUTO) 17.9 % (20.0-44.0); MEAN CORPUSCULAR HGB CONC 32 g/dl (31.0-36.0); MEAN CORPUSCULAR VOLUME 90 fL (80-96); MONOCYTES # (AUTO) 0.5 /CMM (0.1-1.30); MONOCYTES % (AUTO) 5.5 % (2.0-12.0); NEUTROPHILS % (AUTO) 67.4 % (43.0-81.0); PLATELET COUNT (AUTO) 218 /CMM (150-450); RDW COEFFICIENT OF VARIATION 21.1 (11.5-15.0); RED BLOOD CELL COUNT(AUTO) 2.52 MIL/uL (4.5-6.0); WHITE BLOOD COUNT (AUTO) 8.9 K/uL (4.3-11.0)
[2017-08-07 08:00] VITALS: BP 110/80
[2017-08-07] MEDS: AMIODARONE HCL 200 MG TABLET GT SCH (09:00)
[2017-08-07] MEDS: PROSOURCE / PROSTAT (PYXIS) 30 ML UDC GT SCH ×3 (09:00→17:14)
[2017-08-07] MEDS: ASCORBIC ACID 500 MG TABLET GT SCH (09:00)
[2017-08-07] MEDS: GABAPENTIN 300 MG CAPSULE GT SCH ×3 (09:00→17:14)
[2017-08-07] MEDS: ZINC SULFATE 220 MG CAPSULE GT SCH (09:00)
[2017-08-07] MEDS: CARVEDILOL 3.125 MG TABLET GT SCH ×2 (09:00→21:52)
[2017-08-07] MEDS: DAKINS QUARTER STRENGTH (0.125%) 480 ML BOTTLE TOP SCH (09:00)
[2017-08-07] MEDS: PANTOPRAZOLE 40 MG VIAL IV SCH ×2 (10:18→17:14)
[2017-08-07] MEDS ORDERED: POTASSIUM CL. PREMIX PERIPHER. 50 ML IV SCH (13:30)
[2017-08-07 16:00] VITALS: BP 136/82
--- NOTE | 2017-08-07 16:10 | NUR ---
MAIL DISTRIBUTION CLERK NOTES PATIENT S/P EGD. REPORT OBTAINED FROM DOT JONES. PATIENT IN STABLE CONDITION. CONTINUE ON VENT/TRACH. NO CHANGES IN LOC NOTED. DR. OROZCO PRESENT AT UNIT, GAVE OK FOR PATIENT TO RECEIVE GTF AND RESUME MEDS VIA GT. ORDERS NOTED AND CARRIED OUT. WILL CONTINUE TO MONITOR
[2017-08-07] MEDS: NEPRO 1,000 ML BOTTLE GT PRN (17:32)
[2017-08-07 18:32] LABS: HEMOGLOBIN 7.7 g/dL (13.5-17.5)
--- NOTE | 2017-08-07 19:26 | NUR ---
PICKLE CUTTER NOTES PATIENT RESTING INSIDE ROOM, AWAKE, ALERT AND ORIENTED, AROUSABLE THROUGH VERBAL AND TACTILE STIMULI. ABLE TO MAKE NEEDS KNOWN TROUGH GESTURES AND FOLLOWS INSTRUCTIONS. CONTINUE ON VENT/TRACH. NO SOB OR ACUTE DISTRESS NOTED. GT IN PLACE. MAINTAINED ASPIRATION PRECAUTION, MAINTAINED HOB ELEVATION AT 45. FC IN PLACE. RIGHT UPPER ARM INTACT, NO BLEEDING NOTED AT THIS TIME. ENDORSED TO INCOMING SHIFT FOR CHRISTIAN. BED LOCKED AND IN LOW POSITION. BILATERAL UPPER SIDE RAILS UP AND LOCKED. CALL LIGHT WITHIN EASY REACH
--- NOTE | 2017-08-07 19:30 | NUR ---
TELE/RN RECEIVE PATIENT AWAKE, NON VERBAL, APPEAR COMFORTABLE, NO S/S OF PAIN, NO DISTRESS NOTED, MECH VENT WORKING WELL, HOB ELEVATED, GT FEEDING INFUSING, HOB ELEVATED, F/C IN PLACE. WILL MONITOR.
[2017-08-07 20:00] VITALS: BP 133/79
[2017-08-07] MEDS: ATORVASTATIN 40 MG TABLET GT SCH (21:53)
--- NOTE | 2017-08-08 00:05 | NUR ---
MS/RN PATIENT ATTEMPTING TO PULL OUT HIS TRACH AND TUBINGS, OBTAINED ORDER OF BILATERAL SOFT WRIST RESTRAIN FROM VICTORIANO FANG.
[2017-08-08 00:19] VITALS: BP 140/65
[2017-08-08 04:35] VITALS: BP 134/68
--- NOTE | 2017-08-08 06:11 | NUR ---
RT NOTE PT RECEIVED TRACHED AND ON VENT W NOTED SETTINGS AND ALARMS. ALARMS ARE ON AND AUDIBLE. PT IS TOLERATING SETTINGS WELL. VENT IS PLUGGED INTO RED OUTLET W AMBUBAG BY BEDSIDE. NO DISTRESS NOTED AT THIS TIME. WILL CONTINUE TO MONITOR.
--- NOTE | 2017-08-08 06:49 | NUR ---
TELE/RN PATIENT IS AWAKE, COMFORTABLE, APPEAR COMFORTABLE, HOB ELEVATED, GT FEEDING INFUSING, NO RESIDUAL NOTED, ALL NEEDS ATTENDED AT THIS TIME. WILL CONTINUE TO MONITOR.
--- NOTE | 2017-08-08 07:30 | NUR ---
PT REVEIVED ALERT, EYES OPEN BUT NON VERBAL. PT APPEARS ABLE TO INDICATE YES OR NO. PT WITH BI LAT SWR, NEURO INTACT. PT WITH TELE AFIB 95. PT VENT AND TRACH DEPENDENT, VENT PLUGGED TO RED POWER POINTS, ALARMS ENGAGED AND CONT PULSE OX AT BEDSIDE. PT WITHOUT S/S OF RESP DISTRESS. PT INDICATING NO PAIN AND IS WITHOUT S/S OF PAIN OR DISCOMFORT. PT WITH F/C WITH MINIMAL CLOUDY TRINA COLOURED URINE IN COLLECTION. PT WITH WOUND VAC TO RIGHT HIP, 125MMHG MAINTAINED AND NAD AT SITE. PT WITH GTUBE INTACT AND OPERATIONAL WITH GTF PER RX. PT BED IN LOWEST LOCKED POSITION WITH HANDRAILSX4 AND CALL OLIVARES WITHIN REACH. BRIEFED ON TODAY'S POC AND APPEARS WITHOUT CONCERN OR COMPLAINT AT THIS TIME.
[2017-08-08 07:42] LABS: BASOPHILS % (AUTO) 0.6 % (0.0-2.0); EOSINOPHILS % (AUTO) 8.3 % (0.0-6.0); HEMATOCRIT 24 % (39-51); HEMOGLOBIN 7.6 g/dL (13.5-17.5); MEAN CORPUSCULAR HGB CONC 32 g/dl (31.0-36.0); MEAN CORPUSCULAR VOLUME 91 fL (80-96); NEUTROPHILS % (AUTO) 70.1 % (43.0-81.0); PLATELET COUNT (AUTO) 202 /CMM (150-450); RDW COEFFICIENT OF VARIATION 20.8 (11.5-15.0); RED BLOOD CELL COUNT(AUTO) 2.62 MIL/uL (4.5-6.0); WHITE BLOOD COUNT (AUTO) 9.4 K/uL (4.3-11.0)
[2017-08-08 07:43] LABS: BASOPHILS # (AUTO) 0.1 /CMM (0.0-0.2); LYMPHOCYTES # (AUTO) 1.4 /CMM (0.8-4.8); MONOCYTES # (AUTO) 0.6 /CMM (0.1-1.30); NEUTROPHILS # (AUTO) 6.6 /CMM (1.8-8.9)
[2017-08-08 08:00] VITALS: BP 145/78
[2017-08-08 08:13] LABS: CALCIUM, SERUM 8.1 mg/dL (8.5-10.1); CREATININE 3.1 mg/dL (0.6-1.3); POTASSIUM 3.6 mmol/L (3.5-5.1)
[2017-08-08] MEDS: ZINC SULFATE 220 MG CAPSULE GT SCH (08:22)
[2017-08-08] MEDS: PANTOPRAZOLE 40 MG VIAL IV SCH ×2 (08:22→16:54)
[2017-08-08] MEDS: ASCORBIC ACID 500 MG TABLET GT SCH (08:22)
[2017-08-08] MEDS: GABAPENTIN 300 MG CAPSULE GT SCH ×3 (08:22→16:54)
[2017-08-08] MEDS: DAKINS QUARTER STRENGTH (0.125%) 480 ML BOTTLE TOP SCH (08:23)
[2017-08-08] MEDS: PROSOURCE / PROSTAT (PYXIS) 30 ML UDC GT SCH ×3 (08:30→16:54)
[2017-08-08] MEDS: CARVEDILOL 3.125 MG TABLET GT SCH ×2 (09:00→22:00)
[2017-08-08] MEDS: AMIODARONE HCL 200 MG TABLET GT SCH (09:00)
--- NOTE | 2017-08-08 09:00 | NUR ---
MSRN NOTES. AM WOUND CARE NOT COMPLETED, INSTRUCTION ON WOUND VAC USE NOT AVAILABLE. WILL FOLLOW UP WITH FILM SORTER KEVIN.
[2017-08-08] MEDS ORDERED: EPOETIN ALFA (10,000 UNIT) 10,000 UNIT/ML VIAL SQ ONE (10:00)
--- NOTE | 2017-08-08 12:00 | NUR ---
MSRN NOTES. LAB SPECIALIST AWARE OF WOUND CARE NEEDS AND [employer] CONTACTED FOR CLARIFICATION OF ORDER. AWAITING RESPONSE.
--- NOTE | 2017-08-08 14:00 | NUR ---
NATURAL RESOURCES SPECIALIST NOTES. WOUND CARE CLARIFIED BY LUCRECIA AND ORDERS PLACED. WOUND VA D/C'D WITH 100MLCC IN COLLECTION. PHOTO TAKEN AND CHART UPDATED. WOUND CARE COMPLETED PER RX.
[2017-08-08 15:57] VITALS: BP 127/76
[2017-08-08] MEDS: NEPRO 1,000 ML BOTTLE GT PRN (16:54)
[2017-08-08] MEDS ORDERED: NEPRO 1,000 ML BOTTLE GT PRN (17:00)
--- NOTE | 2017-08-08 18:45 | NUR ---
PAINT BRUSH MAKER. PT WITH HD.
--- NOTE | 2017-08-08 19:05 | NUR ---
NATIONAL STORMWATER LEADER CLOSING NOTES. PT INDICATING YES OR NO AT THIS TIME AND WHEN SUCTION IS REQUIRED. PT WITH BI LAT SWR, NEURO INTACT. PT WITH TELE AFIB. PT VENT AND TRACH DEPENDENT, VENT PLUGGED TO RED POWER POINTS, ALARMS ENGAGED AND CONT PULSE OX AT BEDSIDE. PT WITHOUT S/S OF RESP DISTRESS. PT INDICATING NO PAIN AND IS WITHOUT S/S OF PAIN OR DISCOMFORT. PT WITH F/C WITH MINIMAL CLOUDY TRINA COLOURED URINE IN COLLECTION. PT WOUND CARE COMPLETED PER RX. PT WITH GTUBE INTACT AND OPERATIONAL. PT BED IN LOWEST LOCKED POSITION WITH HANDRAILSX4 AND CALL OLIVARES WITHIN REACH AND HOB ELEVATED. ALL DAY NURSE DUTIES ATTENDED TO AND PT IS WITHOUT CONCERN OR COMPLAINT AT THIS TIME. ENDORSED TO BIN NURSE AT BEDSIDE FOR CHRISTIAN.
--- NOTE | 2017-08-08 19:15 | NUR ---
TELE/RN OPENING NOTES PT RECEIVED WITH EYES CLOSED. NON VERBAL BUT ABLE TO MAKE NEEDS KNOWN. TRACH/VENT DEPENDENT. ON TELE MONITOR SHOWING A.FIB HR 138. RCW PERMACATH NOTED WITH ONGOING HD, APPROX ANOTHER HOUR TO GO. ROMERO IN PLACE AND DRAINING TO GRAVITY. DEBBI PICC LINE PATENT AND INTACT. GT FEEDING RUNNING ORDERED. BED IN LOW/LOCKED POSITION WITH CALL LIGHT IN REACH. SIDE RAILS UPX3. HEELS OFFLOADED. BILATERAL SOFT WRIST RESTRAINTS IN PLACE, EXTREMITIES NOTED WITH GOOD CIRCULATION, ARMS/ HANDS ARE FIDGETING. DEFIB VEST ON WITH 3/4 BATTERY LIFE LEFT, SPARE BATTERY CHARGING AT BEDSIDE. WILL CONTINUE TO MONITOR
[2017-08-08 20:00] VITALS: BP 106/54
--- NOTE | 2017-08-08 20:20 | NUR ---
HD COMPLETED WITH 1600 ML OUT
[2017-08-08 21:30] VITALS: BP 133/65
[2017-08-08] MEDS: ATORVASTATIN 40 MG TABLET GT SCH (22:01)
[2017-08-09] VITALS: BP 133/75
[2017-08-09 04:00] VITALS: BP 123/72
--- NOTE | 2017-08-09 07:00 | NUR ---
PACKERHEAD MACHINE OPERATOR OPENING NOTES. PT RECEIVED ALERT, EYES OPEN AND INDICATING YES OR NO TO CLOSED QUESTIONING. PT WITH BI LAT SWR AT BEDSIDE BUT NOT ENGAGED AT THIS TIME. PT WITH TELE AFIB 90, ZOLL LIFE VEST INSITU WITH BATTERY CHARGED. PT VENT AND TRACH DEPENDENT, VENT PLUGGED TO RED POWER POINTS, ALARMS ENGAGED AND CONT PULSE OX AT BEDSIDE. PT WITHOUT S/S OF RESP DISTRESS AND INDICATING NO PAIN A THIS TIME. PT WITH GTUBE INTACT AND OPERATIONAL. PT WITH F/C INTACT AND OPERATIONAL WITH MINIMAL CLOUDY TRINA COLOURED URINE IN COLLECTION. PT WOUND DRESSING CLEAN, INTACT AND NAD. PT BED IN LOWEST LOCKED POSITION WITH HANDRAILSX4 AND CALL OLIVARES WITHIN REACH. BRIEFED ON TODAY'S POC AND APPEARS WITHOUT CONCERN OR COMPLAINT AT THIS TIME.
--- NOTE | 2017-08-09 07:36 | NUR ---
TELE/RN CLOSING NOTES PT WITH EYES CLOSED, AROUSABLE TO NAME. ABLE TO NOD YES/NO AND MAKE SOME NEEDS KNOWN. MECH VENT DEPENDENT, AC=15, JJ=555, FIO2=40%, PEEP=5. PT SUCTIONED PRN, THIN YELLOW SECRETIONS NOTED. A.FIB WITH HR 96. DEBBI PICC LINE PATENT AND INTACT. HD YESTERDAY WITH 1600ML OUT. ROMERO IN PLACE, DRAINING TO GRAVITY. X3 BM SOFT LIQUID BROWN. WOUND CARE PROVIDED ORDERED. TURNED/REPOSITIONED Q2H. HEELS OFFLOADED WITH HEEL PROTECTORS IN PLACE. BILATERAL SOFT WRIST RESTRAINTS OFF AT THIS TIME. PT IS QUIET AND NOT PULLING AT LINES. ENCOURAGED PT NOT TO TOUCH LINES, NODDED HEAD YES. DEFIB VEST ON, SWAPPED BATTERIES, ONE CHARGING AND OTHER WITH FULL BATTERY. BED IN LOW/LOCKED POSITION WITH CALL LIGHT IN REACH. SIDE RAILS UPX3. ENDORSED TO DAY SHIFT RN CHRISTIAN.
[2017-08-09 08:00] VITALS: BP 134/82
[2017-08-09] MEDS: AMIODARONE HCL 200 MG TABLET GT SCH (09:35)
[2017-08-09] MEDS: GABAPENTIN 300 MG CAPSULE GT SCH ×3 (09:35→16:39)
[2017-08-09] MEDS: ASCORBIC ACID 500 MG TABLET GT SCH (09:35)
[2017-08-09] MEDS: ZINC SULFATE 220 MG CAPSULE GT SCH (09:35)
[2017-08-09] MEDS: PROSOURCE / PROSTAT (PYXIS) 30 ML UDC GT SCH ×3 (09:35→16:39)
[2017-08-09] MEDS: CARVEDILOL 3.125 MG TABLET GT SCH (09:36)
[2017-08-09] MEDS: DAKINS QUARTER STRENGTH (0.125%) 480 ML BOTTLE TOP SCH (09:36)
[2017-08-09] MEDS: PANTOPRAZOLE 40 MG VIAL IV SCH ×2 (09:36→16:39)
[2017-08-09 12:00] VITALS: BP 120/68
--- NOTE | 2017-08-09 12:12 | NUR ---
WOUND CARE CONSULT WOUND CARE RECEIVED CONSULT FOR WOUNDS. WOUND CARE WILL DEFER CONSULT AND ALL TREATMENT PLANS TO SURGICAL TEAM WHO ARE CURRENTLY FOLLOWING. PATIENT WITH THOM AT 11, ALL PRESSURE ULCER PREVENTION MEASURES ARE NOTED TO BE IN PLACE AT THIS TIME. WILL SEE PRN.
--- NOTE | 2017-08-09 14:00 | NUR ---
SUPERVISOR SECURITIES VAULT NOTES. PT DTR PEDRO STANFORD CALLED FOR CONSENT TO DEBRIDEMENT WITH MD LEON, WITNESSED RNX2. WOUND CARE COMPLETED AGAIN AFTER PROCEDURE.
[2017-08-09 16:00] VITALS: BP 121/69
--- NOTE | 2017-08-09 17:34 | NUR ---
ENGINEERING TECHNOLOGIST D/C NOTES. PT PREPARED FOR D/C PER MD. PT IS ALERT, EYES OPEN AND INDICATING YES OR NO TO CLOSED QUESTIONING. PT WITH TELE AFIB 90, ZOLL LIFE VEST INSITU WITH BATTERY CHARGED FOR TRANSPORT, BACKUP BATTERY AND RADIO CONTROL CRANE OPERATOR BAGGED FOR TRANSPORT. PT WITH VENT AND TRACH AND WITHOUT S/S OF RESP DISTRESS AND NO S/S OF PAIN OR DISCOMFORT. PT G TUBE FLUSHED AND CLAMPED.ROMERO CATH TO STAY INSITU PER GLOVE TAGGER. PT WOUND DRESSINGS CLEAN AND INTACT, HEEL BOOTYS INSITU. PT WITH R UA PICCLINE REMAINS INSITU PER GLOVE TAGGER AND SL. PT ENDORSED TO [facility] AT [facility] 1445, POC, MEDS PAST AND FUTURE, PT STATUS AND NEEDS DISCUSSED AND SNF RN VERBALIZING UNDERSTANDING. ALL PERTINENT DETAILS IN [place]. PT WITH ALL BELONGINGS AND DOCUMENT SIGNED BY [id number]. EMT CREW PROVIDED WITH [facility] D/C PACKET FOR SNF RN. ALL NURSE DUTIES ATTENDED TO AND PT LEFT WITHOUT OBVIOUS CONCERN OR COMPLAINT.
[2017-09-10] MEDS ORDERED: INSU100V3 SQ (18:14)
[2017-09-10] MEDS ORDERED: FOLI0.8T23 GT (18:14)
[2017-09-10] MEDS ORDERED: MULT-447 GT (18:14)
[2017-09-10] MEDS ORDERED: AMIK250V8 IV (18:16)
[2017-10-07] MEDS ORDERED: COLI150V12 IV ×2 (10:50→10:54)
== END 2017-08-09 17:30 | DRG 981 ==
LOC: ER 16:02 → TELE 17:49
PROVIDERS: ADMIT Nurse Practitioner Acute Care; ATTEND Nurse Practitioner Acute Care
PROC: 5A1945Z Respiratory Ventilation, 24-96 Consecutive Hours (ICD-10-PCS; principal; 2017-08-06)
PROC: 0DJ08ZZ Inspection of Upper Intestinal Tract, Via Natural or Artificial Opening Endoscopic (ICD-10-PCS; 2017-08-07)
PROC: 5A1D70Z Performance of Urinary Filtration, Intermittent, Less than 6 Hours Per Day (ICD-10-PCS; 2017-08-08)
PROC: 0KBP0ZZ Excision of Left Hip Muscle, Open Approach (ICD-10-PCS; 2017-08-09)
PROC: 0KBN0ZZ Excision of Right Hip Muscle, Open Approach (ICD-10-PCS; 2017-08-09)
DX: K29.61 Other gastritis with bleeding (principal); L89.154 Pressure ulcer of sacral region, stage 4; N18.6 End stage renal disease; I50.22 Chronic systolic (congestive) heart failure; J96.10 Chronic respiratory failure, unspecified whether with hypoxia or hypercapnia; I13.2 Hypertensive heart and chronic kidney disease with heart failure and with stage 5 chronic kidney disease, or end stage renal disease; Z99.11 Dependence on respirator [ventilator] status; I42.9 Cardiomyopathy, unspecified; K29.81 Duodenitis with bleeding; T81.30XS Disruption of wound, unspecified, sequela; E11.22 Type 2 diabetes mellitus with diabetic chronic kidney disease; Z93.1 Gastrostomy status; Z93.0 Tracheostomy status; Z99.2 Dependence on renal dialysis; D63.8 Anemia in other chronic diseases classified elsewhere; I25.10 Atherosclerotic heart disease of native coronary artery without angina pectoris; Z86.74 Personal history of sudden cardiac arrest; I48.2 Chronic atrial fibrillation; K21.9 Gastro-esophageal reflux disease without esophagitis; R13.10 Dysphagia, unspecified; I25.2 Old myocardial infarction; Z87.891 Personal history of nicotine dependence; L98.8 Other specified disorders of the skin and subcutaneous tissue; Y83.9 Surgical procedure, unspecified as the cause of abnormal reaction of the patient, or of later complication, without mention of misadventure at the time of the procedure; E78.5 Hyperlipidemia, unspecified; E61.1 Iron deficiency
CPT/HCPCS: 31720; 36415; 71045-TC; 80048-TC; 80061-TC; 80076-TC; 82962-TC; 83540-TC; 83690-TC; 83735-TC; 84100-TC; 84443-TC; 85025-TC; 85027-TC; 85730-TC; 86850-TC; 87081-TC; 90935-TC; 94002-TC; 94003-TC; 94760-TC; A4216; A4606; A4623; A6253; A6402; A6403; A7526; C9113; J0610; J0885; J2405; J3480; J3490; J7040; Z7610

== ENCOUNTER 2017-09-25 07:16 | Inpatient (IN) | payer MEDICARE ==
[~2017-09-25] VITALS: Ht 165.1 cm; Wt 107.0 kg
[2017-09-25] VITALS (11 sets, daily range): BP systolic 136–160; BP diastolic 62–113
[~2017-09-25 07:16] MED LIST changes: +ASCO250T7 GT; -ASCO500T9 PO; +BLOO-668 IN; -CADE40GE2 TP; -CEFT1FRO2 IV; +FOLI0.8T23 GT; -INSU100V27 SQ; +INSU100V3 SQ; -INSU100V7 SQ; +MULT-447 GT; -MULT-447 PO; -NAPR-1009 GT; +NUT.237L67 GT; +OMEP20CA10 GT; -PANT40TA2 PO; -ZINC220C8 GT
--- NOTE | 2017-09-25 07:40 | NUR ---
bib ambulance; per ems, sent by pmd for abnormal labs (low h&h), pt was put on monitor, NAD noted, VSS, RT and MD at .
--- NOTE | 2017-09-25 07:42 | NUR ---
Vent Setting - AC, TV 550, resp 20, peep 40%.
--- NOTE | 2017-09-25 07:49 | NUR ---
RT NOTE PATIENT RECEIVED ON VENT SETTINGS OF AC 20, 550, 40%, +5. PATIENT TRACHED WITH SHILEY 8 DCT CUFFED. AMBU BAG @ HOB. ALARMS ON AND AUDIBLE. VENT PLUGGED INTO RED OUTLET. SX DONE, TRACH SECURED AND PATENT. SMALL THICK WHITE SECRETIONS NOTED. NO DISTRESS NOTED. WILL CONTINUE TO MONITOR. SP02 @ 99%, HR 66.
[2017-09-25 07:51] LABS: BASOPHILS % (AUTO) 0.1 % (0.0-2.0); LYMPHOCYTES # (AUTO) 1.6 /CMM (0.8-4.8); LYMPHOCYTES % (AUTO) 12.5 % (20.0-44.0); MEAN CORPUSCULAR HEMOGLOBIN 29 PG (26.0-33.0); MEAN CORPUSCULAR HGB CONC 32 g/dl (31.0-36.0); MEAN CORPUSCULAR VOLUME 92 fL (80-96); MONOCYTES # (AUTO) 0.8 /CMM (0.1-1.30); MONOCYTES % (AUTO) 6.3 % (2.0-12.0); NEUTROPHILS # (AUTO) 9.9 /CMM (1.8-8.9); NEUTROPHILS % (AUTO) 79.1 % (43.0-81.0); PLATELET COUNT (AUTO) 251 /CMM (150-450); RED BLOOD CELL COUNT(AUTO) 2.16 MIL/uL (4.5-6.0); WHITE BLOOD COUNT (AUTO) 12.5 K/uL (4.3-11.0)
[2017-09-25 08:01] LABS: HEMATOCRIT 20 % (39-51); HEMOGLOBIN 6.4 g/dL (13.5-17.5)
[2017-09-25 08:07] LABS: BILIRUBIN,DIRECT 0.2 mg/dL (0.0-0.2); BILIRUBIN,TOTAL 0.4 mg/dL (0.2-1.0); CALCIUM, SERUM 7.6 mg/dL (8.5-10.1); CREATININE 2.7 mg/dL (0.6-1.3); POTASSIUM 3.3 mmol/L (3.5-5.1); TOTAL PROTEIN, SERUM 6.1 g/dL (6.4-8.2)
[2017-09-25 08:09] LABS: TROPONIN I 0.043 ng/mL (0.00-0.056)
[2017-09-25 08:11] LABS: INR 1.03 (0.87-1.13)
[2017-09-25] MEDS ORDERED: ACID1TAB12 GT (08:31)
[2017-09-25] MEDS ORDERED: ONDA4TAB5 GT (08:31)
[2017-09-25] MEDS ORDERED: PANT40SU2 GT (08:31)
[2017-09-25] MEDS ORDERED: MAGN400O6 GT (08:31)
[2017-09-25] MEDS ORDERED: MAG30ORA GT (08:31)
[2017-09-25] MEDS ORDERED: ZOLP5TAB8 GT (08:31)
[2017-09-25] MEDS ORDERED: SULF10VI2 IV (08:31)
[2017-09-25] MEDS ORDERED: ALLA266C2 TP (08:31)
[2017-09-25 09:26] LABS: EOSINOPHILS % (MANUAL) 4 % (0-4); LYMPHOCYTES % (MANUAL) 7 % (16-48); MONOCYTES % (MANUAL) 6 % (0-11.0); NEUTROPHILS % (MANUAL) 83 (42-76)
[2017-09-25] MEDS ORDERED: Z GUARD REMEDY 2 OZ OINT TP PRN (10:30)
[2017-09-25] MEDS ORDERED: ZOLPIDEM TARTRATE 5 MG TABLET GT PRN (10:30)
[2017-09-25] MEDS ORDERED: MAG HYDROX/AL HYDROX/SIMETH 30 ML UDC PO PRN (10:30)
[2017-09-25] MEDS ORDERED: ONDANSETRON HCL/PF 4 MG/2 ML VIAL IVP PRN (10:30)
[2017-09-25] MEDS ORDERED: MAGNESIUM HYDROXIDE 30 ML UDC GT PRN (10:30)
--- NOTE | 2017-09-25 10:39 | NUR ---
REPORT GIVEN TO ZELDA RN. PT AWAITING TRANSFER TO FLOOR.
[2017-09-25] MEDS ORDERED: ACETAMINOPHEN 325 MG TABLET MC PRN (11:00)
[2017-09-25] MEDS ORDERED: ACETAMINOPHEN 650 MG/20.3 ML UDC GT PRN (11:00)
[2017-09-25] MEDS ORDERED: MAG HYDROX/AL HYDROX/SIMETH 30 ML UDC GT PRN (11:00)
--- NOTE | 2017-09-25 11:13 | NUR ---
RT NOTE PATIENT TRANSFERRED FROM ER TO ROOM 319-1. VENT PLUGGED INTO RED OUTLET. ALARMS ON AND AUDIBLE. SX DONE, TRACH SECURED AND PATENT. NO DISTRESS NOTED. PATIENT STABLE.
--- NOTE | 2017-09-25 11:55 | NUR ---
FULFILLMENT REPRESENTATIVEREGISTERED VETERINARY TECHNICIAN NOTES RECEIVED PT FROM ER NURSE IN STABLE CONDITION. PT ORIENTED TO SELF. HE OPENS HIS EYES SPONTANEOUSLY AND IS RESPONSIVE TO NAME, TACTILE STIMULI, AND MILD PAIN. PT IS TRACH AND VENT DEPENDENT. VENTILATOR SETTINGS INCLUDE AC 20, TV 550, PEEP 5, FI02 40%. VITALS STABLE AT THIS TIME. PT WILL BE ADMITTED FRO ANEMIA. ORDERS OBTAINED TO TRANSFUSED 1UNIT OF PRBC ONCE CONSENT IS OBTAINED FROM PT'S DAUGHTER. PT'S PERSONAL EXTERNAL DEFIBRILLATOR NOTED ALONG WITH IPHONE AND RESTAURANT LEAD. PT IS CURRENTLY SR ON THE TELE MONITOR WITH A HR OF 65. RIGHT UPPER ARM PICC NOTED TO BE PATENT AND INTACT. NS INFUSION INITIATED. PT TOLERATED INFUSION WELL. SEIZURE PRECAUTIONS INITIATED PT HAS A HX OF EPILEPSY. GTUBE NOTED TO BE PATENT AND INTACT, PLACEMENT VERIFIED VIA AUSCULTATION. RECTAL TUBE NOTED TO BE DRAINING BROWN, LIQUID STOOL. TUBE APPEARS TO BE INTACT. BED IN LOW LOCKED POSITION, SIDE RAILS UP X3, CALL LIGHT WITHIN REACH. WILL CONTINUE TO MONITOR.
[2017-09-25] MEDS: GABAPENTIN 300 MG CAPSULE GT SCH ×2 (13:46→18:50)
[2017-09-25] MEDS: ACIDOPHILUS/BULGARICUS 1 EACH TAB.CHEW GT SCH ×2 (13:46→18:50)
[2017-09-25] MEDS: NYSTATIN/TRIAMCIN CREAM 15 GM TUBE TP SCH (13:48)
[2017-09-25] MEDS: DAKINS QUARTER STRENGTH (0.125%) 480 ML BOTTLE TOP SCH (13:48)
--- NOTE | 2017-09-25 17:50 | NUR ---
PATIENT WAS RECEIVED ON CONTINUOS VENT SUPPORT ON NOTED VENT SETTINGS, TOLERATING VENT SETTINGS WELL. PT IS AWAKE AND RESPONSIVE TO TACTILE STIMULI . SUCTIONED PATIENT WITH A MODERATE AMOUNT OF THIN PALE YELLOW SECRETIONS. VENT ALARMS SET AND AUDIBLE. TRACH IS PATENT AND SECURED. CUFF CHECKED VIA HELPER ELECTRICAL, VENT PLUGGED INTO RED OUTLET. AMBU BAG AT BEDSIDE. WILL CONTINUE TO MONITOR. Addendum: 09/25/17 at 1932 by YOLANDA OAKES RT Amended: Links added.
--- NOTE | 2017-09-25 18:11 | NUR ---
JACKER FEEDER NOTES: S/P 1 UNIT PRBC TRANSFUSION PT S/P BLOOD TRANSFUSION WITH NO ADVERSE REACTIONS. VITALS TABLE. BREATHING REMAINS EVEN AND UNLABORED. H/H ORDERED FOR POST TRANSFUSION RESULTS
[2017-09-25] MEDS ORDERED: DEXTROSE 50%-WATER 50 ML DISP.SYRIN IV PRN (18:30)
--- NOTE | 2017-09-25 18:40 | NUR ---
ROAD BOSS CLOSING NOTES PT REMAINS STABLE. VITALS STABLE POST TRANSFUSION. GTUBE FEEDING INITIATED. PT TOLERATING FEEDING WELL. PICC LINE REMAINS PATENT AND INTACT. PT TOLERATING NS INFUSION WELL. HE WAS REPOSITIONED AND TURNED Q2HRS PER HOSPITAL PROTOCOL. FLEXI SEAL REMAINS INTACT. WOUND CARE RENDERED ORDERED. DRESSINGS REMAIN CLEAN, DRY, AND INTACT. SAFETY MEASURES REMAIN IN PLACE. WILL ENDORSE TO NIGHTSHIFT NURSE FOR CHRISTIAN
[2017-09-25] MEDS: NEPRO 1,000 ML BOTTLE GT PRN (18:50)
[2017-09-25 19:14] LABS: HEMOGLOBIN 7.8 g/dL (13.5-17.5)
--- NOTE | 2017-09-25 19:30 | NUR ---
RN NOTES PT RESTING IN BED. ONLY RESPONDS TO NAME. NO APPARENT S/S OF PAIN, DISTRESS, OR SOB AT THIS TIME. PT IS VENT/TRACH. PT TELE MONITORED AND HAS AN EXTERNAL DEFIBRILLATOR. EXTRA BATTERY CHARGING AT THIS TIME. PT IS SP 1 UNIT OF PRBCS. WILL CONTINUE TO MONITOR H/H. PT HAS GTUBE FEEDING RUNNING NEPRO @ 65ML/HR. PT HAS A RIGHT UPPER ARM PICC RUNNING NS @75ML/HR. PT ON CONTINUOUS PULSE OX. SAFETY PRECAUTIONS IN PLACE, BED IN LOWEST LOCKED POSITION, X2 SIDE RAILS UP, AND CALL LIGHT WITHIN REACH. WILL CONTINUE TO MONITOR.
--- NOTE | 2017-09-25 19:38 | NUR ---
Received pt on ventilator support, no sob or distress noted at this time, vent alarm is on and audible, ventilator is plugged into red outlet, ambu bag at bedside. Addendum: 09/25/17 at 1940 by TELLY WING RT Amended: Links added.
[2017-09-25] MEDS: ATORVASTATIN 40 MG TABLET GT SCH (21:15)
[2017-09-25] MEDS: CARVEDILOL 3.125 MG TABLET GT SCH (21:15)
[2017-09-25] MEDS: PANTOPRAZOLE 40 MG/PACK PACK GT SCH (21:15)
--- NOTE | 2017-09-25 21:40 | NUR ---
RN NOTES INFORMED MICHELLE OLIVEROS OF PATIENTS POTASSIUM LEVEL OF 3.3. [place] BAND WRAPPER MICHELLE ORDERED 40MEQ KDUR. WILL ADMINISTER AND CONTINUE MONITORING PATIENT.
[2017-09-25] MEDS ORDERED: POTASSIUM CHLORIDE 20 MEQ TAB.PRT.SR PO ONE (22:00)
[2017-09-25] MEDS: BLOOD SUGAR DIAGNOSTIC 1 EACH STRIP IN SCH (23:01)
[2017-09-26] VITALS: BP 124/73
[2017-09-26] MEDS: NYSTATIN/TRIAMCIN CREAM 15 GM TUBE TP SCH ×2 (00:32→12:31)
[2017-09-26] MEDS: IV NS 0.9% 1,000 ML IV PRN ×2 (03:25→16:44)
[2017-09-26 04:11] VITALS: BP 128/70
[2017-09-26] MEDS: BLOOD SUGAR DIAGNOSTIC 1 EACH STRIP IN SCH ×3 (06:01→17:46)
[2017-09-26] MEDS: INSULIN REGULAR, HUMAN 100 UNIT/ML 3 ML VIAL SQ PRN ×3 (06:03→17:46)
--- NOTE | 2017-09-26 07:02 | NUR ---
RN NOTES PT RESTING IN BED. ONLY RESPONDS TO NAME. NO APPARENT S/S OF PAIN, DISTRESS, OR SOB AT THIS TIME. PT IS VENT/TRACH. PT TELE MONITORED AND HAS AN EXTERNAL DEFIBRILLATOR. BATTERY SWITCHED AND EXTRA BATTERY CHARGING AT THIS TIME. PT IS SP 1 UNIT OF PRBCS. PT HAS GTUBE FEEDING RUNNING NEPRO @ 65ML/HR. PT TOLERATING FEEDING WELL. PT HAS A RIGHT UPPER ARM PICC RUNNING NS @75ML/HR. PT ON CONTINUOUS PULSE OX. SAFETY PRECAUTIONS IN PLACE, BED IN LOWEST LOCKED POSITION, X2 SIDE RAILS UP, AND CALL LIGHT WITHIN REACH. WILL ENDORSE TO DAY SHIFT NURSE FOR CONTINUITY OF CARE.
[2017-09-26 07:32] LABS: BASOPHILS % (AUTO) 0.3 % (0.0-2.0); HEMATOCRIT 25 % (39-51); LYMPHOCYTES # (AUTO) 1.4 /CMM (0.8-4.8); LYMPHOCYTES % (AUTO) 10.6 % (20.0-44.0); MEAN CORPUSCULAR HEMOGLOBIN 30 PG (26.0-33.0); MEAN CORPUSCULAR HGB CONC 33 g/dl (31.0-36.0); MEAN CORPUSCULAR VOLUME 91 fL (80-96); MONOCYTES # (AUTO) 0.8 /CMM (0.1-1.30); MONOCYTES % (AUTO) 6.1 % (2.0-12.0); NEUTROPHILS # (AUTO) 11.3 /CMM (1.8-8.9); PLATELET COUNT (AUTO) 258 /CMM (150-450); RDW COEFFICIENT OF VARIATION 16.4 (11.5-15.0); RED BLOOD CELL COUNT(AUTO) 2.72 MIL/uL (4.5-6.0); WHITE BLOOD COUNT (AUTO) 13.6 K/uL (4.3-11.0)
[2017-09-26 07:44] LABS: CALCIUM, SERUM 7.4 mg/dL (8.5-10.1); CREATININE 2.8 mg/dL (0.6-1.3); MAGNESIUM 2.1 mg/dL (1.8-2.4); POTASSIUM 3.6 mmol/L (3.5-5.1)
[2017-09-26 08:00] VITALS: BP 125/62
[2017-09-26] MEDS: PANTOPRAZOLE 40 MG/PACK PACK GT SCH ×2 (08:55→21:50)
[2017-09-26] MEDS: ACIDOPHILUS/BULGARICUS 1 EACH TAB.CHEW GT SCH ×3 (08:55→16:39)
[2017-09-26] MEDS: AMIODARONE HCL 200 MG TABLET GT SCH (08:56)
[2017-09-26] MEDS: CARVEDILOL 3.125 MG TABLET GT SCH ×2 (08:56→21:50)
[2017-09-26] MEDS: GABAPENTIN 300 MG CAPSULE GT SCH ×3 (08:56→16:39)
--- NOTE | 2017-09-26 08:58 | NUR ---
CRANKSHAFT GRINDER NOTES PATIENT IN BED, EYES OPEN, ABLE TO MOUTH WORDS. TRACH INTACT, ON VENT. SINUS RHYTHM WITH BBB HR 68, CONTINUOUS PULSE OX. IN PLACE. PRESENCE OF GTUBE, PATIENT IS NPO, ON GUTBE FEEDING AT 65ML/HR. RECTAL TUBE IN PLACE WITH STOOL BROWN AND LIQUID. KCI LOW AIR LOSS MATTRESS IN PLACE. WILL CONT TO MONITOR.
[2017-09-26] MEDS: DAKINS QUARTER STRENGTH (0.125%) 480 ML BOTTLE TOP SCH (09:09)
[2017-09-26 16:00] VITALS: BP 116/72
[2017-09-26] MEDS ORDERED: LIDOCAINE 1%-EPI 1:100,000 20 ML VIAL TP ONE (18:00)
[2017-09-26] MEDS ORDERED: SILVER NITRATE APPLICATOR 1 EA BOX TP ONE (18:00)
[2017-09-26] MEDS: NEPRO 1,000 ML BOTTLE GT PRN (18:44)
--- NOTE | 2017-09-26 18:59 | NUR ---
[employer] POLICE LIEUTENANT closing notes Patient in bed, trach intact, vent setting remains the same. Sinus Rhythm with BBB HR 66, continuous pulse ox at the bedside. Dressing changed to wounds, [employer]CI low air loss mattress in place. Rectal tube intact, with stool in the bag, collection bag was changed. Minimal gastric residual 5cc, on gtube feeding Nepro at 65ml/hr x16 hours, tolerating well. Post dialysis treatment today with 2L fluid output. Patient to have wound debridement tomorrow by Dr. Boateng, consent was signed. Maintained fall, aspiration, seizure precaution. Will endorse to oncoming RN
[2017-09-26 20:00] VITALS: BP 130/65
--- NOTE | 2017-09-26 20:10 | NUR ---
PILE DRIVING SETTER OPENING NOTE Patient was seen lying in bed AAOx1, patient is nonverbal due to trach but is able to nod his head 'yes' and 'no' to answer questions. Telemonitor shows NSR with BBB, HR in the 70s. FlexiSeal stool collection bag is draining brown-yellow stool. Nepro feed is running at 65ml/hr through the G-tube; site is clean, dry, and intact. NS at 75ml/hr is running through the DEBBI PICC line with no signs of leaking, infiltration, or redness. Bilateral heel dressings cover both feet and are clean, dry, and intact. Bed is in the low/locked position, high Fowlers, two side rails up, and call blackwell within reach. Patient shows no signs of acute distress. Will continue to monitor.
[2017-09-26] MEDS: ATORVASTATIN 40 MG TABLET GT SCH (21:50)
[2017-09-27] VITALS (22 sets, daily range): BP systolic 82–148; BP diastolic 25–86
[2017-09-27] MEDS: NYSTATIN/TRIAMCIN CREAM 15 GM TUBE TP SCH ×3 (00:34→23:48)
[2017-09-27] MEDS: BLOOD SUGAR DIAGNOSTIC 1 EACH STRIP IN SCH ×5 (00:44→23:46)
--- NOTE | 2017-09-27 01:30 | NUR ---
ADMISSIONS OFFICER NOTE - wound care Wound care provided to the sacrum, right hip, bilateral heels, and groin/scrotum as ordered. Sacrum and right hip cleansed and packed with Dakins-moist gauze, then covered with dry dressing. Heels offloaded. Patient turned and repositioned q2h. Pictures taken of wounds per hospital protocol.
[2017-09-27] MEDS: IV NS 0.9% 1,000 ML IV PRN (05:26)
[2017-09-27] MEDS: INSULIN REGULAR, HUMAN 100 UNIT/ML 3 ML VIAL SQ PRN ×2 (05:37→17:16)
[2017-09-27 06:58] LABS: BASOPHILS # (AUTO) 0.1 /CMM (0.0-0.2); BASOPHILS % (AUTO) 0.5 % (0.0-2.0); HEMATOCRIT 25 % (39-51); LYMPHOCYTES # (AUTO) 1.3 /CMM (0.8-4.8); LYMPHOCYTES % (AUTO) 9.2 % (20.0-44.0); MEAN CORPUSCULAR HEMOGLOBIN 30 PG (26.0-33.0); MEAN CORPUSCULAR HGB CONC 33 g/dl (31.0-36.0); MEAN CORPUSCULAR VOLUME 91 fL (80-96); MONOCYTES # (AUTO) 0.8 /CMM (0.1-1.30); MONOCYTES % (AUTO) 5.4 % (2.0-12.0); NEUTROPHILS # (AUTO) 12.4 /CMM (1.8-8.9); NEUTROPHILS % (AUTO) 84.9 % (43.0-81.0); PLATELET COUNT (AUTO) 255 /CMM (150-450); RDW COEFFICIENT OF VARIATION 16.3 (11.5-15.0); WHITE BLOOD COUNT (AUTO) 14.6 K/uL (4.3-11.0)
--- NOTE | 2017-09-27 07:01 | NUR ---
OVERHEAD CRANE OPERATOR CLOSING NOTE Patient is lying bed AOx1, breathing with a trach and mechanical ventilator showing no signs of acute distress. Nepro G-tube feed is running at 65ml/hr; patient has tolerated it well with only 5ml residual when aspirated. NS at 75ml/hr is running through the DEBBI PICC line with no signs of leaking, infiltration, or redness. FlexiSeal stool collection pouch drained 500ml out of liquid brown stool. Wound care completed this shift as ordered. Trach care completed and patient suctioned as needed. Patient turned and repositioned q2h. All patient needs attended to this shift. Patient care is endorsed to day shift nurse.
[2017-09-27 07:09] LABS: CALCIUM, SERUM 7.4 mg/dL (8.5-10.1); CREATININE 2.5 mg/dL (0.6-1.3); MAGNESIUM 2.1 mg/dL (1.8-2.4); PHOSPHORUS 2.5 mg/dL (2.5-4.9); POTASSIUM 3.5 mmol/L (3.5-5.1)
--- NOTE | 2017-09-27 08:00 | NUR ---
FUNERAL SERVICE LICENSEE NOTES PATIENT IN BED NO SOB OR ACUTE DISTRESS NOTED. PATIENT VENT TRACH DEPENDENT. VENT SETTING NOTED. PATIENT OPENS EYES WHEN CALLED NAME. CENTRAL LINE ON RIGHT UPPER ARM INTACT PATENT RUNNING PRESCRIBED FLUIDS. FLEXY SEAL INTACT PATENT. BED IN LOW LOCKED POSITION. CALL LIGHT WITHIN REACH. WILL CONTINUE TO MONITOR.
[2017-09-27] MEDS: GABAPENTIN 300 MG CAPSULE GT SCH ×3 (08:21→17:15)
[2017-09-27] MEDS: PANTOPRAZOLE 40 MG/PACK PACK GT SCH ×2 (08:21→22:37)
[2017-09-27] MEDS: CARVEDILOL 3.125 MG TABLET GT SCH ×2 (08:22→21:00)
[2017-09-27] MEDS: ACIDOPHILUS/BULGARICUS 1 EACH TAB.CHEW GT SCH ×3 (08:22→17:15)
[2017-09-27] MEDS: AMIODARONE HCL 200 MG TABLET GT SCH (08:22)
[2017-09-27] MEDS: DAKINS QUARTER STRENGTH (0.125%) 480 ML BOTTLE TOP SCH (08:23)
--- NOTE | 2017-09-27 08:32 | NUR ---
RT RECD PT TRACHD INTACT AND SECURED ON MECH VENT BRIGHT ORDERED SETTINGS. ALARMS ON AND AUDIBLE VENT PLUGGED IN RED OUTLET. SX THICK YELLOW MODERATE SECRETIONS NO RESP DISTRESS NOTED ATT WILL CONTINUE TO MONITOR
--- NOTE | 2017-09-27 09:30 | NUR ---
AFTERSCHOOL BABYSITTER NOTES PATIENT CENTRAL LINE DRESSING CHANGED FOLLOWING ASEPTIC TECHNIC. PATIENT TOLERATED PROCEDURE .
[2017-09-27] MEDS ORDERED: NEPRO 1,000 ML BOTTLE GT PRN (13:30)
[2017-09-27] MEDS: NEPRO 1,000 ML BOTTLE GT PRN ×2 (14:38→22:38)
--- NOTE | 2017-09-27 15:00 | NUR ---
PARI MUTUAL TICKET CHECKER NOTES DR. FUCHS PLASTIC SURGEON PERFORMED SACRAL WOUND DEBRIDEMENT PATIENT TOLERATED PROCEDURE WILL CONTINUE TO MONITOR.
--- NOTE | 2017-09-27 15:30 | NUR ---
TELECOMMUNICATIONS PROFESSIONAL NOTES PATIENT NOTED WITH MODERATE AMOUNT OF BLEEDING, SATURATING PACKING IN WOUND, ABDOMINAL PADS AND CHUCKS. VS WNL. BP OF 116/74 PULSE 73. PATIENT RESPONSIVE OPENS EYES TO NAME. DR. FUCHS MAD AWARE STATES WILL BE AT PATIENTS BEDSIDE FOR PRESSURE DRESSING AND ASSESSMENT.
--- NOTE | 2017-09-27 15:40 | NUR ---
UPSTREAM BIOMANUFACTURING TECHNICIAN NOTES DR. FUCHS AT PATIENTS BEDSIDE DRESSING CHANGED PRESSURE DRESSING APPLIED. WILL CONTINUE TO MONITOR.
--- NOTE | 2017-09-27 17:55 | NUR ---
MAGAZINE WORKER NOTES PATIENT NOTES WITH COPIOUS AMOUNT OF BLEEDING FROM SACRAL WOUND. PATIENT RESPONSIVE TO TOUCH. VS 84/55 PULSE 71 RESPIRATION: [address] VEE MADE AWARE STATES WILL PERFORM EMERGENCE CAUTERIZATION AT BEDSIDE. AND TO CONTINUE CLOSE MONITORING.
--- NOTE | 2017-09-27 18:00 | NUR ---
TREE TAPPING LABORER NOTES DR. BOWDEN MADE AWARE OF PATIENTS STATUS, AND THE AMOUNT OF ACTIVE BLEEDING. PATIENTS VS OF 84/55 PULSE 71 RESP. 20 ORDER OBTAINED FOR 1 UNIT OF PRBC AND 1 UNITS OF FFP. TRANSFER PATIENT TO ICU FOR CLOSE MONITORING. NURSING MAINTENANCE DEPARTMENT TECHNICIAN MADE AWARE WAITING FOR BED.
[2017-09-27] MEDS ORDERED: CELLULOSE,OXIDIZED 1 PKT EACH MC ONE (18:30)
--- NOTE | 2017-09-27 18:40 | NUR ---
INSURANCE PLAN SPECIALIST NOTES PATIENT TRANSFERRED TO ICU REPORT GIVEN TO DENTON AT BEDSIDE.
--- NOTE | 2017-09-27 19:00 | NUR ---
ICU/RN: Bedside report given by 3W RN Jeannine to day and PM rn for CHRISTIAN. Dr Tubbs [plastic surgery consult] performing emergency bedside cauterization of sacral wound s/p debridement. income tax administrator at bedside assisting with procedure.
--- NOTE | 2017-09-27 19:30 | NUR ---
MANUFACTURING OPERATIONS MANAGER INITIAL NOTES RECEIVED PATIENT IN BED, DR FUCHS AND DAY SHIFT CHARGE NURSE AT BEDSIDE FROM CAUTERIZATION OF SACRAL WOUND, PATIENT TOLERATED PROCEDURE, BLEEDING STOPPED AT THIS TIME. TRACH MIDLINE AND INTACT, ON MECHANICAL VENTILATOR AT PRESCRIBED SETTINGS, TOLERATING WELL, FREE FROM ANY S/S OF RESPIRATORY DISTRESS. DEBBI PICC PATENT AND INTACT FLUSHED WITH NS, WILL INITIATE IVF. GT PATENT AND INTACT, WILL INITIATE TUBE FEEDING. PATIENT WITH TRANSFUSION ODERS: 1 UNIT PRBC AND 1 UNIT FFP. WILL FOLLOW UP WITH BLOODBANK AND TRANSFUSE WHEN BLOOD PRODUCTS READY. CALL LIGHT LEFT WITHIN EASY REACH, BED IN LOWEST AND LOCKED POSITION. WILL CONTINUE TO CLOSELY MONITOR
--- NOTE | 2017-09-27 20:30 | NUR ---
RN NOTES BLOOD TRANSFUSION INITIATED, TOLERATING WELL SO FAR, WILL MONITOR CLOSELY
[2017-09-27 20:33] LABS: BASOPHILS # (AUTO) 0.1 /CMM (0.0-0.2); BASOPHILS % (AUTO) 0.3 % (0.0-2.0); EOSINOPHILS % (AUTO) 1.5 % (0.0-6.0); LYMPHOCYTES # (AUTO) 1.8 /CMM (0.8-4.8); LYMPHOCYTES % (AUTO) 9.6 % (20.0-44.0); MEAN CORPUSCULAR HEMOGLOBIN 30 PG (26.0-33.0); MEAN CORPUSCULAR HGB CONC 34 g/dl (31.0-36.0); MEAN CORPUSCULAR VOLUME 89 fL (80-96); MONOCYTES # (AUTO) 1.1 /CMM (0.1-1.30); MONOCYTES % (AUTO) 5.9 % (2.0-12.0); NEUTROPHILS # (AUTO) 15.3 /CMM (1.8-8.9); NEUTROPHILS % (AUTO) 82.7 % (43.0-81.0); PLATELET COUNT (AUTO) 296 /CMM (150-450); RDW COEFFICIENT OF VARIATION 15.6 (11.5-15.0); WHITE BLOOD COUNT (AUTO) 18.6 K/uL (4.3-11.0)
[2017-09-27 20:46] LABS: HEMATOCRIT 19 % (39-51); HEMOGLOBIN 6.3 g/dL (13.5-17.5)
[2017-09-27] MEDS: ATORVASTATIN 40 MG TABLET GT SCH (22:37)
[2017-09-28] VITALS (48 sets, daily range): BP systolic 90–153; BP diastolic 48–76
[2017-09-28 00:31] LABS: BAND % (MANUAL) 5 % (0.0-5.0); LYMPHOCYTES % (MANUAL) 3 % (16-48); MONOCYTES % (MANUAL) 2 % (0-11.0); NEUTROPHILS % (MANUAL) 90 (42-76)
[2017-09-28] MEDS: IV NS 0.9% 1,000 ML IV PRN ×2 (01:00→14:50)
--- NOTE | 2017-09-28 02:00 | NUR ---
RN NOTES PRBC TRANSFUSION X1 COMPLETED, FFP X1 COMPLETED. WILL CONTINUE TO CLOSELY MONITOR
[2017-09-28 04:10] LABS: CALCIUM, SERUM 7.1 mg/dL (8.5-10.1); CREATININE 2.6 mg/dL (0.6-1.3); MAGNESIUM 1.8 mg/dL (1.8-2.4); PHOSPHORUS 3.3 mg/dL (2.5-4.9); POTASSIUM 3.5 mmol/L (3.5-5.1)
--- NOTE | 2017-09-28 04:30 | NUR ---
RN NOTES RECEIVED CALL FROM LAB REGARDING H/H LEVEL OF 6.4. MICHELLE OLIVEROS FURNITURE SERVICER MADE AWARE, WITH ORDER FOR 1 ADDITIONAL UNIT OF PRBCs TO BE ADMINISTERED.
[2017-09-28 04:54] LABS: BASOPHILS # (AUTO) 0.1 /CMM (0.0-0.2); BASOPHILS % (AUTO) 0.5 % (0.0-2.0); EOSINOPHILS % (AUTO) 0.8 % (0.0-6.0); LYMPHOCYTES # (AUTO) 1.6 /CMM (0.8-4.8); LYMPHOCYTES % (AUTO) 10.3 % (20.0-44.0); MEAN CORPUSCULAR HEMOGLOBIN 29 PG (26.0-33.0); MEAN CORPUSCULAR HGB CONC 33 g/dl (31.0-36.0); MEAN CORPUSCULAR VOLUME 90 fL (80-96); MONOCYTES # (AUTO) 0.9 /CMM (0.1-1.30); MONOCYTES % (AUTO) 5.7 % (2.0-12.0); NEUTROPHILS # (AUTO) 12.5 /CMM (1.8-8.9); NEUTROPHILS % (AUTO) 82.7 % (43.0-81.0); PLATELET COUNT (AUTO) 248 /CMM (150-450); RDW COEFFICIENT OF VARIATION 16.8 (11.5-15.0); RED BLOOD CELL COUNT(AUTO) 2.16 MIL/uL (4.5-6.0); WHITE BLOOD COUNT (AUTO) 15.1 K/uL (4.3-11.0)
[2017-09-28 05:01] LABS: HEMATOCRIT 19 % (39-51); HEMOGLOBIN 6.4 g/dL (13.5-17.5)
[2017-09-28] MEDS: BLOOD SUGAR DIAGNOSTIC 1 EACH STRIP IN SCH ×3 (06:48→18:10)
[2017-09-28] MEDS: INSULIN REGULAR, HUMAN 100 UNIT/ML 3 ML VIAL SQ PRN (06:50)
--- NOTE | 2017-09-28 07:00 | NUR ---
HR COORDINATOR CLOSING NOTES PATIENT RESTING IN BED, APPEARS COMFORTABLE. ALL WOUND CARE RENDERED PRESCRIBED. 1 UNIT OF PRBCs TO BE INFUSED. WILL ENDORSE THE PATIENT TO THE AM SHIFT NURSE FOR CONTINUITY OF CARE
--- NOTE | 2017-09-28 07:45 | NUR ---
ICU/RN: Pt received in bed, vent/trach, tolerating current settings, no distress noted. No active bleeding noted. Awaiting 1U PRBC for H/H 6.06/10. External defibrillator charged and attached to pt. VSS. Will cont to monitor pt.
[2017-09-28] MEDS ORDERED: EPOETIN ALFA (10,000 UNIT) 10,000 UNIT/ML VIAL SQ ONE (08:00)
[2017-09-28] MEDS: DAKINS QUARTER STRENGTH (0.125%) 480 ML BOTTLE TOP SCH (08:40)
[2017-09-28] MEDS: AMIODARONE HCL 200 MG TABLET GT SCH (08:41)
[2017-09-28] MEDS: PANTOPRAZOLE 40 MG/PACK PACK GT SCH (08:41)
[2017-09-28] MEDS: ACIDOPHILUS/BULGARICUS 1 EACH TAB.CHEW GT SCH ×3 (08:41→16:39)
[2017-09-28] MEDS: HYDROGEL DRESSING 90 GM TUBE TP SCH (08:41)
[2017-09-28] MEDS: GABAPENTIN 300 MG CAPSULE GT SCH ×3 (08:41→16:39)
[2017-09-28] MEDS: CARVEDILOL 3.125 MG TABLET GT SCH ×2 (08:42→20:07)
--- NOTE | 2017-09-28 09:30 | NUR ---
ICU/RN: Dr De Luna rounds; updated on pt status. Informed of pt transfer to ICU. Pt for HD today; per Dr DeL una, ok to give blood transfusion with HD.
[2017-09-28] MEDS: Z GUARD REMEDY 2 OZ OINT TP PRN (13:14)
[2017-09-28] MEDS: NYSTATIN/TRIAMCIN CREAM 15 GM TUBE TP SCH (13:14)
--- NOTE | 2017-09-28 14:30 | NUR ---
ICU/RN: 1U PRBC transfused during HD; no adverse reactions noted, pt tolerated well.
--- NOTE | 2017-09-28 15:01 | NUR ---
RT END OF THE SHIFT REPORT' PT 67 Y OLD MALE RECEIVED @0700 AM TRACHED ARTUR # 8 ON MECHANICAL VENT. TOLERATING VENT SETTINGS. B/S RALES, SX'D FOR MODERATE AMT OF THICK YELLOW SECRETIONS. VENT ALARMS SET AND AUDIBLE. AMBU BAG AT BEDSIDE. EQUAL CHEST RISE NOTED, CUFF GEOLOGICAL SPECIALIST DONE. VENT PLUGGED INTO RED OUTLET. PT. REMAIN STABLE NO CHANGES. PER WILL CONTINUE TO MONITOR. REPORT WILL PASS TO PM SHIFT. Addendum: 09/28/17 at 1503 by HARPER TSAI RT Amended: Links added.
--- NOTE | 2017-09-28 15:15 | NUR ---
ICU/RN: Bed bath, wound care rendered. No active bleeding noted to sacral wound. Dressing changed as ordered. Pt tolerated well.
[2017-09-28] MEDS: NEPRO 1,000 ML BOTTLE GT PRN (16:39)
--- NOTE | 2017-09-28 17:00 | NUR ---
ICU/RN: Dr Marks notified of pt vomiting 100c bright red blood, recent dx of upper GI bleed. GI consult ordered.
--- NOTE | 2017-09-28 17:28 | NUR ---
ICU/RN: Dr Bolaños updated on pt status. New orders noted and carried out. MD to see pt in am.
--- NOTE | 2017-09-28 19:15 | NUR ---
ICU/RN: Pt resting in bed comfortably, no s/s pain or distress IVF infusing well. Dressings C/D/I. External defibrillator battery charged, functional. Flexiseal to gravity. Bedside care given to pm RN for CHRISTIAN.
--- NOTE | 2017-09-28 19:49 | NUR ---
RECEIVED PT TRACKED ON VENTILATOR SUPPORT. NO DISTRESS. TOLERATING VENT SETTINGS. B/S CLR DM. VENT ALARMS SET AND AUDIBLE. AMBU BAG AT BEDSIDE. ETT SECURED, CUFF FUEL INJECTION SERVICER. VENT PLUGGED INTO RED OUTLET. WILL CONTINUE TO MONITOR. Addendum: 09/28/17 at 1950 by TELLY WING RT Amended: Links added.
--- NOTE | 2017-09-28 20:00 | NUR ---
RESEARCH/PROGRAM DIRECTOR - NOTES - RECEIVED PATIENT IN BED, TRACH MIDLINE AND INTACT, ON MECHANICAL VENTILATOR AT PRESCRIBED SETTINGS, TOLERATING WELL, FREE FROM ANY S/S OF RESPIRATORY DISTRESS. DEBBI PICC PATENT AND INTACT NS @ 75 ML/HR. GT PATENT AND INTACT. PT NPO. CALL LIGHT LEFT WITHIN EASY REACH, BED IN LOWEST AND LOCKED POSITION. WILL CONTINUE TO CLOSELY MONITOR
[2017-09-28] MEDS: PANTOPRAZOLE 40 MG VIAL IV SCH (20:07)
[2017-09-28] MEDS: ATORVASTATIN 40 MG TABLET GT SCH (21:02)
[2017-09-29] VITALS (48 sets, daily range): BP systolic 97–157; BP diastolic 47–114
[2017-09-29] MEDS: IV NS 0.9% 1,000 ML IV PRN ×2 (03:48→16:36)
[2017-09-29 05:04] LABS: BASOPHILS # (AUTO) 0.3 /CMM (0.0-0.2); BASOPHILS % (AUTO) 2.7 % (0.0-2.0); EOSINOPHILS % (AUTO) 0.6 % (0.0-6.0); HEMATOCRIT 21 % (39-51); LYMPHOCYTES # (AUTO) 0.8 /CMM (0.8-4.8); LYMPHOCYTES % (AUTO) 6.1 % (20.0-44.0); MEAN CORPUSCULAR HEMOGLOBIN 29 PG (26.0-33.0); MEAN CORPUSCULAR HGB CONC 34 g/dl (31.0-36.0); MEAN CORPUSCULAR VOLUME 85 fL (80-96); MONOCYTES # (AUTO) 0.1 /CMM (0.1-1.30); MONOCYTES % (AUTO) 0.9 % (2.0-12.0); NEUTROPHILS % (AUTO) 89.7 % (43.0-81.0); PLATELET COUNT (AUTO) 233 /CMM (150-450); RED BLOOD CELL COUNT(AUTO) 2.42 MIL/uL (4.5-6.0); WHITE BLOOD COUNT (AUTO) 12.3 K/uL (4.3-11.0)
[2017-09-29 05:17] LABS: CALCIUM, SERUM 7.5 mg/dL (8.5-10.1); CREATININE 2.4 mg/dL (0.6-1.3); MAGNESIUM 1.8 mg/dL (1.8-2.4); PHOSPHORUS 2.7 mg/dL (2.5-4.9); POTASSIUM 3.4 mmol/L (3.5-5.1)
[2017-09-29 05:23] LABS: HEMOGLOBIN 6.9 g/dL (13.5-17.5)
--- NOTE | 2017-09-29 06:00 | NUR ---
CRITICAL HGB 6.9 AND HCT 20.5, LABS REPORTED TO DR BARRIENTOS, 1 U PRBC ORDERED
[2017-09-29 06:20] LABS: LYMPHOCYTES % (MANUAL) 5 % (16-48); METAMYELOCYTES % 1 % (0-0); NEUTROPHILS % (MANUAL) 94 (42-76)
[2017-09-29] MEDS: BLOOD SUGAR DIAGNOSTIC 1 EACH STRIP IN SCH ×5 (06:20→23:43)
--- NOTE | 2017-09-29 07:10 | NUR ---
RN INITIAL NOTES: Rec'd pt asleep on bed, not in any distress, awaken through tactile stimuli. On MV via trach, sating at 98%. On telemonitor, SR w/ 1' AVB 84 bpm. Has GT, clamped at this time d/t episode of vomiting yesterday, no residual noted upon aspiration. Has DEBBI PICC line, 2 lumens , patent & intact, w/ NS x 75 cc/hr infusing well. Has R subclavian HD cath intact. Has flexiseal patent & intact, 200 cc level on endorsement, noted brownish liquid stool. Provided comfort & safety environment. Bed kept low & in locked pos. Call light placed w/in reach. Will continue to monitor & attend pt needs. Pt for BT of 1 unit PRBC... Addendum: 09/29/17 at 1351 by MARIANNE DONALD RN Addendum: Has life vest external defibrillator on, w/ spare battery charging at bedside.
--- NOTE | 2017-09-29 08:30 | NUR ---
Pt seen & examined by Dr. De Luna. Per pb TOLENTINO for BT, no replacement for K today. Pt sched for HD julián.
[2017-09-29] MEDS: CARVEDILOL 3.125 MG TABLET GT SCH ×2 (09:00→21:34)
--- NOTE | 2017-09-29 09:00 | NUR ---
Pt seen & examined by Dr. Acosta & updated about pt condition.
[2017-09-29] MEDS: GABAPENTIN 300 MG CAPSULE GT SCH ×3 (09:11→16:57)
[2017-09-29] MEDS: PANTOPRAZOLE 40 MG VIAL IV SCH ×2 (09:11→21:33)
[2017-09-29] MEDS: ACIDOPHILUS/BULGARICUS 1 EACH TAB.CHEW GT SCH ×3 (09:11→16:57)
[2017-09-29] MEDS: AMIODARONE HCL 200 MG TABLET GT SCH (09:12)
[2017-09-29] MEDS: Z GUARD REMEDY 2 OZ OINT TP PRN (09:12)
[2017-09-29] MEDS: DAKINS QUARTER STRENGTH (0.125%) 480 ML BOTTLE TOP SCH (09:13)
[2017-09-29] MEDS: HYDROGEL DRESSING 90 GM TUBE TP SCH (09:13)
--- NOTE | 2017-09-29 09:42 | NUR ---
Pt seen & examined by VICTORIANO Fowler w/ NNO.
[2017-09-29] MEDS: NYSTATIN/TRIAMCIN CREAM 15 GM TUBE TP SCH ×2 (12:23)
--- NOTE | 2017-09-29 12:30 | NUR ---
Pt seen & examined by Dr. Marks. Per , he will talk to the daughter to discuss about pt's condition & code status. Spoke w/ dtr Grisel, she said she will come tomorrow.
[2017-09-29] MEDS: INSULIN REGULAR, HUMAN 100 UNIT/ML 3 ML VIAL SQ PRN ×2 (12:36→18:06)
--- NOTE | 2017-09-29 13:01 | NUR ---
Pt seen & examined by Dr. Bolaños & updated about pt condition. MD to do EGD at bedside. Called dtlori Recinos, secured consent for the procedure & anesthesia.
[2017-09-29 13:56] LABS: INR 1.09 (0.87-1.13)
--- NOTE | 2017-09-29 15:30 | NUR ---
EGD w/ PEG replacement done at bedside. Pt tolerated the procedure well. Per , okay to start previous GTF.
[2017-09-29] MEDS ORDERED: NEPRO 1,000 ML BOTTLE GT PRN (16:00)
[2017-09-29] MEDS: NEPRO 1,000 ML BOTTLE GT PRN (16:46)
--- NOTE | 2017-09-29 17:00 | NUR ---
Pt seen & examined by VICTORIANO Goff.
--- NOTE | 2017-09-29 17:30 | NUR ---
BS 62 mg/dl, orange juice given. Atfer 30 mins, BS 65 mg/dl. Will cont to monitor.
--- NOTE | 2017-09-29 18:38 | NUR ---
RN CLOSING NOTES: Pt resting comfortably, not in any distress. Pt tolerated current MV settings via trach, no SOB. Secretions suctioned. On telemonitor, still SR w/ 1' AVB. Pt started on GTF Nepro x 30 cc/hr via new PEG. DEBBI PICC line, 2 lumens, kept patent & intact, w/ NS x 75 cc/hr infusing well. R subclavian HD cath kept intact & dry. Flexiseal kept patent & intact. Kept well rested. 1 unit of PRBC transfused w/o BT reaction. Bed kept low & in locked pos. Call light placed w/in reach. Will endorse to PM RN for CHRISTIAN.
--- NOTE | 2017-09-29 19:00 | NUR ---
RN INITIAL NOTES RECEIVED THE PT SLEEPING ON BED, AROUSABLE TO TOUCH AND PAIN BUT REMAINS TO BE LETHARGIC, UNABLE TO FOLLOW SIMPLE COMMANDS. ON VENT WITH SETTINGS AC 20, TV 550, FIO2 40%, PEEP 5, SHILEY 8, SATURATING WELL, NO S/S OF RESP DISTRESS. PT IS SR WITH 1ST AVB ON THE MONITOR, HR 70'S. EXTERNAL ZOLL LIFE VEST IN PLACE. FLEXISEAL INTACT WITH NOTED BROWN LIQUID STOOL. PEG TO NEPRO FEEDING @ 30MLS/HR, NO RESIDUALS. RIGHT SUBCLAVIAN HD CATH INTACT. RIGHT UPPER ARM PICC WITH NS @ 75MLS/HR, NO S/S OF INFILTRATION/INFECTION, DRESSING CDI. BED LOW AND LOCKED, SIDERAILS UP, BED ALARM ON. WILL MONITOR
[2017-09-29] MEDS: ATORVASTATIN 40 MG TABLET GT SCH (21:34)
--- NOTE | 2017-09-29 21:47 | NUR ---
RECEIVED PT TRACHED SHLY 8 ON ESPRIT VENT. NO RESP DISTRESS. PT TOLERATING VENT SETTINGS. SXD'D FOR SML AMT OF THICK BHATT SECRETIONS. VENT ALARMS SET AND AUDIBLE. AMBU BAG AT BEDSIDE. VENT PLUGGED INTO RED OUTLET. WILL CONTINUE TO MONITOR. Addendum: 09/29/17 at 2149 by OSIRIS VILLAGRAN RT Amended: Links added.
[2017-09-30] VITALS (38 sets, daily range): BP systolic 96–140; BP diastolic 31–89
[2017-09-30] MEDS: NYSTATIN/TRIAMCIN CREAM 15 GM TUBE TP SCH ×2 (00:05→11:41)
[2017-09-30 04:43] LABS: BASOPHILS # (AUTO) 0.1 /CMM (0.0-0.2); BASOPHILS % (AUTO) 0.5 % (0.0-2.0); EOSINOPHILS % (AUTO) 0.1 % (0.0-6.0); HEMATOCRIT 23 % (39-51); HEMOGLOBIN 7.4 g/dL (13.5-17.5); LYMPHOCYTES # (AUTO) 1.5 /CMM (0.8-4.8); LYMPHOCYTES % (AUTO) 9.3 % (20.0-44.0); MEAN CORPUSCULAR HEMOGLOBIN 27 PG (26.0-33.0); MEAN CORPUSCULAR HGB CONC 32 g/dl (31.0-36.0); MEAN CORPUSCULAR VOLUME 85 fL (80-96); MONOCYTES # (AUTO) 0.7 /CMM (0.1-1.30); MONOCYTES % (AUTO) 4.5 % (2.0-12.0); NEUTROPHILS # (AUTO) 13.6 /CMM (1.8-8.9); NEUTROPHILS % (AUTO) 85.6 % (43.0-81.0); PLATELET COUNT (AUTO) 185 /CMM (150-450); RDW COEFFICIENT OF VARIATION 22.6 (11.5-15.0); RED BLOOD CELL COUNT(AUTO) 2.69 MIL/uL (4.5-6.0); WHITE BLOOD COUNT (AUTO) 15.9 K/uL (4.3-11.0)
[2017-09-30 04:58] LABS: IRON, SERUM 12 ug/dl (50-175); TOTAL IRON BINDING CAPACITY 98 ug/dl (250-450)
[2017-09-30 05:00] LABS: CALCIUM, SERUM 7.4 mg/dL (8.5-10.1); CREATININE 2.7 mg/dL (0.6-1.3); MAGNESIUM 1.7 mg/dL (1.8-2.4); PHOSPHORUS 2.9 mg/dL (2.5-4.9); POTASSIUM 3.4 mmol/L (3.5-5.1)
[2017-09-30 05:17] LABS: FERRITIN 934 ng/mL (8-388)
[2017-09-30] MEDS: BLOOD SUGAR DIAGNOSTIC 1 EACH STRIP IN SCH ×3 (05:17→17:04)
[2017-09-30] MEDS: INSULIN REGULAR, HUMAN 100 UNIT/ML 3 ML VIAL SQ PRN ×3 (05:18→17:38)
[2017-09-30] MEDS: IV NS 0.9% 1,000 ML IV PRN ×2 (05:19→18:15)
--- NOTE | 2017-09-30 06:20 | NUR ---
RN CLOSING NOTES PT REMAINS STABLE OF THE MOMENT. ALL DUE MEDS GIVEN, AM CARE PROVIDED. WILL ENDORSE CHRISTIAN TO AM RN
--- NOTE | 2017-09-30 07:53 | NUR ---
RT PT RECEIVED WITH A [facility] 8 TRACH ON THE VENT WITH NOTED SETTINGS. PT IS AWAKE AND RESPONDS TO STIMULI WHEN SX'D. VENT ALARMS ARE SET AND AUDIBLE WITH BVM BY BEDSIDE. PIANO TECHNICIAN CUFF PRESSURE NOTED. VENT IS PLUGGED INTO RED OUTLET. PT SX'D MODERATE THICK PALE YELLOW SECRETIONS. NO RESPIRATORY DISTRESS NOTED AT THIS TIME, WILL CONTINUE TO MONITOR. Addendum: 09/30/17 at 0808 by BABITA SANTACRUZ RT Amended: Links added.
[2017-09-30] MEDS: ACIDOPHILUS/BULGARICUS 1 EACH TAB.CHEW GT SCH ×3 (08:07→17:04)
[2017-09-30] MEDS: HYDROGEL DRESSING 90 GM TUBE TP SCH (08:08)
[2017-09-30] MEDS: GABAPENTIN 300 MG CAPSULE GT SCH ×3 (08:08→17:04)
[2017-09-30] MEDS: AMIODARONE HCL 200 MG TABLET GT SCH (08:08)
[2017-09-30] MEDS: PANTOPRAZOLE 40 MG VIAL IV SCH ×2 (08:08→21:12)
[2017-09-30] MEDS: CARVEDILOL 3.125 MG TABLET GT SCH ×2 (08:08→21:13)
[2017-09-30] MEDS: Z GUARD REMEDY 2 OZ OINT TP PRN (08:08)
[2017-09-30] MEDS: DAKINS QUARTER STRENGTH (0.125%) 480 ML BOTTLE TOP SCH (08:09)
--- NOTE | 2017-09-30 08:45 | NUR ---
ICU/RN: Dr Marks at bedside; updated on pt status. Informed of low grade temp, tachycardia, no ABX therapy at this time. CXR and blood cx ordered to r/o aspiration pna. Noted and carried out. Addendum: 09/30/17 at 0957 by DENTON REHMAN RN Dr Marks attempting to contact Grisel Davis (daughter) to update her on POC
[2017-09-30] MEDS ORDERED: EPOETIN ALFA (10,000 UNIT) 10,000 UNIT/ML VIAL SQ ONE (09:00)
--- NOTE | 2017-09-30 09:30 | NUR ---
ICU/RN: HD RN Jake at bedside for HD. Labs reviewed. Awaiting Epogen delivery.
[2017-09-30] MEDS ORDERED: Magnesium 1GM/D5W 100ML PREMIX 100 ML IV SCH (10:30)
[2017-09-30] MEDS ORDERED: POTASSIUM CHLORIDE 20 MEQ TAB.PRT.SR PO ONE (11:30)
--- NOTE | 2017-09-30 11:45 | NUR ---
ICU/RN: HD complete, 1L out.
--- NOTE | 2017-09-30 14:30 | NUR ---
ICU/RN: Bed bath, wound care, cooling measures in place. Pt shakes his head when asked if he is in pain. Will cont to monitor pt.
[2017-09-30] MEDS: NEPRO 1,000 ML BOTTLE GT PRN (17:05)
--- NOTE | 2017-09-30 18:23 | NUR ---
ICU/RN: VICTORIANO Ochoa rounds; informed of t-max 101.5, CXR and lab cultures drawn. Awaiting orders.
[2017-09-30] MEDS ORDERED: FEE PK DOSING 1 MIN EA MC ONE (18:55)
--- NOTE | 2017-09-30 19:30 | NUR ---
Received patient lethargic.Follows simple commands.VS stable.Patient AFIB per monitor with external defibrillator in place.Patient chronic VDRF on mechanical vent on AC mode at prescribed settings.Tolerating well and secretions suction PRN.Tolerating GT feeding with scanty residual.Maintained HOB elevated.Anuric with R SCV Perma cath in placed. Dressing C/D/I.Flexi seal with brownish liquid stool.No distress noted.Turned and repositioned.
--- NOTE | 2017-09-30 19:33 | NUR ---
RECEIVED PT TRACKED ON VENTILATOR SUPPORT. NO DISTRESS. TOLERATING VENT SETTINGS. B/S CLR DM. VENT ALARMS SET AND AUDIBLE. AMBU BAG AT BEDSIDE. ETT SECURED, CUFF TEST PILOT. VENT PLUGGED INTO RED OUTLET. WILL CONTINUE TO MONITOR. Addendum: 09/30/17 at 1933 by TELLY WING RT Amended: Links added.
[2017-09-30] MEDS ORDERED: VANCOMYCIN 1.25 GM in IV D5W 500 ML IV ONE (20:00)
[2017-09-30] MEDS: MEROPENEM 500 MG in IV NS 0.9% 50 ML IV SCH (20:07)
--- NOTE | 2017-09-30 20:40 | NUR ---
Patient daughter Grisel here and updated of patient status and plan of care.Patient open eyes and smiling while daughter is talking to him.Continue monitoring.
[2017-09-30] MEDS: ATORVASTATIN 40 MG TABLET GT SCH (21:12)
[2017-09-30] MEDS: HYDROCODONE/APAP 5/325MG 1 EACH TABLET GT PRN (22:15)
[2017-10-01] VITALS (42 sets, daily range): BP systolic 94–144; BP diastolic 41–83
[2017-10-01] MEDS: BLOOD SUGAR DIAGNOSTIC 1 EACH STRIP IN SCH ×4 (00:09→16:39)
[2017-10-01] MEDS: INSULIN REGULAR, HUMAN 100 UNIT/ML 3 ML VIAL SQ PRN ×4 (00:12→17:11)
[2017-10-01] MEDS: NYSTATIN/TRIAMCIN CREAM 15 GM TUBE TP SCH ×2 (00:36→11:58)
--- NOTE | 2017-10-01 07:33 | NUR ---
Patient resting no apparent distress noted.VS remains stable.AM care done.Turned and repositioned q 2 hrs offloading pressure points.GT feeding well tolerated.Report given to am shift RN for continuity of care.All needs anticipated and met.
--- NOTE | 2017-10-01 07:41 | NUR ---
Male trach pt received unlabored on mechanical vent. Pt steff is secure. Vent is plugged into a red outlet, alarms are set and audible, and BVM is at bedside. Addendum: 10/01/17 at 0743 by LEANDRO RODAS RT Amended: Links added.
--- NOTE | 2017-10-01 08:02 | NUR ---
DIRECTOR OF STUDENT FINANCIAL AID NOTE PATIENT IN BED , ALL NEEDS ATTENDED WITH TRACH TO VENT SETTING ORDERED , ON TELE MONITOR SR HR 65 ON G TUBE FEEDING ORDERED ,NO RESIDUAL NOTED KEEP HOB ELEVATED AT ALL TIME , ON IVF ORDERED RT UPPER ARM PICC LINE , ON CHEST WALL WITH EXTERNAL FIBRILLATOR, BED IN LOWEST AND LOCKED POSITION , WITH FLEX SEAL RECTAL TUBE ,BED IN LOWEST AND LOCKED POSITION, WILL CONT TO MONITOR CLOSELY
[2017-10-01] MEDS: GABAPENTIN 300 MG CAPSULE GT SCH ×3 (08:41→16:36)
[2017-10-01] MEDS: ACIDOPHILUS/BULGARICUS 1 EACH TAB.CHEW GT SCH ×3 (08:41→16:36)
[2017-10-01] MEDS: PANTOPRAZOLE 40 MG VIAL IV SCH ×2 (08:41→21:57)
[2017-10-01] MEDS: MEROPENEM 500 MG in IV NS 0.9% 50 ML IV SCH ×2 (08:42→21:52)
[2017-10-01] MEDS: DAKINS QUARTER STRENGTH (0.125%) 480 ML BOTTLE TOP SCH (08:43)
[2017-10-01] MEDS: HYDROGEL DRESSING 90 GM TUBE TP SCH (08:44)
--- NOTE | 2017-10-01 09:15 | NUR ---
STACK SUPERVISOR NOTE SEEN BY DR ZUNIGA NOTIFIED THAT HG YESTERDAY 7.4 OK TO ORDER TODAY CBC AND BMP , ALSO NOTIFIED THAT HR 60 STATED OK TO GIVE AMIODARONE AND COREG , WILL F\U
[2017-10-01 09:16] LABS: CALCIUM, SERUM 7.2 mg/dL (8.5-10.1); CREATININE 2.7 mg/dL (0.6-1.3); POTASSIUM 3.6 mmol/L (3.5-5.1)
[2017-10-01] MEDS: AMIODARONE HCL 200 MG TABLET GT SCH (09:16)
[2017-10-01] MEDS: CARVEDILOL 3.125 MG TABLET GT SCH ×2 (09:16→21:00)
[2017-10-01 09:24] LABS: EOSINOPHILS % (AUTO) 0.1 % (0.0-6.0); HEMATOCRIT 23 % (39-51); HEMOGLOBIN 7.3 g/dL (13.5-17.5); LYMPHOCYTES # (AUTO) 0.9 /CMM (0.8-4.8); LYMPHOCYTES % (AUTO) 4.2 % (20.0-44.0); MEAN CORPUSCULAR HEMOGLOBIN 28 PG (26.0-33.0); MEAN CORPUSCULAR HGB CONC 32 g/dl (31.0-36.0); MEAN CORPUSCULAR VOLUME 86 fL (80-96); NEUTROPHILS # (AUTO) 18.8 /CMM (1.8-8.9); NEUTROPHILS % (AUTO) 90.7 % (43.0-81.0); PLATELET COUNT (AUTO) 175 /CMM (150-450); RDW COEFFICIENT OF VARIATION 23.3 (11.5-15.0); RED BLOOD CELL COUNT(AUTO) 2.63 MIL/uL (4.5-6.0); WHITE BLOOD COUNT (AUTO) 20.8 K/uL (4.3-11.0)
[2017-10-01] MEDS: HYDROCODONE/APAP 5/325MG 1 EACH TABLET GT PRN ×2 (09:59→14:57)
--- NOTE | 2017-10-01 10:05 | NUR ---
BUNDLES HANGER NOTE NOTED FACIAL GRIMACING. DAUGHTER AT BEDSIDE NORCO VIA G TUBE GIVEN ,BP 125/78 SAT 98% HR 61 , RECTAL TUBE FLUSHED, KEEP CLEAN DRY
[2017-10-01] MEDS: IV NS 0.9% 1,000 ML IV PRN (11:29)
--- NOTE | 2017-10-01 12:00 | NUR ---
MANAGER LABOR RELATIONS NOTE DR SIERRA AT BEDSIDE DRESS SHOE INSPECTOR NOTIFIED THAT HG 7.3 TODAY AND BP 142/78 STATED STILL OK, ALSO OK TO CRYSTAL ATTACHER NORCO Q4 HOURS NEEDED FOR PAIN
[2017-10-01] MEDS: NEPRO 1,000 ML BOTTLE GT PRN (13:14)
--- NOTE | 2017-10-01 15:28 | NUR ---
HAND BINDER CUTTER NOTE PER DR ZUNIGA OK TO TRANSFER TO [facility] UNIT
--- NOTE | 2017-10-01 19:00 | NUR ---
ANALYTIC PROGRAMMER NOTE SEEN BY PEYTON RN FURRIER APPRENTICE ID NOTIFIED THAT WBC 20.8 OK TO GET BLOOD CX FROM HD CATH BY HD NURSE TOMORROW ORDER CARRIED OUT
--- NOTE | 2017-10-01 19:30 | NUR ---
ABRASIVE WORKER: RECEIVED VENT. DEPENDENT PT. WT VENT SETTINGS ORDERED. EYES OPEN, ABLE TO FOLLOW SIMPLE COMMANDS. NO ACUTE DISTRESS, NO C/O PAIN OR EVIDENCE OF DISCOMFORT. SR WT 1ST DEGREE HB, BBB AND OCCASIONAL PVCs ON LOCK SETTER. AFEBRILE. GT IN PLACE AND RUNNING NEPRO 1.8 AT 50CC/HR WT NO RESIDUAL. DEBBI PICC LINE RUNNING NS AT 75ML/HR WT NO S/S OF COMPLICATIONS. ANURIC. FLEXI-SEAL IN PLACE WT BROWN LIQUID STOOLS NOTED. HOB AT 45 DEGREES. SAFETY AND ASPIRATION PRECAUTIONS NOTED.
--- NOTE | 2017-10-01 20:16 | NUR ---
RECEIVED PT DIMITRI PACE 8 ON [facility] VENT. NO RESP DISTRESS NOTED. PT TOLERATING VENT SETTINGS. SX'D FOR SML AMT OF THICK YELLOW SECRETIONS. VENT ALARMS SET AND AUDIBLE. AMBU BAG AT BEDSIDE. TRACH SECURED, CUFF HIGH REACH OPERATOR. VENT PLUGGED INTO RED OUTLET. WILL CONTINUE TO MONITOR. Addendum: 10/01/17 at 2017 by OSIRIS VILLAGRAN RT Amended: Links added.
--- NOTE | 2017-10-01 21:00 | NUR ---
GUARD CAPTAIN: REPORT GIVEN TO KAREN COUCH.
--- NOTE | 2017-10-01 21:15 | NUR ---
BOOM CRANE OPERATOR: TRANSFERRED TO [facility] IN STABLE CONDITION. ALL BELONGINGS ENDORSED PARTICULARLY CELLPHONE WT ELECTRIC RANGE ASSEMBLER, DEFIBRILLATOR WT ELECTRIC RANGE ASSEMBLER.
--- NOTE | 2017-10-01 21:21 | NUR ---
PT TRANSPORTED TO ROOM 118-2
--- NOTE | 2017-10-01 21:34 | NUR ---
RN NOTES RECEIVED ENDORSEMENT FROM CUFFER FOR PATIENT'S TRANSFER TO [facility]. RECEIVED PATIENT FROM ICU IN STABLE CONDITION, NO DISTRESS NOTED. BREATHING EVEN AND UNLABORED. VENT SETTING WELL TOLERATED. GTUBE IN PLACE, NO RESIDUAL. HOB ELEVATED. NO PHYSICAL MANIFESTATION OF PAIN OR DISCOMFORT. VITAL SIGNS WNL. ALERT TO SELF WITH SPONTANEOUS OPENING OF EYES. ABLE TO OBEY SIMPLE COMMANDS. KEPT CLEAN AND DRY. WILL CONTINUE TO MONITOR.
[2017-10-01] MEDS: ATORVASTATIN 40 MG TABLET GT SCH (21:55)
[2017-10-02] VITALS (7 sets, daily range): BP systolic 126–169; BP diastolic 53–82
[2017-10-02] MEDS: IV NS 0.9% 1,000 ML IV PRN (01:31)
[2017-10-02] MEDS: INSULIN REGULAR, HUMAN 100 UNIT/ML 3 ML VIAL SQ PRN ×4 (01:37→17:42)
[2017-10-02] MEDS: NYSTATIN/TRIAMCIN CREAM 15 GM TUBE TP SCH ×2 (01:41→12:33)
[2017-10-02] MEDS: BLOOD SUGAR DIAGNOSTIC 1 EACH STRIP IN SCH ×4 (05:31→17:42)
--- NOTE | 2017-10-02 06:50 | NUR ---
RN CLOSING NOTES NO SIGNIFICANT CHANGE OF CONDITION. VITAL SIGNS WNL. NO PHYSICAL MANIFESTATION OF PAIN OR DISCOMFORT. FEEDING TOLERATING WELL. FLEXISEAL IN PLACE, WITH BOWEL DRAINING. KEPT CLEAN AND DRY. WILL ENDORSE TO AM SHIFT FOR CONTINUITY OF CARE.
--- NOTE | 2017-10-02 07:18 | NUR ---
TD RN NOTES: RECEIVED PT ON BED ALERT AND AWAKE. NO ACUTE DISTRESS NOTED. NO FACIAL GRIMACING OR ANY SIGNS OF PAIN NOTED. ON MECH VENT, SETTINGS ORDERED, SATURATING WELL. NO SOB NOTED. SINUS RHYTHM ON TELE MONITOR, HR 83BPM. GT FEEDING INTACT, NO RESIDUAL NOTED AT THIS TIME. ON FLEXISEAL, DRAINING WELL. KEPT CLEAN, DRY AND COMFORTABLE. SAFETY AND FALL PRECAUTIONS OBSERVED AND MAINTAINED. WILL CONTINUE TO MONITOR PT.
--- NOTE | 2017-10-02 07:42 | NUR ---
Natalie pt received on mechanical vent. Pt trach is secure. Vent is plugged into a red outlet, alarms are set and audible, and BMV is at bedside. Addendum: 10/02/17 at 1001 by LEANDRO RODAS RT Amended: Links added.
[2017-10-02] MEDS: PANTOPRAZOLE 40 MG VIAL IV SCH ×2 (08:14→22:00)
[2017-10-02] MEDS: ACIDOPHILUS/BULGARICUS 1 EACH TAB.CHEW GT SCH ×3 (08:15→16:13)
[2017-10-02] MEDS: GABAPENTIN 300 MG CAPSULE GT SCH ×3 (08:15→16:13)
[2017-10-02] MEDS: HYDROCODONE/APAP 5/325MG 1 EACH TABLET GT PRN ×2 (08:17→17:06)
[2017-10-02] MEDS: HYDROGEL DRESSING 90 GM TUBE TP SCH (08:18)
[2017-10-02] MEDS: DAKINS QUARTER STRENGTH (0.125%) 480 ML BOTTLE TOP SCH (08:39)
[2017-10-02] MEDS: AMIODARONE HCL 200 MG TABLET GT SCH (08:50)
[2017-10-02] MEDS: CARVEDILOL 3.125 MG TABLET GT SCH ×2 (08:50→21:59)
--- NOTE | 2017-10-02 08:51 | NUR ---
TD RN NOTES: AMIODARONE AND COREG MEDS DUE AT 0900 HELD BECAUSE PT IS SCHEDULED FOR HD TODAY.
[2017-10-02] MEDS: MEROPENEM 500 MG in IV NS 0.9% 50 ML IV SCH ×2 (09:30→22:02)
[2017-10-02 09:46] LABS: CALCIUM, SERUM 7.4 mg/dL (8.5-10.1); POTASSIUM 3.6 mmol/L (3.5-5.1)
[2017-10-02] MEDS: NEPRO 1,000 ML BOTTLE GT PRN (10:47)
[2017-10-02 15:29] LABS: BASOPHILS % (AUTO) 0.2 % (0.0-2.0); HEMATOCRIT 22 % (39-51); MEAN CORPUSCULAR HEMOGLOBIN 27 PG (26.0-33.0); MEAN CORPUSCULAR HGB CONC 32 g/dl (31.0-36.0); MEAN CORPUSCULAR VOLUME 85 fL (80-96); MONOCYTES # (AUTO) 0.7 /CMM (0.1-1.30); MONOCYTES % (AUTO) 5.9 % (2.0-12.0); NEUTROPHILS # (AUTO) 10.4 /CMM (1.8-8.9); NEUTROPHILS % (AUTO) 83.9 % (43.0-81.0); PLATELET COUNT (AUTO) 166 /CMM (150-450); RDW COEFFICIENT OF VARIATION 23.6 (11.5-15.0); RED BLOOD CELL COUNT(AUTO) 2.58 MIL/uL (4.5-6.0); WHITE BLOOD COUNT (AUTO) 12.4 K/uL (4.3-11.0)
--- NOTE | 2017-10-02 15:38 | NUR ---
TD RN NOTES: RECEIVED A CALL FROM LAB REGARDING PATIENT'S HGB 7.0 AND HCT 22. PER MD, TRANSFUSE IF HGB IS LESS THAN 7. WILL CONTINUE TO MONITOR PT.
[2017-10-02] MEDS: VANCOMYCIN 500 MG in IV D5W 100 ML IV PRN (17:33)
--- NOTE | 2017-10-02 18:08 | NUR ---
TD RN NOTES: NO ACUTE CHANGES THROUGHOUT THE SHIFT. FACIAL GRIMACING NOTED, NORCO PRN GIVEN ORDERED. NO SOB, SUCTIONED PT NEEDED. ON TELE MONITOR SINUS RHYTHM HR 79BPM. DEBBI PICC LINE INTACT AND PATENT, FLUSHING WELL. KEPT CLEAN, DRY AND COMFORTABLE. TURNED AND REPOSITIONED Q2HRS AND NEEDED. SAFETY AND FALL PRECAUTIONS OBSERVED AND MAINTAINED. WILL ENDORSE TO PAPER MACHINE TENDER FOR CONTINUITY OF CARE.
[2017-10-02 20:22] LABS: EOSINOPHILS % (MANUAL) 2 % (0-4); LYMPHOCYTES % (MANUAL) 9 % (16-48); MONOCYTES % (MANUAL) 4 % (0-11.0); NEUTROPHILS % (MANUAL) 85 (42-76)
[2017-10-02] MEDS: ATORVASTATIN 40 MG TABLET GT SCH (21:59)
[2017-10-03] VITALS (9 sets, daily range): BP systolic 110–171; BP diastolic 62–85
[2017-10-03] MEDS: INSULIN REGULAR, HUMAN 100 UNIT/ML 3 ML VIAL SQ PRN ×4 (00:23→18:09)
[2017-10-03] MEDS: BLOOD SUGAR DIAGNOSTIC 1 EACH STRIP IN SCH ×4 (00:26→18:06)
[2017-10-03] MEDS: NYSTATIN/TRIAMCIN CREAM 15 GM TUBE TP SCH ×2 (00:27→13:07)
--- NOTE | 2017-10-03 01:13 | NUR ---
PT RCRICH'D ON MECHANICAL VENT WITH CHARTED SETTINGS. SX DONE. PT TRACH PATENT AND SECURE. AMBU BAG AT BEDSIDE. VENT PLUGGED INTO RED OUTLET. ALARMS ARE ON AND AUDIBLE. WILL CONTINUE TO MONITOR. Addendum: 10/03/17 at 0115 by KT GALDAMEZ RT Amended: Links added.
--- NOTE | 2017-10-03 03:37 | NUR ---
RN NOTES RECEIVED PATIENT LYING IN BED COMFORTABLY. NO RESPIRATORY DISTRESS OR SHORTNESS OF BREATH. BREATHING EVEN AND UNLABORED. NO PHYSICAL MANIFESTATION OF PAIN OR DISCOMFORT. GTUBE IN PLACE AND INTACT. FEEDING WELL TOLERATED. HOB ELEVATED. NO RESIDUAL. NO EPISODE OF NAUSEA AND VOMITING. CONTNUOUS MONITORING. KEPT CLEAN AND DRY.
[2017-10-03] MEDS: HYDROCODONE/APAP 5/325MG 1 EACH TABLET GT PRN ×3 (05:31→18:10)
[2017-10-03 06:42] LABS: CALCIUM, SERUM 7.3 mg/dL (8.5-10.1); CREATININE 2.8 mg/dL (0.6-1.3); POTASSIUM 3.6 mmol/L (3.5-5.1)
--- NOTE | 2017-10-03 07:07 | NUR ---
RN NOTES PATIENT IN BED, NO DISTRESS NOTED. NO SIGNIFICANT CHANGE OF CONDITION. VITAL SIGNS WNL. NO PHYSICAL MANIFESTATION OF PAIN OR DISCOMFORT. KEPT CLEAN AND DRY. WILL ENDORSE TO AM SHIFT FOR CONTINUITY OF CARE.
--- NOTE | 2017-10-03 07:28 | NUR ---
Received male trach pt unlabored on AC mode. Pt carmencita 8 trach is secure. Vent is plugged into a red outlet, alarms are set and audible, and BVM is beside. Addendum: 10/03/17 at 0732 by LEANDRO RODAS RT Amended: Links added.
[2017-10-03] MEDS: GABAPENTIN 300 MG CAPSULE GT SCH ×3 (09:46→18:06)
[2017-10-03] MEDS: NEPRO 1,000 ML BOTTLE GT PRN (09:46)
[2017-10-03] MEDS: ACIDOPHILUS/BULGARICUS 1 EACH TAB.CHEW GT SCH ×3 (09:46→18:06)
[2017-10-03] MEDS: MEROPENEM 500 MG in IV NS 0.9% 50 ML IV SCH ×2 (09:46→21:17)
[2017-10-03] MEDS: CARVEDILOL 3.125 MG TABLET GT SCH ×2 (09:47→21:15)
[2017-10-03] MEDS: AMIODARONE HCL 200 MG TABLET GT SCH (09:48)
[2017-10-03] MEDS: PANTOPRAZOLE 40 MG VIAL IV SCH ×2 (09:56→21:17)
[2017-10-03] MEDS: HYDROGEL DRESSING 90 GM TUBE TP SCH (09:59)
[2017-10-03] MEDS: DAKINS QUARTER STRENGTH (0.125%) 480 ML BOTTLE TOP SCH (09:59)
--- NOTE | 2017-10-03 18:00 | NUR ---
RN NOTE PT HAD 1 UNIT PRBC, TOLERATED WELL. NO S/S REACTION NOTED. WILL MONITOR PT.
[2017-10-03] MEDS: ATORVASTATIN 40 MG TABLET GT SCH (21:15)
[2017-10-04] VITALS: BP 143/53
[2017-10-04] MEDS: BLOOD SUGAR DIAGNOSTIC 1 EACH STRIP IN SCH ×5 (00:58→23:13)
[2017-10-04] MEDS: NYSTATIN/TRIAMCIN CREAM 15 GM TUBE TP SCH ×2 (01:13→13:29)
[2017-10-04] MEDS: INSULIN REGULAR, HUMAN 100 UNIT/ML 3 ML VIAL SQ PRN ×5 (01:14→23:13)
[2017-10-04 04:00] VITALS: BP 164/70
[2017-10-04] MEDS: NEPRO 1,000 ML BOTTLE GT PRN (05:02)
[2017-10-04 06:45] LABS: CALCIUM, SERUM 7.5 mg/dL (8.5-10.1); CREATININE 3.1 mg/dL (0.6-1.3); POTASSIUM 3.8 mmol/L (3.5-5.1)
[2017-10-04 07:11] LABS: BASOPHILS # (AUTO) 0.2 /CMM (0.0-0.2); BASOPHILS % (AUTO) 1.2 % (0.0-2.0); EOSINOPHILS % (AUTO) 0.9 % (0.0-6.0); HEMATOCRIT 26 % (39-51); HEMOGLOBIN 8.5 g/dL (13.5-17.5); LYMPHOCYTES # (AUTO) 1.8 /CMM (0.8-4.8); LYMPHOCYTES % (AUTO) 10.1 % (20.0-44.0); MEAN CORPUSCULAR HEMOGLOBIN 28 PG (26.0-33.0); MEAN CORPUSCULAR HGB CONC 32 g/dl (31.0-36.0); MEAN CORPUSCULAR VOLUME 87 fL (80-96); MONOCYTES # (AUTO) 0.8 /CMM (0.1-1.30); MONOCYTES % (AUTO) 4.8 % (2.0-12.0); NEUTROPHILS # (AUTO) 14.6 /CMM (1.8-8.9); PLATELET COUNT (AUTO) 174 /CMM (150-450); RDW COEFFICIENT OF VARIATION 21.8 (11.5-15.0); RED BLOOD CELL COUNT(AUTO) 3.01 MIL/uL (4.5-6.0); WHITE BLOOD COUNT (AUTO) 17.5 K/uL (4.3-11.0)
--- NOTE | 2017-10-04 07:40 | NUR ---
RT PATIENT REC'D TRACHED ON [facility] WITH NOTED SETTINGS. VENT ALARMS CHECKED + AUDIBLE. CUFF PRESSURE CHECKED ROTARY ROCK DRILLING MACHINE OPERATOR. AIRWAY SUCTIONED WITH SMALL AMT BHATT SEMITHICK SECRETIONS. PATIENT NON RESPONSIVE, NO SOB NOTED. AMBU BAG AT [facility]. Addendum: 10/04/17 at 1656 by OBINNA LAM RT Amended: Links added.
[2017-10-04 08:00] VITALS: BP 175/49
--- NOTE | 2017-10-04 08:00 | NUR ---
TELE1/RN AM SHIFT INITIAL NOTES RECEIVED PT AWAKE, NO ACUTE CHANGE OF CONDITION NOTED, PT OBTUNDED, OPEN EYES, NO GRIMACING NOTED. VENT DEPENDENT WITH RATES SET PRESCRIBED, SATURATING @ 98%, LUNG SOUNDS DIMINISHED, RESPIRATIONS EVEN & UNLABORED, SUCTIONED FOR AIRWAY CLEARANCE, EXTERNAL DEFIBRILLATOR IN PLACED, BATTERY CHANGED. ON TELE WITH SINUS RHYTHM WITH BBB, HR 73. PICC LINE ON TKO WITH POSITIVE BLOOD RETURN, NO S/S OF INFECTION. GT FEEDING ON GOING @ 50CC/HR, NO GASTRIC RESIDUAL, FLUSHED, PATENT. WOUND DRESSING, INTACT AND CLEAN, HEELS OFF LOADED. PT IS COMFORTABLE, SCHEDULED AM MEDS TO BE GIVEN. CL WITHIN REACHED, SAFETY MAINTAINED AND ISOLATION OBSERVED.
[2017-10-04 08:22] LABS: EOSINOPHILS % (MANUAL) 1 % (0-4); LYMPHOCYTES % (MANUAL) 8 % (16-48); MONOCYTES % (MANUAL) 3 % (0-11.0); NEUTROPHILS % (MANUAL) 88 (42-76)
[2017-10-04] MEDS ORDERED: EPOETIN ALFA (10,000 UNIT) 10,000 UNIT/ML VIAL SQ ONE (08:30)
[2017-10-04] MEDS: PANTOPRAZOLE 40 MG VIAL IV SCH ×2 (09:30→20:56)
[2017-10-04] MEDS: MEROPENEM 500 MG in IV NS 0.9% 50 ML IV SCH ×2 (09:30→20:56)
[2017-10-04] MEDS: AMIODARONE HCL 200 MG TABLET GT SCH (09:31)
[2017-10-04] MEDS: ACIDOPHILUS/BULGARICUS 1 EACH TAB.CHEW GT SCH ×3 (09:31→18:40)
[2017-10-04] MEDS: CARVEDILOL 3.125 MG TABLET GT SCH ×2 (09:32→20:56)
[2017-10-04] MEDS: DAKINS QUARTER STRENGTH (0.125%) 480 ML BOTTLE TOP SCH (09:32)
[2017-10-04] MEDS: GABAPENTIN 300 MG CAPSULE GT SCH ×3 (09:32→18:40)
[2017-10-04] MEDS: HYDROGEL DRESSING 90 GM TUBE TP SCH (09:33)
--- NOTE | 2017-10-04 10:55 | NUR ---
TELE1/RN ROUNDS - DR. ZUNIGA UPDATED PT'S CONDITION, PT SEEN & EXAMINED BY DR. ZUNIGA. WITH VERBAL ORDERS FOR BLOOD CULTURE X 2 SPECIMEN TO BE DRAWN PERIPHERALLY, D/C EXISTING PICC LINE AND RE-INSERT NEW PICC LINE, AND ALSO RELAYED WIRELESS TEAM MEMBER'S RECOMMENDATION, AGREEABLE. NOTE AND CARRIED. MONITORING CONTINUED.
[2017-10-04 12:00] VITALS: BP 126/61
--- NOTE | 2017-10-04 15:30 | NUR ---
TELE1/ONLINE MARKETING ANALYST TX DIALYSIS TX COMPLETED, REMOVED 1L OF FLUID, PT TOLERATED PROCEDURE. MONITORING CONTINUED.
[2017-10-04 16:00] VITALS: BP 180/69
--- NOTE | 2017-10-04 18:00 | NUR ---
TELE1/RN RIGHT PICC LINE - CULTURE RIGHT PICC LINE REMOVED, TIP INTACT, SENT TO LAB FOR CULTURE, PRESSURE DRESSING APPLIED.
[2017-10-04] MEDS: VANCOMYCIN 500 MG in IV D5W 100 ML IV PRN (18:43)
--- NOTE | 2017-10-04 19:33 | NUR ---
TELE1/RN AM SHIFT END NOTES ALL NEEDS MET, NO ACUTE CHANGE OF CONDITION NOTED DURING THE SHIFT, PT ENDORSED TO PM NURSE TO CONTINUE CARE. CL WITHIN REACHED, SAFETY MAINTAINED AND ISOLATION OBSERVED.
--- NOTE | 2017-10-04 19:33 | NUR ---
ROUNDING MACHINE TENDER NOTES RECEIVED PT ON BED. A/OX 1. ON MECH VENT SATURATING WELL. NO RESPIRATORY DISTRESS NOTED. ON TELE MONITOR SR 66 WITH BBB. FLEXISEAL INTACT AND DRAINING WELL. HD ACCESS ON RIGHT CHEST WALL NO BLEEDING. IV ACCESS LEFT UPPER ARM PICC LINE PATENT AND INTACT WITH NS TKO RATE. HEAD OF BED ELEVATED. SIDE RAILS UP. CALL LIGHT WITHIN REACH. BED ALARM ON. WILL CONTINUE TO MONITOR PT CLOSELY.
[2017-10-04 20:00] VITALS: BP 157/64
[2017-10-04] MEDS: PROSOURCE / PROSTAT (PYXIS) 30 ML UDC GT SCH (20:52)
[2017-10-04] MEDS: ATORVASTATIN 40 MG TABLET GT SCH (20:56)
[2017-10-05] VITALS (9 sets, daily range): BP systolic 111–142; BP diastolic 57–70
[2017-10-05] MEDS: NYSTATIN/TRIAMCIN CREAM 15 GM TUBE TP SCH ×3 (00:12→23:45)
[2017-10-05] MEDS: INSULIN REGULAR, HUMAN 100 UNIT/ML 3 ML VIAL SQ PRN ×4 (05:18→23:43)
[2017-10-05] MEDS: BLOOD SUGAR DIAGNOSTIC 1 EACH STRIP IN SCH ×4 (05:20→23:47)
[2017-10-05] MEDS: NEPRO 1,000 ML BOTTLE GT PRN (05:20)
--- NOTE | 2017-10-05 06:22 | NUR ---
DIRECTOR ELECTRICAL ENGINEERING NOTES NO ACUTE CHANGES NOTED DURING THE SHIFT. PROVIDED COMFORT AND SAFETY. PICC LINE DRESSING CHANGED. WOUND CARE DONE. DUE MEDS GIVEN. HEAD OF BED ELEVATED. SIDE RAILS UP. WILL ENDORSE TO THE AM NURSE FOR CONTINUITY OF CARE.
[2017-10-05 07:14] LABS: CALCIUM, SERUM 7.6 mg/dL (8.5-10.1); CREATININE 3.1 mg/dL (0.6-1.3)
--- NOTE | 2017-10-05 08:00 | NUR ---
TELE1/RN AM SHIFT INITIAL NOTES RECEIVED PT ASLEEP, NO ACUTE CHANGE OF CONDITION OR BLEEDING NOTED, PT OBTUNDED, OPEN EYES, NO GRIMACING NOTED. VENT DEPENDENT WITH RATES SET PRESCRIBED, SATURATING @ 99%, LUNG SOUNDS DIMINISHED, RESPIRATIONS EVEN & UNLABORED, SUCTIONED FOR AIRWAY CLEARANCE, EXTERNAL DEFIBRILLATOR IN PLACED, BATTERY CHANGED. ON TELE WITH SINUS RHYTHM WITH BBB, HR 63. PICC LINE ON TKO WITH POSITIVE BLOOD RETURN, NO S/S OF INFECTION. GT FEEDING ON GOING @ 50CC/HR, NO GASTRIC RESIDUAL, FLUSHED, PATENT. WOUND DRESSING, INTACT AND CLEAN, HEELS OFF LOADED. PT IS COMFORTABLE, SCHEDULED AM MEDS TO BE GIVEN. CL WITHIN REACHED, SAFETY MAINTAINED AND ISOLATION OBSERVED.
--- NOTE | 2017-10-05 08:20 | NUR ---
RT RECEIVED PT TRACHED VENT DEPENDENT WITH NOTED SETTINGS. ASSISTANT NEWS DIRECTOR DONE AND TRACH IS SECURE. VENT ALARMS CHECKED AND AUDIBLE. VENT PLUGGED IN RED OUTLET. AMBU BAG NOTED HOB. BILATERAL B/S RHONCHI. SX WITH SML THN CLEAR/WHITE SECRETIONS. TOLERATING SETTINGS WELL, NO SOB OR RESP DISTRESS NOTED AT THIS TIME. WILL CONTINUE TO MONITOR T/O SHIFT.
[2017-10-05] MEDS: MEROPENEM 500 MG in IV NS 0.9% 50 ML IV SCH (09:21)
[2017-10-05] MEDS: GABAPENTIN 300 MG CAPSULE GT SCH ×3 (09:21→16:36)
[2017-10-05] MEDS: PANTOPRAZOLE 40 MG VIAL IV SCH ×2 (09:22→21:18)
[2017-10-05] MEDS: VIT B CMPLX 3/FA/VIT C/BIOTIN 1 TAB TABLET GT SCH (09:22)
[2017-10-05] MEDS: PROSOURCE / PROSTAT (PYXIS) 30 ML UDC GT SCH ×2 (09:22→21:18)
[2017-10-05] MEDS: AMIODARONE HCL 200 MG TABLET GT SCH (09:23)
[2017-10-05] MEDS: ACIDOPHILUS/BULGARICUS 1 EACH TAB.CHEW GT SCH ×3 (09:23→16:36)
[2017-10-05] MEDS: DAKINS QUARTER STRENGTH (0.125%) 480 ML BOTTLE TOP SCH (09:23)
[2017-10-05] MEDS: ASCORBIC ACID 500 MG TABLET GT SCH (09:23)
[2017-10-05] MEDS: CARVEDILOL 3.125 MG TABLET GT SCH ×2 (09:23→21:18)
[2017-10-05] MEDS: HYDROGEL DRESSING 90 GM TUBE TP SCH (09:24)
--- NOTE | 2017-10-05 10:30 | NUR ---
TELE1/RN ROUNDS - DR. KIRBY UPDATED PT'S CONDITION. PT SEEN & EXAMINED BY DR. KOFI MD INFORMED ME THAT PT WILL START WITH NEW MEDICATION COLISTIMETHATE, NOTED, NO NEW ORDERS RECEIVED. MONITORING CONTINUED.
[2017-10-05] MEDS: COLISTIMETHATE SODIUM 150 MG in IV NS 0.9% 50 ML IV SCH (13:12)
--- NOTE | 2017-10-05 17:30 | NUR ---
TELE1/RN AFTERNOON ROUNDS PM CARE PROVIDED, NO CHANGE OF CONDITION. MONITORING CONTINUED.
--- NOTE | 2017-10-05 19:16 | NUR ---
HIDES SOAKER NOTES RECEIVED PT ON BED. A/OX1 . ON MECH VENT SETTING SATURATING WELL NO RESPIRATORY DISTRESS. ON TELE MONITOR SR 65 WITH BBB. GTUBE FEEDING @50CC/HR NO RESIDUAL NOTED. IV ACCESS ON KRYSTA PICC LINE ON TKO RATE. HD CATH ACCESS ON RIGHT CHEST WALL NO SIGN OF BLEEDING OR INFILTRATION. HEAD OF BED ELEVATED. SIDE RAILS UP. CALL LIGHT WITHIN REACH. BED ALARM ON. WILL CONTINUE TO MONITOR PT CLOSELY.
--- NOTE | 2017-10-05 19:17 | NUR ---
TELE1/RN AM SHIFT END NOTES NO ACUTE CHANGE OF CONDITION NOTED DURING THE SHIFT, ALL NEEDS MET, PT ENDORSED TO PM NURSE TO CONTINUE CARE. CL WITHIN REACHED, SAFETY MAINTAINED AND ISOLATION OBSERVED.
[2017-10-05] MEDS: ATORVASTATIN 40 MG TABLET GT SCH (21:18)
--- NOTE | 2017-10-05 22:28 | NUR ---
SIGNAL PERSON NOTES ALEKSANDRA ADAMSON SEEN THE PT REGARDING SWELLING IN THE LEFT SIDE OF THE FACE. NO FURTHER ORDERS.
[2017-10-06] VITALS (7 sets, daily range): BP systolic 113–151; BP diastolic 54–69
[2017-10-06] MEDS: NEPRO 1,000 ML BOTTLE GT PRN (00:39)
--- NOTE | 2017-10-06 03:38 | NUR ---
RN PHYSICIAN OFFICE NOTES PICC LINE DRESSING CHANGED. NO BLEEDING NOTED DURING THE DRESSING CHANGED.
[2017-10-06] MEDS: BLOOD SUGAR DIAGNOSTIC 1 EACH STRIP IN SCH ×3 (05:18→17:29)
--- NOTE | 2017-10-06 06:43 | NUR ---
BLACK STUDIES PROFESSOR NOTES NO ACUTE CHANGES NOTED DURING THE SHIFT. PROVIDED COMFORT AND SAFETY. NO RESPIRATORY DISTRESS NOTED. HEAD OF BED ELEVATED. SIDE RAILS UP. CALL LIGHT WITHIN REACH. BED ALARM ON. ENDORSED TO THE AM NURSE FOR CONTINUITY OF CARE.
[2017-10-06 07:20] LABS: BASOPHILS % (AUTO) 0.3 % (0.0-2.0); EOSINOPHILS % (AUTO) 2.9 % (0.0-6.0); HEMATOCRIT 24 % (39-51); HEMOGLOBIN 7.7 g/dL (13.5-17.5); LYMPHOCYTES # (AUTO) 1.7 /CMM (0.8-4.8); LYMPHOCYTES % (AUTO) 11.5 % (20.0-44.0); MEAN CORPUSCULAR HEMOGLOBIN 28 PG (26.0-33.0); MEAN CORPUSCULAR HGB CONC 32 g/dl (31.0-36.0); MEAN CORPUSCULAR VOLUME 87 fL (80-96); MONOCYTES # (AUTO) 0.6 /CMM (0.1-1.30); MONOCYTES % (AUTO) 4.4 % (2.0-12.0); NEUTROPHILS # (AUTO) 11.9 /CMM (1.8-8.9); NEUTROPHILS % (AUTO) 80.9 % (43.0-81.0); PLATELET COUNT (AUTO) 154 /CMM (150-450); RDW COEFFICIENT OF VARIATION 22.5 (11.5-15.0); RED BLOOD CELL COUNT(AUTO) 2.71 MIL/uL (4.5-6.0); WHITE BLOOD COUNT (AUTO) 14.7 K/uL (4.3-11.0)
--- NOTE | 2017-10-06 07:23 | NUR ---
COMPUTER LAB PARA PROFESSIONAL NOTES: RECEIVED PT ON BED ASLEEP BUT AROUSABLE TO TACTILE STIMULI. NO ACUTE DISTRESS NOTED. NO FACIAL GRIMACING OR ANY SIGNS OF PAIN NOTED. [facility], SETTINGS ORDERED, SATURATING WELL. NO SOB NOTED. PICC LINE ON LEFT UPPER ARM INTACT, FLUSHING WELL, NO SIGNS OF INFECTION NOTED. SINUS RHYTHM ON TELE MONITOR HR 60BPM. FLEXISEAL INTACT. SIDE RAILS UP. BED ALARM ON. BED LOCKED AND IN LOWEST POSITION. WILL CONTINUE TO MONITOR PT.
--- NOTE | 2017-10-06 07:29 | NUR ---
RT RECEIVED PT TRACH VENT DEPENDENT WITH NOTED SETTINGS. TRAINING DEVELOPMENT MANAGER DONE AND TRACH IS SECURE. VENT ALARMS CHECKED AND AUDIBLE. VENT PLUGGED IN RED OUTLET. AMBU BAG NOTED HOB. B/S BILATERAL RHONCHI, SX WITH SML THN WHITE/CLEAR SECRETIONS. PT ON CONTINUOS PULSE OX, SPO2 AND HR WITHIN NORMAL LIMIT. PT TOLERATING SETTINGS WELL, NO SOB OR RESP DISTRESS NOTED AT THIS TIME, WILL CONTINUE TO MONITOR T/O SHIFT.
[2017-10-06 07:44] LABS: CALCIUM, SERUM 7.8 mg/dL (8.5-10.1); CREATININE 3.3 mg/dL (0.6-1.3); POTASSIUM 3.8 mmol/L (3.5-5.1)
[2017-10-06] MEDS: PROSOURCE / PROSTAT (PYXIS) 30 ML UDC GT SCH ×2 (08:12→20:20)
[2017-10-06] MEDS: AMIODARONE HCL 200 MG TABLET GT SCH (08:13)
[2017-10-06] MEDS: CARVEDILOL 3.125 MG TABLET GT SCH ×2 (08:13→20:20)
[2017-10-06] MEDS: GABAPENTIN 300 MG CAPSULE GT SCH ×3 (08:14→17:29)
[2017-10-06] MEDS: VIT B CMPLX 3/FA/VIT C/BIOTIN 1 TAB TABLET GT SCH (08:14)
[2017-10-06] MEDS: ASCORBIC ACID 500 MG TABLET GT SCH (08:14)
[2017-10-06] MEDS: HYDROGEL DRESSING 90 GM TUBE TP SCH (08:14)
[2017-10-06] MEDS: ACIDOPHILUS/BULGARICUS 1 EACH TAB.CHEW GT SCH ×3 (08:14→17:29)
[2017-10-06] MEDS: PANTOPRAZOLE 40 MG VIAL IV SCH ×2 (08:14→20:20)
--- NOTE | 2017-10-06 08:19 | NUR ---
SECURITY MESSENGER NOTES: AMIODARONE AND COREG MEDS DUE AT 0900 HELD BECAUSE PT IS SCHEDULED FOR HD TODAY.
[2017-10-06] MEDS: DAKINS QUARTER STRENGTH (0.125%) 480 ML BOTTLE TOP SCH (08:30)
[2017-10-06] MEDS: COLISTIMETHATE SODIUM 150 MG in IV NS 0.9% 50 ML IV SCH (11:37)
[2017-10-06] MEDS: INSULIN REGULAR, HUMAN 100 UNIT/ML 3 ML VIAL SQ PRN ×2 (11:54→17:37)
[2017-10-06] MEDS: NYSTATIN/TRIAMCIN CREAM 15 GM TUBE TP SCH (12:41)
--- NOTE | 2017-10-06 13:53 | NUR ---
OPERATOR TECHNICIAN NOTES: RECEIVED A CALL FROM LABS (TELLY) REGARDING PATIENT'S BLOOD CULTURE RESULT THAT IS POSITIVE FOR YEAST BACTERIA. DR. GARCIA MADE AWARE. NO NEW ORDERS AT THIS TIME.
--- NOTE | 2017-10-06 19:19 | NUR ---
GUM COOK NOTES: NO CHANGES NOTED THROUGHOUT THE SHIFT. NO FACIAL GRIMACING OR ANY SIGNS OF PAIN NOTED. ON MECH VENT, SATURATING WELL. KRYSTA PICC LINE, INTACT AND PATENT. DRAINED 300CC OUTPUT ON FLEXISEAL. TURNED AND REPOSITIONED Q2HRS AND NEEDED. KEPT CLEAN, DRY AND COMFORTABLE. WILL ENDORSE TO GENERAL ACCOUNTING MANAGER FOR CONTINUITY OF CARE.
[2017-10-06] MEDS: ATORVASTATIN 40 MG TABLET GT SCH (22:19)
[2017-10-07] VITALS: BP 134/66
[2017-10-07] MEDS: NEPRO 1,000 ML BOTTLE GT PRN (00:37)
[2017-10-07] MEDS: BLOOD SUGAR DIAGNOSTIC 1 EACH STRIP IN SCH ×3 (00:37→11:41)
[2017-10-07] MEDS: NYSTATIN/TRIAMCIN CREAM 15 GM TUBE TP SCH ×2 (00:38→11:43)
[2017-10-07] MEDS: INSULIN REGULAR, HUMAN 100 UNIT/ML 3 ML VIAL SQ PRN ×2 (00:47→11:43)
[2017-10-07 04:00] VITALS: BP 123/60
[2017-10-07 06:35] LABS: CALCIUM, SERUM 7.6 mg/dL (8.5-10.1); POTASSIUM 3.8 mmol/L (3.5-5.1)
[2017-10-07 06:42] LABS: BASOPHILS # (AUTO) 0.1 /CMM (0.0-0.2); BASOPHILS % (AUTO) 0.5 % (0.0-2.0); EOSINOPHILS % (AUTO) 3.3 % (0.0-6.0); HEMATOCRIT 23 % (39-51); HEMOGLOBIN 7.4 g/dL (13.5-17.5); LYMPHOCYTES # (AUTO) 2.2 /CMM (0.8-4.8); LYMPHOCYTES % (AUTO) 16.3 % (20.0-44.0); MEAN CORPUSCULAR HEMOGLOBIN 28 PG (26.0-33.0); MEAN CORPUSCULAR HGB CONC 33 g/dl (31.0-36.0); MEAN CORPUSCULAR VOLUME 86 fL (80-96); MONOCYTES # (AUTO) 0.6 /CMM (0.1-1.30); MONOCYTES % (AUTO) 4.8 % (2.0-12.0); NEUTROPHILS % (AUTO) 75.1 % (43.0-81.0); PLATELET COUNT (AUTO) 159 /CMM (150-450); RDW COEFFICIENT OF VARIATION 22.6 (11.5-15.0); RED BLOOD CELL COUNT(AUTO) 2.64 MIL/uL (4.5-6.0); WHITE BLOOD COUNT (AUTO) 13.3 K/uL (4.3-11.0)
--- NOTE | 2017-10-07 07:30 | NUR ---
MENTAL HEALTH AIDES TEACHER OPENING NOTES. PT RECEIVED WITH FACIAL GRIMACE/EXPRESSION RESPONSIVE TO FIRM TOUCH/LIGHT PAIN. PT WITH TRACH AND VENT. TRACH SECURE AND SUCTIONED. VENT ALARMS AUDIBLE, PLUGGED TO RED POWER POINTS AND SETTINGS CORRECT, P-T TOLERATING WITHOUT RESP DISTRESS. PT WITHOUT S/S OF PAIN OR DISCOMFORT. LCW PERMA CATH. L PICC LINE DRESSING INTACT AND SET TO TKO. FLEXISEAL FLUSHED AND STOOL IN COLLECTION WITHOUT LEAKS. PT G.TUBE WITH <5CC RESIDUALS. ARMS AND SCROTUM ELEVATED, PT REPOSITIONED. PT WITH GENERALIZED EDEMA. BED WITH HANDRAILSX4, SEMI FOWLERS AND LOCKED. WILL CONTINUE POC.
[2017-10-07 08:00] VITALS: BP 137/59
--- NOTE | 2017-10-07 08:16 | NUR ---
RT RECEIVED PT TRACH VENT DEPENDENT WITH NOTED SETTINGS. LOCKSTITCH HEMMER DONE AND TRACH IS SECURE. VENT ALARMS CHECKED AND AUDIBLE. VENT PLUGGED IN RED OUTLET. AMBU BAG NOTED HOB. B/S BILATERAL RHONCHI, SX WITH SML THN WHITE/CLEAR SECRETIONS. PT ON CONTINUOS PULSE OX, SPO2 AND HR WITHIN NORMAL LIMIT. PT TOLERATING SETTINGS WELL, NO SOB OR RESP DISTRESS NOTED AT THIS TIME, WILL CONTINUE TO MONITOR T/O SHIFT.
[2017-10-07] MEDS: PROSOURCE / PROSTAT (PYXIS) 30 ML UDC GT SCH (08:37)
[2017-10-07] MEDS: VIT B CMPLX 3/FA/VIT C/BIOTIN 1 TAB TABLET GT SCH (08:43)
[2017-10-07] MEDS: AMIODARONE HCL 200 MG TABLET GT SCH (08:43)
[2017-10-07] MEDS: GABAPENTIN 300 MG CAPSULE GT SCH ×2 (08:44→14:16)
[2017-10-07] MEDS: CARVEDILOL 3.125 MG TABLET GT SCH (08:44)
[2017-10-07] MEDS: DAKINS QUARTER STRENGTH (0.125%) 480 ML BOTTLE TOP SCH (08:44)
[2017-10-07] MEDS: ACIDOPHILUS/BULGARICUS 1 EACH TAB.CHEW GT SCH ×2 (08:44→14:17)
[2017-10-07] MEDS: ASCORBIC ACID 500 MG TABLET GT SCH (08:44)
[2017-10-07] MEDS: PANTOPRAZOLE 40 MG VIAL IV SCH (08:44)
[2017-10-07] MEDS: HYDROGEL DRESSING 90 GM TUBE TP SCH (08:45)
[2017-10-07] MEDS ORDERED: ASCO500T9 GT (10:50)
[2017-10-07] MEDS ORDERED: COLI150V IV ×2 (10:50→10:54)
[2017-10-07] MEDS ORDERED: VIT1TABL44 GT (10:50)
[2017-10-07] MEDS ORDERED: Hydrogel Dressing TP (10:50)
[2017-10-07] MEDS ORDERED: SODI473S8 TOP (10:50)
[2017-10-07] MEDS ORDERED: CASP50VI2 IV (10:54)
[2017-10-07] MEDS: COLISTIMETHATE SODIUM 150 MG in IV NS 0.9% 50 ML IV SCH (11:41)
[2017-10-07 12:00] VITALS: BP 112/46
[2017-10-07] MEDS ORDERED: MICAFUNGIN SODIUM 100 MG in IV NS 0.9% 100 ML IV ONE (12:30)
--- NOTE | 2017-10-07 17:45 | NUR ---
PT PREPARE FOR D/C PER MD, PT WITH ALL BELONGINGS AND [facility] D/C DOCUMENTS SIGNED BY RNX2, PT ENDORSED TO GRACIELA AT [address] HOUSE. PT LEFT WITH PICC AND FLEXI SEAL PER . ALL PHOTOS UPDATED AND CHARTED. ALL DAY NURSE DUTIES ATTENDED TO AND PT LEFT WITH EMT AND RT TRANS CREW.
== END 2017-10-07 19:00 | DRG 356 ==
LOC: ER 07:20 → TELE 10:24 → ICU 09-27 18:39 → TELE1 10-01 21:15 → TELE-TD 10-01 21:20 → TELE1 10-03 09:31
PROVIDERS: ADMIT Internal Medicine; ATTEND Internal Medicine
PROC: 0KBP0ZZ Excision of Left Hip Muscle, Open Approach (ICD-10-PCS; principal; 2017-09-25)
PROC: 5A1955Z Respiratory Ventilation, Greater than 96 Consecutive Hours (ICD-10-PCS; 2017-09-25)
PROC: 0KBN0ZZ Excision of Right Hip Muscle, Open Approach (ICD-10-PCS; 2017-09-25)
PROC: 30233N1 Transfusion of Nonautologous Red Blood Cells into Peripheral Vein, Percutaneous Approach (ICD-10-PCS; 2017-09-25)
PROC: 0D20XUZ Change Feeding Device in Upper Intestinal Tract, External Approach (ICD-10-PCS; 2017-09-25)
PROC: 5A1D70Z Performance of Urinary Filtration, Intermittent, Less than 6 Hours Per Day (ICD-10-PCS; 2017-09-26)
PROC: 0JBR0ZZ Excision of Left Foot Subcutaneous Tissue and Fascia, Open Approach (ICD-10-PCS; 2017-09-27)
PROC: 0JBQ0ZZ Excision of Right Foot Subcutaneous Tissue and Fascia, Open Approach (ICD-10-PCS; 2017-09-27)
PROC: 30233K1 Transfusion of Nonautologous Frozen Plasma into Peripheral Vein, Percutaneous Approach (ICD-10-PCS; 2017-09-27)
PROC: 5A1D70Z Performance of Urinary Filtration, Intermittent, Less than 6 Hours Per Day (ICD-10-PCS; 2017-09-28)
PROC: 0DB78ZX Excision of Stomach, Pylorus, Via Natural or Artificial Opening Endoscopic, Diagnostic (ICD-10-PCS; 2017-09-29)
PROC: 5A1D70Z Performance of Urinary Filtration, Intermittent, Less than 6 Hours Per Day (ICD-10-PCS; 2017-09-30)
PROC: 5A1D70Z Performance of Urinary Filtration, Intermittent, Less than 6 Hours Per Day (ICD-10-PCS; 2017-10-02)
PROC: 02HV33Z Insertion of Infusion Device into Superior Vena Cava, Percutaneous Approach (ICD-10-PCS; 2017-10-04)
PROC: B548ZZA Ultrasonography of Superior Vena Cava, Guidance (ICD-10-PCS; 2017-10-04)
PROC: 5A1D70Z Performance of Urinary Filtration, Intermittent, Less than 6 Hours Per Day (ICD-10-PCS; 2017-10-04)
PROC: 5A1D70Z Performance of Urinary Filtration, Intermittent, Less than 6 Hours Per Day (ICD-10-PCS; 2017-10-06)
DX: K29.60 Other gastritis without bleeding (principal); L89.154 Pressure ulcer of sacral region, stage 4; G93.40 Encephalopathy, unspecified; N18.6 End stage renal disease; R53.2 Functional quadriplegia; I21.A1 Myocardial infarction type 2; L89.214 Pressure ulcer of right hip, stage 4; L89.324 Pressure ulcer of left buttock, stage 4; L89.314 Pressure ulcer of right buttock, stage 4; I13.2 Hypertensive heart and chronic kidney disease with heart failure and with stage 5 chronic kidney disease, or end stage renal disease; I50.22 Chronic systolic (congestive) heart failure; J96.11 Chronic respiratory failure with hypoxia; E44.0 Moderate protein-calorie malnutrition; Z99.11 Dependence on respirator [ventilator] status; I42.9 Cardiomyopathy, unspecified; L97.518 Non-pressure chronic ulcer of other part of right foot with other specified severity; L97.528 Non-pressure chronic ulcer of other part of left foot with other specified severity; E11.52 Type 2 diabetes mellitus with diabetic peripheral angiopathy with gangrene; I96 Gangrene, not elsewhere classified; D64.9 Anemia, unspecified; K21.9 Gastro-esophageal reflux disease without esophagitis; E11.22 Type 2 diabetes mellitus with diabetic chronic kidney disease; D72.829 Elevated white blood cell count, unspecified; E88.09 Other disorders of plasma-protein metabolism, not elsewhere classified; E78.5 Hyperlipidemia, unspecified; G40.909 Epilepsy, unspecified, not intractable, without status epilepticus; L30.4 Erythema intertrigo; Z99.2 Dependence on renal dialysis; Z79.82 Long term (current) use of aspirin; Z93.0 Tracheostomy status; R13.10 Dysphagia, unspecified; Z95.810 Presence of automatic (implantable) cardiac defibrillator; Z68.39 Body mass index [BMI] 39.0-39.9, adult; E83.9 Disorder of mineral metabolism, unspecified; S71.001A Unspecified open wound, right hip, initial encounter; X58.XXXA Exposure to other specified factors, initial encounter; Y93.9 Activity, unspecified; Y92.129 Unspecified place in nursing home as the place of occurrence of the external cause; I25.10 Atherosclerotic heart disease of native coronary artery without angina pectoris; E11.621 Type 2 diabetes mellitus with foot ulcer; I25.2 Old myocardial infarction; I48.2 Chronic atrial fibrillation; Z79.899 Other long term (current) drug therapy
CPT/HCPCS: 31720; 36415; 71045-TC; 80048-TC; 80076-TC; 80202-TC; 82728-TC; 82962-TC; 83540-TC; 83735-TC; 84100-TC; 84134-TC; 84484-TC; 85025-TC; 85027-TC; 85610-TC; 85730-TC; 86850-TC; 86921-TC; 87040-TC; 87070-TC; 87081-TC; 87186-TC; 88305-TC; 88313-TC; 88342; 90935-TC; 94002-TC; 94003-TC; 94760-TC; 94762-TC; 99082-TC; A4216; A4606; A6248; A6253; A6402; A6403; C1751; C9113; J0770; J0885; J1815; J2185; J2248; J2704; J3370; J3475; J3490; J7030; J7050; J7060; P9016-BL; P9017-BL; Z7610

== ENCOUNTER 2017-11-23 18:55 | Inpatient (IN) | payer MEDICARE, MEDICAID ==
[~2017-11-23] VITALS: Ht 172.7 cm; Wt 79.8 kg
[~2017-11-23 18:55] MED LIST changes: +ACID1TAB12 GT; -ALBU1.257 IH; +ALLA266C2 TP; +ASCO500T9 GT; -ASPI-1169 GT; +CASP50VI2 IV; +COLI150V12 IV; +Hydrogel Dressing TP; +MAG30ORA GT; +MAGN400O6 GT; -MULT-447 GT; -OMEP20CA10 GT; +ONDA4TAB5 GT; +PANT40SU2 GT; +SODI473S8 TOP; +SULF10VI2 IV; +VIT1TABL44 GT; +ZOLP5TAB8 GT
--- NOTE | 2017-11-23 19:30 | NUR ---
Pt BIBEMS S/P DIALYSIS ON ROUTE BACK TO [facility], WHEN EMS NOTICE BLOOD COMING FROM Pt's DIAPER, BROUGHT Pt TO ER. Pt HAS HD T, TH, & S. HD CATH NOTED ON RCW. Pt IS A VENT/TRACH. ABLE TO ANSWER YES OR NO QUESTIONS BY NODDING. Pt SEEN BY MD AT BEDSIDE. WILL CONTINUE TO MONITOR Pt AND CARRY OUT MD ORDERS.
[2017-11-23 19:33] VITALS: BP 95/59
--- NOTE | 2017-11-23 19:40 | NUR ---
EKG BEING DONE AT BEDSIDE
--- NOTE | 2017-11-23 19:41 | NUR ---
BLOOD BEING DRAWN AT BEDSIDE.
--- NOTE | 2017-11-23 19:45 | NUR ---
XR BEING DONE AT BEDSIDE.
--- NOTE | 2017-11-23 20:00 | NUR ---
INSERTED ROMERO CATHETER AND COLLECTED URINE. SENT TO LAB.
[2017-11-23 20:47] LABS: APPEARANCE,URINE Cloudy (CLEAR); BILIRUBIN,URINE SMALL (NEGATIVE); BLOOD, URINE Large Ery/uL (NEGATIVE); COLOR,URINE Brown (YELLOW); KETONES,URINE Negative (NEGATIVE); LEUKOCYTE ESTERASE ,URINE Large (NEGATIVE); NITRITE, URINE Negative (NEGATIVE); PH,URINE 5.5 (5.0-8.0); PROTEIN,URINE 100 mg/dl (NEGATIVE); UGLUCOSE Negative (NEGATIVE); UROBILINOGEN,URINE 0.2 EU/dL (0.2)
[2017-11-23 20:50] LABS: BACTERIA,URINE 4+ /HPF (None Seen); RBC,URINE 51-80 /HPF (0-2); SQUAMOUS EPITHELIAL CELL,UR Few /HPF (None Seen); WBC,URINE TOO NUMEROUS TO COUN /HPF (0-3)
[2017-11-23 20:52] LABS: CALCIUM, SERUM 7.3 mg/dL (8.5-10.1); CREATININE 1.7 mg/dL (0.6-1.3); POTASSIUM 2.9 mmol/L (3.5-5.1)
[2017-11-23 20:53] LABS: BASOPHILS # (AUTO) 0.1 /CMM (0.0-0.2); BASOPHILS % (AUTO) 0.7 % (0.0-2.0); EOSINOPHILS % (AUTO) 0.9 % (0.0-6.0); HEMATOCRIT 29 % (39-51); HEMOGLOBIN 9.9 g/dL (13.5-17.5); LYMPHOCYTES # (AUTO) 1.9 /CMM (0.8-4.8); LYMPHOCYTES % (AUTO) 11.7 % (20.0-44.0); MEAN CORPUSCULAR HGB CONC 34 g/dl (31.0-36.0); MEAN CORPUSCULAR VOLUME 99 fL (80-96); MONOCYTES % (AUTO) 6.3 % (2.0-12.0); NEUTROPHILS # (AUTO) 13.3 /CMM (1.8-8.9); NEUTROPHILS % (AUTO) 80.4 % (43.0-81.0); PLATELET COUNT (AUTO) 313 /CMM (150-450); RDW COEFFICIENT OF VARIATION 20.2 (11.5-15.0); RED BLOOD CELL COUNT(AUTO) 2.95 MIL/uL (4.5-6.0); WHITE BLOOD COUNT (AUTO) 16.4 K/uL (4.3-11.0)
[2017-11-23 20:56] LABS: INR 1.37 (0.85-1.15)
[2017-11-23 20:58] LABS: BILIRUBIN,DIRECT 0.3 mg/dL (0.0-0.2); BILIRUBIN,TOTAL 0.7 mg/dL (0.2-1.0); TOTAL PROTEIN, SERUM 6.4 g/dL (6.4-8.2)
[2017-11-23 21:00] LABS: ALBUMIN 1.2 g/dL (3.4-5.0)
--- NOTE | 2017-11-23 21:00 | NUR ---
PATIENT CLEANED. FOUND SACRAL WOUND ON Pt THAT IS ACTIVELY BLEEDING. CLEANED WOUND WITH STERILE NS COVERED AREA WITH GAUZE AND WOUND BANDAGE AND ABD PAD.
[2017-11-23] MEDS ORDERED: PIPERACILLIN /TAZOBACTAM 2.25 G in IV D5W 50 ML IV STA (21:04)
[2017-11-23] MEDS ORDERED: ALBUMIN 25% 50 ML IV ONE (21:09)
[2017-11-23 21:10] LABS: TROPONIN I 0.036 ng/mL (0.00-0.056)
[2017-11-23 21:12] LABS: PARTIAL THROMBOPLASTIN TIME > 170 SEC (23-34)
--- NOTE | 2017-11-23 21:15 | NUR ---
STARTED Pt ON ALBUMIN.
[2017-11-23] MEDS ORDERED: ALBUMIN 25% 12.5 GM/50 ML BOTTLE IV ONE ×2 (21:30)
[2017-11-23] MEDS ORDERED: POTASSIUM CL. PREMIX PERIPHER. 50 ML ONE ×2 (21:35→22:41)
[2017-11-23] MEDS ORDERED: PIPERACILLIN /TAZOBACTAM 3.375 G VIAL IV ONE (21:35)
[2017-11-23 21:49] LABS: INR 1.32 (0.85-1.15)
--- NOTE | 2017-11-23 21:55 | NUR ---
ADMINISTERED ZOSYN 2.25G.
[2017-11-23] MEDS ORDERED: ACETAMINOPHEN 325 MG TABLET PO PRN (22:00)
[2017-11-23] MEDS ORDERED: MAG HYDROX/AL HYDROX/SIMETH 30 ML UDC PO PRN (22:00)
[2017-11-23] MEDS ORDERED: Z GUARD REMEDY 2 OZ OINT TP PRN (22:00)
[2017-11-23] MEDS ORDERED: ONDANSETRON HCL/PF 4 MG/2 ML VIAL IVP PRN (22:00)
[2017-11-23] MEDS ORDERED: MAGNESIUM HYDROXIDE 30 ML UDC PO PRN (22:00)
[2017-11-23] MEDS ORDERED: HYDROCODONE/APAP 5/325MG 1 EACH TABLET PO PRN (22:00)
[2017-11-23] MEDS: POTASSIUM CL. PREMIX PERIPHER. 50 ML IV SCH ×2 (22:01→23:17)
--- NOTE | 2017-11-23 22:37 | NUR ---
REPORT GIVEN TO [facility] KAREN GALAN. WILL TRANSPORT Pt PER ACLS PROTOCOL.
--- NOTE | 2017-11-23 22:53 | NUR ---
RT paged to help transport pt to [facility].
--- NOTE | 2017-11-23 22:53 | NUR ---
type & screen collected from lab
--- NOTE | 2017-11-23 23:10 | NUR ---
RN ADMITTING NOTES PATIENT BROUGHT INTO THE UNIT VIA GURNEY, TRANSFERRED FROM THE ER, ACCOMPANIED BY ER STAFF. NOTED PT WITH BLEEDING FROM SACRAL WOUND UPON TRANSFERRING FROM RPOND GAP TO BED. PATIENT ALERT AND AWAKE, NON VERBAL BUT ABLE TO NOD FOR YES OR NO ANSWERS, WITH TRACH ON VENT, PT WITH G-TUBE, FEEDING NO HOLD AT THIS TIME. ORIENTED PT TO UNIT, ROOM, CALL LIGHT AND USE OF CALL LIGHT. BODY SKIN ASSESSMENT DONE. PT DENIES DIZZINESS, LIGHTHEADEDNESS AND PAIN AT THIS TIME. ALL PATIENT'S NEEDS ATTENDED TO. KEPT SAFE AND DRY, CLEAN AND COMFORTABLE. WILL CONTINUE TO MONITOR PT ON TELE WITH A-FIB, TACHY @ 100-110s. WILL CONTINUE TO MONITOR PT.
[2017-11-23 23:16] VITALS: BP 91/63
--- NOTE | 2017-11-23 23:39 | NUR ---
RT NOTE: TRACH PT ON MECHANICAL VENT WITH NOTED SETTINGS TRANSPORTED FROM ER. PT TRACH PATENT AND SECURE. CREW BOSS DONE. AMBU BAG AT BEDSIDE. VENT PLUGGED INTO RED OUTLET. ALARMS ARE ON AND AUDIBLE. SX DONE WITH MODERATE AMOUNT OF THIN PALE YELLOW SECRETIONS.WILL CONTINUE TO MONITOR Addendum: 11/24/17 at 0129 by TEREZA TORRES RT Amended: Links added.
[2017-11-24] MEDS: BLOOD SUGAR DIAGNOSTIC 1 EACH STRIP IN SCH ×5 (00:41→23:39)
--- NOTE | 2017-11-24 01:40 | NUR ---
RN NOTE CALLED JENIFER PINTO REGARDING PATIENT'S LIFE VEST, SPOKE WITH KAREN BLEVINS SAPPHIRE STYLUS GRINDER. PER GEN, HE WILL HAVE SOMEONE IN THE MORNING SHIFT BRING THE FINANCIAL SALES PROFESSIONAL AND EXTRA BATTERY FOR THE EXTERNAL DEFIBRILLATOR. CALLED DR. BOWDEN REGARDING PATIENT'S BLOOD SUGAR=67 AT MIDNIGHT. RECEIVED NEW ORDER TO ADMINISTER DEXTROSE 50% INJECTION 25 GRAMS VIA IV PUSH X 1. CLARIFIED ORDER TO PUT G-TUBE FEEDING ON HOLD BUT MAY USE G-TUBE FOR WATER AND MEDICATION. ALL ORDERS NOTED AND CARRIED OUT.
[2017-11-24] MEDS: DEXTROSE 50%-WATER 50 ML DISP.SYRIN IV PRN ×2 (01:54→10:02)
[2017-11-24] MEDS: ATORVASTATIN 40 MG TABLET GT SCH ×2 (01:54→21:47)
[2017-11-24 02:35] VITALS: BP 108/66
--- NOTE | 2017-11-24 03:30 | NUR ---
RN NOTES PATIENT NOTED WEARING A ZOLL LIFE VEST UNIT (EXTERNAL DEFIBRILLATOR) BEEPING WITH ALERT SAYING POSSIBLE BATTERY MALFUNCTION, CALLED [employer] SUPPORT TEL # , SPOKE WITH LUPILLO REGARDING ISSUE. PER LUPILLO, PATIENT'S BATTERY IS DUE TO BE REPLACED. SHE WILL HAVE SOMEONE COME SOON POSSIBLE IN THE MORNING TO BRING A CHARGED BATTERY, A BOTTOM CAGER AND A VEST FOR THE PATIENT. CONFIRMATION # [id number].
[2017-11-24 04:00] VITALS: BP 91/54
[2017-11-24] MEDS ORDERED: PIPERACILLIN /TAZOBACTAM 2.25 G VIAL IV ONE (05:11)
[2017-11-24] MEDS ORDERED: PIPERACILLIN /TAZOBACTAM 2.255 G in IV D5W 50 ML IV SCH (06:00)
--- NOTE | 2017-11-24 07:00 | NUR ---
RN CLOSING NOTES PATIENT IN BED, NO SOB, IN NO ACUTE DISTRESS. TURNED AND REPOSITIONED [id number]. DRESSINGS CHANGED NEEDED. ALL PATIENT'S NEEDS ATTENDED TO THROUGHOUT THE SHIFT. WILL ENDORSE TO AM SHIFT NURSE FOR CONTINUITY OF CARE.
[2017-11-24 07:22] LABS: BASOPHILS % (AUTO) 0.2 % (0.0-2.0); EOSINOPHILS % (AUTO) 1.5 % (0.0-6.0); HEMATOCRIT 26 % (39-51); HEMOGLOBIN 8.3 g/dL (13.5-17.5); LYMPHOCYTES # (AUTO) 2.2 /CMM (0.8-4.8); LYMPHOCYTES % (AUTO) 23.1 % (20.0-44.0); MEAN CORPUSCULAR HGB CONC 32 g/dl (31.0-36.0); MEAN CORPUSCULAR VOLUME 102 fL (80-96); MONOCYTES # (AUTO) 0.8 /CMM (0.1-1.30); MONOCYTES % (AUTO) 8.4 % (2.0-12.0); NEUTROPHILS # (AUTO) 6.5 /CMM (1.8-8.9); NEUTROPHILS % (AUTO) 66.8 % (43.0-81.0); PLATELET COUNT (AUTO) 219 /CMM (150-450); RDW COEFFICIENT OF VARIATION 21.9 (11.5-15.0); RED BLOOD CELL COUNT(AUTO) 2.55 MIL/uL (4.5-6.0); WHITE BLOOD COUNT (AUTO) 9.7 K/uL (4.3-11.0)
[2017-11-24 07:37] LABS: CALCIUM, SERUM 7.3 mg/dL (8.5-10.1); CREATININE 2.1 mg/dL (0.6-1.3); MAGNESIUM 1.5 mg/dL (1.8-2.4); PHOSPHORUS 3.2 mg/dL (2.5-4.9); POTASSIUM 3.1 mmol/L (3.5-5.1)
[2017-11-24] MEDS ORDERED: COLISTIMETHATE SODIUM 150 MG in IV NS 0.9% 50 ML IV SCH (08:00)
[2017-11-24] MEDS: CARVEDILOL 3.125 MG TABLET GT SCH ×2 (08:00→17:54)
--- NOTE | 2017-11-24 08:00 | NUR ---
PT RECEIVED ON MECHANICAL VENT ON NOTED SETTINGS. TRACH IS SECURE. PT SUCTIONED: MODERATE WHITE SECRETIONS. PT DOES NOT HAVE ANY BREATHING TX'S AT THIS TIME. NO RESP DISTRESS OR SOB NOTED. VENT IS PLUGGED INTO RED OUTLET. VENT ALARMS ARE ON AND AUDIBLE. AMBU BAG IS AT BEDSIDE. WILL CONT TO MONITOR PT. Addendum: 11/24/17 at 0801 by ANGEL MARSHALL RT Amended: Links added.
--- NOTE | 2017-11-24 08:12 | NUR ---
COTTON BROKER OPENING NOTES RECEIVED PATIENT IN BED, RESTING A&O NON VERBAL. VENT IN PLACE SATURATION OF 100, AFIB 102, IN NO APPARENT DISTRESS AT THE MOMENT, REMAINS NPO. MONITORING LARGE SACRAL WOUND FOR BLEEDING. BED IN LOWEST LOCKED POSITION, WILL CONTINUE TO MONITOR.
[2017-11-24] MEDS ORDERED: POTASSIUM CHLORIDE 20 MEQ TAB.PRT.SR PO ONE (08:30)
[2017-11-24] MEDS ORDERED: IV NS 0.9% 1,000 ML BAG IV PRN (08:30)
--- NOTE | 2017-11-24 08:30 | NUR ---
CLINICAL RESEARCH SCIENTIST NOTES POTASSIUM TABS CHANGED TO POWDER FORM, PT WITH GT
[2017-11-24] MEDS ORDERED: FEE PK DOSING 1 MIN EA MC ONE (08:52)
[2017-11-24] MEDS ORDERED: IV NS 0.9% 1,000 ML IV PRN (09:00)
[2017-11-24] MEDS ORDERED: POTASSIUM CHLORIDE 20 MEQ POWDER PACKET GT ONE (09:00)
[2017-11-24] MEDS ORDERED: COLISTIMETHATE SODIUM 150 MG VIAL IV SCH (09:00)
[2017-11-24] MEDS ORDERED: CEFTRIAXONE 1 G in IV D5W 50 ML IV SCH (09:00)
[2017-11-24] MEDS: PANTOPRAZOLE 40 MG VIAL IV SCH (09:06)
[2017-11-24] MEDS: GABAPENTIN 300 MG CAPSULE GT SCH ×3 (09:07→16:50)
[2017-11-24] MEDS: ACIDOPHILUS/BULGARICUS 1 EACH TAB.CHEW GT SCH ×3 (09:07→16:50)
[2017-11-24] MEDS: ASCORBIC ACID 500 MG TABLET GT SCH (09:07)
[2017-11-24] MEDS: AMIODARONE HCL 200 MG TABLET GT SCH (09:07)
[2017-11-24] MEDS: Magnesium 1GM/D5W 100ML PREMIX 100 ML IV SCH (09:40)
[2017-11-24] MEDS ORDERED: NEPRO 1,000 ML BOTTLE GT PRN (10:00)
[2017-11-24] MEDS ORDERED: EPOETIN ALFA (10,000 UNIT) 10,000 UNIT/ML VIAL IV ONE (10:00)
[2017-11-24] MEDS: VANCOMYCIN 0.75 GM in IV D5W 250 ML IV SCH (10:46)
[2017-11-24] MEDS: PIPERACILLIN /TAZOBACTAM 2.25 G in IV D5W 50 ML IV SCH ×3 (12:13→23:39)
[2017-11-24] MEDS ORDERED: VANCOMYCIN 1 GM in IV D5W 250 ML IV SCH (15:00)
[2017-11-24] MEDS ORDERED: LIDOCAINE 2% 20 ML MDV TP ONE (15:00)
[2017-11-24] MEDS ORDERED: ALBUMIN 25% 25 GM in PREMIX 1 EA IV PRN (16:30)
[2017-11-24] MEDS: NYSTATIN/TRIAMCIN CREAM 15 GM TUBE TP SCH ×2 (16:48→21:20)
[2017-11-24] MEDS: NEOMY SULF/BACITRAC ZN/POLY 15 GM TUBE TP SCH (16:48)
[2017-11-24] MEDS: DAKINS QUARTER STRENGTH (0.125%) 480 ML BOTTLE TOP SCH ×2 (16:48→21:20)
[2017-11-24] MEDS: VITAMINS A AND D 56.7 GM TUBE TP SCH ×2 (17:35→21:21)
--- NOTE | 2017-11-24 18:11 | NUR ---
PHOTOGRAPHER'S MODEL CLOSING NOTES. PATIENT REMAINS IN BED, AWAKE, RESTING, AO, NON VERBAL. VENT IN PLACE. FEEDING ADMINISTERED VIA GTUBE AND TOLERATING. PATIENT DIALYZED AT BED SIDE, VERBAL CONSENT OBTAINED FROM DAUGHTER VIA PHONE, ALSO OBTAINED CONSENT FOR DEBRIDEMENT OE SACRAL WOUND TO TAKE PLACE IN THE AM. DEFIBRILLATOR VEST BATTER CHANGED, NEXT CHANGE 11/25 1800. REPOSITIONED EVERY TWO HOURS, KEPT CLEAN AND DRY DURING SHIFT. BED LOCKED AND LOWEST POSITION, WILL ENDORSE TO NIGHT NURSE FOR CHRISTIAN
[2017-11-24] MEDS: NEPRO 1,000 ML BOTTLE GT PRN (18:51)
--- NOTE | 2017-11-24 19:40 | NUR ---
CLINIC ASSISTANT NOTES RECEIVED ON TRACH TO VENT,SETTINGS TOLERATED WELL.WITH DEFIB VET IN PLACE.ROMERO CATH IN PLACE DRAINING YELLOWISH OUTPUT.WITH NEPHRO GT FEEDING AT 20ML/HR RATE.NO ISOLATION.KCI MATTRESS IN USED FOR SKIN MANAGEMENT.REPOSITION PER PROTOCOL.WILL CONTINUE TO MONITOR STATUS.
[2017-11-24 20:00] VITALS: BP 118/65
[2017-11-24 21:00] LABS: OCCULT BLOOD STOOL NEGATIVE (NEGATIVE)
[2017-11-24 22:00] VITALS: BP 118/65
[2017-11-25] VITALS: BP_SYST 121; BP_DIAS 60; BP_DIAS 61
--- NOTE | 2017-11-25 | NUR ---
GREENS PICKER NOTES ACCU-CHECK BLOOD SUGAR CHECK 67,ASYMPTOMATIC FOR HYPOGLYCEMIA.APPLE JUICE WITH SUGAR GIVEN VIA GT.GT FEEDING IN PROGRESS.
--- NOTE | 2017-11-25 01:46 | NUR ---
PATIENT WAS RECEIVED ON MECHANICAL VENT WITH NOTED SETTINGS. SX DONE WITH MODERATE AMOUNT OF THICK YELLOW SECRETIONS. TRACH TUBE PATENT AND SECURED. ELECTRICAL MANUFACTURING ENGINEER DONE. AMBU BAG AT BEDSIDE. VENT PLUGGED INTO RED OUTLET. ALARMS ARE ON AND AUDIBLE. WILL CONTINUE TO MONITOR Addendum: 11/25/17 at 0147 by YOLANDA OAKES RT Amended: Links added.
--- NOTE | 2017-11-25 02:00 | NUR ---
DATA EXAMINATION CLERK NOTES BLOOD SUGAR RE CHECK 90MG/DL,AFTER GIVING 1 CUP OF APPLE JUICE WITH SUGAR/GT
[2017-11-25 04:00] VITALS: BP 111/72
[2017-11-25] MEDS: VANCOMYCIN 0.75 GM in IV D5W 250 ML IV SCH (04:03)
[2017-11-25] MEDS: PIPERACILLIN /TAZOBACTAM 2.25 G in IV D5W 50 ML IV SCH ×3 (05:48→17:14)
[2017-11-25] MEDS: BLOOD SUGAR DIAGNOSTIC 1 EACH STRIP IN SCH ×3 (06:09→18:37)
--- NOTE | 2017-11-25 06:45 | NUR ---
SKATE MAKER NOTES REMAINS CALM THRU OUT SHIFT.VENT SETTINGS TOLERATED WELL.NEW SALINE LOCK PLACE ON LEFT HAND #22.IC ZOSYN INFUSING.IN NO ACUTE DISTRESS.WILL ENDORSE TO DAY NURSE FOR CHRISTIAN.
[2017-11-25 07:40] LABS: BASOPHILS % (AUTO) 0.3 % (0.0-2.0); EOSINOPHILS % (AUTO) 4.7 % (0.0-6.0); HEMATOCRIT 26 % (39-51); HEMOGLOBIN 8.3 g/dL (13.5-17.5); LYMPHOCYTES # (AUTO) 1.9 /CMM (0.8-4.8); LYMPHOCYTES % (AUTO) 20.1 % (20.0-44.0); MEAN CORPUSCULAR HGB CONC 32 g/dl (31.0-36.0); MEAN CORPUSCULAR VOLUME 103 fL (80-96); MONOCYTES # (AUTO) 0.9 /CMM (0.1-1.30); MONOCYTES % (AUTO) 9.3 % (2.0-12.0); NEUTROPHILS # (AUTO) 6.3 /CMM (1.8-8.9); NEUTROPHILS % (AUTO) 65.6 % (43.0-81.0); PLATELET COUNT (AUTO) 209 /CMM (150-450); RDW COEFFICIENT OF VARIATION 21.6 (11.5-15.0); RED BLOOD CELL COUNT(AUTO) 2.55 MIL/uL (4.5-6.0); WHITE BLOOD COUNT (AUTO) 9.6 K/uL (4.3-11.0)
[2017-11-25 07:57] LABS: CALCIUM, SERUM 8.5 mg/dL (8.5-10.1); CREATININE 1.9 mg/dL (0.6-1.3); MAGNESIUM 1.8 mg/dL (1.8-2.4); PHOSPHORUS 2.6 mg/dL (2.5-4.9); POTASSIUM 3.4 mmol/L (3.5-5.1)
[2017-11-25] MEDS: CARVEDILOL 3.125 MG TABLET GT SCH ×2 (08:00→18:00)
[2017-11-25 08:25] VITALS: BP 110/64
[2017-11-25] MEDS: PANTOPRAZOLE 40 MG VIAL IV SCH (08:57)
[2017-11-25] MEDS: ACIDOPHILUS/BULGARICUS 1 EACH TAB.CHEW GT SCH ×3 (08:57→17:14)
[2017-11-25] MEDS: AMIODARONE HCL 200 MG TABLET GT SCH (08:58)
[2017-11-25] MEDS: ASCORBIC ACID 500 MG TABLET GT SCH (08:58)
[2017-11-25] MEDS: GABAPENTIN 300 MG CAPSULE GT SCH ×3 (08:59→17:13)
[2017-11-25] MEDS: DAKINS QUARTER STRENGTH (0.125%) 480 ML BOTTLE TOP SCH ×2 (09:08→21:44)
[2017-11-25] MEDS: VITAMINS A AND D 56.7 GM TUBE TP SCH ×2 (09:08→21:45)
[2017-11-25] MEDS: NYSTATIN/TRIAMCIN CREAM 15 GM TUBE TP SCH ×2 (09:09→21:46)
[2017-11-25] MEDS: NEOMY SULF/BACITRAC ZN/POLY 15 GM TUBE TP SCH (09:09)
[2017-11-25] MEDS ORDERED: POTASSIUM CHLORIDE 20 MEQ POWDER PACKET GT SCH (11:00)
--- NOTE | 2017-11-25 12:10 | NUR ---
BLOCKER HAND OPENING NOTES RECEIVED PATIENT IN BED, RESTING, ALERT BUT NON VERBAL, BREATHING ON VENT, ROMERO CATHETER IN PLACE, TELE MONITOR IN PLACE. GTUBE FEEDING ON AT 30ML/HR. IN NO APPARENT DISCOMFORT, AM CARE RENDERED. BED IN LOWEST LOCKED POSITION.
[2017-11-25] MEDS ORDERED: FLUCONAZOLE IN NS 100 MG in PREMIX 1 EA IV SCH ×2 (14:00)
[2017-11-25 16:26] VITALS: BP 100/57
--- NOTE | 2017-11-25 18:10 | NUR ---
RT NOTE PATIENT WAS RECEIVED ON MECHANICAL VENT WITH NOTED SETTINGS. SX DONE WITH MODERATE AMOUNT OF THICK YELLOW SECRETIONS. TRACH TUBE PATENT AND SECURED. SYSTEMS SOFTWARE ENGINEER DONE. AMBU BAG AT BEDSIDE. VENT PLUGGED INTO RED OUTLET. ALARMS ARE ON AND AUDIBLE. WILL CONTINUE TO MONITOR
--- NOTE | 2017-11-25 19:07 | NUR ---
RN CLOSING NOTES PATIENT IN BED, AWAKE, ALERT, NON VERBAL, ON VENT,NO SOB. ROMERO IN PLACE, VOIDING TO A DARK YELLOW. IN NO ACUTE DISTRESS. TURNED AND REPOSITIONED [id number]. DRESSINGS CHANGED NEEDED. BED IN LOWEST LOCKED POSITION, CALL LIGHT WITHIN REACH, WILL ENDORSE TO NIGHT NURSE FOR CHRISTIAN.
--- NOTE | 2017-11-25 19:44 | NUR ---
RN OPENING NOTES PT ASLEEP BUT EASILY AROUSED. PT IS ABLE TO NOD HIS HEAD AND SMILE WHEN SPEAKING TO HIM BUT HE IS NONVERBAL. PT IS IN ROOM AIR BUT IN VENT, TOLERATING WELL, NO SOB, NO SIGNS OF DISTRESS, NO SIGNS OF ASPIRATION. CARDIAC MONITORING SHOWS A.FIB AT 86BPM. PT HAS EXTERNAL DEFIB VEST REMAINS BELOW THE CHEST, NO SIGNS OF MALFUNCTION. ROMERO CATHETER IN PLACED AND INTACT. GTUBE SITE IS INTACT, NO DRAINAGE, NO SIGNS OF INFECTION, NEPRO FEEDING AT 35MLS/HR. IV ACCESS ON THE LEFT HAND 22G IS PATENT AND INTACT. PT DOES NOT SHOW ANY SIGNS OF PAIN. SAFETY MEASURES IN PLACED, CALL LIGHT WITHIN REACH. WILL CONTINUE TO MONITOR AND ASSESS PT.
[2017-11-25 20:00] VITALS: BP 113/69
--- NOTE | 2017-11-25 21:44 | NUR ---
RN NOTES/ WOUND DRESSING SACRAL AND BUTTOCKS ARE WERE CLEANSE WITH SALINE, PACKED WITH DAKIN-MOISTENED GAUZE, AND COVERED WITH ABDOMINAL PADS. SCROTAL/GROIN/INNER THIGHS ARE CLEANSED WITH SOAP AND WATER, PAT DRY, APPLIED MYCOLOG. RIGHT HIP CLEANSE WITH NS, PACK WITH DAKIN-MOISTENED GAUZE, COVERED WITH ABDOMINAL PADS
[2017-11-25] MEDS: ATORVASTATIN 40 MG TABLET GT SCH (22:13)
--- NOTE | 2017-11-25 23:11 | NUR ---
RN NOTES/ VANCO TROUGH VANCO TROUGH LEVEL LAB DRAW BEFORE 3RD DOSE WAS NOT ORDERED. CALLED PHARMACY AND SAID TO ORDER TROUGH LEVEL BEFORE ADMINISTERING MEDICATION. TROUGH LEVEL STAT IS ORDERED, WAITING FOR RESULTS
[2017-11-26] VITALS: BP 121/66
[2017-11-26] MEDS: VANCOMYCIN 0.75 GM in IV D5W 250 ML IV SCH ×2 (00:05→15:31)
--- NOTE | 2017-11-26 00:07 | NUR ---
RN NOTES UNABLE TO ADMINISTER VANCO ON TIME DUE TO NO VANCO TROUGH ORDER. VANCO TROUGH LEVEL CAME BACK TO 13, VANCO IS NOW BEING ADMINISTERED
[2017-11-26] MEDS: BLOOD SUGAR DIAGNOSTIC 1 EACH STRIP IN SCH ×5 (00:23→23:03)
--- NOTE | 2017-11-26 00:24 | NUR ---
RN NOTES/ BLOOD SUGAR BLOOD SUGAR IS 85, NO INSULIN COVERAGE GIVEN PER SLIDING SCALE
[2017-11-26] MEDS: PIPERACILLIN /TAZOBACTAM 2.25 G in IV D5W 50 ML IV SCH ×4 (01:09→17:35)
[2017-11-26 04:00] VITALS: BP 104/68
--- NOTE | 2017-11-26 05:53 | NUR ---
RN NOTES/ BLOOD SUGAR AM PT BLOOD SUGAR IS 85, NO INSULIN COVERAGE PER SLIDING SCALE
[2017-11-26] MEDS: NEPRO 1,000 ML BOTTLE GT PRN (06:06)
--- NOTE | 2017-11-26 06:59 | NUR ---
RN CLOSING NOTES PT ASLEEP BUT EASILY AROUSED. PT IS NONVERBAL BUT ABLE TO NOD HIS HEAD WHEN SPOKEN TO. PT IN MECHANICAL VENT, TOLERATING WELL, NO SOB, NO SIGNS OF DISTRESS, NO SIGNS OF ASPIRATION. CARDIAC MONITORING SHOWS A.FIB WITH BUNDLE BRANCH BLOCK AT 86BPM. PT HAS EXTERNAL DEFIB VEST REMAINS BELOW THE CHEST, NO SIGNS OF MALFUNCTION. ROMERO CATHETER IN PLACED AND INTACT. GTUBE SITE IS INTACT, NO DRAINAGE, NO SIGNS OF INFECTION, NEPRO FEEDING RUNNING AT 35MLS/HR. IV ACCESS ON THE LEFT HAND 22G IS PATENT AND INTACT. PT DOES NOT SHOW ANY SIGNS OF PAIN. SAFETY MEASURES IN PLACED, CALL LIGHT WITHIN REACH. WILL ENDORSE CONTINUITY OF CARE TO THE ONCOMING RN
--- NOTE | 2017-11-26 07:49 | NUR ---
ANALYTICS SENIOR MANAGER OPENING NOTES RECEIVED PT FROM [facility] NURSE IN STABLE CONDITION. PT IS A;/O X1 (SE;F). PT IS NON VERBAL AND OPENS HIS EYES SPONTANEOUSLY. IV TO LEFT HAND NOTED TO BE PATENT AND INTACT. NO REDNESS OR SIGNS OF INFILTRATION NOTED. PT TOLERATING VENTILATOR SETTINGS WELL. GTUBE NOTED TO BE PATENT AND INTACT. PLACEMENT VERIFIED VIA AUSCULTATION. PT TOLERATING TUBE FEEDINGS WELL AT 35M/HR. WOUND DRESSING NOTED TO BE CLEAN DRY AND INTACT. BED IN LOW LOCKED POSITION, SIDE RAILS UP X3, [place] LIGHT WITHIN REACH, BED ALARM ON. WILL CONTINUE TO MONITOR Addendum: 11/26/17 at 1841 by ZELDA BLANK RN PT AFIB ON TELE MONITOR WITH A HR OF 82. PERSONAL EXTERNAL DEFIBRILLATOR NOTED. BATTERY NOTED TO BE FULLY CHARGED
[2017-11-26 07:59] LABS: BASOPHILS # (AUTO) 0.2 /CMM (0.0-0.2); EOSINOPHILS % (AUTO) 6.3 % (0.0-6.0); HEMATOCRIT 23 % (39-51); HEMOGLOBIN 7.2 g/dL (13.5-17.5); LYMPHOCYTES # (AUTO) 1.7 /CMM (0.8-4.8); LYMPHOCYTES % (AUTO) 19.3 % (20.0-44.0); MEAN CORPUSCULAR HGB CONC 31 g/dl (31.0-36.0); MEAN CORPUSCULAR VOLUME 102 fL (80-96); MONOCYTES # (AUTO) 0.5 /CMM (0.1-1.30); MONOCYTES % (AUTO) 5.8 % (2.0-12.0); NEUTROPHILS # (AUTO) 5.9 /CMM (1.8-8.9); NEUTROPHILS % (AUTO) 66.6 % (43.0-81.0); PLATELET COUNT (AUTO) 201 /CMM (150-450); RDW COEFFICIENT OF VARIATION 21.4 (11.5-15.0); RED BLOOD CELL COUNT(AUTO) 2.23 MIL/uL (4.5-6.0); WHITE BLOOD COUNT (AUTO) 8.8 K/uL (4.3-11.0)
[2017-11-26] MEDS: CARVEDILOL 3.125 MG TABLET GT SCH ×2 (08:00→18:00)
[2017-11-26 08:12] LABS: CALCIUM, SERUM 7.6 mg/dL (8.5-10.1); CREATININE 1.8 mg/dL (0.6-1.3); MAGNESIUM 1.6 mg/dL (1.8-2.4); PHOSPHORUS 2.1 mg/dL (2.5-4.9); POTASSIUM 3.6 mmol/L (3.5-5.1)
[2017-11-26 08:26] VITALS: BP 99/63
[2017-11-26] MEDS: GABAPENTIN 300 MG CAPSULE GT SCH ×3 (08:36→17:35)
[2017-11-26] MEDS: PANTOPRAZOLE 40 MG VIAL IV SCH (08:36)
[2017-11-26] MEDS: ASCORBIC ACID 500 MG TABLET GT SCH (08:36)
[2017-11-26] MEDS: AMIODARONE HCL 200 MG TABLET GT SCH (08:36)
[2017-11-26] MEDS: ACIDOPHILUS/BULGARICUS 1 EACH TAB.CHEW GT SCH ×3 (08:36→17:35)
[2017-11-26] MEDS: DAKINS QUARTER STRENGTH (0.125%) 480 ML BOTTLE TOP SCH ×2 (08:41→21:18)
[2017-11-26] MEDS: NEOMY SULF/BACITRAC ZN/POLY 15 GM TUBE TP SCH (08:42)
[2017-11-26] MEDS: NYSTATIN/TRIAMCIN CREAM 15 GM TUBE TP SCH ×2 (08:42→21:20)
[2017-11-26] MEDS: VITAMINS A AND D 56.7 GM TUBE TP SCH ×2 (08:43→21:20)
--- NOTE | 2017-11-26 11:20 | NUR ---
RT Male pt received trachd and on [facility] vent w noted settings. Vent is plugged into red outlet w alarms on and audible w ambubag at the hob. Acetylene Torch Burner cuff pressure noted. Pt is alert and nonverbal. Trach is secure and airway is patent. Small amounts of thin clear secretions sxd. Pt is tolerating vent settings well. No respiratory distress noted @ this time. Will continue to monitor. Addendum: 11/26/17 at 1123 by REMA AMBRIZ RT Amended: Links added.
[2017-11-26 12:48] VITALS: BP 122/67
[2017-11-26] MEDS ORDERED: FUROSEMIDE 40 MG/4 ML VIAL IV SCH (13:30)
[2017-11-26] MEDS: FLUCONAZOLE (100 MG) 100 MG TABLET PO SCH (15:31)
--- NOTE | 2017-11-26 15:55 | NUR ---
SENIOR ACCOUNTANT NOTES: ELECTROLYTE REPLACEMENT MANAGEMENT DR. TINSLEY MADE AWARE OF PT'S MAGNESIUM AND PHOSPHOROUS LEVEL. PER MD "LABS CAN BE REPLACED WHEN HE GETS DIALYSIS TOMORROW"
[2017-11-26 15:59] VITALS: BP 113/64
--- NOTE | 2017-11-26 17:24 | NUR ---
HEDIS COORDINATOR NOTES: BLOOD TRANSFUSION ORDERS MD MADE AWARE THAT A LARGE BORE IV CAN NOT BE STARTED ON THE PT AND HE ONLY HAS A 22G PERIPHERAL IV. PER MD "PT MAY RECEIVED 1UNIT OF PRBC TOMORROW DURING HD". VITAL SIGNS STABLE. NO SIGNS OF ACUTE BLEEDING. LAB MADE AWARE THAT NEW TYPE AND SCREEN ALONG WITH BLOOD WILL BE NEEDED FOR TOMORROW
--- NOTE | 2017-11-26 18:33 | NUR ---
SINGE WINDER CLOSING NOTES PT REMAINS STABLE. ALL NEEDS MET DURING SHIFT AND ORDERS CARRIED OUT ACCORDINGLY ALL DUE MEDS GIVEN. WOUND AND SKIN CARE RENDERED. PT WAS REPOSITIONED AND TURNED Q2HRS. IV REMAINS PATENT AND INTACT. GTUBE AND ROMERO REMAIN PATENT. PT CONTINUES TO TOLERATE VENTILATOR SETTINGS. VITAL SIGNS STABLE AT THIS TIME. WILL ENDORSE TO NIGHTSHIFT NURSE FOR CHRISTIAN
--- NOTE | 2017-11-26 19:15 | NUR ---
MS RN OPENING NOTES Received patient asleep but arouse to touch, nods to call of his name, non-verbal. With vent tolerating well on setting TV 525 PEEP 5 PIP 22.9, saturating well @ 99-100%. On high-carrera's position, with patent GT feeding with Nephro @ 45ml/hr as ordered. No vomiting noted, abdomen soft and nontender. Per report, patient still having diarrhea x3 in AM shift. With patent FC with clear yellow at 50ml level urine output. With patent peripheral IV line L hand G#22 HL. Kept comfortable, will continue to monitor accordingly. Addendum: 11/27/17 at 0450 by YOLANDA PINO RN With vent tolerating well on setting TV 550 PSV 15 FiO2 35 PEEP 5 Rate 20.
[2017-11-26 20:00] VITALS: BP_SYST 117; BP_DIAS 71; BP_DIAS 80
[2017-11-26] MEDS: ATORVASTATIN 40 MG TABLET GT SCH (21:18)
--- NOTE | 2017-11-26 21:59 | NUR ---
PATIENT WAS RECEIVED ON MECHANICAL VENT WITH NOTED SETTINGS. SUCTION DONE WITH A SMALL AMOUNT OF THIN PALE YELLOW SECRETIONS. TRACH TUBE PATENT AND SECURED. BLEACH SUPERVISOR DONE. AMBU BAG AT BEDSIDE. VENT PLUGGED INTO RED OUTLET. ALARMS ARE ON AND AUDIBLE. WILL CONTINUE TO MONITOR Addendum: 11/26/17 at 2200 by YOLANDA OAKES RT Amended: Links added.
[2017-11-27] VITALS: BP 128/75
[2017-11-27] MEDS: PIPERACILLIN /TAZOBACTAM 2.25 G in IV D5W 50 ML IV SCH ×4 (00:26→20:39)
[2017-11-27 04:00] VITALS: BP 120/70
--- NOTE | 2017-11-27 05:30 | NUR ---
STEAM CLEANER NOTES Wound care done as ordered. Routine ADL done with 2 persons assist. Small, yellow, unformed stool noted on diaper. Good perineal care done. Patient tolerated the procedure well, without unusualities noted.
[2017-11-27] MEDS: BLOOD SUGAR DIAGNOSTIC 1 EACH STRIP IN SCH ×4 (06:09→23:18)
--- NOTE | 2017-11-27 07:05 | NUR ---
FLIGHT SUPERINTENDENT CLOSING NOTES Patient asleep on Rodriguez's position on bed, with patent peripheral IV line L hand G#22, SL, opens eyes simultaneously to touch. On vent tolerating well with setting TV 550 PEEP 5 PSV 15 FiO2 35 Rate 35, saturating well @ 100%. Suctioned PRN. On tele monitor with Afib 84, with external defibrilator in place. Wound care done as ordered, patient tolerated the procedure well. With GT feeding Nephro @ 45ml/hr as the maximum recommendation. No vomiting noted, abdomen soft, non-tender. All needs attended. Due meds given, no ASE noted. With FC indwelling well with 150 cc level cloudy with sediments noted. Blood sugar monitored as ordered, resulted rage to no insulin coverage. Afebrile the whole shift, no new unusualities noted. On I specialty mattress as ordered. For HD today with 1 unit PRCB BT. Endorsed to the next shift.
[2017-11-27 08:00] VITALS: BP 110/68
[2017-11-27 08:33] LABS: CALCIUM, SERUM 7.8 mg/dL (8.5-10.1); CREATININE 2.3 mg/dL (0.6-1.3); PHOSPHORUS 2.8 mg/dL (2.5-4.9); POTASSIUM 3.7 mmol/L (3.5-5.1)
[2017-11-27 08:35] LABS: BASOPHILS % (AUTO) 0.4 % (0.0-2.0); EOSINOPHILS % (AUTO) 6.9 % (0.0-6.0); HEMATOCRIT 28 % (39-51); HEMOGLOBIN 8.8 g/dL (13.5-17.5); LYMPHOCYTES # (AUTO) 2.2 /CMM (0.8-4.8); LYMPHOCYTES % (AUTO) 18.5 % (20.0-44.0); MEAN CORPUSCULAR HGB CONC 32 g/dl (31.0-36.0); MEAN CORPUSCULAR VOLUME 103 fL (80-96); MONOCYTES # (AUTO) 0.5 /CMM (0.1-1.30); MONOCYTES % (AUTO) 4.6 % (2.0-12.0); NEUTROPHILS # (AUTO) 8.3 /CMM (1.8-8.9); NEUTROPHILS % (AUTO) 69.6 % (43.0-81.0); PLATELET COUNT (AUTO) 218 /CMM (150-450); RDW COEFFICIENT OF VARIATION 21.2 (11.5-15.0); RED BLOOD CELL COUNT(AUTO) 2.73 MIL/uL (4.5-6.0); WHITE BLOOD COUNT (AUTO) 11.9 K/uL (4.3-11.0)
[2017-11-27 08:42] LABS: MAGNESIUM 1.6 mg/dL (1.8-2.4)
[2017-11-27] MEDS: ACIDOPHILUS/BULGARICUS 1 EACH TAB.CHEW GT SCH ×3 (08:59→17:00)
[2017-11-27] MEDS: GABAPENTIN 300 MG CAPSULE GT SCH ×3 (08:59→18:08)
[2017-11-27] MEDS: ASCORBIC ACID 500 MG TABLET GT SCH (08:59)
[2017-11-27] MEDS: PANTOPRAZOLE 40 MG VIAL IV SCH (08:59)
[2017-11-27] MEDS: AMIODARONE HCL 200 MG TABLET GT SCH (09:00)
--- NOTE | 2017-11-27 09:00 | NUR ---
RN OPENING NOTE RECEIVED REPORT FROM UBALDO JONES. PT IS STABLE AND RESTING IN BED. PT IS ON VENT, SETTINGS IN PLACE. PER REPORT, PT IS TO HAVE 1 UNIT PRBC TRANSFUSED DURING DIALYSIS TODAY. SAFETY EMASURES IN PLACE, CALL LIGHT IN REACH. WILL CONTINUE TO MONITOR.
[2017-11-27] MEDS: NEOMY SULF/BACITRAC ZN/POLY 15 GM TUBE TP SCH (09:01)
[2017-11-27] MEDS: DAKINS QUARTER STRENGTH (0.125%) 480 ML BOTTLE TOP SCH ×2 (09:01→21:55)
[2017-11-27] MEDS: CARVEDILOL 3.125 MG TABLET GT SCH ×2 (09:01→18:00)
[2017-11-27] MEDS: NYSTATIN/TRIAMCIN CREAM 15 GM TUBE TP SCH ×2 (09:02→21:57)
[2017-11-27] MEDS: VITAMINS A AND D 56.7 GM TUBE TP SCH ×2 (09:02→21:56)
[2017-11-27] MEDS ORDERED: VANCOMYCIN 500 MG in IV D5W 100 ML IV PRN (10:00)
[2017-11-27] MEDS: NEPRO 1,000 ML BOTTLE GT PRN (13:40)
[2017-11-27 16:00] VITALS: BP 112/62
[2017-11-27] MEDS: FLUCONAZOLE (100 MG) 100 MG TABLET PO SCH (16:00)
--- NOTE | 2017-11-27 18:44 | NUR ---
RN CLOSING NOTE PT IN BED RESTING. NO S/S OF RESP DISTRESS OR SOB. NO C/O PAIN. PT RECEIVED DIALYSIS TODAY, HOWEVER PLANNED PRBC NOT GIVEN. PER LAB, PRBC UNIT CLOTTING(?) HAD , INSTRUCTED TO PERFORM NEW T/S IN ORDER TO BEGIN PREPERATION OF NEW PRBC UNIT. SAFETY MEASURES IN PLACE, CALL LIGHT IN REACH. [facility]STIAN.
--- NOTE | 2017-11-27 19:55 | NUR ---
RN INITIAL NOTES: RECEIVED REPORT FROM ISATU JONES. PT IN BED, MECH VENT TRACHE DEPENDENT WITH THE FF SETTING TV 550, PEEP 5 FIO2 35% PSV 15 PEAK 60, AMBU BAG AT BED SIDE, CLINICAL ALARMS CHECKED AND AUDIBLE, PT ON GTUBE FEEDING, NEPHRO AT 45ML/HR. ABDOMEN SOFT TO TOUCH WITH ACTIVE BOWEL SOUND HEARD. S/P SACRAL WOUND DEBRIDEMENT ON 11/26. BLE OFFLOADED. SAFETY PRECAUTIONS FOR FALL INITIATED, CALL LIGHT IN REACH, WILL CONTINUE MONITORING PT.
[2017-11-27 20:00] VITALS: BP 104/64
--- NOTE | 2017-11-27 20:00 | NUR ---
MECH VENT SETTING FOLLOWS: AC 20 FIO2 35% TV 550 PEEP 5 SHILEY #8
--- NOTE | 2017-11-27 20:30 | NUR ---
GTUBE PATENCY CHECK: ABDOMEN SOFT TO TOUCH, WITH ACTIVE BOWEL SOUND HEARD UPON AUSCULTATION, GTUBE PATENCY CHECK AND AND RESIDUAL CHECK PERFORMED, NO RESIDUAL OBTAINED. DUE MEDS WILL BE GIVEN SCHEDULED.
--- NOTE | 2017-11-27 21:38 | NUR ---
RN NOTES: SPOKED TO MD SKEIN BLEACHER DR BOWDEN REGARDING STANDING ORDER FOR BLOOD TRANSFUSION 1UNIT PRBC TO GIVE DURING DIALYSIS, DAY RN UNABLE TO GET THE BLOOD ACCORDING TO LAB TYPE AND SCREEN , SO WE NEED A NEW ORDER FOR TYPE AND SCREEN FOR THE PT. THE LATEST H/H WAS 8.10/14, RELAYED TO MD IF STILL WANTS TO GIVE THE BLOOD TRANSFUSION DURING DIALYSIS, PER MD "DO NOT GIVE THE BLOOD/DO NOTY TRANSFUSE". RELAYED TO JAMES SALCEDO.
[2017-11-27] MEDS: ATORVASTATIN 40 MG TABLET GT SCH (21:44)
[2017-11-27] MEDS: INSULIN REGULAR, HUMAN 100 UNIT/ML 3 ML VIAL SQ PRN (23:19)
--- NOTE | 2017-11-27 23:19 | NUR ---
ACCU CHECK 93: BLOOD SUGAR CHECK AND REVEAL 93, NO INSULIN COVERAGE GIVEN PER SLIDING SCALE, PT ON GTUBE FEEDING NEPHRO AT 45ML/HR, WILL MONITOR PT FOR ANY S/S OF HYPOGLYCEMIA OR HYPERGLYCEMIA
[2017-11-28] VITALS (8 sets, daily range): BP systolic 103–123; BP diastolic 55–76
--- NOTE | 2017-11-28 04:26 | NUR ---
AM CARE AND WOUND TREATMENT: ASSISTED MAINSPRING STRIP GAUGER IN PROVIDING BED BATH TO THE PT, ALSO WOUND CARE TREATMENT PERFORMED ORDERED, WITH HELPED OF 2 MAINSPRING STRIP GAUGER. GTUBE SITE ALSO CLEANSED AND PLACED NEW DRESSING. PLACED NEW SET OF SUCTION SET UP AND GTUBE TRAY/IRRIGATION TRAY.
[2017-11-28] MEDS: PIPERACILLIN /TAZOBACTAM 2.25 G in IV D5W 50 ML IV SCH ×3 (05:40→20:41)
[2017-11-28] MEDS: BLOOD SUGAR DIAGNOSTIC 1 EACH STRIP IN SCH ×3 (05:42→17:38)
[2017-11-28] MEDS: INSULIN REGULAR, HUMAN 100 UNIT/ML 3 ML VIAL SQ PRN (05:43)
--- NOTE | 2017-11-28 05:43 | NUR ---
ACU CHECK 84: BLOOD SUGAR CHECKED PERFORMED AND RESULT IS 84, NO INSULIN COVERAGE GIVE PER SLIDING SCALE, PT ON GTUBE FEEDING TOLERATED WELL, WILL MONITOR FOR ANY S/S OF HYPOGLYCEMIA AND HYPERGLYCEMIA
--- NOTE | 2017-11-28 06:53 | NUR ---
RN CLOSING NOTES: PT TOLERATED MECH VENT SETTINGS WELL, TOLERATED GTUBE FEEDING WELL. IV ACCESS REMAINS PATENT AND FLUSHING WELL, NO S/S OF INFILTRATION NOTED. BLE KEPT OFFLOADED, WOUND DRESSING ON BLE AND HEELS REMAINS C/D/I. PT REMAINS TO BE CONNECTED TO SPO2 MONITOR WITH 100% OXYGENATION. REMAINS ON AFIB HR 85. PT HAS OWN DEFIBRILLATOR VEST. VS REMAINS STABLE, NEEDS ATTENDED. SAFETY PRECAUTIONS FOR FALL REMAINS ENGAGED, CALL LIGHT IN REACH, WILL ENDORSE TO DAY RN FOR CONTINUITY OF CARE.
--- NOTE | 2017-11-28 07:25 | NUR ---
RN OPENING NOTES RECEIVED PT. PT IS STABLE AND RESTING IN BED. PT IS VENT DEPENDENT, SETTINGS IN PLACE. NO PRBC UNITS GIVEN DURING DIALYSIS YESTERDAY 11/27/17. PER MD, T/S NOT TO BE ORDERED H/H IS NOT WITHIN TRANSFUSABLE RANGE. SAFETY MEASURES IN PLACE, CALL LIGHT WITHIN REACH. WILL CONTINUE TO MONITOR.
--- NOTE | 2017-11-28 07:42 | NUR ---
PT RECIEVED ON MECHANICAL VENT ON THE FOLLOWING SETTINGS: AC 20, 550, 35%, +5. TRACH IS SECURE. SX'D PT SMALL THIN CLEAR SECRETIONS. VENT IS PLUGGED INTO RED OUTLET. AMBU BAG IS AT HEAD OF BED. VENT ALARMS ARE ON AND AUDIBLE. WILL CONT TO MONITOR PT. Addendum: 11/28/17 at 0743 by ANGEL MARSHLAL RT Amended: Links added.
[2017-11-28] MEDS: CARVEDILOL 3.125 MG TABLET GT SCH ×2 (08:00→17:38)
[2017-11-28 08:35] LABS: BASOPHILS % (AUTO) 0.4 % (0.0-2.0); EOSINOPHILS % (AUTO) 5.1 % (0.0-6.0); HEMATOCRIT 26 % (39-51); LYMPHOCYTES # (AUTO) 1.8 /CMM (0.8-4.8); LYMPHOCYTES % (AUTO) 14.9 % (20.0-44.0); MEAN CORPUSCULAR HGB CONC 31 g/dl (31.0-36.0); MEAN CORPUSCULAR VOLUME 103 fL (80-96); MONOCYTES # (AUTO) 0.5 /CMM (0.1-1.30); MONOCYTES % (AUTO) 4.1 % (2.0-12.0); NEUTROPHILS # (AUTO) 8.9 /CMM (1.8-8.9); NEUTROPHILS % (AUTO) 75.5 % (43.0-81.0); PLATELET COUNT (AUTO) 191 /CMM (150-450); RDW COEFFICIENT OF VARIATION 21.5 (11.5-15.0); RED BLOOD CELL COUNT(AUTO) 2.53 MIL/uL (4.5-6.0); WHITE BLOOD COUNT (AUTO) 11.8 K/uL (4.3-11.0)
[2017-11-28 08:52] LABS: CALCIUM, SERUM 7.2 mg/dL (8.5-10.1); CREATININE 2.1 mg/dL (0.6-1.3); MAGNESIUM 1.6 mg/dL (1.8-2.4); PHOSPHORUS 2.6 mg/dL (2.5-4.9); POTASSIUM 3.7 mmol/L (3.5-5.1)
[2017-11-28] MEDS: ACIDOPHILUS/BULGARICUS 1 EACH TAB.CHEW GT SCH ×3 (09:06→17:38)
[2017-11-28] MEDS: ASCORBIC ACID 500 MG TABLET GT SCH (09:07)
[2017-11-28] MEDS: GABAPENTIN 300 MG CAPSULE GT SCH ×3 (09:07→17:38)
[2017-11-28] MEDS: AMIODARONE HCL 200 MG TABLET GT SCH (09:08)
[2017-11-28] MEDS: PANTOPRAZOLE 40 MG VIAL IV SCH (09:09)
[2017-11-28] MEDS: DAKINS QUARTER STRENGTH (0.125%) 480 ML BOTTLE TOP SCH ×2 (09:35→20:42)
[2017-11-28] MEDS: NEOMY SULF/BACITRAC ZN/POLY 15 GM TUBE TP SCH (09:35)
[2017-11-28] MEDS: VITAMINS A AND D 56.7 GM TUBE TP SCH ×2 (09:35→20:42)
[2017-11-28] MEDS: NYSTATIN/TRIAMCIN CREAM 15 GM TUBE TP SCH ×2 (09:36→20:41)
[2017-11-28] MEDS ORDERED: Magnesium 1GM/D5W 100ML PREMIX 100 ML IV SCH (12:30)
[2017-11-28] MEDS: FLUCONAZOLE (100 MG) 100 MG TABLET PO SCH (17:37)
--- NOTE | 2017-11-28 18:52 | NUR ---
RN CLOSING NOTE PT IN BED RESTING. NO S/S OF RESP DISTRESS OR SOB. NO C/O PAIN. WOUND TREATMENT PERFORMED, PT AWAITING F/U FROM PODIATRY. CONTINUE TO MONITOR H/H AND S/S OF BLEEDING. ALL PT NEEDS ANTICIPATED AND MET. SAFETY MEASURES INPLACE, CALL LIGHT WITHIN REACH. WILL ENDORSE TO CARAMEL CANDY MAKER FOR CHRISTIAN.
--- NOTE | 2017-11-28 19:30 | NUR ---
RECEIVED PATIENT IN BED WITH EYES CLOSED; EASILY AROUSABLE. PATIENT AO X 2; NON-VERBAL. NO ACUTE DISTRESS NOTED. NO SIGNS OF PAIN NOTED. VENT SETTING ORDERED. TELE READING SINUS RHYTHM WITH BBB HR 93. ROMERO CATH PATENT, INTACT; DRAINING CLEAR YELLOW URINE. RIGHT CHEST WALL HD CATH INTACT. IV SITE PATENT, INTACT; FLUSHED. GT PATENT, INTACT; FLUSHED; IN PLACE VIA AUSCULTATION. GTF ONGOING ORDERED. HOB RAISED. PATIENT TOLERATING GTF. ON LOW BED WITH BILATERAL UPPER SIDE RAILS UP. CALL OLIVARES WITHIN EASY REACH. WILL CONTINUE TO MONITOR.
--- NOTE | 2017-11-28 20:30 | NUR ---
PATIENT WAS RECEIVED ON CONTINUOUS VENT SUPPORT WITH NOTED SETTINGS. SUCTIONED PATIENT WITH A MODERATE AMOUNT OF THIN PALE YELLOW SECRETIONS. TRACH TUBE PATENT AND SECURED. SUPERVISOR WATER TREATMENT PLANT DONE, AMBU BAG AT BEDSIDE. VENT PLUGGED INTO RED OUTLET. ALARMS ARE ON AND AUDIBLE.PATIENT STABLE AT THIS TIME . WILL CONTINUE TO MONITOR Addendum: 11/28/17 at 2032 by YOLANDA OAKES RT Amended: Links added.
[2017-11-28] MEDS: NEPRO 1,000 ML BOTTLE GT PRN (20:47)
[2017-11-28] MEDS: ATORVASTATIN 40 MG TABLET GT SCH (21:24)
[2017-11-29] VITALS: BP 143/84
[2017-11-29 00:10] VITALS: BP 143/84
[2017-11-29] MEDS: BLOOD SUGAR DIAGNOSTIC 1 EACH STRIP IN SCH ×3 (00:38→12:51)
[2017-11-29 03:57] VITALS: BP 126/71
[2017-11-29 04:00] VITALS: BP 126/71
[2017-11-29] MEDS: PIPERACILLIN /TAZOBACTAM 2.25 G in IV D5W 50 ML IV SCH ×2 (05:13→13:48)
--- NOTE | 2017-11-29 06:33 | NUR ---
PATIENT ASLEEP, EASILY AROUSABLE. RESPIRATIONS EVEN. NO SIGNS OF PAIN NOTED. NO SYMPTOMS OF HYPER/HYPOGLYCEMIA. DUE MEDS GIVEN WITH NO ASE NOTED. NEEDS ATTENDED. KEPT CLEAN AND DRY. WOUND TREATMENT DONE ORDERED. SAFETY PRECAUTIONS AND COMFORT MEASURES IN PLACE. WILL GIVE REPORT TO DAY SHIFT FOR CONTINUITY OF CARE.
--- NOTE | 2017-11-29 07:20 | NUR ---
MARKETING CONTENT SPECIALIST OPENING NOTES RECEIVED PATIENT IN BED, ASLEEP, EASILY AROUSABLE. RESPIRATIONS EVEN. NO SIGNS OF PAIN NOTED. ONGOING NEPRO 45ML/HR.IV LINE PATENT AND INTACT.EXTERNAL DEFIBRILLATOR IN PLACE. PT SR 73 CURRENTLY. SAFETY PRECAUTIONS AND COMFORT MEASURES IN PLACE.CALL LIGHT WITHIN REACH. WILL CONTINUE TO MONITOR
[2017-11-29 07:33] LABS: BASOPHILS # (AUTO) 0.1 /CMM (0.0-0.2); BASOPHILS % (AUTO) 0.8 % (0.0-2.0); EOSINOPHILS % (AUTO) 6.1 % (0.0-6.0); HEMATOCRIT 28 % (39-51); HEMOGLOBIN 8.6 g/dL (13.5-17.5); LYMPHOCYTES # (AUTO) 2.2 /CMM (0.8-4.8); LYMPHOCYTES % (AUTO) 17.3 % (20.0-44.0); MEAN CORPUSCULAR HGB CONC 31 g/dl (31.0-36.0); MEAN CORPUSCULAR VOLUME 102 fL (80-96); MONOCYTES # (AUTO) 0.7 /CMM (0.1-1.30); MONOCYTES % (AUTO) 5.1 % (2.0-12.0); NEUTROPHILS % (AUTO) 70.7 % (43.0-81.0); PLATELET COUNT (AUTO) 195 /CMM (150-450); RDW COEFFICIENT OF VARIATION 20.1 (11.5-15.0); WHITE BLOOD COUNT (AUTO) 12.8 K/uL (4.3-11.0)
[2017-11-29 07:52] LABS: CALCIUM, SERUM 7.5 mg/dL (8.5-10.1); CREATININE 2.4 mg/dL (0.6-1.3); MAGNESIUM 1.9 mg/dL (1.8-2.4); PHOSPHORUS 3.3 mg/dL (2.5-4.9); POTASSIUM 3.7 mmol/L (3.5-5.1)
[2017-11-29 08:00] VITALS: BP 129/67
[2017-11-29] MEDS: GABAPENTIN 300 MG CAPSULE GT SCH ×2 (09:36→13:49)
[2017-11-29] MEDS: PANTOPRAZOLE 40 MG VIAL IV SCH (09:36)
[2017-11-29 09:37] VITALS: BP 129/67
[2017-11-29] MEDS: CARVEDILOL 3.125 MG TABLET GT SCH (09:37)
[2017-11-29] MEDS: AMIODARONE HCL 200 MG TABLET GT SCH (09:37)
[2017-11-29] MEDS: ACIDOPHILUS/BULGARICUS 1 EACH TAB.CHEW GT SCH ×2 (09:37→13:48)
[2017-11-29] MEDS: ASCORBIC ACID 500 MG TABLET GT SCH (09:37)
[2017-11-29] MEDS: FLUCONAZOLE (100 MG) 100 MG TABLET PO SCH (09:38)
[2017-11-29] MEDS: VITAMINS A AND D 56.7 GM TUBE TP SCH (09:42)
[2017-11-29] MEDS: DAKINS QUARTER STRENGTH (0.125%) 480 ML BOTTLE TOP SCH (09:42)
[2017-11-29] MEDS: NYSTATIN/TRIAMCIN CREAM 15 GM TUBE TP SCH (09:43)
[2017-11-29] MEDS: NEOMY SULF/BACITRAC ZN/POLY 15 GM TUBE TP SCH (09:43)
[2017-11-29] MEDS ORDERED: PIPE2.257 IV (11:05)
[2017-11-29] MEDS ORDERED: FLUC100T8 PO (11:05)
[2017-11-29] MEDS ORDERED: VANC1VIA XX (11:05)
[2017-11-29] MEDS ORDERED: VITA56.7 TP (11:05)
[2017-11-29] MEDS ORDERED: Nepro GT (11:05)
[2017-11-29] MEDS ORDERED: NEOM15OI3 TP (11:05)
[2017-11-29] MEDS ORDERED: NYST15CR2 TP (11:05)
[2017-11-29] MEDS ORDERED: AMIO200T4 PO (11:05)
--- NOTE | 2017-11-29 14:35 | NUR ---
CALLED TO JENIFER PINTO AND GAVE REPORT TO KAREN OROURKE. ESTIMATE BUS MECHANIC AT 1530
--- NOTE | 2017-11-29 15:40 | NUR ---
PT TRANSFERRED TO [facility]. PT LEFT UNIT VIA STRETCHER , PT IN STABLE CONDITION , BP AND BS WITHIN NORMAL RANGE. ALL BELONGINGS CHECKED AND SENT WITH PATIENT.
[2017-12-02] MEDS ORDERED: HYDR-552 GT (16:57)
== END 2017-11-29 16:00 | DRG 853 ==
LOC: ER 19:01 → TELE 20:46
PROVIDERS: ADMIT Internal Medicine; ATTEND Internal Medicine
PROC: 5A1955Z Respiratory Ventilation, Greater than 96 Consecutive Hours (ICD-10-PCS; principal; 2017-11-24)
PROC: 5A1D70Z Performance of Urinary Filtration, Intermittent, Less than 6 Hours Per Day (ICD-10-PCS; 2017-11-24)
PROC: 0QB10ZZ Excision of Sacrum, Open Approach (ICD-10-PCS; 2017-11-25)
PROC: 0KBN0ZZ Excision of Right Hip Muscle, Open Approach (ICD-10-PCS; 2017-11-25)
PROC: 5A1D70Z Performance of Urinary Filtration, Intermittent, Less than 6 Hours Per Day (ICD-10-PCS; 2017-11-25)
PROC: 5A1D70Z Performance of Urinary Filtration, Intermittent, Less than 6 Hours Per Day (ICD-10-PCS; 2017-11-27)
DX: A41.9 Sepsis, unspecified organism (principal); L89.324 Pressure ulcer of left buttock, stage 4; L89.314 Pressure ulcer of right buttock, stage 4; L89.894 Pressure ulcer of other site, stage 4; L89.154 Pressure ulcer of sacral region, stage 4; N18.6 End stage renal disease; R53.2 Functional quadriplegia; E43 Unspecified severe protein-calorie malnutrition; G93.49 Other encephalopathy; I50.22 Chronic systolic (congestive) heart failure; J96.10 Chronic respiratory failure, unspecified whether with hypoxia or hypercapnia; I13.2 Hypertensive heart and chronic kidney disease with heart failure and with stage 5 chronic kidney disease, or end stage renal disease; N39.0 Urinary tract infection, site not specified; N17.9 Acute kidney failure, unspecified; E87.1 Hypo-osmolality and hyponatremia; Z99.11 Dependence on respirator [ventilator] status; R13.10 Dysphagia, unspecified; Z99.2 Dependence on renal dialysis; Z93.0 Tracheostomy status; Z93.1 Gastrostomy status; I25.10 Atherosclerotic heart disease of native coronary artery without angina pectoris; I48.2 Chronic atrial fibrillation; I70.0 Atherosclerosis of aorta; E78.5 Hyperlipidemia, unspecified; E83.42 Hypomagnesemia; E87.6 Hypokalemia; G40.909 Epilepsy, unspecified, not intractable, without status epilepticus; I25.2 Old myocardial infarction; K21.9 Gastro-esophageal reflux disease without esophagitis; K29.50 Unspecified chronic gastritis without bleeding; R62.7 Adult failure to thrive; E11.42 Type 2 diabetes mellitus with diabetic polyneuropathy; E11.22 Type 2 diabetes mellitus with diabetic chronic kidney disease; E11.51 Type 2 diabetes mellitus with diabetic peripheral angiopathy without gangrene; L89.620 Pressure ulcer of left heel, unstageable; L89.610 Pressure ulcer of right heel, unstageable; E11.622 Type 2 diabetes mellitus with other skin ulcer; L89.890 Pressure ulcer of other site, unstageable; T81.89XA Other complications of procedures, not elsewhere classified, initial encounter; S30.812A Abrasion of penis, initial encounter; L89.120 Pressure ulcer of left upper back, unstageable; B96.89 Other specified bacterial agents as the cause of diseases classified elsewhere; D53.9 Nutritional anemia, unspecified; E11.621 Type 2 diabetes mellitus with foot ulcer
CPT/HCPCS: 31720; 36415; 71045-TC; 80048-TC; 80076-TC; 80202-TC; 81000-TC; 82272-TC; 82962-TC; 83605-TC; 83735-TC; 84100-TC; 84484-TC; 85025-TC; 85730-TC; 86850-TC; 86921-TC; 87040-TC; 87081-TC; 87086-TC; 87186-TC; 90935-TC; 94002-TC; 94003-TC; 94760-TC; 94762-TC; 99082-TC; A4216; A4217; A4606; A4623; A6253; A6402; A6403; C9113; J0696; J0770; J0885; J1450; J1815; J2543; J3370; J3475; J3480; J3490; J7030; J7040; J7050; J7060; P9047; Z7610

== ENCOUNTER 2017-12-02 14:41 | Inpatient (IN) | payer MEDICARE, MEDICAID ==
[~2017-12-02] VITALS: Ht 177.8 cm; Wt 87.1 kg
[2017-12-02] MEDS: DAKINS QUARTER STRENGTH (0.125%) 480 ML BOTTLE TOP SCH (02:30)
[~2017-12-02 14:41] MED LIST changes: +AMIO200T4 PO; +FLUC100T8 PO; +HYDR-4384 GT; -HYDR-552 GT; +NEOM15OI3 TP; +NYST15CR2 TP; +Nepro GT; +PIPE2.257 IV; +VANC1VIA XX; +VITA56.7 TP
--- NOTE | 2017-12-02 14:55 | NUR ---
PT BIBRA TO ER BED [facility], PT WAS NOTED TO BE HYPOTENSIVE SO NO DIALYSIS WAS DONE. PT FILLING STATION LABORER W/ SYSTOLIC OF IN THE 60'S. PT IS VENT DEPENDENT W/ CURRENT SETTINGS OF AC RATE 20, TV 550 FIO2 35 PEEP OF 5. PT ALSO NOTED TO BE FEBRILE W/ RECTAL TEMP OF 101.0 PLACED ON MONITOR. AWAITING MD RINCON.
[2017-12-02 15:00] VITALS: BP 64/43
--- NOTE | 2017-12-02 15:10 | NUR ---
DR RODRIGUEZ AT BEDSIDE FOR EVAL.
--- NOTE | 2017-12-02 15:11 | NUR ---
PT. RECEIVE AND PLACED ON ESPRIT VENTILATOR VIA TRACH SIZE #8 SHILEY WITH CUFF INFLATED. BREATH SOUNDS CLEAR BILATERAL. VENTILATOR PARAMETERS BELOW SET PER RT TRANSPORTER: AC 20 VT 550 FIO2 35% PEEP +5 VENT ALARMS IS ON AND FUNCTIONING. JENNIFER @ BEDSIDE. Addendum: 12/02/17 at 1516 by SUHAS BUTCHER RT Amended: Links added.
--- NOTE | 2017-12-02 15:12 | NUR ---
IV LINE STARTED BLOOD DRAWN AND SENT TO LAB.
[2017-12-02 15:25] LABS: BASOPHILS # (AUTO) 0.1 /CMM (0.0-0.2); BASOPHILS % (AUTO) 1.1 % (0.0-2.0); EOSINOPHILS % (AUTO) 5.1 % (0.0-6.0); HEMATOCRIT 24 % (39-51); LYMPHOCYTES # (AUTO) 3.9 /CMM (0.8-4.8); MEAN CORPUSCULAR HGB CONC 33 g/dl (31.0-36.0); MEAN CORPUSCULAR VOLUME 99 fL (80-96); MONOCYTES # (AUTO) 0.9 /CMM (0.1-1.30); MONOCYTES % (AUTO) 7.6 % (2.0-12.0); NEUTROPHILS # (AUTO) 6.4 /CMM (1.8-8.9); NEUTROPHILS % (AUTO) 53.2 % (43.0-81.0); PLATELET COUNT (AUTO) 193 /CMM (150-450); RDW COEFFICIENT OF VARIATION 17.8 (11.5-15.0); RED BLOOD CELL COUNT(AUTO) 2.47 MIL/uL (4.5-6.0); WHITE BLOOD COUNT (AUTO) 11.9 K/uL (4.3-11.0)
[2017-12-02] MEDS ORDERED: IV NS 0.9% 1,000 ML BAG IV ONE (15:30)
[2017-12-02 15:33] LABS: CALCIUM, SERUM 7.5 mg/dL (8.5-10.1); CARBON DIOXIDE 29 mmol/L (21-32); CHLORIDE 96 mmol/L (98-107); CREATININE 2.6 mg/dL (0.6-1.3); GLUCOSE 57 mg/dL (74-106); POTASSIUM 3.4 mmol/L (3.5-5.1); SODIUM SERUM 130 mmol/L (136-145); UREA NITROGEN, BLOOD 28 mg/dL (7-18)
[2017-12-02 15:38] LABS: INR 1.57 (0.85-1.15)
[2017-12-02 15:39] LABS: ALANINE AMINOTRANSFERASE < 6 U/L (12-78); ALKALINE PHOSPHATASE 166 U/L (46-116); ASPARTATE AMINOTRANSFERASE 15 U/L (15-37); BILIRUBIN,DIRECT 0.2 mg/dL (0.0-0.2); BILIRUBIN,TOTAL 0.5 mg/dL (0.2-1.0); TOTAL PROTEIN, SERUM 6.2 g/dL (6.4-8.2)
[2017-12-02 15:39] LABS: APPEARANCE,URINE Slightly Cloudy (CLEAR); BILIRUBIN,URINE Negative (NEGATIVE); BLOOD, URINE Large Ery/uL (NEGATIVE); COLOR,URINE Yellow (YELLOW); KETONES,URINE Negative (NEGATIVE); LEUKOCYTE ESTERASE ,URINE Small (NEGATIVE); NITRITE, URINE Negative (NEGATIVE); PROTEIN,URINE 100 mg/dl (NEGATIVE); UGLUCOSE Negative (NEGATIVE); UROBILINOGEN,URINE 0.2 EU/dL (0.2)
[2017-12-02 15:40] LABS: ALBUMIN 1.1 g/dL (3.4-5.0)
[2017-12-02 15:41] LABS: TROPONIN I 0.073 ng/mL (0.00-0.056)
[2017-12-02 15:43] LABS: RBC,URINE TOO NUMEROUS TO COUN /HPF (0-2); WBC,URINE 81-100 /HPF (0-3)
[2017-12-02 15:44] LABS: BACTERIA,URINE Moderate /HPF (None Seen); SQUAMOUS EPITHELIAL CELL,UR Few /HPF (None Seen)
[2017-12-02] MEDS ORDERED: ALBUMIN 25% 12.5 GM/50 ML BOTTLE IV ONE (16:00)
[2017-12-02] MEDS ORDERED: ALBUMIN 25% 100 ML IV ONE (16:15)
[2017-12-02] MEDS ORDERED: ACETAMINOPHEN 650 MG/SUPP.RECT RC ONE ×2 (16:30→17:06)
--- NOTE | 2017-12-02 16:42 | NUR ---
PAGED DR GARCIA FOR PANEL ADMISSION
[2017-12-02] MEDS ORDERED: COLI150V12 IV (16:57)
[2017-12-02] MEDS ORDERED: CASP50VI2 IV (16:57)
[2017-12-02] MEDS ORDERED: VANC1VIA2 IV (16:57)
[2017-12-02] MEDS ORDERED: HYDR-4384 GT (16:57)
[2017-12-02] MEDS ORDERED: FLUC100T8 GT (16:57)
--- NOTE | 2017-12-02 17:10 | NUR ---
REPAGED DR BABITA GARCIA FOR PANEL ADMISSION
[2017-12-02 17:56] VITALS: BP 91/60
[2017-12-02] MEDS: PIPERACILLIN /TAZOBACTAM 3.375 G in IV D5W 50 ML IV ONE (18:40)
--- NOTE | 2017-12-02 18:49 | NUR ---
REPORT GIVEN TO [facility] BOB AWAITING TRANSFER TO FLOOR.
[2017-12-02] MEDS ORDERED: MAG HYDROX/AL HYDROX/SIMETH 30 ML UDC GT PRN (19:00)
[2017-12-02] MEDS ORDERED: ZOLPIDEM TARTRATE 5 MG TABLET GT PRN (19:00)
[2017-12-02] MEDS ORDERED: MAG HYDROX/AL HYDROX/SIMETH 30 ML UDC PO PRN (19:00)
[2017-12-02] MEDS ORDERED: INSULIN REGULAR, HUMAN 100 UNIT/ML 3 ML VIAL SQ PRN (19:00)
[2017-12-02] MEDS ORDERED: HYDROCODONE/APAP 5/325MG 1 EACH TABLET PO PRN (19:00)
[2017-12-02] MEDS ORDERED: MAGNESIUM HYDROXIDE 30 ML UDC GT PRN (19:00)
[2017-12-02] MEDS ORDERED: Z GUARD REMEDY 2 OZ OINT TP PRN ×2 (19:00)
[2017-12-02] MEDS ORDERED: Medication Not On Formulary EA (Ondansetron Hcl (Zofran) 4 MG) GT PRN (19:00)
[2017-12-02] MEDS ORDERED: HYDROCODONE/APAP 5/325MG 1 EACH TABLET GT PRN (19:00)
[2017-12-02] MEDS ORDERED: ACETAMINOPHEN 325 MG TABLET PO PRN ×2 (19:00)
[2017-12-02] MEDS ORDERED: MAGNESIUM HYDROXIDE 30 ML UDC PO PRN (19:00)
[2017-12-02] MEDS ORDERED: ONDANSETRON HCL/PF 4 MG/2 ML VIAL IVP PRN (19:00)
[2017-12-02] MEDS ORDERED: ZOLPIDEM TARTRATE 5 MG TABLET PO PRN (19:00)
[2017-12-02] MEDS ORDERED: FEE PK DOSING 1 MIN EA MC ONE (19:04)
--- NOTE | 2017-12-02 19:30 | NUR ---
TD HOME HEALTH SPEECH THERAPIST NOTES: PT ADMITTED FROM ER VIA [facility] WITH DIAGNOSIS OF SEPSIS. PT IS NON VERBAL. NO ACUTE DISTRESS NOTED. NO FACIAL GRIMACING OR ANY SIGNS OF PAIN NOTED. ON [facility] VENT, SETTINGS ORDERED, NO SOB. IV ON RIGHT FOREARM #18 AND LEFT HAND #22, INTACT AND PATENT, FLUSHING WELL. PERTINENT ASSESSMENTS DONE. PT NOTED TO HAVE MULTIPLE WOUNDS, PICTURES TAKEN AND PLACED ON CHART. GT INTACT AND PATENT, FLUSHING WELL, NO RESIDUAL NOTED AT THIS TIME. KEPT CLEAN, DRY AND COMFORTABLE. SAFETY AND FALL PRECAUTIONS OBSERVED AND MAINTAINED. WILL CONTINUE TO MONITOR PT.
[2017-12-02 20:00] VITALS: BP 123/60
[2017-12-02] MEDS ORDERED: VANCOMYCIN 1 GM in IV D5W 250 ML IV ONE (20:00)
[2017-12-02] MEDS ORDERED: VANCOMYCIN 1 GM in IV D5W 250 ML IV SCH (20:00)
--- NOTE | 2017-12-02 20:45 | NUR ---
TD RN NOTES: SPOKE WITH GEN FROM [facility] [place], PER GEN BATTERY AND EVENT STAFF OF PATIENT'S EXTERNAL DEFIB IS IN THE FACILITY AND WILL ASK THE TRANSPORT TOMORROW AM TO BRING IT HERE.
[2017-12-02] MEDS ORDERED: IV NS 0.9% 1,000 ML BAG IV PRN (21:00)
[2017-12-02] MEDS: IV NS 0.9% 1,000 ML IV PRN (21:02)
[2017-12-02] MEDS: VITAMINS A AND D 56.7 GM TUBE TP SCH (21:14)
[2017-12-02] MEDS: NYSTATIN/TRIAMCIN CREAM 15 GM TUBE TP SCH (21:14)
[2017-12-02] MEDS: PANTOPRAZOLE 40 MG/PACK PACK GT SCH (21:19)
[2017-12-02] MEDS: ATORVASTATIN 40 MG TABLET GT SCH (21:19)
[2017-12-02] MEDS: CARVEDILOL 3.125 MG TABLET GT SCH (21:19)
--- NOTE | 2017-12-02 22:00 | NUR ---
TD RN NOTES: SEPSIS REASSESSMENT DONE BY KAREN SHAH FROM ED.
[2017-12-02] MEDS: CEFEPIME 1 GM in IV NS 0.9% 50 ML IV SCH (22:13)
[2017-12-02 22:35] LABS: ALANINE AMINOTRANSFERASE < 6 U/L (12-78); ALKALINE PHOSPHATASE 131 U/L (46-116); ASPARTATE AMINOTRANSFERASE 17 U/L (15-37); BILIRUBIN,DIRECT 0.3 mg/dL (0.0-0.2); BILIRUBIN,TOTAL 0.6 mg/dL (0.2-1.0); TOTAL PROTEIN, SERUM 5.9 g/dL (6.4-8.2)
[2017-12-02 22:37] LABS: ALBUMIN 1.3 g/dL (3.4-5.0)
[2017-12-02] MEDS: NEPRO 1,000 ML BOTTLE GT PRN (22:37)
--- NOTE | 2017-12-02 22:50 | NUR ---
TD RN NOTES: RECEIVED A CALL FROM LAB REGARDING PATIENT'S ALBUMIN 1.3. DR. JAVIER MADE AWARE, NO NEW ORDERS AT THIS TIME.
--- NOTE | 2017-12-02 23:37 | NUR ---
TD RN NOTES: SPOKE TO PEDRO (DAUGHTER), PER DAUGHTER SHE WANTS MD TO SEE PT FIRST AND CHECK IF PNEUMONIA AND FLU VACCINE IS INDICATED FOR THE PT AT THIS MOMENT. WILL ENDORSE TO DAY SHIFT RN TO FOLLOW UP TOMORROW.
[2017-12-02] MEDS: BLOOD SUGAR DIAGNOSTIC 1 EACH STRIP IN SCH (23:53)
[2017-12-03] VITALS: BP 110/71
[2017-12-03 04:00] VITALS: BP 126/63
[2017-12-03] MEDS: BLOOD SUGAR DIAGNOSTIC 1 EACH STRIP IN SCH ×4 (06:12→23:20)
--- NOTE | 2017-12-03 06:37 | NUR ---
TD RN NOTES: NO CHANGES NOTED THROUGHOUT THE SHIFT. NO FACIAL GRIMACING OR ANY SIGNS OF PAIN NOTED. NO SOB NOTED. GT INTACT AND PATENT, NO RESIDUAL NOTED AT THIS TIME. ROMERO CATH INTACT, DRAINED 250CC URINE OUTPUT. KEPT CLEAN, DRY AND COMFORTABLE. TURNED AND REPOSITIONED Q2HRS AND NEEDED. SAFETY AND FALL PRECAUTIONS OBSERVED AND MAINTAINED. WILL ENDORSE TO DAY SHIFT FOR CONTINUITY OF CARE.
[2017-12-03] MEDS: IV NS 0.9% 1,000 ML IV PRN ×2 (06:47→17:04)
[2017-12-03 07:15] LABS: BASOPHILS % (AUTO) 0.4 % (0.0-2.0); EOSINOPHILS % (AUTO) 7.2 % (0.0-6.0); HEMATOCRIT 26 % (39-51); HEMOGLOBIN 8.5 g/dL (13.5-17.5); LYMPHOCYTES # (AUTO) 2.6 /CMM (0.8-4.8); LYMPHOCYTES % (AUTO) 20.1 % (20.0-44.0); MEAN CORPUSCULAR HGB CONC 33 g/dl (31.0-36.0); MEAN CORPUSCULAR VOLUME 101 fL (80-96); MONOCYTES # (AUTO) 0.7 /CMM (0.1-1.30); MONOCYTES % (AUTO) 5.7 % (2.0-12.0); NEUTROPHILS # (AUTO) 8.8 /CMM (1.8-8.9); NEUTROPHILS % (AUTO) 66.6 % (43.0-81.0); PLATELET COUNT (AUTO) 160 /CMM (150-450); RDW COEFFICIENT OF VARIATION 19.2 (11.5-15.0); RED BLOOD CELL COUNT(AUTO) 2.58 MIL/uL (4.5-6.0); WHITE BLOOD COUNT (AUTO) 13.1 K/uL (4.3-11.0)
--- NOTE | 2017-12-03 07:15 | NUR ---
RAUDEL/RN INITIAL NOTES RECEIVED PT IN BED, OBTUNDED. WITH INTACT TRACH SHILEY#8 TOLERATING VENT SETTINGS: AC 20; TV 550; FI02:35%; PEEP 5. NO SOB NOTED. AFIB HR 70S ON TELEMONITOR. WITH GTUBE INTACT AND IN PLACED, WITH ONGOING GTF NEPRO @ 65ML/HR, TOLERATING WELL. WITH ONGOING IVF NS AT 100ML/HR INFUSING WELL ON RFA G18 IV. LHAND G22 SL INTACT AND PATENT. RUPPER CHEST HD CATH INTACT. NOTED MULTIPLE WOUNDS AND BUE NON-PITTING EDEMA. FC INTACT AND IN PLACED DRAINING YELLOW COLORED URINE BY GRAVITY. HOB ELEVATED. SAFETY MEASURES AND ASPIRATION PRECAUTION IN PLACED. PT ON EXTERNAL DEFIB VEST, BATTERY IS EMPTY. PER REAL ESTATE PROCESSOR ENDORSEMENT,JENIFER PINTO WILL DELIVER VARNISH MELTER HELPER TODAY. WILL FOLLOW UP. WILL CONT TO MONITOR
[2017-12-03 07:30] LABS: CALCIUM, SERUM 7.5 mg/dL (8.5-10.1); CARBON DIOXIDE 23 mmol/L (21-32); CHLORIDE 95 mmol/L (98-107); CREATININE 2.8 mg/dL (0.6-1.3); GLUCOSE 82 mg/dL (74-106); MAGNESIUM 1.6 mg/dL (1.8-2.4); PHOSPHORUS 3.9 mg/dL (2.5-4.9); POTASSIUM 3.2 mmol/L (3.5-5.1); SODIUM SERUM 126 mmol/L (136-145); UREA NITROGEN, BLOOD 33 mg/dL (7-18)
[2017-12-03 07:43] LABS: ALBUMIN 1.2 g/dL (3.4-5.0)
[2017-12-03 08:00] VITALS: BP 124/51
[2017-12-03] MEDS: PANTOPRAZOLE 40 MG/PACK PACK GT SCH ×2 (08:32→21:05)
[2017-12-03] MEDS: PROSOURCE / PROSTAT (PYXIS) 30 ML UDC GT SCH ×3 (08:32→16:10)
[2017-12-03] MEDS: ACIDOPHILUS/BULGARICUS 1 EACH TAB.CHEW GT SCH ×3 (08:32→16:10)
[2017-12-03] MEDS: GABAPENTIN 300 MG CAPSULE GT SCH ×3 (08:33→16:10)
[2017-12-03] MEDS: VIT B CMPLX 3/FA/VIT C/BIOTIN 1 TAB TABLET PO SCH (08:33)
[2017-12-03] MEDS: HYDROCODONE/APAP 5/325MG 1 EACH TABLET GT SCH (08:33)
[2017-12-03] MEDS: AMIODARONE HCL 200 MG TABLET GT SCH (08:34)
[2017-12-03] MEDS: ASCORBIC ACID 500 MG TABLET PO SCH (08:34)
[2017-12-03] MEDS: CARVEDILOL 3.125 MG TABLET GT SCH ×2 (08:34→21:06)
[2017-12-03] MEDS: NYSTATIN/TRIAMCIN CREAM 15 GM TUBE TP SCH ×2 (09:00→15:20)
[2017-12-03] MEDS: VITAMINS A AND D 56.7 GM TUBE TP SCH ×2 (09:00→21:11)
[2017-12-03] MEDS ORDERED: NEOMY SULF/BACITRAC ZN/POLY 15 GM TUBE TP SCH (09:00)
[2017-12-03] MEDS ORDERED: HYDROGEL DRESSING 90 GM TUBE TP SCH (09:00)
[2017-12-03] MEDS ORDERED: IV NS 0.9% 1,000 ML BAG IV SCH (09:00)
[2017-12-03] MEDS ORDERED: DAKINS QUARTER STRENGTH (0.125%) 480 ML BOTTLE TOP SCH (09:00)
[2017-12-03] MEDS ORDERED: CASPOFUNGIN ACETATE 50 MG IV SCH (09:00)
[2017-12-03] MEDS ORDERED: ALBUMIN 25% 25 GM in PREMIX 1 EA IV ONE (10:30)
[2017-12-03 10:41] LABS: LDL 13 mg/dL (0-99); TRIGLYCERIDES 53 mg/dL (30-150)
[2017-12-03 11:10] LABS: CHOLESTEROL 28 mg/dL (<200)
--- NOTE | 2017-12-03 11:28 | NUR ---
RN NOTES CLARIFIED WITH DR ZUNIGA REGARDING ISS. PER PT ON MILD ISS. ALSO ASKED MD IF HE RECOMMENDS FLU/PNA VACCINE, PER DTR REQUEST. PER MD DOES NOT RECOMMEND VACCINES THIS TIME
[2017-12-03] MEDS ORDERED: INSULIN REGULAR, HUMAN 100 UNIT/ML 3 ML VIAL SQ PRN (11:30)
[2017-12-03] MEDS ORDERED: DEXTROSE 50%-WATER 50 ML DISP.SYRIN IV PRN (11:30)
[2017-12-03 11:54] LABS: HDL CHOLESTEROL < 10 mg/dL (40-60)
[2017-12-03 12:00] VITALS: BP 108/47
--- NOTE | 2017-12-03 12:20 | NUR ---
RN NOTES CALLED JENIFER PINTO TO FOLLOW UP THE BATTEY/GLUE LINE OPERATOR OF PT'S EICD, SPOKE WITH WILLIAM, PER WILLIAM, THEY DON'T HAVE THE MEANS TO DELIVER IT RIGHT NOW. BUT WILL SEE WHAT HE CAN DO AND WILL GIVE HOSP UPDATE
[2017-12-03] MEDS: NEOMY SULF/BACITRAC ZN/POLY 15 GM TUBE TP SCH (15:20)
[2017-12-03] MEDS: DAKINS QUARTER STRENGTH (0.125%) 480 ML BOTTLE TOP SCH (15:20)
--- NOTE | 2017-12-03 15:27 | NUR ---
RN NOTES EICD BATTERY AND LITERACY TEACHER RECEIVED. EICD BATTERY CHANGED
[2017-12-03 16:00] VITALS: BP 109/40
[2017-12-03] MEDS ORDERED: VANCOMYCIN 500 MG in IV D5W 100 ML IV PRN (19:00)
--- NOTE | 2017-12-03 19:11 | NUR ---
RN NOTES PT IN STABLE CONDITION. NO ACUTE CHANGES THROUGHOUT SHIFT. SAFETY MEASURES AND ASPIRATION PRECAUTION OBSERVED AT ALL TIMES. ALL NEEDS ANTICIPATED. ENDORSED TO PM SHIFT RN FOR CHRISTIAN
[2017-12-03 20:00] VITALS: BP 123/77
[2017-12-03] MEDS ORDERED: MICAFUNGIN SODIUM 100 MG in IV NS 0.9% 100 ML IV SCH (20:00)
--- NOTE | 2017-12-03 20:00 | NUR ---
RN INITIAL NOTES RECEIVED PT IN BED, OBTUNDED. WITH INTACT TRACH SHILEY#8 TOLERATING VENT SETTINGS: AC 20; TV 550; FI02:35%; PEEP 5. NO SOB NOTED. AFIB HR 70S ON TELEMONITOR. WITH G TUBE INTACT AND CLAMPED. CONTINUOS IVF NS AT 100ML/HR INFUSING WELL ON RFA G18 IV. L HAND G22 SL INTACT AND PATENT. R UPPER CHEST HD CATH INTACT. NOTED MULTIPLE WOUNDS AND BUE NON-PITTING EDEMA. FC INTACT AND IN PLACED DRAINING YELLOW COLORED URINE BY GRAVITY. HOB ELEVATED. SAFETY MEASURES AND ASPIRATION PRECAUTION IN PLACED. PT ON EXTERNAL DEFIB VEST. WILL CONT TO MONITOR
[2017-12-03] MEDS: ATORVASTATIN 40 MG TABLET GT SCH (21:04)
[2017-12-03] MEDS: HYDROGEL DRESSING 90 GM TUBE TP SCH (21:07)
[2017-12-03] MEDS: CEFEPIME 1 GM in IV NS 0.9% 50 ML IV SCH (21:07)
[2017-12-03] MEDS: NEPRO 1,000 ML BOTTLE GT PRN (23:19)
--- NOTE | 2017-12-03 23:39 | NUR ---
PATIENT WAS RECEIVED ON CONTINUOUS VENT SUPPORT ON NOTED SETTINGS. B/S RHONCHI, SUCTIONED PATIENT WITH A SMALL AMOUNT OF THIN PALE YELLOWISH SECRETIONS. AMBUBAG AT BED SIDE . VENT PLUGGED INTO RED OUTLET, ALARMS ARE ON AND AUDIBLE. TRACH TUBE PATENT AND SECURED.WILL CONTINUE TO MONITOR. Addendum: 12/03/17 at 2343 by YOLANDA OAKES RT Amended: Links added.
[2017-12-04] VITALS: BP 102/49
[2017-12-04] MEDS: NEOMY SULF/BACITRAC ZN/POLY 15 GM TUBE TP SCH ×2 (02:30→15:14)
[2017-12-04] MEDS: NYSTATIN/TRIAMCIN CREAM 15 GM TUBE TP SCH ×2 (02:30→15:14)
[2017-12-04 04:00] VITALS: BP 117/66
[2017-12-04] MEDS: IV NS 0.9% 1,000 ML IV PRN (05:56)
[2017-12-04] MEDS: BLOOD SUGAR DIAGNOSTIC 1 EACH STRIP IN SCH ×3 (06:01→17:39)
--- NOTE | 2017-12-04 06:19 | NUR ---
RN CLOSING NOTES PT IN STABLE CONDITION. NO ACUTE CHANGES THROUGHOUT SHIFT. SAFETY MEASURES AND ASPIRATION PRECAUTION OBSERVED AT ALL TIMES. ALL NEEDS ANTICIPATED AND MET.ALL MEDS GIVEN. WILL ENDORSED TO AM SHIFT RN FOR CHRISTIAN
[2017-12-04 07:09] LABS: CALCIUM, SERUM 6.5 mg/dL (8.5-10.1); CREATININE 2.5 mg/dL (0.6-1.3); POTASSIUM 3.3 mmol/L (3.5-5.1)
[2017-12-04 08:00] VITALS: BP 106/30
--- NOTE | 2017-12-04 08:08 | NUR ---
RT PATIENT TRACHED ON [facility] VENT WITH ORDERED SETTINGS BRIGHT WELL. VENT ALARMS CHECKED + AUDIBLE. CUFF PRESSURE CHECKED MIXER HELPER. PATIENTS AIRWAY SUCTIONED WITH SMALL AMT OF PALE SEMITHICK SECRETIONS. AMBU BAG AT [facility]. Addendum: 12/04/17 at 0809 by OBINNA LAM RT Amended: Links added.
[2017-12-04] MEDS ORDERED: CADEXOMER IODINE 40 GM TUBE TP SCH (09:00)
[2017-12-04] MEDS: CARVEDILOL 3.125 MG TABLET GT SCH (09:00)
[2017-12-04] MEDS: PROSOURCE / PROSTAT (PYXIS) 30 ML UDC GT SCH ×3 (09:44→17:00)
[2017-12-04] MEDS: ASCORBIC ACID 500 MG TABLET PO SCH (09:44)
[2017-12-04] MEDS: GABAPENTIN 300 MG CAPSULE GT SCH ×3 (09:44→17:00)
[2017-12-04] MEDS: ACIDOPHILUS/BULGARICUS 1 EACH TAB.CHEW GT SCH ×3 (09:44→17:00)
[2017-12-04] MEDS: HYDROCODONE/APAP 5/325MG 1 EACH TABLET GT SCH (09:45)
[2017-12-04] MEDS: AMIODARONE HCL 200 MG TABLET GT SCH (09:46)
[2017-12-04] MEDS: PANTOPRAZOLE 40 MG/PACK PACK GT SCH (09:47)
[2017-12-04] MEDS: VIT B CMPLX 3/FA/VIT C/BIOTIN 1 TAB TABLET PO SCH (09:47)
[2017-12-04] MEDS: HYDROGEL DRESSING 90 GM TUBE TP SCH (09:47)
[2017-12-04] MEDS: VITAMINS A AND D 56.7 GM TUBE TP SCH (09:56)
[2017-12-04 11:25] LABS: BASOPHILS % (AUTO) 0.2 % (0.0-2.0); EOSINOPHILS % (AUTO) 5.8 % (0.0-6.0); HEMATOCRIT 25 % (39-51); HEMOGLOBIN 7.9 g/dL (13.5-17.5); LYMPHOCYTES # (AUTO) 1.8 /CMM (0.8-4.8); LYMPHOCYTES % (AUTO) 14.9 % (20.0-44.0); MEAN CORPUSCULAR HGB CONC 32 g/dl (31.0-36.0); MEAN CORPUSCULAR VOLUME 103 fL (80-96); MONOCYTES # (AUTO) 0.6 /CMM (0.1-1.30); MONOCYTES % (AUTO) 4.6 % (2.0-12.0); NEUTROPHILS # (AUTO) 9.2 /CMM (1.8-8.9); NEUTROPHILS % (AUTO) 74.5 % (43.0-81.0); PLATELET COUNT (AUTO) 167 /CMM (150-450); RDW COEFFICIENT OF VARIATION 19.7 (11.5-15.0); RED BLOOD CELL COUNT(AUTO) 2.41 MIL/uL (4.5-6.0); WHITE BLOOD COUNT (AUTO) 12.3 K/uL (4.3-11.0)
[2017-12-04 12:00] VITALS: BP 112/52
[2017-12-04] MEDS ORDERED: POTASSIUM CHLORIDE 20 MEQ POWDER PACKET GT SCH (12:30)
[2017-12-04] MEDS: DAKINS QUARTER STRENGTH (0.125%) 480 ML BOTTLE TOP SCH (15:14)
[2017-12-04 16:00] VITALS: BP 112/54
--- NOTE | 2017-12-04 17:30 | NUR ---
RN NOTE PT DISCHARGED TO [facility], REPORT GIVEN TO KAREN PANG PT IN STABLE CONDITION, DISCHARGE INSTRUCTION, MEDICATION RECONCILIATION GIVEN, EXIT CARE DONE, PT UNABLE TO COMPREHEND TEACHINGS, BELONGINGS LIST SIGNED AND BELONGINGS PROVIDED, TO PT, ROMERO CATH, IV CATHETERS LEFT IN PLACE, G TUBE CLAMPED. PT HAD EXTERNAL DEFIBRILLATOR VEST ON. PT LEFT VIA AMBULANCE.
[2017-12-04] MEDS ORDERED: CEFEPIME 1 GM in IV D5W 50 ML IV SCH (21:00)
[2018-01-04] MEDS ORDERED: VITA1TAB56 GT (08:40)
[2018-01-04] MEDS ORDERED: NYST15CR2 TP (08:40)
[2018-01-04] MEDS ORDERED: IPRA3AMP23 IH ×2 (08:40)
== END 2017-12-04 17:40 | DRG 871 ==
LOC: ER 14:44 → TELE1 18:16 → TELE-TD 20:25
PROVIDERS: ADMIT Family Medicine; ATTEND Family Medicine
PROC: 5A1945Z Respiratory Ventilation, 24-96 Consecutive Hours (ICD-10-PCS; principal; 2017-12-02)
PROC: 5A1D70Z Performance of Urinary Filtration, Intermittent, Less than 6 Hours Per Day (ICD-10-PCS; 2017-12-03)
DX: A41.9 Sepsis, unspecified organism (principal); L89.894 Pressure ulcer of other site, stage 4; L89.154 Pressure ulcer of sacral region, stage 4; E43 Unspecified severe protein-calorie malnutrition; R53.2 Functional quadriplegia; N18.6 End stage renal disease; J15.9 Unspecified bacterial pneumonia; J15.6 Pneumonia due to other Gram-negative bacteria; I21.A1 Myocardial infarction type 2; I13.2 Hypertensive heart and chronic kidney disease with heart failure and with stage 5 chronic kidney disease, or end stage renal disease; Z99.11 Dependence on respirator [ventilator] status; E87.1 Hypo-osmolality and hyponatremia; N39.0 Urinary tract infection, site not specified; J96.11 Chronic respiratory failure with hypoxia; I50.22 Chronic systolic (congestive) heart failure; I48.91 Unspecified atrial fibrillation; Z93.0 Tracheostomy status; D63.8 Anemia in other chronic diseases classified elsewhere; G40.909 Epilepsy, unspecified, not intractable, without status epilepticus; I25.10 Atherosclerotic heart disease of native coronary artery without angina pectoris; Z93.1 Gastrostomy status; E11.22 Type 2 diabetes mellitus with diabetic chronic kidney disease; E11.42 Type 2 diabetes mellitus with diabetic polyneuropathy; E11.51 Type 2 diabetes mellitus with diabetic peripheral angiopathy without gangrene; E11.649 Type 2 diabetes mellitus with hypoglycemia without coma; Z99.2 Dependence on renal dialysis; L89.220 Pressure ulcer of left hip, unstageable; L89.320 Pressure ulcer of left buttock, unstageable; L89.310 Pressure ulcer of right buttock, unstageable; L89.129 Pressure ulcer of left upper back, unspecified stage; L89.119 Pressure ulcer of right upper back, unspecified stage; L30.4 Erythema intertrigo; L30.8 Other specified dermatitis; R13.10 Dysphagia, unspecified; I50.9 Heart failure, unspecified; I48.2 Chronic atrial fibrillation; E87.6 Hypokalemia; E78.5 Hyperlipidemia, unspecified; R62.7 Adult failure to thrive; S30.812A Abrasion of penis, initial encounter; K21.9 Gastro-esophageal reflux disease without esophagitis; I25.2 Old myocardial infarction; L89.620 Pressure ulcer of left heel, unstageable; L89.610 Pressure ulcer of right heel, unstageable; L89.890 Pressure ulcer of other site, unstageable; Z95.0 Presence of cardiac pacemaker
CPT/HCPCS: 31720; 36415; 71045-TC; 80048-TC; 80061-TC; 80076-TC; 80202-TC; 81000-TC; 82040-TC; 82962-TC; 83605-TC; 83735-TC; 84100-TC; 84484-TC; 85025-TC; 85730-TC; 86850-TC; 87040-TC; 87081-TC; 87086-TC; 90935-TC; 94002-TC; 94003-TC; 94760-TC; A4216; A4606; A6248; A6253; A6403; G0378; J0692; J1815; J2248; J2543; J3370; J7030; J7060; P9047; Z7610